=== PATIENT | male | born 1960 | race Caucasian/White ===

== ENCOUNTER → 2017-08-19 07:13 | Outpatient (CLI) | payer MEDICARE, MEDICAID, SELFPAY ==
--- NOTE | 2017-08-19 07:21 | NM_ITS ---
CARDIOLITE SPECT MYOCARDIAL PERFUSION SCAN, REST AND STRESS: EXERCISE STRESS [facility] REVIEW QGS EF AND WALL MOTION EVALUATION: QPS - PERFUSION EVALUATION HISTORY: chest pain DOSE: 9.80 mCi technetium 99m mibi intravenously at rest followed by 31.3 mCi technetium 99m mibi following the intravenous ministration of 0.4 mg of Lexiscan. Resting blood pressure is 143/82. Stress blood pressure 140/82. FINDINGS: Ejection fraction is calculated to be 60%. Stress images reveal decreased activity through the inferior wall with no significant change on rest images. Gated images calculated ejection fraction of 60% with anterior hypokinesis. IMPRESSION: Anterior wall hypokinesis on gated images with poor exercise capacity requiring conversion to Lexiscan. The inferior wall is abnormal with both stress and rest most consistent with diaphragm attenuation. Clinical correlation is advised. This is an abnormal Myoview, at least moderate risk
--- NOTE | 2017-08-19 11:20 | HMH.ITSHM ---
farxiga lisinopril isosorbide amlodipine omeprazole glipizide
--- NOTE | 2017-08-19 11:58 | HMH.ITSHM ---
farxiga lisinopril isosorbide amlodipine omeprazole glipizide tamsulosin carvedilol atorvastatin
== END ==
PROVIDERS: Family Provider Family Medicine; PCP Nurse Practitioner Family; Visit Provider Internal Medicine
DX: I20.8 Other forms of angina pectoris (principal)
CPT/HCPCS: 78452; 93017; 93306; A9502; J2785

== ENCOUNTER → 2017-12-28 07:22 | Outpatient (CLI) | payer MEDICARE, MEDICAID, SELFPAY ==
--- NOTE | 2017-12-28 08:00 | US_ITS ---
US liver HISTORY: ITS.REASON: elevated liver enzymes ORDERING PHYSICIAN: Odin Delatorre MD PATIENT AGE: 57 years COMPARISON: None FINDINGS: PANCREAS:Unremarkable. No obvious mass or abnormal fluid collection. No ductal dilatation LIVER:There is increased echogenicity of the liver with decreased through transmission of sound consistent with fatty liver. There is appropriate direction of blood flow within a nondilated portal vein. No focal liver lesions are demonstrated. Common bile duct is slightly prominent at 7 mm and may be response to the previous cholecystectomy. No intrahepatic ductal dilatation apparent.. RIGHT KIDNEY:Unremarkable. Normal size and echogenicity. No hydronephrosis There is a small right renal cyst at 13 mm. There has been a prior cholecystectomy. IMPRESSION: 1. Prior cholecystectomy with minimal ectasia of the common bile duct. 2. Small right renal cyst. 3. Fatty liver
[2017-12-28 08:14] LABS: Chol/HDL Ratio 5.8 (1-3.5); Cholesterol 197 mg/dL (140-200); HDL Cholesterol 34 mg/dL (27-67); LDL Cholesterol 89 mg/dL (0-130); Triglycerides 368 mg/dL (30-200); VLDL Cholesterol 74 mg/dL (0-40)
== END ==
PROVIDERS: Urology; Family Provider Family Medicine; PCP Nurse Practitioner Family; Visit Provider Internal Medicine
DX: E11.9 Type 2 diabetes mellitus without complications (principal); E78.5 Hyperlipidemia, unspecified; I10 Essential (primary) hypertension; I25.10 Atherosclerotic heart disease of native coronary artery without angina pectoris; R74.8 Abnormal levels of other serum enzymes
CPT/HCPCS: 36415; 76705; 80061

== ENCOUNTER → 2018-07-20 08:29 | Outpatient (CLI) | payer MEDICARE, MEDICAID, SELFPAY ==
[2018-07-20 11:04] LABS: Alanine Aminotransferase 66 U/L (12-78); Alkaline Phosphatase 97 U/L (46-116); Aspartate Amino Transferase 28 U/L (15-37); Bilirubin,Direct 0.2 mg/dL (0.0-0.2); Bilirubin,Indirect 0.6 mg/dL (0.0-0.9); Bilirubin,Total 0.8 mg/dL (0.2-1.0); Chol/HDL Ratio 5.5 (1-3.5); Cholesterol 197 mg/dL (140-200); HDL Cholesterol 36 mg/dL (27-67); LDL Cholesterol 121 mg/dL (0-130); Triglycerides 199 mg/dL (30-200); VLDL Cholesterol 40 mg/dL (0-40)
== END ==
PROVIDERS: Visit Provider Nurse Practitioner Family
DX: I20.8 Other forms of angina pectoris; E78.49 Other hyperlipidemia; I10 Essential (primary) hypertension; M79.89 Other specified soft tissue disorders; R06.09 Other forms of dyspnea
CPT/HCPCS: 36415; 80061; 80076

== ENCOUNTER → 2019-02-02 10:03 | Outpatient (CLI) | payer MEDICARE, SELFPAY ==
--- NOTE | 2019-02-02 10:09 | XR_ITS ---
PROCEDURE: XR KUB CLINICAL INDICATION: KIDNEY STONES Follow-up kidney stones COMPARISON: CT ABDOMEN PELVIS WO CON from 01/22/2019 FINDINGS: There is a right ureteral stent in place. There are multiple right renal calculi in the mid and lower pole of the right kidney. The proximal aspect of the stent overlies the region of the right renal pelvis and the distal aspect overlies the region of the urinary bladder. A 2 mm stone overlies the mid aspect of the left kidney. IMPRESSION: 1. Right ureteral stent in satisfactory position. 2. Bilateral renal calculi much more extensive on the right. Dictated by: Melecio Garcia MD 02/02/2019 15:47 Electronically signed by Melecio Garcia MD in [facility] 02/02/2019 15:47
== END ==
PROVIDERS: PCP Nurse Practitioner Family; Visit Provider Urology
DX: N20.0 Calculus of kidney (principal)
CPT/HCPCS: 74018

== ENCOUNTER → 2019-02-09 10:20 | Outpatient (CLI) | payer MEDICARE, SELFPAY ==
--- NOTE | 2019-02-09 10:26 | XR_ITS ---
PROCEDURE: XR KUB CLINICAL INDICATION: KIDNEY STONE Right kidney stone COMPARISON: CT ABDOMEN PELVIS WO CON from 01/22/2019 XR KUB from 02/02/2019 FINDINGS: A right ureteral stent is in place. There are multiple stones overlying the mid lower pole of the right kidney. No obvious calculi along the course of the ureteral stent. Left nephrolithiasis also noted. Tiny calcific density is present in the left pelvic region and could be related to residual distal ureteral stone. This measures approximately 2 mm. IMPRESSION: No change bilateral nephrolithiasis, right ureteral stent, and possible left distal ureteral calculus Dictated by: Melecio Garcia MD 02/09/2019 15:02 Electronically signed by Melecio Garcia MD in [facility] 02/09/2019 15:02
== END ==
PROVIDERS: PCP Nurse Practitioner Family; Visit Provider Urology
DX: N20.0 Calculus of kidney (principal)
CPT/HCPCS: 74018

== ENCOUNTER 2019-10-25 21:24 | Emergency (ER) | payer MEDICARE, MEDICAID, SELFPAY ==
[2019-10-25 21:26] VITALS: BP 149/88; PULSE 97; RESP 16; TEMP 36.8; O2SAT 98; BMI 32.5
--- NOTE | 2019-10-25 21:36 | ECG_ITS ---
APPROVED REPORT Exam: Resting ECG HR:99 bpm ECG Measurements Heart Rate 99 AXES NH 138 P 53 QRSd 104 QRS 5 QT 344 T 64 QTc 441 <Conclusion> Normal sinus rhythm Incomplete right bundle branch block Nonspecific T wave abnormality Abnormal ECG Electronically signed by : Christopher Escamilla, 10/28/2019 08:30:51
--- NOTE | 2019-10-25 21:41 | XR_ITS ---
PROCEDURE: XR CHEST 2V CLINICAL HISTORY: chest pain COMPARISON: No exams were available for comparison FINDINGS: The cardiomediastinal silhouette and pulmonary vascularity are within normal limits. No lobar consolidation or collapse. There is a faint opacity in the right lower lobe 6 mm nonspecific. The remaining lungs are clear. Coronary artery calcifications are present. No acute bony abnormalities. IMPRESSION: No acute finding. Indeterminate lower lobe nodular opacity Dictated b Melecio Garcia MD 10/26/2019 07:48 Melecio Garcia MD in [facility] 10/26/2019 07:48
[2019-10-25 21:48] LABS: Basophils # 0.1 K/mm3 (0-0.2); Basophils % 0.7 % (0.1-2.0); Eosinophils # 0.3 K/mm3 (0.0-0.4); Eosinophils % 4.2 % (0.1-12.0); Hemoglobin 16.5 g/dL (14.1-18.0); Lymphocytes # 2.5 K/mm3 (0.7-4.5); Lymphocytes % 30.5 % (10-50); Mean Corpuscular HGB Conc 35.2 g/dL (31.8-35.4); Mean Corpuscular Volume 91.1 fl (80-94); Mean Platelet Volume 7.8 fl (7.4-10.4); Monocytes # 0.5 K/mm3 (0.1-1.0); Monocytes % 5.5 % (1.7-9.3); Neutrophils # 4.9 K/mm3 (1.8-7.8); Neutrophils % 59.2 % (37.0-80.0); Platelet Count 237 K/mm3 (142-424); Red Blood Count 5.16 M/mm3 (4.60-6.20); Red Cell Distribution Width 13.1 % (11.5-17.5); White Blood Count 8.3 K/mm3 (4.8-10.8)
--- NOTE | 2019-10-25 21:50 | PC.NURSE ---
lying 148/89 100HR sitting 149/88 108HR standing 126/84 113HR
[2019-10-25 21:52] LABS: POC Glucose,Bedside 358 (70-110)
[2019-10-25 21:52] LABS: Anion Gap 20.1 mEq/L (5-15); Blood Urea Nitrogen 20 mg/dl (9-20); Calcium 9.8 mg/dl (8.4-10.2); Carbon Dioxide 24 mmol/L (22.0-30.0); Chloride 97 mmol/L (98-107); Estimated Glomerular Filt Rate 62 ml/min (>60); GFR (African American) 75 ML/MIN (>60); Glucose 371 mg/dl (74-100); Potassium 4.1 mmoL/L (3.5-5.1); Sodium 137 mmol/L (136-145)
--- NOTE | 2019-10-25 21:52 | CT_ITS ---
PROCEDURE: CT HEAD/BRAIN WO CON CLINICAL INDICATION: syncope Dizziness, syncope COMPARISON: No exams were available for comparison TECHNIQUE: Axial images obtained. All CT scans at the facility use one or more dose reduction, viz: automated exposure control, ma/kV adjustment per patient size (including targeted exams where dose is matched to indication, i.e. head), or iterative reconstruction technique. FINDINGS: No midline shift, mass effect, intracranial hemorrhage, hydrocephalus, or extra-axial fluid collection is evident. The calvarium has an unremarkable appearance. No mastoid effusion. No sinus air-fluid level. IMPRESSION: No acute intracranial finding Dictated b Melecio Garcia MD 10/26/2019 08:07 Melecio Garcia MD in [facility] 10/26/2019 08:07
[2019-10-25 22:06] LABS: Troponin I < 0.01 ng/ml (0.00-0.034)
[2019-10-25 22:21] VITALS: BP 154/87; PULSE 90; RESP 18; O2SAT 95
[2019-10-25 22:30] VITALS: BP 136/91; PULSE 75; RESP 16; O2SAT 95
[2019-10-25 22:47] LABS: Microscopic, Urine URINE MICROSCOPIC (MICROSCOPIC)
[2019-10-25 22:58] LABS: Appearance,Urine CLEAR (Clear); Bilirubin,Urine Negative (Negative); Blood, Urine 2+ (Negative); Color,Urine YELLOW (Yellow); Glucose,Urine (UA) 3+ (Negative); Ketones,Urine Negative (Negative); Leukocyte Esterase,Urine Negative (Negative); Nitrate,Urine Negative (Negative); PH,Urine 5.5 (5.0-8.5); Protein,Urine Negative (Negative); Urobilinogen,Urine 0.2 EU/dl (0.2)
[2019-10-25 23:09] VITALS: BP 112/72; PULSE 76; RESP 16; TEMP 36.8; O2SAT 95
[2019-10-25 23:09] LABS: Bacteria,Urine Trace /lpf; Squamous Epithelial Cell,Urine Occasional #/hpf (0-5); WBC,Urine Occasional #/hpf (0-3)
--- NOTE | 2019-10-25 23:12 | HMH.EDSYNC ---
ED Disposition Clinical Impression: Vasovagal syncope Disposition: Home, Self-Care Condition on Discharge: Good Instructions: DI for Syncope in Adults (Fainting), DI for Syncope in Children (Fainting) Referrals: PCP,No [Primary Care Provider] - - Critical Care Critical Care Time: No Attestation: On 10/25/19, the high probability of a clinically significant, sudden or life threatening deterioration of the following system(s) required my full and direct attention, intervention and personal management. The time I documented below is in addition to time spent performing reported procedures but includes the following listed in this critical care notation. Medical Decision Making - Medical Records Medical records reviewed: Yes: I reviewed the patient's medical records. - Herman Inquiry Pt receiving controlled substance: No Vital Signs: 10/25/19 21:26 10/25/19 22:21 Temperature 98.2 F Temperature Source Oral Pulse Rate [Left Radial] 97 H 90 Respiratory Rate 16 18 Blood Pressure [Right Arm] 149/88 H 154/87 H Blood Pressure Mean [Right Arm] 108 109 Blood Pressure Source [Right Arm] Automatic Cuff Blood Pressure Position [Right Arm] Sitting 02 Sat by Pulse Oximetry 98 95 Oxygen Delivery Method Room Air Room Air - Lab Data Lab results reviewed: Yes: I reviewed the patient's lab results. Lab Results 10/25/19 21:34: POC Glucose 358 H* 10/25/19 21:38: WBC 8.3, RBC 5.16, Hgb 16.5, Hct 47.0, MCV 91.1, MCH 32.0 H, MCHC 35.2, RDW 13.1, Plt Count 237, MPV 7.8, Neut % (Auto) 59.2, Lymph % (Auto) 30.5, [place] % (Auto) 5.5, Eos % (Auto) 4.2, Baso % (Auto) 0.7, Neut # (Auto) 4.9, Lymph # (Auto) 2.5, [place] # (Auto) 0.5, Eos # (Auto) 0.3, Baso # (Auto) 0.1 10/25/19 21:38: Sodium 137, Potassium 4.1, Chloride 97 L, Carbon Dioxide 24, Anion Gap 20.1 H, BUN 20, Creatinine 1.20, Estimated GFR 62, Est GFR ( Amer) 75, Glucose 371 H, Calcium 9.8, Troponin I < 0.01 10/25/19 21:45: Urine Color Yellow, Urine Appearance Clear, Urine pH 5.5, Ur Specific [place] 1.020, Urine Protein Negative, Urine Glucose (UA) 3+, Urine Ketones Negative, Urine Blood 2+, Urine Nitrate Negative, Urine Bilirubin Negative, Urine Urobilinogen 0.2, Ur Leukocyte Esterase Negative, Urine RBC 10-20, Urine WBC Occasional, Ur Squamous Epith Cells Occasional, Urine Bacteria Trace Result diagrams: 10/25/19 21:38 10/25/19 21:38 Orders (Tests/Meds): ORDERS Category Date Time Status CT head/brain wo con Stat Cat Scan 10/25/19 21:52 Taken Chest XR 2 view (NOT portable) [XR chest 2V] Stat Exams 10/25/19 21:41 Taken Troponin I Q3H Lab 10/26/19 00:45 Ordered Troponin I Q3H Lab 10/26/19 03:45 Ordered - CT Data CT Scan: Head Time Received: 22:00 Preliminary Findings: Normal/NAD - ECG Data Tracing #1 I reviewed this ECG and interpreted as documented below: Normal Sinus Rhythm: Yes Syncope HPI - General Chief Complaint: Syncope Stated Complaint: High sugar, blood pressure ws 209/109 this AM Time Seen by Provider: 10/25/19 22:00 Mode of Arrival: Ambulatory Limitations: No Limitations Description of Symptoms (Recalled from ER Triage Doc. by RN): pt complains of syncopal episdoes starting yesterday. pt stated when he was laying down and would go to get up he would get light headed and his eyes would black out . pt also complains of chest pain during these episodes he stated he feels like a sharp pain that radiated up his neck. pt denies any pain or dizziness at this time and stated it only happens when i stand up - History of Present Illness HPI narrative: A 59-year-old male comes in with a syncopal episode at home. He also states that his blood sugar had been high 450 at home as well. Patient is an uncontrolled diabetic but does not comply with current treatment regime. Patient denies really any other symptoms denies any acute trauma he states he has had syncopal episodes in the past.Patient denies any recent cough or shortness of
== END 2019-10-25 23:11 | disposition home or self-care (01) ==
PROVIDERS: Emergency Provider Family Medicine
DX: R55 Syncope and collapse (principal); R07.9 Chest pain, unspecified; E11.9 Type 2 diabetes mellitus without complications; K21.9 Gastro-esophageal reflux disease without esophagitis; E78.5 Hyperlipidemia, unspecified; I10 Essential (primary) hypertension; Z79.84 Long term (current) use of oral hypoglycemic drugs; F17.210 Nicotine dependence, cigarettes, uncomplicated; Z88.0 Allergy status to penicillin; Z79.899 Other long term (current) drug therapy
CPT/HCPCS: 70450; 71046; 80048; 81001; 82962; 84484; 85025; 93005; 96365; 99284

== ENCOUNTER → 2019-11-10 11:24 | Outpatient (CLI) | payer MEDICARE, MEDICAID, SELFPAY ==
--- NOTE | 2019-11-10 | CA_ITS ---
APPROVED REPORT Exam: Pharmacologic Technologist: Barbara Dai, Ht: 5 ft 9 in Wt: 219 lbs BSA: 2.15 m2 HR: 74 bpm BP: 115/67 mmHg Rhythm: SINUS RHYTHM Medical History Medical History: HTN, Hyperlipidemia, Diabetic ??? Noninsulin Medications: Amlodipine,,,,, Lisinopril,,,,, Omeprazole,,,,, Isosorbide,,,,, Asa,,,,, Metformin,,,,, Hydrocodone,,,,, Atorvastatin,,,,, HCTZ,, ,,, Carvedilol,,,,, Glipizide,,, ,, MoTRIN,,,,, Allergies: PCN Cardiac Risk Factors: HTN, Hyperlipidemia, Diabetes (non-insulin), FHX of CAD Stress Test Details Test: LEXISCAN HR Resting HR: 69 bpm Max Heart Rate (APMHR): 161 bpm Max HR Achieved: 104 bpm Target HR (85% APMHR): 136 bpm % of APMHR: 64 Recovery HR: 74 bpm BP Resting BP: 115.0/67.0 mmHg Max BP: 132.0/66.0 mmHg Recovery BP: 106.0/69.0 mmHg ECG Resting ECG: SINUS RHYTHM Clinical Exercise duration: 04:08 min Highest Stage Achieved: Exercise capacity: 1.0 METs Stress ECG Conclusion LEXISCAN PORTION COMPLETED. PATIENT C/O SOA DURING PEAK INFUSION. NO CHEST PAIN. SOA AND DIZZY RESOLVED IN RECOVERY. NO ECTOPY NOTED. LESS THAN 1.[address] DEPRESSION. IMAGES TO FOLLOW Electronically signed by : Gallito Kincaid, 11/10/2019 13:47:09
--- NOTE | 2019-11-10 11:24 | NM_ITS ---
APPROVED REPORT Exam: Nuclear Stress Test Indication: CAD, HX SC, OBESITY, HTN, DM,HYPERLIPIDEMIA,FM HX, SOB, PALPITATIONS, SYNCOPE, FATIGUE Patient Location: Outpatient Stress Tech: Oralia Almaraznkson [place] Tech:Merry Rodriguez, ARRT RT(R)(N) Ht: 5 ft 9 in Wt: 219 lbs HR: 74 bpm BP: 115/67 mmHg BSA: 2.15 m2 BMI: 32.3 History: CAD, HX SC, OBESITY, HTN, DM,HYPERLIPIDEMIA,FM HX, SOB, PALPITATIONS, SYNCOPE, FATIGUE Procedure: Patient received a 0.4 mg of intravenous Lexiscan, resting heart rate 74 bpm, resting blood pressure 115/67 mmHg, with Lexiscan maximum heart rate achived was 104 bpm which is Less than 85 % of the maximum predicted heart rate and blood pressure was 105/61 mmHg. Electrocardiogram Resting electrocardiogram showed sinus rhythm, with Lexiscan there is less than 1.[address] segment depression noted from the baseline EKG. The EKG portion of the Lexiscan Myoview is nondiagnostic. Cardiac Stress and Resting SPECT Images: Cardiac Stress and Resting SPECT images were obtained using technetium 99m Myoview 31.0 mCi stress and 11.12 mCi at rest. Gated SPECT for analysis of segmental wall motion and calculation of the ejection fraction also done. Cardiac stress and resting SPECT images show uniform myocardial activity without segmental perfusion abnormality, computer derived ejection fraction is 52% with no regional wall motion abnormality, right ventricle is normal size and contractility. Conclusion: 1. The EKG portion of the Lexiscan Myoview is nondiagnostic. 2. No scintigraphic evidence of reversible ischemia seen, computer derived ejection fraction is 52% with no regional wall motion abnormality, right ventricle is normal size and contractility. 3. Normal Lexiscan Myoview study. Electronically signed by : Gallito Kincaid, 11/12/2019 17:27:13
--- NOTE | 2019-11-10 12:37 | CA_ITS ---
APPROVED REPORT EXAM: Comprehensive 2D, Doppler, and color-flow Echocardiogram Screening Technician: Mandi Restrepo RT(R) Ht: 5 ft 9 in Wt: 219lbs BSA: 2.15 BP: 135/87 mmHg Indications: CP, CAD, GERD, SOB, DM, HTN, hyperlipidemia, smoker 2D Dimensions LVOT 2.07 cm (M/F) 1.5-2.5 M-Mode Dimensions RVDd 3.61 cm (0.9-2.6) LVDd 4.71 cm (3.5-5.7) LVDs 3.36 cm (3.5-5.7) IVSd 1.19 cm (0.6-1.1) PWd 0.76 cm (0.6-1.1) EF (Teich) 55.20% FS 28.70% EDV (Teich) 102.90 mL ESV (Teich) 46.10 mL LV Diastology E/A Ratio 0.82 Mitral Valve MV A Velocity 66.00 (40-130 cm/s) Left Ventricle Left atrium is mildly enlarged, left ventricle is normal size, mild concentric left ventricular hypertrophy, visually estimated ejection fraction 55% with no regional wall motion abnormality, grade 1 diastolic dysfunction seen without tissue Doppler evidence of raise left atrial pressure. Right Ventricle Right atrium and right ventricle is normal size and contractility. Aortic Valve Aortic valve is minimally thickened and fibrosed, there is no aortic stenosis or aortic insufficiency. Mitral Valve Mitral valve grossly normal, there is trace mitral regurgitation. Tricuspid Valve Tricuspid valve grossly normal, there is trace tricuspid regurgitation. Pulmonic Valve Pulmonic valve is poorly visualized. Great Vessels Aortic root is normal size. Pericardium No significant pericardial effusion noted. Conclusion 1. Mildly enlarged left atrium, normal left ventricular size, mild concentric left ventricular hypertrophy, visually estimated ejection fraction 55% with no regional wall motion abnormality, grade 1 diastolic dysfunction seen without tissue Doppler evidence of raise left atrial pressure. 2. Mild mitral and tricuspid regurgitation. 3. No significant pericardial effusion noted. Electronically signed by : Gallito Kincaid, 11/10/2019 14:17:28
== END ==
PROVIDERS: PCP Nurse Practitioner Family; Visit Provider Nurse Practitioner Family
DX: I10 Essential (primary) hypertension; I25.118 Atherosclerotic heart disease of native coronary artery with other forms of angina pectoris; E78.49 Other hyperlipidemia; R06.09 Other forms of dyspnea; R42 Dizziness and giddiness
CPT/HCPCS: 78452; 93017; 93306; A9502; J2785

== ENCOUNTER → 2020-07-20 15:42 | Outpatient (CLI) | payer MEDICARE, MEDICAID, SELFPAY ==
[2020-07-20 16:44] LABS: Basophils % 0.7 % (0.1-2.0); Eosinophils # 0.4 K/mm3 (0.0-0.4); Eosinophils % 5.3 % (0.1-12.0); Hemoglobin 15.6 g/dL (14.1-18.0); Lymphocytes # 1.9 K/mm3 (0.7-4.5); Lymphocytes % 28.9 % (10-50); Mean Corpuscular HGB Conc 33.3 g/dL (31.8-35.4); Mean Corpuscular Hemoglobin 29.9 pg (27.0-31.2); Mean Platelet Volume 7.9 fl (7.4-10.4); Monocytes # 0.3 K/mm3 (0.1-1.0); Monocytes % 5.1 % (1.7-9.3); Platelet Count 205 K/mm3 (142-424); Red Blood Count 5.22 M/mm3 (4.60-6.20); Red Cell Distribution Width 13.1 % (11.5-17.5); White Blood Count 6.6 K/mm3 (4.8-10.8)
[2020-07-20 16:51] LABS: Chloride 101 mmol/L (98-107); Potassium 4.2 mmoL/L (3.5-5.1); Sodium 135 mmol/L (136-145)
[2020-07-20 16:53] LABS: Alanine Aminotransferase 63 U/L (12-78); Aspartate Amino Transferase 54 U/L (17-59); Blood Urea Nitrogen 17 mg/dl (9-20); Estimated Glomerular Filt Rate 69 ml/min (>60); GFR (African American) 83 ML/MIN (>60)
[2020-07-20 16:54] LABS: Albumin Level 4.6 g/dl (3.5-5.0); Albumin/Globulin Ratio 1.4 (1.1-1.8); Alkaline Phosphatase 110 U/L (38-126); Anion Gap 16.2 mEq/L (5-15); Bilirubin,Total 1.3 mg/dl (0.2-1.3); Calcium 9.2 mg/dl (8.4-10.2); Carbon Dioxide 22 mmol/L (22.0-30.0); Globulin 3.2 g/dL (1.3-3.2); Total Protein,Serum 7.8 g/dl (6.3-8.2)
[2020-07-20 17:03] LABS: Glucose 437 mg/dl (74-100)
[2020-07-20 17:14] LABS: Coronavirus 19 IgG Antibody Negative (Negative); Coronavirus 19 IgM Antibody Negative (Negative)
== END ==
PROVIDERS: PCP Nurse Practitioner Family; Visit Provider Internal Medicine
DX: Z01.818 Encounter for other preprocedural examination (principal); Z11.52 Encounter for screening for COVID-19
CPT/HCPCS: 36415; 80053; 85025; 86328

== ENCOUNTER 2020-07-22 08:46 | Day surgery (SDC) | payer MEDICARE, MEDICAID, SELFPAY ==
[2020-07-22] VITALS (12 sets, daily range): BP systolic 136–169; BP diastolic 81–99; PULSE 61–90; RESP 13–18; TEMP 36.9; O2SAT 90–99; BMI 32.1
--- NOTE | 2020-07-22 07:10 | IR_ITS ---
APPROVED REPORT Patient Location: Outpatient [facility] Consultant: PARISH Chahal RT (R) PROCEDURES Left heart catheterization Left ventriculogram Selective coronary angiogram INDICATION Accelerated angina pectoris, Known coronary artery disease Informed consent was obtained prior to the procedure. COMPLICATIONS NONE Estimated Blood Loss: LESS THAN 10 ML TECHNIQUE One percent lidocaine used to anesthetize the right anterior aspect of the wrist. The right radial artery was accessed via the Seldinger technique. A 6 Yemeni sheath was placed in the right radial artery. 2.5 mg of verapamil, 800 mcg of nitroglycerin, 1mg Lidocaine and 5000 U Heparin were given through the arterial sheath. The Poppa catheter was also used to perform left heart catheterization, left ventriculogram and selective coronary angiogram. At the end of the procedure the sheath was removed good hemostasis was achieved using Traclet band, patient was transferred to the postop holding area in stable condition. ANGIOGRAPHIC RESULTS The left main artery Is a smooth ostial 10 to 20% stenosis The left anterior descending artery Has a smooth 20 to 30% proximal stenosis followed by mid vessel 10% luminal irregularities The circumflex artery Gives rise to a moderate to large ramus intermedius which has a stent in the ostial proximal segment which is widely patent with mild 20% concentric in-stent restenosis. The ramus has RENE-3 flow. The circumflex itself is widely patent with mild 10 to 20% luminal irregularities in the first and second obtuse marginal artery The right coronary artery Is a dominant vessel with mild 10 to 20% diffuse luminal irregularities. RENE II flow was present down the vessel The CORDERO ventriculogram reveals Normal 65% The left ventricular end-diastolic pressure 10 mmHg IMPRESSION Coronary artery disease as described above with widely patent stent in a large ramus intermedius Slow flow down the dominant right coronary artery consistent with endothelial dysfunction which is the likely etiology for patient's angina Normal ejection fraction Normal left ventricular end-diastolic pressure PLAN 1. Medical management with specific attention being paid to the treatment of endothelial dysfunction 2. It may be also reasonable to evaluate for other noncardiac etiologies for chest pain 3. Continue risk factor modification Electronically signed by : Odin Delatorre, 07/22/2020 10:58:47
== END 2020-07-22 13:50 | disposition home or self-care (01) ==
LOC: CATHLAB 08:48
PROVIDERS: PCP Nurse Practitioner Family; Visit Provider Internal Medicine
DX: I25.118 Atherosclerotic heart disease of native coronary artery with other forms of angina pectoris (principal); E78.2 Mixed hyperlipidemia; I10 Essential (primary) hypertension; R06.00 Dyspnea, unspecified; R42 Dizziness and giddiness; T82.855A Stenosis of coronary artery stent, initial encounter; Y83.1 Surgical operation with implant of artificial internal device as the cause of abnormal reaction of the patient, or of later complication, without mention of misadventure at the time of the procedure; Z88.0 Allergy status to penicillin
CPT/HCPCS: 93458; 99152; C1725; C1769; J1644; Q9967

== ENCOUNTER 2020-11-17 11:25 | Observation (INO) | payer MEDICARE, MEDICAID, SELFPAY ==
[2020-11-17 11:25] VITALS: BP 168/102; PULSE 83; RESP 12; TEMP 36.4; O2SAT 97; BMI 31.3
--- NOTE | 2020-11-17 11:25 | ECG_ITS ---
APPROVED REPORT Exam: Resting ECG HR:77 bpm ECG Measurements Heart Rate 77 AXES UT 142 P 37 QRSd 104 QRS -8 QT 382 T 34 QTc 432 Conclusion Normal sinus rhythm Incomplete right bundle branch block ST & T wave abnormality, consider anterior ischemia Abnormal ECG Electronically signed by : Christopher Escamilla MD 11/17/2020 17:05:28
--- NOTE | 2020-11-17 11:32 | HMH.EDGENADL ---
ED Disposition Clinical Impression: Angina pectoris Disposition: Admitted as Observation Condition on Discharge: Fair - Critical Care Critical Care Time: No Attestation: On , the high probability of a clinically significant, sudden or life threatening deterioration of the following system(s) required my full and direct attention, intervention and personal management. The time I documented below is in addition to time spent performing reported procedures but includes the following listed in this critical care notation. Medical Decision Making - Herman Inquiry Pt receiving controlled substance: No Vital Signs: 11/17/20 11:25 11/17/20 12:00 Temperature 97.5 F L Temperature Source Oral Pulse Rate 68 Pulse Rate [Right Radial] 83 Respiratory Rate 12 18 Blood Pressure 152/91 H Blood Pressure [Right Arm] 168/102 H Blood Pressure Mean 105 Blood Pressure Mean [Right Arm] 124 Blood Pressure Source [Right Arm] Automatic Cuff Blood Pressure Position [Right Arm] Sitting 02 Sat by Pulse Oximetry 97 93 L Oxygen Delivery Method Room Air - Lab Data Lab Results 11/17/20 11:25: WBC 6.9, RBC 5.36, Hgb 16.5, Hct 49.2, MCV 91.8, MCH 30.7, MCHC 33.4, RDW 12.9, Plt Count 239, MPV 8.1, Neut % (Auto) 64.5, Lymph % (Auto) 25.1, [place] % (Auto) 6.5, Eos % (Auto) 3.3, Baso % (Auto) 0.7, Neut # (Auto) 4.4, Lymph # (Auto) 1.7, [place] # (Auto) 0.4, Eos # (Auto) 0.2, Baso # (Auto) 0.0 11/17/20 11:25: Sodium 135 L, Potassium 4.3, Chloride 101, Carbon Dioxide 22, Anion Gap 16.3 H, BUN 16, Creatinine 0.80, Estimated Creat Clear 134, Estimated GFR 99, Est GFR ( Amer) 119, Glucose 383 H, Calcium 9.1, Troponin I < 0.01 11/17/20 14:30: Troponin I < 0.01 Result diagrams: 11/17/20 11:25 11/17/20 11:25 Orders (Tests/Meds): ED MEDICATIONS Generic Name Dose Route Start Last Admin Trade Name Freq PRN Reason Stop Dose Admin Nitroglycerin 1 gm 11/17/20 14:45 11/17/20 14:42 Nitroglycerin 1 Gm Ointment TD 12/17/20 14:44 1 gm Q6H HEATHER Administration Nitroglycerin 0.4 mg 11/17/20 14:33 11/17/20 14:36 Nitroglycerin 0.4mg Sl Tablet SL 12/17/20 14:32 0.4 mg Q5MINP PRN Administration Chest Pain Discontinued Medications Generic Name Dose Route Start Last Admin Trade Name Tomasq PRN Reason Stop Dose Admin Aspirin 243 mg 11/17/20 11:33 11/17/20 11:39 Aspirin 81mg Chewable Tablet PO 11/17/20 11:34 243 mg ONCE ONE Administration ORDERS Category Date Time Status Troponin I Q3H Lab 11/17/20 17:45 Ordered - Radiology Data #1 Image(s): Chest Image Reviewed: Yes I reviewed the patient's radiology image, Yes I have reviewed radiologist's interpretation PROCEDURE INFORMATION: Exam: XR Chest Exam date and time: 11/17/2020 11:33 AM Age: 60 years old Clinical indication: Sternal or substernal pain; Prior surgery; Surgery type: Heart stents; Patient HX: Mid chest pain TECHNIQUE: Imaging protocol: XR of the chest. Views: 1 view. COMPARISON: CR XR CHEST 2V 10/25/2019 9:44 PM FINDINGS: Lungs: Unremarkable. No consolidation. Pleural spaces: Unremarkable. No pleural effusion. No pneumothorax. Heart/Mediastinum: Unremarkable. No cardiomegaly. Bones/joints: Unremarkable. IMPRESSION: No acute findings. - ECG Data Tracing #1 EKG interpreted by Nik Blank MD: Rhythm: sinus Rate: 77 [place]: normal Ectopy: none Conduction: Incomplete right bundle branch block ST Segment Changes: none T Wave Changes: none Q Waves: none No evidence of acute ischemia or injury Baseline artifact present Tracing #2 EKG interpreted by Nik Blank MD: Rhythm: sinus Rate: 76 [place]: normal Ectopy: none Conduction: Incomplete right bundle branch block ST Segment Changes: none T Wave Changes: none Q Waves: none No evidence of acute ischemia or injury No change from prior - Physician C
[2020-11-17 11:33] VITALS: BMI 31.3
[2020-11-17 11:41] LABS: Basophils % 0.7 % (0.1-2.0); Eosinophils # 0.2 K/mm3 (0.0-0.4); Eosinophils % 3.3 % (0.1-12.0); Hematocrit 49.2 % (42.0-52.0); Hemoglobin 16.5 g/dL (14.1-18.0); Lymphocytes # 1.7 K/mm3 (0.7-4.5); Lymphocytes % 25.1 % (10-50); Mean Corpuscular HGB Conc 33.4 g/dL (31.8-35.4); Mean Corpuscular Hemoglobin 30.7 pg (27.0-31.2); Mean Corpuscular Volume 91.8 fl (80-94); Mean Platelet Volume 8.1 fl (7.4-10.4); Monocytes # 0.4 K/mm3 (0.1-1.0); Monocytes % 6.5 % (1.7-9.3); Neutrophils # 4.4 K/mm3 (1.8-7.8); Neutrophils % 64.5 % (37.0-80.0); Platelet Count 239 K/mm3 (142-424); Red Blood Count 5.36 M/mm3 (4.60-6.20); Red Cell Distribution Width 12.9 % (11.5-17.5); White Blood Count 6.9 K/mm3 (4.8-10.8)
[2020-11-17 11:49] LABS: Anion Gap 16.3 mEq/L (5-15); Blood Urea Nitrogen 16 mg/dl (9-20); Calcium 9.1 mg/dl (8.4-10.2); Carbon Dioxide 22 mmol/L (22.0-30.0); Chloride 101 mmol/L (98-107); Creatinine Clearance Estimated 134 mL/min (50-200); Estimated Glomerular Filt Rate 99 ml/min (>60); GFR (African American) 119 ML/MIN (>60); Glucose 383 mg/dl (74-100); Potassium 4.3 mmoL/L (3.5-5.1); Sodium 135 mmol/L (136-145)
[2020-11-17 12:00] VITALS: BP 152/91; PULSE 68; RESP 18; O2SAT 93
[2020-11-17 12:03] LABS: Troponin I < 0.01 ng/ml (0.00-0.034)
--- NOTE | 2020-11-17 13:13 | PC.NURSE ---
dr lujan paged
--- NOTE | 2020-11-17 13:17 | PC.NURSE ---
dr montes de oca speaking with dr lujan
--- NOTE | 2020-11-17 14:34 | PC.NURSE ---
Dr Blank spoke with Dr Delatorre
--- NOTE | 2020-11-17 14:35 | PC.NURSE ---
went in to draw pt's repeat trop , he is c/o chest pain 4/10 ntg sl given repeat ekg done
--- NOTE | 2020-11-17 14:38 | ECG_ITS ---
APPROVED REPORT Exam: Resting ECG HR:76 bpm ECG Measurements Heart Rate 76 AXES [place] 146 P 32 QRSd 112 QRS -9 QT 398 T 1 QTc 447 Conclusion Normal sinus rhythm Incomplete right bundle branch block T wave abnormality, consider anterior ischemia Abnormal ECG Electronically signed by : Christopher Escamilla MD 11/17/2020 17:03:05
[2020-11-17 16:10] LABS: Troponin I < 0.01 ng/ml (0.00-0.034)
[2020-11-17 18:15] VITALS: BP 151/85; PULSE 75; RESP 20; TEMP 36.7; O2SAT 96
[2020-11-17 18:25] VITALS: BP 144/88; PULSE 73; RESP 22; TEMP 36.7; O2SAT 96; BMI 31.7
[2020-11-17 18:37] LABS: Troponin I < 0.01 ng/ml (0.00-0.034)
[2020-11-17 20:00] VITALS: BP 159/88; PULSE 70; PULSE 76; RESP 18; TEMP 36.7; O2SAT 97
[2020-11-18] VITALS: BP 146/78; PULSE 70; PULSE 74; RESP 18; TEMP 36.6; O2SAT 96
[2020-11-18 04:00] VITALS: BP 124/75; PULSE 70; PULSE 75; RESP 17; TEMP 36.7; O2SAT 97
--- NOTE | 2020-11-18 06:55 | PC.NURSE ---
A&OX4. TOLERATING RA WELL. NO C/O THUS FAR. RESTING WELL. VSS WILL CONTINUE TO MONITOR.
[2020-11-18 07:46] VITALS: BP 137/83; PULSE 74; RESP 18; TEMP 36.6; O2SAT 97
[2020-11-18 08:00] VITALS: PULSE 70
--- NOTE | 2020-11-18 08:49 | HMH.HP ---
*Admission Date: 11/17/20 <Anni Baldwin 11/18/20 09:02> *Chief complaint: Chest pain <Anni Baldwin 11/18/20 09:02> *History of present illness: Mr. Jacobs is a 60-year-old male With a history of hypertension, GERD,Type 2 diabetes mellitus, And heart disease With previous stent placements Who presented to the emergency room after experiencing left anterior chest discomfort for a couple of hours. He states he was just sitting in a chair when the chest pain initiated. This was associated with some shortness of breath and nausea. He did not vomit. He did not feel any palpitations or have radiation. He was somewhat dizzy. Due to his previous heart issues his insisted that he come to the emergency room for evaluation. In the emergency room he was placed on nitroglycerin paste and given an aspirin. Chest pain was resolved but then returned and thus he was admitted. Chest x-ray showed no acute findings. At this time patient appears comfortable. Denies shortness of breath. He still has some left anterior chest discomfort which he describes as a pressure-like sensation. <DennyAnni 11/18/20 09:02> [facility] History Medical History: Reports:: Congestive Heart Failure, Coronary Artery Disease, Diabetes Mellitus Type 2, Gastroesophageal Reflux Disease(GERD), Hyperlipidemia, Hypertension, Kidney Stones, Myocardial Infarction Denies:: Cancer, Internal Pacemaker, MRSA, Seizures <DennyAnni 11/18/20 09:02> *Have you ever received a pneumonia vaccine?: No <Anni Baldwin 11/18/20 09:02> *Have you received a flu vaccine this season?: No <Anni Baldwin 11/18/20 09:02> Other Medical History: Reports: Arthritis, Other (gout,) <Anni Baldwin 11/18/20 09:02> Other Surgeries: Yes: Angiogram (08/27/17 2 stents), Cardiac Catheterization, Cholecystectomy, Colonoscopy, Coronary Stent, Hernia Repair, Other. No: Pacemaker <Anni Baldwin 11/18/20 09:02> Amputation: No <Anni Baldwin 11/18/20 09:02> Fractures: No <Anni Baldwin 11/18/20 09:02> - *Social History Last grade of school completed: 7th or 8th <Anni Baldwin 11/18/20 09:02> Smoking Status: Never smoker <Anni Baldwin 11/18/20 09:02> # Packs/Day (cigarettes): 1 <Anni Baldwin 11/18/20 09:02> Alcohol Intake: never <Anni Baldwin 11/18/20 09:02> Substance Use Type: denies use <Anni Baldwin 11/18/20 09:02> *Occupational Status:: disabled <DennyAnni 11/18/20 09:02> Housing: other <DennyAnni 11/18/20 09:02> Household Members: spouse <DennyAnni 11/18/20 09:02> *Travel in the last 8 weeks: Inside the [place] <DennyAnni 11/18/20 09:02> Family Hx:: Diabetes, Hypertension <DennyAnni 11/18/20 09:02> Review of Systems - Constitutional Denies fever(s) <BaldwinAnni 11/18/20 10:18> - Eyes Reports blurry vision (due to eye gtts), Reports irritation <BaldwinAnni 11/18/20 10:18> - ENT Denies ear pain, Denies headache(s), Denies sore throat <BaldwinAnni 11/18/20 10:18> - *Cardiovascular Reports chest pain, Reports chest pain at rest, Reports shortness of breath, Denies leg swelling, Denies rapid, pounding, or irregular heartbeat <BaldwinAnni 11/18/20 10:18> - *Respiratory Reports shortness of breath, Denies chest congestion, Denies cough <BaldwinAnni 11/18/20 10:18> - *Gastrointestinal Reports nausea, Denies abdominal pain, Denies loose stools, Denies vomiting blood, Denies vomiting <BladwinAnni 11/18/20 10:18> - *Genitourinary Denies difficulty urinating <BaldwinAnni 11/18/20 10:18> - *Musculoskeletal Denies abnormal walking, Denies body aches <BaldwinAnni 11/18/20 10:18> - *Neurologic Reports dizziness, Denies abnormal walking, Denies abnormal speech, Denies headache(s), Denies lack of coordination <Anni Baldwin - 11/18/20 10:18> Meds Home Medications Medication Instructions Recorded Confirmed Type aspirin 81 mg tablet,delayed 81 mg PO DAILY tab 08/02
--- NOTE | 2020-11-18 10:35 | HMH.PHAVTE ---
[facility] Pharmacy VTE Monitoring - Patient Demographics Admission date: 11/17/20 Report Date: 11/18/20 Time: 10:35 Allergies/Adverse Reactions: Patient Allergies Penicillins Allergy (Verified 10/14/20 09:08) Unknown allergy reaction Height: 1.75 m Weight: 97.607 kg Patient Problems: Current Active Problems Chest pain (Acute) DM (diabetes mellitus) (Chronic) HLD (hyperlipidemia) (Chronic) HTN (hypertension) (Chronic) CAD (coronary artery disease) (Chronic) Angina pectoris (Acute) - VTE Risk Labs: VTE Related Lab Results Hgb 16.5 g/dL (14.1-18.0) 11/17/20 11:25 Hct 49.2 % (42.0-52.0) 11/17/20 11:25 Plt Count 239 K/mm3 (142-424) 11/17/20 11:25 BUN 16 mg/dl (9-20) 11/17/20 11:25 Creatinine 0.80 mg/dl (0.66-1.25) 11/17/20 11:25 Estimated Creat Clear 134 mL/min (50-200) 11/17/20 11:25 VTE Score: 7 VTE Risk Level: Moderate Risk - Prophylaxis VTE Prophylaxis Ordered?: Yes Types of VTE Prophylaxis: TEDS Knee High Location of Applied Device: Bilateral Lower Extremeties
[2020-11-18 11:13] VITALS: BMI 32.0
--- NOTE | 2020-11-18 11:22 | HMH.CNCARD ---
History of Present Illness Consult date: 11/18/20 Requesting physician: Tarun Shukla Consult reason: chest pain Chief complaint: chest pain History of present illness: This is a 60-year-old white gentleman who presented to the emergency department with complaints of chest pain. The patient has a history of coronary artery disease with stents placed who was just cathed in July of this year. His cath showed patent stents with mild nonocclusive coronary artery disease and slow flow down his right coronary artery consistent with endothelial dysfunction. 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 He states that he had gotten ready and then sat down in the chair and that is when the chest pain occurred. He states that this was a left-sided pushing sensation in the left side of his chest. He states that it lasted for couple of hours. It was associated with shortness of breath, nausea and diaphoresis. The patient states that he felt somewhat dizzy just prior to the chest pain starting. The pain did not radiate. He states nothing made it worse or better until he came to the emergency department. Once he was in the emergency department he was given Nitropaste and aspirin. His chest pain resolved and then after a few hours the chest pain recurred and that is when he was admitted to the hospital. The patient has ruled out for an NC. He denies any chest pain or pressure this morning. He denies any shortness of breath this morning. He denies any fever, chills, nausea, vomiting, diarrhea, PND or orthopnea. [facility] History I have reviewed the patient's past medical history: Yes Medical History: Reports:: Congestive Heart Failure, Coronary Artery Disease, Diabetes Mellitus Type 2, Gastroesophageal Reflux Disease(GERD), Hyperlipidemia, Hypertension, Kidney Stones, Myocardial Infarction Denies:: Cancer, Internal Pacemaker, MRSA, Seizures *Have you ever received a pneumonia vaccine?: No *Have you received a flu vaccine this season?: No Other Medical History: Reports: Arthritis, Other (gout,) Other Surgeries: Yes: Angiogram (08/27/17 2 stents), Cardiac Catheterization, Cholecystectomy, Colonoscopy, Coronary Stent, Hernia Repair, Other. No: Pacemaker Amputation: No Fractures: No - *Social History Last grade of school completed: 7th or 8th Smoking Status: Never smoker # Packs/Day (cigarettes): 1 Alcohol Intake: never Substance Use Type: denies use *Occupational Status:: disabled Housing: other Household Members: spouse *Travel in the last 8 weeks: Inside the [place] Family Hx:: Diabetes, Hypertension Meds Home Medications Medication Instructions Recorded Confirmed Type aspirin 81 mg tablet,delayed 81 mg PO DAILY tab 08/02/17 11/17/20 History release dapagliflozin 10 mg tablet 10 mg PO QAM 08/02/17 11/17/20 History febuxostat 80 mg tablet 80 mg PO DAILY tab 08/02/17 11/17/20 History hydrocodone 7.5 mg-acetaminophen 1 tab PO TID PRN tab 08/02/17 11/17/20 History 325 mg tablet ibuprofen 800 mg tablet 800 mg PO TID PRN 08/02/17 11/17/20 History lisinopril 40 mg tablet 40 mg PO DAILY tab 08/02/17 11/17/20 History omeprazole 40 mg capsule,delayed 40 mg PO DAILY cap 08/02/17 11/17/20 History release empagliflozin 10 mg-linagliptin 5 1 tab PO DAILY 12/20/17 11/17/20 History mg tablet hydroCHLOROthiazide [HCTZ 25mg 25 mg PO DAILY 10/25/19 11/17/20 History tab] glipizide 10 mg tablet 10 mg PO DAILY tab 11/06/19 11/17/20 History sitagliptin 100 mg tablet 100 mg PO DAILY tab 11/06/19 11/17/20 History ticagrelor 90 mg tablet 90 mg PO BID #180 tab 11/13/19 11/17/20 Rx Atorvastatin Calcium [Lipitor 40mg 40 mg PO DAILY 07/22/20 11/17/20 History Tab] Isosorbide Mononitrate [Isosorbide 120 mg PO DAILY 07/22/20 11/17/20 History Mononitrate ER] carvedilol 25 mg tablet 25 mg PO BID #60 tab 08/29/20 11/17/20 Rx metformin 500 mg tablet,extended 1,000 mg PO BI
--- NOTE | 2020-11-18 11:33 | HMH.PHAINT ---
MEDICATION RECONCILIATION COMPLETED USING PHARMACY MED LIST AND PATIENT INTERVIEW.
[2020-11-18 11:49] VITALS: BP 130/80; PULSE 73; RESP 17; TEMP 37.1; O2SAT 93
[2020-11-18 12:12] VITALS: PULSE 80
--- NOTE | 2020-11-18 15:11 | HMH.PHAINT ---
MEDICATION DISCHARGE COUNSELING COMPLETE. PATIENT HAD NO QUESTIONS HE WAS RECEIVING A DOSE INCREASE OF A PREVIOUS MEDICATION.
--- NOTE | 2020-11-21 16:49 | HMH.DCSUM ---
General - General Admission date:: 11/17/20 <Tarun Shukla - 12/15/20 23:02> 11/17/20 <DennyRadhaAnni - 11/21/20 17:16> Discharge date: 11/18/20 <Baldwin,Anni - 11/21/20 17:16> HPI HPI: Mr. Jacobs is a 60-year-old male With a history of hypertension, GERD,Type 2 diabetes mellitus, and heart disease with previous stent placements who presented to the emergency room after experiencing left anterior chest discomfort for a couple of hours. He stated he was just sitting in a chair when the chest pain initiated. This was associated with some shortness of breath and nausea. He did not vomit. He did not feel any palpitations or have radiation. He was somewhat dizzy. Due to his previous heart issues his insisted that he come to the emergency room for evaluation. In the emergency room nitroglycerin paste ewas placed and he was given aspirin. Chest pain was resolved but then returned and thus he was admitted. Chest x-ray showed no acute findings. With evauation after admission patient appeared comfortable. He denied shortness of breath. He still had some left anterior chest discomfort which he described as a pressure-like sensation. <Anni Baldwin - 11/21/20 17:16> Hospital Course Hospital Course: Patient was seen by cardiology who noted that he had had a heart cath in July 2020 showing patent stents with mild nonocclusive coronary artery disease and slow flow down his right coronary artery consistent with endothelial dysfunction. Patient was felt to be having chest pain/angina most likely secondary to the endothelial dysfunction. He was ruled out for an SC with no plans for invasive cardiac testing. Norvasc was increased to 10 mg daily. He was to continue with his coreg, isosorbide, and Ranexa at current doses. Also to consider an ischemic evaluation with a stress test on an outpatient basis should his symptoms persist. Patient was to follow-up on an outpatient basis with the cardiology clinic in 1 to 2 weeks. On 12/19/2020 patient was stable for discharge. He was discharged in stable and satisfactory condition with medicines as per cardiology. He was also instructed to follow-up with his PCP. <Anni Baldwin - 11/21/20 17:16> Objective Vital signs: Temp Pulse Resp BP Pulse Ox 98.7 F 80 17 130/80 93 L 11/18/20 11:49 11/18/20 12:12 11/18/20 11:49 11/18/20 11:49 11/18/20 11:49 <Tarun Shukla - 12/15/20 23:02> Temp Pulse Resp BP Pulse Ox 98.7 F 80 17 130/80 93 L 11/18/20 11:49 11/18/20 12:12 11/18/20 11:49 11/18/20 11:49 11/18/20 11:49 <Anni Baldwin - 11/21/20 17:16> Narrative: Exam Vital signs and Labs for Last 24 Hours: Temp Pulse Resp BP Pulse Ox 97.8 F 74 18 137/83 97 11/18/20 07:46 11/18/20 07:46 11/18/20 07:46 11/18/20 07:46 11/18/20 07:46 Laboratory Results - last 24 hr 11/17/20 11:25: WBC 6.9, RBC 5.36, Hgb 16.5, Hct 49.2, MCV 91.8, MCH 30.7, MCHC 33.4, RDW 12.9, Plt Count 239, MPV 8.1, Neut % (Auto) 64.5, Lymph % (Auto) 25.1, [place] % (Auto) 6.5, Eos % (Auto) 3.3, Baso % (Auto) 0.7, Neut # (Auto) 4.4, Lymph # (Auto) 1.7, [place] # (Auto) 0.4, Eos # (Auto) 0.2, Baso # (Auto) 0.0 11/17/20 11:25: Sodium 135 L, Potassium 4.3, Chloride 101, Carbon Dioxide 22, Anion Gap 16.3 H, BUN 16, Creatinine 0.80, Estimated Creat Clear 134, Estimated GFR 99, Est GFR ( Amer) 119, Glucose 383 H, Calcium 9.1, Troponin I < 0.01 11/17/20 14:30: Troponin I < 0.01 11/17/20 18:00: Troponin I < 0.01 I & O for Last 24 hours: Intake & Output 11/15/20 11/16/20 11/17/2011/18/21 11:59 11:59 11:59 11:59 Intake Total 480 / 480 Balance 480 / 480 Weight 212 lb 215 lb 3 oz - Constitutional no acute distress Comments: He is lying in the bed after eating breakfast and appears comfortable. He stills has some left anterior chest pressure - *Routine HEENT Exam Head: Present: normocephalic, atraumatic (Fully bearded) Ey
== END 2020-11-18 14:29 | disposition home or self-care (01) ==
LOC: ER 14:40 → 2ND 19:20
PROVIDERS: Admitting Provider Family Medicine; Emergency Provider Emergency Medicine; PCP Nurse Practitioner Family; Visit Provider Family Medicine
DX: I25.118 Atherosclerotic heart disease of native coronary artery with other forms of angina pectoris (principal); E11.9 Type 2 diabetes mellitus without complications; Z79.84 Long term (current) use of oral hypoglycemic drugs; I11.0 Hypertensive heart disease with heart failure; Z79.01 Long term (current) use of anticoagulants; I50.9 Heart failure, unspecified; Z95.5 Presence of coronary angioplasty implant and graft; E78.5 Hyperlipidemia, unspecified; Z87.442 Personal history of urinary calculi; M19.90 Unspecified osteoarthritis, unspecified site; M10.9 Gout, unspecified; I25.2 Old myocardial infarction
CPT/HCPCS: G0378; 71045; 80048; 84484; 85025; 93005; 99284

== ENCOUNTER → 2021-02-04 10:01 | Outpatient (CLI) | payer MEDICARE, MEDICAID, SELFPAY | PROVIDERS: Visit Provider Nurse Practitioner Family | DX: Z01.812 Encounter for preprocedural laboratory examination (principal); Z11.52 Encounter for screening for COVID-19 | CPT/HCPCS: C9803; U0003; U0005 ==

== ENCOUNTER → 2021-02-05 20:07 | Outpatient (CLI) | payer MEDICARE, MEDICAID, SELFPAY | PROVIDERS: Visit Provider Nurse Practitioner Family | DX: G47.30 Sleep apnea, unspecified (principal); R06.83 Snoring | CPT/HCPCS: 95810 ==

== ENCOUNTER → 2021-07-31 12:56 | Outpatient (CLI) | payer MEDICARE, MEDICAID, SELFPAY | PROVIDERS: Visit Provider Nurse Practitioner Family | DX: G47.33 Obstructive sleep apnea (adult) (pediatric) (principal); G47.34 Idiopathic sleep related nonobstructive alveolar hypoventilation | CPT/HCPCS: 94762 ==

== ENCOUNTER → 2021-10-07 20:09 | Outpatient (CLI) | payer MEDICARE, MEDICAID, SELFPAY | PROVIDERS: Visit Provider Nurse Practitioner Family | DX: G47.33 Obstructive sleep apnea (adult) (pediatric) (principal) | CPT/HCPCS: 95811 ==

== ENCOUNTER 2022-12-21 16:41 | Emergency (ER) | payer MEDICARE, MEDICAID, SELFPAY ==
--- NOTE | 2022-12-21 16:40 | ECG_ITS ---
APPROVED REPORT Exam: Resting ECG HR:93 bpm ECG Measurements Heart Rate 93 AXES ND 164 P 73 QRSd 110 QRS 9 QT 361 T 77 QTc 412 Conclusion SINUS RHYTHM INCOMPLETE RIGHT BUNDLE BRANCH BLOCK [90+ ms QRS DURATION, TERMINAL R IN V1/V2, 40+ ms S IN I/aVL/V4/V5/V6] ST DEVIATION AND MODERATE T-WAVE ABNORMALITY, CONSIDER ANTERIOR ISCHEMIA [-0.1+ mV T-WAVE IN V3/V4] ABNORMAL ECG UNCONFIRMED REPORT Electronically signed by : Christopher Escamilla MD 12/21/2022 17:04:19
[2022-12-21 16:42] VITALS: BP 164/102; PULSE 88; RESP 18; TEMP 36.7; O2SAT 97; BMI 31.4
--- NOTE | 2022-12-21 16:50 | XR_ITS ---
PROCEDURE INFORMATION: Exam: XR Chest Exam date and time: 12/21/2022 5:23 PM Age: 62 years old Clinical indication: Pain; On breathing; Additional info: Chest pain TECHNIQUE: Imaging protocol: Radiologic exam of the chest. Views: 1 view. COMPARISON: CR XR CHEST PORTABLE 11/17/2020 11:48 AM FINDINGS: Lungs: Mildly low lung volumes. Mild bibasilar opacities most likely represent atelectasis. Pleural spaces: Normal No pleural effusion. No pneumothorax. Heart/Mediastinum: Normal. No cardiomegaly. Bones/joints: Mild degenerative change of the thoracic spine and bilateral acromioclavicular joints. Calcification superior to the right humeral head could be due to calcific tendinosis of the rotator cuff. IMPRESSION: Low lung volumes with mild bibasilar pulmonary opacities which probably represent atelectasis.
--- NOTE | 2022-12-21 16:54 | PC.NURSE ---
DR BALLESTEROS AT BEDSIDE
[2022-12-21 16:58] LABS: Basophils % 0.6 % (0.1-2.0); Eosinophils # 0.2 K/mm3 (0.0-0.4); Eosinophils % 3.2 % (0.1-12.0); Hematocrit 51.6 % (42.0-52.0); Hemoglobin 16.8 g/dL (14.1-18.0); Lymphocytes # 2.1 K/mm3 (0.7-4.5); Lymphocytes % 30.2 % (10-50); Mean Corpuscular HGB Conc 32.5 g/dL (31.8-35.4); Mean Corpuscular Hemoglobin 29.9 pg (27.0-31.2); Mean Corpuscular Volume 91.9 fl (80-94); Mean Platelet Volume 8.3 fl (7.4-10.4); Monocytes # 0.5 K/mm3 (0.1-1.0); Monocytes % 7.1 % (1.7-9.3); Neutrophils # 4.2 K/mm3 (1.8-7.8); Neutrophils % 58.8 % (37.0-80.0); Platelet Count 232 K/mm3 (142-424); Red Blood Count 5.61 M/mm3 (4.60-6.20); Red Cell Distribution Width 13.2 % (11.5-17.5); White Blood Count 7.1 K/mm3 (4.8-10.8)
[2022-12-21 17:00] VITALS: BP 130/88; PULSE 85; RESP 20; O2SAT 94
[2022-12-21 17:03] LABS: Chloride 103 mmol/L (98-107); Potassium 4.2 mmoL/L (3.5-5.1); Sodium 139 mmol/L (136-145)
[2022-12-21 17:06] LABS: Alanine Aminotransferase 41 U/L (12-78); Albumin Level 4.3 g/dl (3.5-5.0); Albumin/Globulin Ratio 1.2 (1.1-1.8); Alkaline Phosphatase 93 U/L (38-126); Anion Gap 14.2 mEq/L (5-15); Aspartate Amino Transferase 43 U/L (17-59); Bilirubin,Total 2.2 mg/dl (0.2-1.3); Blood Urea Nitrogen 21 mg/dl (9-20); Carbon Dioxide 26 mmol/L (22.0-30.0); Creatinine Clearance Estimated 87 mL/min (50-200); Estimated Glomerular Filt Rate 61 ml/min (>60); GFR (African American) 74 ML/MIN (>60); Globulin 3.6 g/dL (1.3-3.2); Total Protein,Serum 7.9 g/dl (6.3-8.2)
[2022-12-21 17:07] LABS: Calcium 9.1 mg/dl (8.4-10.2); Glucose 282 mg/dl (74-100)
[2022-12-21 17:20] LABS: Troponin I < 0.01 ng/ml (0.00-0.034)
[2022-12-21 17:30] VITALS: BP 134/97; PULSE 83; RESP 20; O2SAT 94
--- NOTE | 2022-12-21 17:37 | HMH.EDGENADL ---
Discharge Plan Disposition Patient Disposition: Home, Self-Care Condition: Good Prescriptions Prescriptions: No Action dapagliflozin propanediol [Farxiga] 10 mg tablet 10 mg PO QAM hydrocodone-acetaminophen 7.5-325 mg tablet 1 tab PO TID PRN (Reason: pain) ibuprofen 800 mg tablet 800 mg PO TID PRN (Reason: pain) ranolazine [Ranexa] 500 mg tablet extended release 12 hr 500 mg PO BID Qty: 60 5RF carvedilol 25 mg tablet 50 mg PO BID Qty: 120 5RF omeprazole 40 mg capsule,delayed release(DR/EC) 40 mg PO BID Patient Comments: TAKE (1) CAPSULE BY MOUTH TWICE DAILY. insulin glargine [Basaglar KwikPen U-100 Insulin] 100 unit/mL (3 mL) insulin pen 50 unit SQ DAILY Brilinta 60 mg tablet 60 mg PO BID Qty: 60 5RF hydrochlorothiazide 12.5 mg tablet 12.5 mg PO DAILY Qty: 30 5RF losartan 100 mg tablet 100 mg PO DAILY Patient Comments: TAKE 1 TABLET BY MOUTH ONCE A DAY. nitroglycerin [Nitrostat] 0.4 mg tablet, sublingual 0.4 mg sublingual Q5M PRN (Reason: chest pain) Qty: 30 3RF Rx Instructions: do not exceed 3 doses per episode atorvastatin 40 mg tablet See Rx Instructions .ROUTE .COMPLEX Qty: 30 5RF Dose Instruction: TAKE 1 TABLET BY MOUTH ONCE A DAY. Rx Instructions: TAKE 1 TABLET BY MOUTH ONCE A DAY. famotidine 20 mg tablet See Rx Instructions .ROUTE .COMPLEX Qty: 30 5RF Dose Instruction: TAKE 1 TABLET BY MOUTH ONCE A DAY. Rx Instructions: TAKE 1 TABLET BY MOUTH ONCE A DAY. Referrals Follow up/Referrals: Provider,Referral, MD [Primary Care Provider] - See instructions Activity Restrictions/Add. Instructions Additional Instructions/Restrictions: You were evaluated in the emergency department today. At this time, your work-up is reassuring. Please follow-up with your primary care provider and your receivable executive over the next 3 days for reassessment. Return to the emergency department for any new or worsening symptoms. Clinical Impressions Clinical Impression: Chest pain Instructions Patient Instructions: DI for Atypical Chest Pain Discharge ED Provider: Jess Anderson General Adult HPI General Chief complaint: Chest Pain Stated complaint: cp Time Seen by Provider: 12/21/22 16:51 Mode of Arrival: Ambulatory Limitations: No Limitations Description of Symptoms (Recalled from ER Triage Doc. 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 PT DID TAKE NITRO AT HOME WITHOUT RELIEF. REPORTS CHEST PAIN STARTED AT REST, PT BECAME DIAPHORETIC AND SHORT OF BREATH History of Present Illness HPI narrative: This patient is a 62-year-old male with a history of angina, hypertension, hyperlipidemia, diabetes, CAD, and gout presented to the emergency department for evaluation with concern for left-sided chest pain that radiates around the right side that started approximate 1 hour prior to arrival while he was sitting down and watching TV. It is improving after he took nitroglycerin at home, but it is still there. He also notes that he felt diaphoretic and short of breath whenever it was at its maximum. He notes that he has not taken his medications today, including his blood pressure medications. He was well prior to onset of pain, with no fevers, cough, congestion, abdominal pain, nausea, vomiting, or other concerns. Related Data Home Medications Medication Instructions Recorded Confirmed dapagliflozin propanediol 10 mg 10 mg PO QAM Diabetes 08/02/17 09/10/22 tablet (Farxiga) hydrocodone 7.5 mg-acetaminophen 1 tab PO TID PRN pain 08/02/17 09/10/22 325 mg tablet ibuprofen 800 mg tablet 800 mg PO TID PRN pain 08/02/17 09/10/22 losartan 100 mg tablet 100 mg PO DAILY 06/18/21 09/10/22 insulin glargine 100 unit/mL (3 50 unit SQ DAILY 09/10/22 09/10/22 mL) subcutaneous pen (Basaglar KwikPen U-100 Insulin) omeprazole 40 mg capsule,delayed 40 mg PO BID 09/10/22 09/10/22 mike
--- NOTE | 2022-12-21 17:53 | PC.NURSE ---
pt given ice for water and updated om poc, waiting on trop
--- NOTE | 2022-12-21 19:21 | PC.NURSE ---
second trop drawn and sent to lab.
[2022-12-21 19:51] LABS: Troponin I < 0.01 ng/ml (0.00-0.034)
[2022-12-21 20:32] VITALS: BP 139/87; PULSE 75; RESP 14; TEMP 36.6; O2SAT 95
== END 2022-12-21 20:33 | disposition home or self-care (01) ==
PROVIDERS: Emergency Provider Emergency Medicine
DX: R07.9 Chest pain, unspecified (principal); R06.02 Shortness of breath; I25.118 Atherosclerotic heart disease of native coronary artery with other forms of angina pectoris; I10 Essential (primary) hypertension; E78.5 Hyperlipidemia, unspecified; E11.9 Type 2 diabetes mellitus without complications; I45.19 Other right bundle-branch block
CPT/HCPCS: 71045; 80053; 84484; 85025; 93005; 99285

== ENCOUNTER 2023-09-21 10:24 | Outpatient (CLI) | payer MEDICARE, MEDICAID, SELFPAY ==
[2023-09-21 11:26] LABS: Basophils % 0.8 % (0.1-2.0); Eosinophils # 0.2 K/mm3 (0.0-0.4); Eosinophils % 4.2 % (0.1-12.0); Hematocrit 49.7 % (42.0-52.0); Hemoglobin 16.3 g/dL (14.1-18.0); Lymphocytes # 1.3 K/mm3 (0.7-4.5); Lymphocytes % 24.7 % (10-50); Mean Corpuscular HGB Conc 32.9 g/dL (31.8-35.4); Mean Corpuscular Hemoglobin 30.7 pg (27.0-31.2); Mean Corpuscular Volume 93.4 fl (80-94); Mean Platelet Volume 8.1 fl (7.4-10.4); Monocytes # 0.4 K/mm3 (0.1-1.0); Monocytes % 7.2 % (1.7-9.3); Neutrophils # 3.3 K/mm3 (1.8-7.8); Neutrophils % 63.1 % (37.0-80.0); Platelet Count 185 K/mm3 (142-424); Red Blood Count 5.32 M/mm3 (4.60-6.20); White Blood Count 5.3 K/mm3 (4.8-10.8)
[2023-09-21 11:42] LABS: Alanine Aminotransferase 40 U/L (12-78); Albumin Level 4.3 g/dl (3.5-5.0); Alkaline Phosphatase 111 U/L (38-126); Anion Gap 11.4 mEq/L (5-15); Aspartate Amino Transferase 36 U/L (17-59); Bilirubin,Indirect 1.5 mg/dL (0.0-0.9); Bilirubin,Total 1.5 mg/dl (0.2-1.3); Bilirubin,Unconjugated 1.6 mg/dL (0.0-1.1); Blood Urea Nitrogen 17 mg/dl (9-20); Carbon Dioxide 27 mmol/L (22.0-30.0); Chloride 107 mmol/L (98-107); Chol/HDL Ratio 4.2 (1-3.5); Cholesterol 157 mg/dl (140-200); Estimated Glomerular Filt Rate 85 ml/min (>60); GFR (African American) 103 ML/MIN (>60); Glucose 163 mg/dl (74-100); HDL Cholesterol 37 mg/dl (40-60); Potassium 4.4 mmoL/L (3.5-5.1); Sodium 141 mmol/L (136-145); Total Protein,Serum 7.6 g/dl (6.3-8.2); Triglycerides 299 mg/dl (30-150); VLDL Cholesterol 60 mg/dL (0-40)
[2023-09-21 11:52] LABS: Direct LDL Cholesterol 64.13 mg/dL (100-129)
[2023-09-22 10:36] LABS: Thyroid Stimulating Hormone 1.74 uIU/mL (0.465-4.68)
== END 2023-09-21 23:59 | disposition home or self-care (01) ==
LOC: LAB 10:27
PROVIDERS: PCP Nurse Practitioner Family; Visit Provider Nurse Practitioner Family
DX: R07.9 Chest pain, unspecified (principal); M79.89 Other specified soft tissue disorders; R06.09 Other forms of dyspnea; E11.69 Type 2 diabetes mellitus with other specified complication; Z79.4 Long term (current) use of insulin; E78.2 Mixed hyperlipidemia; I10 Essential (primary) hypertension; I25.118 Atherosclerotic heart disease of native coronary artery with other forms of angina pectoris; R06.00 Dyspnea, unspecified; I11.9 Hypertensive heart disease without heart failure; K21.9 Gastro-esophageal reflux disease without esophagitis; E11.9 Type 2 diabetes mellitus without complications
CPT/HCPCS: 36415; 80048; 80061; 80076; 84439; 84443; 85025

== ENCOUNTER 2023-10-04 06:51 | Outpatient (CLI) | payer MEDICARE, MEDICAID, SELFPAY ==
--- NOTE | 2023-10-04 | CA_ITS ---
APPROVED REPORT Exam: Pharmacologic Technologist: Radha Wheatley, Ht: 5 ft 9 in Wt: 215 lbs BSA: 2.13 m2 HR: 77 bpm BP: 123/82 mmHg Rhythm: NSR Medical History Medications: Omeprazole,,,,, Losartan,,,,, Atorvastatin,,,,, HCTZ,,,,, Carvedilol,,,,, Farxiga,,,,, INSULIN,,,,, Famotidine,,,,, Ibuprofen,,,,, BRILINTA,,,,, Nitroglycerin,,,,, Ranexa,,,,, Cardiac Risk Factors: HTN, , Hyperlipidemia, Diabetes (insulin) Stress Test Details Test: LEXISCAN HR Resting HR: 77 bpm Max Heart Rate (APMHR): 157 bpm Max HR Achieved: 99 bpm Target HR (85% APMHR): 133 bpm % of APMHR: 63 Recovery HR: 91 bpm BP Resting BP: 123.0/82.0 mmHg Max BP: 145.0/88.0 mmHg Recovery BP: 139.0/82.0 mmHg ECG Resting ECG: NSR Stress ECG: No significant ST changes Arrhythmia: None Clinical Exercise duration: 04:03 min Highest Stage Achieved: Stress ECG Conclusion During lexiscan pt experinced chest pain and SOB, symptoms back to baseline in recovery. No arrhythmias noted. ST changes: None Conclusion: Unremarkable Lexiscan stress test. Myoview images reported separately. Test Summary REST . . . . . . . Sitting REST 21:04 . . 77 . 123/ 82 . . Stage 1 01:00 . . 97 . . . . Stage 2 01:00 . . 97 . 125/ 76 . . Stage 3 01:00 . . 93 . 145/ 88 . . Stage 4 01:00 . . 92 . 134/ 80 . . Stage 4 01:03 . . 92 . 134/ 80 . Stop exercise at 04:03 RECOVERY 01:00 . . 90 . . . . RECOVERY 02:00 . . 90 . 139/ 82 . . RECOVERY 02:28 . . 88 . 138/ 76 . . Electronically signed by : Dalila Marie MD 10/06/2023 03:38:28
--- NOTE | 2023-10-04 06:52 | NM_ITS ---
APPROVED REPORT Exam: Nuclear Stress Test Indication: Chest pain, SOB, HTN, DM, High cholesterol, Family history, CAD Patient Location: Outpatient Stress Tech: Radha PRIETO Tech:Jia Beck, ARRT, RT (R)(N) Ht: 5 ft 9 in Wt: 215 lbs HR: 77 bpm BP: 123/82 mmHg BSA: 2.13 m2 TID: 1.18 BMI: 31.7 History: Chest pain, SOB, HTN, DM, High cholesterol, Family history, CAD Procedure: Patient received 0.4 mg of intravenous Lexiscan, resting heart rate 77 bpm, resting blood pressure 123/82 mmHg, with Lexiscan maximum heart rate achieved was 99 bpm which is % of the maximum predicted heart rate and blood pressure was 145/88 mmHg. With Lexiscan, patient denied any complaint of chest pain. Cardiac Stress and Resting SPECT Images: Cardiac Stress and Resting SPECT images were obtained using technetium 99m Myoview 31.7 mCi stress and 10.04 mCi at rest. Resting and stress imaging in supine and prone positions demonstrate no evidence of fixed or reversible perfusion defects. Gated imaging demonstrates normal global and regional LV systolic function. LVEF is calculated at 60%. Conclusion: No evidence of fixed or reversible perfusion defects. Gated imaging demonstrates normal global and regional LV systolic function. LVEF is calculated at 60%. Electronically signed by : Dalila Marie MD 10/06/2023 03:39:27
[2023-10-04] MEDS: REGADENOSON 0.4MG/5ML SYRINGE 0.4 MG IV (09:13)
[2023-10-04] MEDS: ISOTOPE MYOVIEW (PER STUDY) 1 DOSE IV (09:13)
[2023-10-04] MEDS: SODIUM CHLORIDE 0.9% 10ML SYR (RAD ONLY) 10 ML IV ×2 (09:13)
== END 2023-10-04 23:59 | disposition home or self-care (01) ==
LOC: RAD 06:52
PROVIDERS: PCP Nurse Practitioner Family; Visit Provider Nurse Practitioner Family
DX: R07.9 Chest pain, unspecified (principal); R06.09 Other forms of dyspnea; I11.9 Hypertensive heart disease without heart failure; I25.118 Atherosclerotic heart disease of native coronary artery with other forms of angina pectoris; M79.89 Other specified soft tissue disorders; E78.2 Mixed hyperlipidemia; E11.69 Type 2 diabetes mellitus with other specified complication; Z79.4 Long term (current) use of insulin; Z79.84 Long term (current) use of oral hypoglycemic drugs; Z79.85 Long-term (current) use of injectable non-insulin antidiabetic drugs
CPT/HCPCS: 78452; 93017; 93018; A9502; J2785

== ENCOUNTER 2023-11-11 07:49 | Outpatient (CLI) | payer MEDICARE, MEDICAID, SELFPAY ==
--- NOTE | 2023-11-11 07:49 | CA_ITS ---
APPROVED REPORT EXAM: Comprehensive 2D, Doppler, and color-flow Echocardiogram [employer] Vice President: Ann Marie Milton, RCS, RVS Ht: 5 ft 9 in Wt: 209lbs BSA: 2.10 BP: 132/80 mmHg Indications: CP, CAD, Cornary stents x 2, HTN, MORALES, DM, HLD 2D Dimensions IVSd 1.08 cm LVEF (Visual) 56.50 % PWd 1.00 cm LA Volume 43.90 mL LVDd 4.42 cm LA Volume Index 20.90 mL/m2 (M/F) 16-34 LVDs 3.12 cm EF AP4 56.20 % Left Atrium 4.23 cm GL Strain -18.0 % RVID Base (AP4) 3.88 cm (M/F) 2.5-4.1 LVOT 2.06 cm (M/F) 1.5-2.5 M-Mode Dimensions RVDd 2.93 cm (0.9-2.6) LVDd 4.42 cm (3.5-5.7) Ao Diam 3.09 cm (2.0-3.7) LVDs 3.13 cm (3.5-5.7) IVSd 1.14 cm (0.6-1.1) PWd 0.99 cm (0.6-1.1) EF (Teich) 65.30% EPSs 1.07 cm FS 33.73% EDV (Teich) 111.70 mL TAPSE 1.33 (<1.7) ESV (Teich) 38.80 mL LV Diastology E Decel Time 219 (160-240 msec) E/A Ratio 0.63 MED E' 5.3 (>= 7 cm/sec) MED A' 10.40 cm/s E'/MED E' Ratio 9.28 (<= 14) LAT E' 5.2 (>= 10 cm/sec) LAT A' 7.60 cm/s E/LAT E' Ratio 9.46 (<= 14) Aortic Valve LVOT Max 73.0 (70-110 cm/s) ELIAN Index 1.07 cm2/m2 LVOT VTI 14.73 cm AoV Peak Gino. 124.0 (50-130 cm/s) AO Mean GR. 3.40 (<5 mmHg) AO VTI 21.9 (18-25 cm) ELIAN (VTI) 2.24 (2.5-4.5 cm2) Mitral Valve MV E Max Gino. 49.0 (40-130 cm/s) MV A Velocity 79.0 (40-130 cm/s) E/A Ratio 0.63 MV Decel. Time 219 (160-240 ms) MV Mean Gr. 1.20 (<2mmHg) Left Ventricle The left ventricle is normal size. The left ventricular systolic function is normal. The left ventricular ejection fraction is within the normal range. There is increased overall thickness. There is normal LV segmental wall motion. Transmitral Doppler flow pattern suggests impaired LV relaxation. LVEF is 55%. Right Ventricle Right ventricle is mildly dilated. The right ventricular systolic function is normal. Atria Left atrium is mildly dilated. Right atrium is mildly dilated. There is no Doppler evidence of interatrial shunt. Aortic Valve Aortic valve opens well. There is no aortic valvular stenosis. No aortic regurgitation is present. Mitral Valve The mitral valve is normal in structure. No evidence of mitral valve stenosis. There is no mitral valve regurgitation noted. Tricuspid Valve The tricuspid valve leaflets are thin and pliable. Trace tricuspid regurgitation. There is insufficient TR jet to estimate RVSP. Pulmonic Valve The pulmonary valve is normal in structure. Trace pulmonic regurgitation. Great Vessels The aortic root is normal in size. The ascending aorta is normal in size. IVC is normal in size and collapses >50% with inspiration. Pericardium There is no pericardial effusion. Other Information Study Quality: Fair Conclusion Normal biventricular systolic function. Mild RV dilation. Mild biatrial dilation. No significant valvular stenosis or regurgitation. Electronically signed by : Dalila Marie MD 11/16/2023 11:42:53
== END 2023-11-11 23:59 | disposition home or self-care (01) ==
LOC: RT 07:49
PROVIDERS: Visit Provider Physician Assistant
DX: I51.7 Cardiomegaly (principal); R07.9 Chest pain, unspecified; R06.09 Other forms of dyspnea; I25.118 Atherosclerotic heart disease of native coronary artery with other forms of angina pectoris; Z95.5 Presence of coronary angioplasty implant and graft
CPT/HCPCS: 93306

== ENCOUNTER 2023-11-30 07:59 | Day surgery (SDC) | payer MEDICARE, MEDICAID, SELFPAY ==
[2023-11-30] VITALS (11 sets, daily range): BP systolic 142–196; BP diastolic 85–113; PULSE 70–84; RESP 18; O2SAT 94–99; BMI 31.0
--- NOTE | 2023-11-30 07:19 | IR_ITS ---
APPROVED REPORT Patient Location: Outpatient Strategy Intern: PARISH Chahal RT (R) PROCEDURES Left heart catheterization Left ventriculogram Selective coronary angiogram Intravascular ultrasound to the proximal LAD Drug-eluting stent deployment to the proximal LAD INDICATION Class IV angina pectoris, Coronary artery disease, Angiographic ambiguity in the proximal LAD SCAI INDICATION Patient with resting angina pectoris on 3 antianginal medications with classic angina pectoris Informed consent was obtained prior to the procedure. COMPLICATIONS None Estimated Blood Loss: Less than 10 mls TECHNIQUE One percent lidocaine used to anesthetize the right anterior aspect of the wrist. The right radial artery was accessed via the Seldinger technique. A 6 Amharic sheath was placed in the right radial artery. 2.5 mg of Verapamil, 800 mcg of nitroglycerin, 1mg Lidocaine and 5000 U Heparin were given through the arterial sheath. The papa catheter was also used to perform selective coronary angiogram. At the end of the diagnostic angiogram therapeutic heparin was administered. There was haziness with angiographic ambiguity in the proximal LAD which suggested much tighter stenosis. The guide catheter was placed in left main artery and a choice floppy wire was advanced distally into the LAD. Intravascular ultrasound probe was advanced and the MLA of the proximal LAD was 3.3 mm??? with heavy plaque burden throughout the proximal LAD and calcification. Because of this a 3 mm x 26 mm Drury frontier stent was deployed at 22 vicky reducing the severe stenosis to 0%. RENE-3 flow was present before and after the procedure. Then the procedure the apparatus was removed the sheath was removed and hemostasis was achieved using TR banding patient was transferred to the postop holding in stable condition ANGIOGRAPHIC RESULTS The left main artery Normal The left anterior descending artery Has a proximal angiographic ambiguous hazy stenosis between 30 and 40% which proved to be stenosed greater than 80% by IVUS with heavy plaque burden and calcification. There is additional 20 and 30% stenoses along tortuous bends The circumflex artery Nondominant and gives rise to a medium to large ramus intermedius which has stents in the proximal to mid segment which are widely patent with minimal in-stent restenosis and excellent proximal distal transitioning. The circumflex artery itself is nondominant and has mild 10% luminal regularities The right coronary artery Large and dominant with proximal 10% stenosis and distal 20% eccentric stenoses with distal 10 to 20% luminal regularities The CORDERO ventriculogram reveals Not performed The left ventricular end-diastolic pressure Not measured IMPRESSION Severe proximal LAD disease with heavy plaque burden and calcification as described above Successful stenting the proximal ID severe disease reduced to 0% with 1 drug-eluting stent Patent stent in a medium to large ramus intermedius PLAN 1. Continue dual antiplatelet therapy 2. Cardiac rehabilitation 3. Avoidance of tobacco products 4. Risk factor modification 5. LDL less than 55 to be achieved with high intensity statin Electronically signed by : Odin Delatorre MD 11/30/2023 10:47:48
[2023-11-30 08:34] LABS: Basophils # 0.1 K/mm3 (0-0.2); Eosinophils # 0.2 K/mm3 (0.0-0.4); Eosinophils % 3.2 % (0.1-12.0); Hematocrit 53.4 % (42.0-52.0); Hemoglobin 17.1 g/dL (14.1-18.0); Lymphocytes # 1.6 K/mm3 (0.7-4.5); Lymphocytes % 24.1 % (10-50); Mean Corpuscular Hemoglobin 30.8 pg (27.0-31.2); Mean Corpuscular Volume 96.4 fl (80-94); Mean Platelet Volume 8.3 fl (7.4-10.4); Monocytes # 0.5 K/mm3 (0.1-1.0); Monocytes % 7.1 % (1.7-9.3); Neutrophils # 4.2 K/mm3 (1.8-7.8); Neutrophils % 64.6 % (37.0-80.0); Platelet Count 194 K/mm3 (142-424); Red Blood Count 5.54 M/mm3 (4.60-6.20); Red Cell Distribution Width 13.6 % (11.5-17.5); White Blood Count 6.5 K/mm3 (4.8-10.8)
[2023-11-30 08:40] LABS: Chloride 103 mmol/L (98-107); Potassium 4.1 mmoL/L (3.5-5.1); Sodium 140 mmol/L (136-145)
[2023-11-30 08:43] LABS: Anion Gap 9.1 mEq/L (5-15); Blood Urea Nitrogen 16 mg/dl (9-20); Calcium 9.6 mg/dl (8.4-10.2); Carbon Dioxide 32 mmol/L (22.0-30.0); Creatinine Clearance Estimated 93 mL/min (50-200); Estimated Glomerular Filt Rate 68 ml/min (>60); GFR (African American) 82 ML/MIN (>60); Glucose 152 mg/dl (74-100)
[2023-11-30] MEDS: LIDOCAINE 1% 10ML MDV 20 ML IJ (09:59)
[2023-11-30] MEDS: diphenhydrAMINE 50MG/ML VIAL 50 MG IV (09:59)
[2023-11-30] MEDS: HEPARIN 1,000 UNITS/500ML NS (CATH LAB) 3000 UNIT IV (09:59)
[2023-11-30] MEDS: HEPARIN 1,000 UNITS/ML 10ML VIAL (CATH LAB) 10000 UNIT IV ×2 (09:59→10:21)
[2023-11-30] MEDS: NITROGLYCERIN 800MCG/8ML SYR (CATH LAB) 800 MCG IA (10:00)
[2023-11-30] MEDS: 0.9 % SODIUM CHLORIDE 500 ML 25 ML IV (10:00)
[2023-11-30] MEDS: VERAPAMIL 2.5MG/ML 2ML VIAL 2.5 MG IV (10:00)
[2023-11-30] MEDS: FENTANYL 100MCG/2ML VIAL 50 MCG IV (10:16)
[2023-11-30] MEDS: MIDAZOLAM HCL 1MG/1ML 5ML VIAL 1 MG IV (10:16)
--- NOTE | 2023-11-30 12:16 | SUR.PHASEII ---
sitting up in bed eating lunch.
[2023-11-30] MEDS: IOPAMIDOL-370 (76%);100ML BOTTLE 90 ML IV (12:54)
[2023-11-30 12:57] LABS: CATHL Activated Clotting Time > 400 SEC (74-125)
== END 2023-11-30 14:07 | disposition home or self-care (01) ==
LOC: CATHLAB 08:00
PROVIDERS: Visit Provider Internal Medicine
DX: I25.118 Atherosclerotic heart disease of native coronary artery with other forms of angina pectoris (principal); I10 Essential (primary) hypertension; E11.69 Type 2 diabetes mellitus with other specified complication; Z79.4 Long term (current) use of insulin; E78.2 Mixed hyperlipidemia; R06.09 Other forms of dyspnea; M79.89 Other specified soft tissue disorders; Z79.85 Long-term (current) use of injectable non-insulin antidiabetic drugs; Z79.899 Other long term (current) drug therapy; I77.1 Stricture of artery; I25.83 Coronary atherosclerosis due to lipid rich plaque
CPT/HCPCS: 80048; 85025; 85347; 92928; 92978; 93454; 99152; C1725; C1769; C1874; C9600; J1200; J1644; J2250; J3010; Q9967

== ENCOUNTER 2023-12-10 12:19 | Outpatient (CLI) | payer MEDICARE, MEDICAID, SELFPAY ==
[2023-12-10 12:50] LABS: Basophils # 0.1 K/mm3 (0-0.2); Basophils % 0.7 % (0.1-2.0); Eosinophils # 0.3 K/mm3 (0.0-0.4); Eosinophils % 4.1 % (0.1-12.0); Hematocrit 51.5 % (42.0-52.0); Hemoglobin 16.8 g/dL (14.1-18.0); Lymphocytes # 2.2 K/mm3 (0.7-4.5); Lymphocytes % 31.2 % (10-50); Mean Corpuscular HGB Conc 32.7 g/dL (31.8-35.4); Mean Corpuscular Hemoglobin 31.1 pg (27.0-31.2); Mean Corpuscular Volume 95.1 fl (80-94); Mean Platelet Volume 7.5 fl (7.4-10.4); Monocytes # 0.5 K/mm3 (0.1-1.0); Monocytes % 6.9 % (1.7-9.3); Platelet Count 236 K/mm3 (142-424); Red Blood Count 5.42 M/mm3 (4.60-6.20); Red Cell Distribution Width 13.4 % (11.5-17.5); White Blood Count 7.1 K/mm3 (4.8-10.8)
[2023-12-10 13:44] LABS: Alanine Aminotransferase 36 U/L (12-78); Albumin Level 4.5 g/dl (3.5-5.0); Albumin/Globulin Ratio 1.5 (1.1-1.8); Alkaline Phosphatase 109 U/L (38-126); Anion Gap 11.9 mEq/L (5-15); Aspartate Amino Transferase 33 U/L (17-59); Bilirubin,Total 1.8 mg/dl (0.2-1.3); Blood Urea Nitrogen 21 mg/dl (9-20); Calcium 9.5 mg/dl (8.4-10.2); Carbon Dioxide 29 mmol/L (22.0-30.0); Chloride 101 mmol/L (98-107); Estimated Glomerular Filt Rate 68 ml/min (>60); GFR (African American) 82 ML/MIN (>60); Glucose 166 mg/dl (74-100); Potassium 3.9 mmoL/L (3.5-5.1); Sodium 138 mmol/L (136-145); Total Protein,Serum 7.5 g/dl (6.3-8.2)
== END 2023-12-10 23:59 | disposition home or self-care (01) ==
LOC: LAB 12:21
PROVIDERS: Visit Provider Internal Medicine
DX: I25.10 Atherosclerotic heart disease of native coronary artery without angina pectoris (principal); I10 Essential (primary) hypertension; E78.5 Hyperlipidemia, unspecified; E11.69 Type 2 diabetes mellitus with other specified complication; Z79.4 Long term (current) use of insulin
CPT/HCPCS: 36415; 80053; 85025

== ENCOUNTER 2023-12-14 08:37 | Outpatient (RCR) | payer MEDICARE, MEDICAID, SELFPAY | END 2024-01-24 10:00 | disposition home or self-care (01) | LOC: PT 08:37 | PROVIDERS: Visit Provider Internal Medicine | DX: Z95.5 Presence of coronary angioplasty implant and graft (principal) ==

== ENCOUNTER 2023-12-14 10:38 | Outpatient (CLI) | payer MEDICARE, MEDICAID, SELFPAY ==
--- NOTE | 2023-12-14 10:43 | CA_ITS ---
FINAL REPORT CLINICAL HISTORY: RT WRIST PAIN S/P HEART CATH WITH RIGHT WRIST ACCESS ON 11/29,PT ON [facility] AND [facility] COMPARISON: None FINDINGS: RIGHT WRIST ARTERIAL DOPPLER: Doppler examination of the right radial artery at the level of the wrist reveals normal-appearing flow without evidence of a pseudoaneurysm, AV fistula, or thrombus. No associated fluid collection to suggest a hematoma is identified. IMPRESSION: No evidence of pseudoaneurysm, AV fistula, or thrombus. Reviewed, Interpreted and Dictated by Guillermina Gonzalez MD Transcribed by Miya Yusuf Authenticated and [facility]
== END 2023-12-14 23:59 | disposition home or self-care (01) ==
LOC: RT 10:40
PROVIDERS: Visit Provider Nurse Practitioner Family
DX: I25.10 Atherosclerotic heart disease of native coronary artery without angina pectoris (principal); M25.431 Effusion, right wrist; M25.531 Pain in right wrist; Z98.890 Other specified postprocedural states
CPT/HCPCS: 93931

== ENCOUNTER 2023-12-23 19:37 | Emergency (ER) | payer MEDICARE, MEDICAID, SELFPAY ==
[2023-12-23] VITALS (8 sets, daily range): BP systolic 119–151; BP diastolic 68–87; PULSE 91–120; RESP 18–27; TEMP 37.1; O2SAT 93–96; BMI 31.3
--- NOTE | 2023-12-23 19:35 | ECG_ITS ---
APPROVED REPORT Exam: Resting ECG HR:122 bpm ECG Measurements Heart Rate 122 AXES NE 159 P 58 QRSd 112 QRS 33 QT 338 T 84 QTc 410 Conclusion SINUS TACHYCARDIA MODERATE INTRAVENTRICULAR CONDUCTION DELAY [110+ ms QRS DURATION] ST DEVIATION AND MODERATE T-WAVE ABNORMALITY, CONSIDER ANTERIOR ISCHEMIA [-0.1+ mV T-WAVE IN V3/V4] ABNORMAL ECG UNCONFIRMED REPORT Electronically signed by : Jerry Lyle, 12/23/2023 22:51:57
--- NOTE | 2023-12-23 19:42 | ED_ITS ---
<Statement entered by Eric Lyle MD - 12/24/23 22:23> I was consulted by the AUNG, and we discussed the complexity of the problems being addressed. I approved the treatment and management plan for this patient's care in the emergency department, thus performing a substantive portion of the medical decision making. Eric Lyle MD, OSWALD, FACEP Discharge Plan Disposition Patient Disposition: Home, Self-Care Condition: Good Prescriptions Prescriptions: No Action hydrocodone-acetaminophen 7.5-325 mg tablet 1 tab PO TID PRN (Reason: pain) ibuprofen 800 mg tablet 800 mg PO TID PRN (Reason: pain) omeprazole 40 mg capsule,delayed release(DR/EC) 40 mg PO BID Patient Comments: TAKE (1) CAPSULE BY MOUTH TWICE DAILY. insulin glargine [Basaglar KwikPen U-100 Insulin] 100 unit/mL (3 mL) insulin pen 50 unit SQ DAILY fluticasone propionate 50 mcg/actuation spray,suspension 50 mcg intranasal NEEDED PRN (Reason: allergies) Patient Comments: USE 1 SPRAY IN EACH NOSTRIL ONCE DAILY metformin 500 mg tablet extended release 24 hr 500 mg PO DAILY Patient Comments: TAKE 1 TABLET DAILY WITH MEALS febuxostat 80 mg tablet 80 mg PO DAILY Patient Comments: TAKE 1 TABLET BY MOUTH ONCE A DAY. Ozempic 1 mg/dose (4 mg/3 mL) pen injector See Rx Instructions .ROUTE .COMPLEX Patient Comments: INJECT 1 MG UNDER SKIN ONCE WEEKLY Rx Instructions: per MD order atorvastatin 40 mg tablet See Rx Instructions .ROUTE .COMPLEX Qty: 30 11RF Dose Instruction: TAKE 1 TABLET BY MOUTH ONCE A DAY. Rx Instructions: TAKE 1 TABLET BY MOUTH ONCE A DAY. carvedilol 25 mg tablet 50 mg PO BID Qty: 120 5RF dapagliflozin propanediol [Farxiga] 10 mg tablet 10 mg PO QAM Qty: 30 5RF hydrochlorothiazide 25 mg tablet 25 mg PO DAILY Qty: 30 5RF losartan 100 mg tablet 100 mg PO DAILY Qty: 30 5RF isosorbide mononitrate 60 mg tablet extended release 24 hr 60 mg PO DAILY Qty: 30 5RF ranolazine 1,000 mg tablet extended release 12 hr 1,000 mg PO BID Qty: 60 5RF Brilinta 60 mg tablet See Rx Instructions .ROUTE .COMPLEX Qty: 180 3RF Dose Instruction: TAKE (1) TABLET BY MOUTH TWICE A DAY. Rx Instructions: TAKE (1) TABLET BY MOUTH TWICE A DAY. nitroglycerin [Nitrostat] 0.4 mg tablet, sublingual 0.4 mg sublingual Q5M PRN (Reason: chest pain) Qty: 30 3RF Rx Instructions: do not exceed 3 doses per episode famotidine 20 mg tablet See Rx Instructions .ROUTE .COMPLEX Qty: 90 3RF Dose Instruction: TAKE 1 TABLET BY MOUTH ONCE A DAY. Rx Instructions: TAKE 1 TABLET BY MOUTH ONCE A DAY. aspirin 81 mg Tablet 81 mg PO DAILY Referrals Follow up/Referrals: Aman Allison APRN [Primary Care Provider] - See instructions Activity Restrictions/Add. Instructions Additional Instructions/Restrictions: Follow-up with cardiology closely within 48 hours for recheck. Return to ER for any worsening signs or symptoms as needed. Clinical Impressions Clinical Impression: Chest pain Instructions Patient Instructions: DI for Chest Pain Print Language Print Language: Guyanese Discharge ED Provider: Eric Lyle General Adult HPI General Chief complaint: Chest Pain Stated complaint: Chest pain Time Seen by Provider: 12/23/23 19:38 History of Present Illness HPI narrative: Patient presents for evaluation of acute chest pain. Patient reports that he had acute onset left-sided/substernal chest pain that began just prior to arrival. He had associated nausea and diaphoresis but did not vomit. He did not lose consciousness. He was not doing strenuous activity although he was outside cutting wood he was sitting down utilizing a power saw. Patient does have a significant past medical history with previous stents the most recent being [address] Delatorre. In addition he has a past medical history of hypertension hyperlipidemia type 2 diabetes mellitus on insulin. Related Data Home Medications ?Medication ?Instructions ?Recorded ?Confirmed hydrocodone 7.5 mg-acetaminophen 1 tab PO TID PRN pain 08/02/17 12/14/23 325 mg tablet ibuprofen 800 mg tablet 800 mg PO TID PRN pain 08/02/17 12/14/23 insulin glargine 100 unit/mL (3 50 unit SQ DAILY 09/10/22 12/14/23 mL) subcutaneous pen (Basaglar KwikPen U-100 Insulin) omeprazole 40 mg capsule,delayed 40 mg PO BID 09/10/22 12/14/23 release febuxostat 80 mg tablet 80 mg PO DAILY 10/28/23 12/14/23 fluticasone propionate 50 50 mcg intranasal NEEDED PRN 10/28/23 12/14/23 mcg/actuation nasal allergies spray,suspension metformin 500 mg tablet,extended 500 mg PO DAILY 10/28/23 12/14/23 release 24 hr semaglutide 1 mg/dose (4 mg/3 mL) See Rx Instructions .Route .COMPLEX 10/28/23 12/14/23 subcutaneous pen injector (Ozempic) aspirin 81 mg tablet 81 mg PO DAILY 11/30/23 12/14/23 Previous Rx's ?Medication ?Instructions ?Recorded nitroglycerin 0.4 mg sublingual 0.4 mg sublingual Q5M PRN chest 07/20/22 tablet (Nitrostat) pain #30 tabs famotidine 20 mg tablet See Rx Instructions .Route 03/11/23 .COMPLEX #90 tabs atorvastatin 40 mg tablet See Rx Instructions .Route 12/14/23 .COMPLEX #30 tabs carvedilol 25 mg tablet 50 mg (2 x 25 mg) PO BID #120 tabs 12/14/23 dapagliflozin propanediol 10 mg 10 mg PO QAM Diabetes #30 tabs 12/14/23 tablet (Farxiga) hydrochlorothiazide 25 mg tablet 25 mg PO DAILY #30 tabs 12/14/23 isosorbide mononitrate 60 mg 60 mg PO DAILY #30 tabs 12/14/23 tablet,extended release 24 hr losartan 100 mg tablet 100 mg PO DAILY #30 tabs 12/14/23 ranolazine 1,000 mg 1,000 mg PO BID #60 tabs 12/14/23 tablet,extended release,12 hr ticagrelor 60 mg tablet (Brilinta) See Rx Instructions .Route 12/14/23 .COMPLEX #180 tabs Allergies Allergy/AdvReac Type Severity Reaction Status Date / Time Penicillins Allergy Unknown Verified 12/14/23 09:21 allergy reaction [facility] Disclaimer: The information contained in this section may have been updated after the patient was seen, as this information can be updated by other users. Medical History (Updated 12/23/23 @ 22:34 by AICHA Kerr) Gout CAD (coronary artery disease) HTN (hypertension) HLD (hyperlipidemia) DM (diabetes mellitus) Endothelial dysfunction of coronary artery Acute cystitis with hematuria Bilateral nephrolithiasis Renal insufficiency Renal colic on right side Kidney stones Encounter for pre-operative cardiovascular clearance Chest pain Abnormal stress test Angina, class III Surgical History (Updated 12/14/23 @ 09:22 by Maryanne Davis) S/P cardiac cath Social History Smoking Status: Never smoker second hand exposure: No alcohol intake: never substance use type: denies use current occupational status: disabled Travel in the last 8 weeks: None household members: spouse and children housing: other current occupational exposures/hazards: No caffeine: No Other Medical History Have you received the Flu Vaccine for this season: No Have you received the Pneumonia Vaccine: No ROS Obtained: Yes Systems reviewed as appropriate & no additional complaints except as documented Physical Exam General General appearance: alert and in no apparent distress Respiratory Respiratory exam: Present normal lung sounds bilaterally Cardiovascular Cardiovascular exam: Present regular rate Neurological Exam Neurological exam: Present alert and oriented X3 Medical Decision Making Medical Records Medical records reviewed: Yes I reviewed the patient's medical records. Screening: Per USPSTF and CDC recommendations, given the prevalence of disease in our region, it is our hospital?s policy to screen for HIV and viral Hepatitis for all patients aged 18 and over and those with ongoing risk factors. Herman Inquiry Pt receiving controlled substance: No Vital Signs: 12/23/23 19:37 12/23/23 20:00 12/23/23 20:30 Temperature 98.7 F Temperature Source Oral Pulse Rate 118 H 113 H Pulse Rate [Left Radial] 120 H Respiratory Rate 18 20 26 H Blood Pressure 135/81 129/80 Blood Pressure [Right Arm] 151/87 H Blood Pressure Mean [Right Arm] 108 Blood Pressure Source [Right Arm] Automatic Cuff Blood Pressure Position [Right Arm] Sitting 02 Sat by Pulse Oximetry 96 94 L 93 L Oxygen Delivery Method Room Air Room Air Room Air 12/23/23 21:00 12/23/23 21:30 12/23/23 22:00 Temperature Temperature Source Pulse Rate 110 H 103 H 101 H Pulse Rate [Left Radial] Respiratory Rate 27 H 26 H 21 Blood Pressure 119/69 124/78 129/85 Blood Pressure [Right Arm] Blood Pressure Mean [Right Arm] Blood Pressure Source [Right Arm] Blood Pressure Position [Right Arm] 02 Sat by Pulse Oximetry 94 L 94 L 95 Oxygen Delivery Method Room Air Room Air Room Air 12/23/23 22:30 Temperature Temperature Source Pulse Rate 97 H Pulse Rate [Left Radial] Respiratory Rate 21 Blood Pressure 121/76 Blood Pressure [Right Arm] Blood Pressure Mean [Right Arm] Blood Pressure Source [Right Arm] Blood Pressure Position [Right Arm] 02 Sat by Pulse Oximetry 93 L Oxygen Delivery Method Room Air Lab Data Lab results reviewed: Yes I reviewed the patient's lab results. Lab Results 12/23/23 19:42: HIV 1&2 Antibody Rapid Nonreactive 12/23/23 19:48: WBC 9.2, RBC 5.37, Hgb 16.8, Hct 50.6, MCV 94.3 H, MCH 31.2, MCHC 33.1, RDW 13.4, Plt Count 180, MPV 7.3 L, Neut % (Auto) 89.0 H, Lymph % (Auto) 5.7 L, Levy % (Auto) 3.7, Eos % (Auto) 1.3, Baso % (Auto) 0.2, Neut # (Auto) 8.2 H, Lymph # (Auto) 0.5 L, Levy # (Auto) 0.3, Eos # (Auto) 0.1, Baso # (Auto) 0.0, Total Counted 100, Neutrophils % (Manual) 84 H, Band Neutrophils % 1.0, Lymphocytes % (Manual) 9 L, Monocytes % (Manual) 5, Eosinophils % (Manual) 1, Platelet Estimate Normal, RBC Morphology Normal, D-Dimer 1.06 H, Sodium 136, Potassium 3.5, Chloride 104, Carbon Dioxide 22, Anion Gap 13.5, BUN 19, Creatinine 0.80, Estimated Creat Clear 103, Estimated GFR 98, Est GFR ( Amer) 118, Glucose 137 H, Calcium 9.2, Magnesium 1.9, Total Bilirubin 1.8 H, AST 43, ALT 37, Alkaline Phosphatase 94, Troponin I < 0.01, NT-Pro-B Natriuret Pep 21.7, Total Protein 7.6, Albumin 4.4, Globulin 3.2, Albumin/Globulin Ratio 1.4, Lipase 152 12/23/23 19:48 12/23/23 19:48 Orders (Tests/Meds): ED MEDICATIONS Generic Name Dose Route Start Last Admin Trade Name Freq PRN Reason Stop Dose Admin Sodium Chloride 10 ml 12/23/23 21:24 12/23/23 21:25 Sodium Chloride 0.9% 10ml Syr (Rad Only) IV 01/22/24 21:23 10 ml NEEDED PRN Administration Maintain IV Site Discontinued Medications Generic Name Dose Route Start Last Admin Trade Name Freq PRN Reason Stop Dose Admin Acetaminophen 1,000 mg 12/23/23 19:50 12/23/23 20:08 Acetaminophen 1,000mg/100ml Vial IV 12/23/23 19:51 1,000 mg ONCE ONE Administration Lactated Ringer's 1,000 mls @ 999 mls/hr 12/23/23 19:50 12/23/23 20:08 Lactated Ringer's 1000 Ml Bag IV 12/23/23 20:50 999 mls/hr .Q1H1M ONE Administration Iopamidol 70 ml 12/23/23 21:24 12/23/23 21:25 Iopamidol-370 (76%);100ml Bottle IV 12/23/23 21:25 70 ml ONCE ONE Administration Ketorolac Tromethamine 15 mg 12/23/23 19:50 12/23/23 20:08 Ketorolac 30mg/Ml Vial IV 12/23/23 19:51 15 mg ONCE ONE Administration Ondansetron HCl 4 mg 12/23/23 19:50 12/23/23 20:08 Ondansetron 4mg/2ml Vial IV 12/23/23 19:51 4 mg ONCE ONE Administration Sodium Chloride 50 ml 12/23/23 21:24 12/23/23 21:25 0.9 % Sodium Chloride 50 Ml Vial IV 12/23/23 21:25 50 ml ONCE ONE Administration ORDERS Category Date Time Status CT angio chest PE protocol Stat Cat Scan 12/23/23 21:05 Completed BNP [NT Pro Brain Natriuretic Pep.] Stat Lab 12/23/23 19:48 Completed CBC w/Auto Diff [Complete Blood Count Auto Diff] Stat Lab 12/23/23 19:48 Completed CMP [Comprehensive Metabolic Panel] Stat Lab 12/23/23 19:48 Completed D-Dimer Stat Lab 12/23/23 19:48 Completed HIV (1&2) Antibody Rapid Stat Lab 12/23/23 19:42 Completed Hep C Ab with Reflex to RNA Stat Lab 12/23/23 19:42 Received Lipase Stat Lab 12/23/23 19:48 Completed Magnesium Stat Lab 12/23/23 19:48 Completed Trop I [Troponin I] Stat Lab 12/23/23 19:48 Completed Troponin I Q3H Lab 12/23/23 23:00 Ordered Troponin I Q3H Lab 12/24/23 02:00 Ordered Medical Decision Narrative: In summary patient is a 63-year-old male who presents to the emergency department for evaluation of chest pain. Patient is 63-year-old male who is hemodynamically stable upon arrival, afebrile. Patient took 3 nitroglycerin prior to arrival with no relief. Physical exam is remarkable for a well- nourished well-developed morbidly obese 63-year-old gentleman who actually has left chest wall pain on palpation but otherwise normal breath sounds normal heart sounds. Patient however is tachycardic on arrival with a rate of 120s it appears to be sinus on the bedside monitor but otherwise with normal vital signs. Differential diagnosis includes anxiety versus ACS versus angina versus muscle strain etc. Initial workup will be conducted with hematologic labs plain film chest x-ray twelve-lead EKG. Initial interventions include crystalloid bolus Toradol Tylenol. Initial workup reviewed by me and his troponin is undetectable and the remainder of his hematologic labs are nonactionable however his D-dimer is markedly elevated at 1.06. The patient was placed in observation status at 2100 hrs. Medical necessity for observational status is serial troponins and CTA of the chest PE protocol. The patient was provided serial reevaluations continuous cardiac monitoring and pulse oximetry while awaiting results. CTA PE protocol did not show any acute processes. Repeat troponin is again undetectable. Patient has been asymptomatic for some time now through the remainder of his stay. Patient is appropriate for discharge with follow-up with cardiology closely. Patient return to ER for any worsening signs or symptoms as needed.. Total time in observation was [total time]. Critical Care Critical Care Time Critical Care Time: No
[2023-12-23] MEDS: LACTATED RINGERS 1000ML 1,000 ML 999 ML IV (20:08)
[2023-12-23] MEDS: ACETAMINOPHEN 1,000MG/100ML VIAL 1000 MG IV (20:08)
[2023-12-23] MEDS: KETOROLAC 30MG/ML VIAL 15 MG IV (20:08)
[2023-12-23] MEDS: ONDANSETRON 4MG/2ML VIAL 4 MG IV (20:08)
[2023-12-23 20:21] LABS: Basophils % 0.2 % (0.1-2.0); Eosinophils # 0.1 K/mm3 (0.0-0.4); Eosinophils % 1.3 % (0.1-12.0); Hematocrit 50.6 % (42.0-52.0); Hemoglobin 16.8 g/dL (14.1-18.0); Lymphocytes # 0.5 K/mm3 (0.7-4.5); Lymphocytes % 5.7 % (10-50); Mean Corpuscular HGB Conc 33.1 g/dL (31.8-35.4); Mean Corpuscular Hemoglobin 31.2 pg (27.0-31.2); Mean Corpuscular Volume 94.3 fl (80-94); Mean Platelet Volume 7.3 fl (7.4-10.4); Monocytes # 0.3 K/mm3 (0.1-1.0); Monocytes % 3.7 % (1.7-9.3); Neutrophils # 8.2 K/mm3 (1.8-7.8); Platelet Count 180 K/mm3 (142-424); Red Blood Count 5.37 M/mm3 (4.60-6.20); Red Cell Distribution Width 13.4 % (11.5-17.5); White Blood Count 9.2 K/mm3 (4.8-10.8)
[2023-12-23 20:23] LABS: MANUAL DIFFERENTIAL MANUAL DIFFERENTIAL (MANUAL DIFF)
[2023-12-23 20:27] LABS: Albumin Level 4.4 g/dl (3.5-5.0); Chloride 104 mmol/L (98-107); Potassium 3.5 mmoL/L (3.5-5.1); Sodium 136 mmol/L (136-145)
[2023-12-23 20:29] LABS: Alanine Aminotransferase 37 U/L (12-78); Anion Gap 13.5 mEq/L (5-15); Aspartate Amino Transferase 43 U/L (17-59); Blood Urea Nitrogen 19 mg/dl (9-20); Carbon Dioxide 22 mmol/L (22.0-30.0); Creatinine Clearance Estimated 103 mL/min (50-200); Estimated Glomerular Filt Rate 98 ml/min (>60); GFR (African American) 118 ML/MIN (>60)
[2023-12-23 20:30] LABS: Albumin/Globulin Ratio 1.4 (1.1-1.8); Alkaline Phosphatase 94 U/L (38-126); Bilirubin,Total 1.8 mg/dl (0.2-1.3); Calcium 9.2 mg/dl (8.4-10.2); Globulin 3.2 g/dL (1.3-3.2); Glucose 137 mg/dl (74-100); Lipase 152 U/L (23-300); Magnesium 1.9 mg/dl (1.6-2.3); Total Protein,Serum 7.6 g/dl (6.3-8.2)
[2023-12-23 20:39] LABS: NT Pro Brain Natriuretic Pep. 21.7 pg/mL (0-125)
[2023-12-23 20:42] LABS: D-Dimer 1.06 ug/mL (0.0-0.5); Troponin I < 0.01 ng/ml (0.00-0.034)
--- NOTE | 2023-12-23 21:05 | CT_ITS ---
PROCEDURE INFORMATION: Exam: CTA Chest With Contrast Exam date and time: 12/23/2023 9:18 PM Age: 63 years old Clinical indication: Pain; Chest pressure; Additional info: Chest pain TECHNIQUE: Imaging protocol: Computed tomographic angiography of the chest with contrast. Exam focused on the arteries. 3D rendering (Not supervised by radiologist): MIP and/or 3D reconstructed images were created by the technologist. Radiation optimization: All CT scans at this facility use at least one of these dose optimization techniques: automated exposure control; mA and/or kV adjustment per patient size (includes targeted exams where dose is matched to clinical indication); or iterative reconstruction. Contrast material: ISOVUE; Contrast volume: 70 ml; Contrast route: INTRAVENOUS (IV); COMPARISON: CR XR CHEST PORTABLE 12/21/2022 5:23 PM FINDINGS: Pulmonary arteries: No central or large peripheral pulmonary emboli. Aorta: There is mild dilation of the ascending aorta. Lungs: No focal infiltrates. Calcified granuloma right lower lobe. Pleural spaces: Unremarkable. No pneumothorax. No pleural effusion. Heart: Unremarkable. No cardiomegaly. No pericardial effusion. Coronary arteries: Coronary artery calcifications/coronary stents Lymph nodes: Unremarkable. No enlarged lymph nodes. Diaphragm: Moderate hiatal hernia Gallbladder and biliary ducts: There has been a cholecystectomy. Pancreas: Pancreas appears normal. Spleen: Calcified splenic granulomas. Adrenal glands: The adrenal glands appear normal. Bones/joints: Mild multilevel degenerative changes of the thoracic spine. Soft tissues: Unremarkable. IMPRESSION: 1. No focal infiltrates. 2. No central or large peripheral pulmonary emboli. 3. There is mild dilation of the ascending aorta. 4. Other (less critical/noncritical/incidental) findings as above; please refer to the body of report for further details.
[2023-12-23] MEDS: 0.9 % SODIUM CHLORIDE 50 ML VIAL IV (21:25)
[2023-12-23] MEDS: SODIUM CHLORIDE 0.9% 10ML SYR (RAD ONLY) 10 ML IV (21:25)
[2023-12-23] MEDS: IOPAMIDOL-370 (76%);100ML BOTTLE 70 ML IV (21:25)
[2023-12-23 21:58] LABS: Eosinophils % 1 % (0-3); Lymphocytes % 9 % (10-50); Monocytes % 5 % (2-9); Neutrophils % 84 % (42-76); Total Cells Counted 100
[2023-12-23 21:59] LABS: Platelet Estimate Normal; RBC Morphology Normal
[2023-12-23 22:02] LABS: HIV (1&2) Antibody Rapid NONREACTIVE (NONREACTIVE)
--- NOTE | 2023-12-23 22:23 | PC.NURSE ---
3hr Troponin sent up per PA-C request to send early
[2023-12-23 22:58] LABS: Troponin I < 0.01 ng/ml (0.00-0.034)
[2023-12-25 05:15] LABS: HCV Ab Non Reactive (Non Reactive)
== END 2023-12-23 23:04 | disposition home or self-care (01) ==
PROVIDERS: Physician Assistant; Emergency Provider Student in an Organized Health Care Education/Training Program; PCP Nurse Practitioner Family
DX: R07.9 Chest pain, unspecified (principal)
CPT/HCPCS: 71275; 80053; 83690; 83735; 83880; 84484; 85007; 85025; 85027; 85378; 86803; 87389; 93005; 96361; 96374; 96375; 99285; J0131; J1885; J2405; J7120; Q9967

== ENCOUNTER 2024-10-09 18:05 | Emergency (ER) | payer MEDICARE, MEDICAID, SELFPAY ==
--- NOTE | 2024-10-09 18:21 | CT_ITS ---
PROCEDURE INFORMATION: Exam: CT Maxillofacial Without Contrast Exam date and time: 10/09/2024 6:30 PM Age: 64 years old Clinical indication: Injury or trauma; Additional info: Blunt trauma forehead TECHNIQUE: Imaging protocol: Computed tomography of the face without contrast. Radiation optimization: All CT scans at this facility use at least one of these dose optimization techniques: automated exposure control; mA and/or kV adjustment per patient size (includes targeted exams where dose is matched to clinical indication); or iterative reconstruction. COMPARISON: CT HEAD/BRAIN WO CON 10/09/2024 6:28 PM FINDINGS: Paranasal sinuses: Mild mucosal thickening and small retention cysts in the paranasal sinuses. Orbital cavities: Orbits are normal. Globes are unremarkable. Teeth: Patient is edentulous due to recent appearing dental extractions. Bones: Mild irregularity of the nasal bone, age indeterminate. Soft tissues: Hematoma and laceration overlying the left frontal bone. IMPRESSION: Mild irregularity of the nasal bone, age indeterminate. Please correlate with point tenderness to exclude a nasal fracture. Otherwise, no acute facial fractures.
--- NOTE | 2024-10-09 18:21 | CT_ITS ---
PROCEDURE INFORMATION: Exam: CT Cervical Spine Without Contrast Exam date and time: 10/09/2024 6:32 PM Age: 64 years old Clinical indication: Injury or trauma; Additional info: Blunt trauma b/l neck pain TECHNIQUE: Imaging protocol: Computed tomography of the cervical spine without contrast. Radiation optimization: All CT scans at this facility use at least one of these dose optimization techniques: automated exposure control; mA and/or kV adjustment per patient size (includes targeted exams where dose is matched to clinical indication); or iterative reconstruction. COMPARISON: CT FACIAL BONES WO CON 10/09/2024 6:30 PM FINDINGS: Bones: Straightening of the curvature of the cervical spine is likely positional. Severe left neural foraminal stenosis at C3-C4 and moderate left neural foraminal stenosis at C5-C7. Moderate right neural foraminal stenosis at C3-C6. Multilevel degenerative changes of the cervical spine producing multiple levels of mild spinal canal stenosis. Lungs: Lung apices are normal. Soft tissues: Unremarkable. IMPRESSION: No acute fracture or malalignment of the cervical spine.
--- NOTE | 2024-10-09 18:21 | CT_ITS ---
PROCEDURE INFORMATION: Exam: CT Head Without Contrast Exam date and time: 10/09/2024 6:28 PM Age: 64 years old Clinical indication: Injury or trauma; Additional info: Wood vs forehead loc TECHNIQUE: Imaging protocol: Computed tomography of the head without contrast. Radiation optimization: All CT scans at this facility use at least one of these dose optimization techniques: automated exposure control; mA and/or kV adjustment per patient size (includes targeted exams where dose is matched to clinical indication); or iterative reconstruction. COMPARISON: CT HEAD/BRAIN WO CON 10/25/2019 9:58 PM FINDINGS: Brain: Mild chronic brain volume loss and chronic small vessel ischemic changes. Cerebral ventricles: No ventriculomegaly. Paranasal sinuses: Mild mucosal thickening in the paranasal sinuses. Mastoid air cells: Visualized mastoid air cells are well aerated. Orbital cavities: Status post bilateral cataract surgery. Bones: Unremarkable. No acute fracture. Soft tissues: Hematoma and laceration overlying the frontal bone. IMPRESSION: No acute intracranial findings.
[2024-10-09 18:22] VITALS: BP 202/115; PULSE 82; RESP 20; TEMP 36.6; O2SAT 98; BMI 29.5
--- NOTE | 2024-10-09 18:23 | PC.NURSE ---
RADIOLOGY NOTIFIED OF STAT CT ORDERS
--- NOTE | 2024-10-09 18:26 | PC.NURSE ---
PT TO CT
--- OUTSIDE RECORDS SUMMARY | 2024-10-09 18:58 | XMS_ITS | Encounter Summary ---
Author Organization [employer] ([place], [place], [place], [place]) Address [address] [place] [address] Care Team Providers Care Button Broacher Name Role Phone Unavailable Primary Care Provider Unavailabl e Encounter Details Date Type Department Care Team (Late st Contact Info) Description 03/28/2019 Transcribed Document [facility] Radiology [address] [place] [address] Provider nathen Pelaez MD Social History Tobacco Use Types Packs/Day Years Used Date Smoking Tobacco: Never Assessed Sex and Gender Information Value Date Recorded Sex Assigned at Not on file Legal Sex Male 1:31 PM CDT Gender Identity Not on file Sexual Orientation Not on file documented as of this encounter Miscellaneous Notes * Cerner Conversion Note - [facility] Latanya Merlos MD - 03/28/2019 6:31 PM EST Event Note Entered On: 03/28/2019 17:33 EST Performed On: 03/28/2019 17:31 EST by HAMIDA PALMER RN Event Note Event Date/Time : 03/28/2019 15:24 EST Description of Event : Dr. Wilson in PACU to see patient. OK to crush Lisinopril and Hydrochlorothiazide and give to patient with small amount of water. HAMIDA Coley RN, RN - 03/28/2019 17:31 EST Electronically signed by [place] [facility] Conversion Prestidigitator Kimo at 08/12/2022 11:48 AM CDT documented in this encounter Plan of Treatment Not on file documented as of this encounter Visit Diagnoses Not on filedocumented in this encounter
--- OUTSIDE RECORDS SUMMARY | 2024-10-09 18:58 | XMS_ITS | Encounter Summary ---
Author Organization [employer] ([place], [place], [place], [place]) Address [address] [place] [address] Care Team Providers Care Assistant Manager Bilingual Name Role Phone Unavailable Primary Care Provider Unavailabl e Encounter Details Date Type Department Care Team (Late st Contact Info) Description 03/28/2019 Transcribed Document [facility] [address] [place] [address] Provider [facility] MD Latanya Social History Tobacco Use Types Packs/Day Years Used Date Smoking Tobacco: Never Assessed Sex and Gender Information Value Date Recorded Sex Assigned at Not on file Legal Sex Male 1:31 PM CDT Gender Identity Not on file Sexual Orientation Not on file documented as of this encounter Miscellaneous Notes * Cerner Conversion Note - [facility] Latanya ProviderMD - 03/28/2019 3:45 PM EST Event Note Entered On: 03/28/2019 15:06 EST Performed On: 03/28/2019 14:45 EST by HAMIDA PALMER RN Event Note Event Date/Time : 03/28/2019 14:45 EST Description of Event : Dr. Lawler notified of consult for post op medical management. HAMIDA PALMER RN - 03/28/2019 15:05 EST Electronically signed by [place] [facility] Conversion Gas Well Drilling Manager Cerner at 08/12/2022 11:48 AM CDT documented in this encounter Plan of Treatment Not on file documented as of this encounter Visit Diagnoses Not on filedocumented in this encounter
--- OUTSIDE RECORDS SUMMARY | 2024-10-09 18:58 | XMS_ITS | Encounter Summary ---
Author Organization [employer] ([place], [place], [place], [place]) Address [address] [place] [address] Care Team Providers Care Maintenance Planning Clerk Name Role Phone Unavailable Primary Care Provider Unavailabl e Encounter Details Date Type Department Care Team (Late st Contact Info) Description 03/28/2019 Transcribed Document [facility] Radiology [address] [place] [address] Provider, James Pelaez MD Social History Tobacco Use Types Packs/Day Years Used Date Smoking Tobacco: Never Assessed Sex and Gender Information Value Date Recorded Sex Assigned at Not on file Legal Sex Male 1:31 PM CDT Gender Identity Not on file Sexual Orientation Not on file documented as of this encounter Miscellaneous Notes * Cerner Conversion Note - [facility] Latanya ProviderMD - 03/28/2019 9:35 AM EST Patient: ROBERTO ROMEO Age: 58 years Sex: Male : 1960 Associated Diagnoses: None Author: JOSE ROBERTO COLBERT APRN Chief Complaint GERD Review of Systems ROS reviewed as documented in chart no change since last seen by surgeon Health Status Allergies: Allergic Reactions (Selected) Severity Not Documented Penicillin- Shortness of breath and hives., Allergies (1) Active Reaction penicillin Shortness of breath Current medications: (Selected) Inpatient Medications Ordered Cleocin HCl: 900 mg, 50 mL, 100 mL/Hr, IV Piggyback, PREOP Lactated Ringers Injection intravenous solution 1,000 mL: 20 mL/Hr, IntraVENous Documented Medications Documented Brilinta: 90 mg, Oral, BID, 0 Refill(s) Bydureon BCise: 2 mg, SubCutaneous, Weekly, 0 Refill(s) Farxiga: 10 mg, Oral, Daily, 0 Refill(s) Flomax: 0.4 mg, Oral, Daily, 0 Refill(s) acetaminophen-oxyCODONE 325 mg-7.5 mg oral tablet: 1 Tab, Oral, Q6H, PRN: as needed for pain, 0 Refill(s) atorvastatin: 20 mg, Oral, Daily, 0 Refill(s) febuxostat: 80 mg, Oral, Daily, 0 Refill(s) glipiZIDE: 10 mg, Oral, BID, 0 Refill(s) hydroCHLOROthiazide: 25 mg, Oral, Daily, 0 Refill(s) ibuprofen: 800 mg, Oral, BID, PRN: as needed for pain, 0 Refill(s) isosorbide mononitrate: 60 mg, Oral, QAM, 0 Refill(s) lisinopril: 40 mg, Oral, Daily, 0 Refill(s) metFORMIN 500 mg oral tablet: 2 Tab, Oral, BID, 0 Refill(s) omeprazole: 40 mg, Oral, Daily, 0 Refill(s), Home Medications (14) Active acetaminophen-oxyCODONE 325 mg-7.5 mg oral tablet 1 Tab, PRN, Oral, Q6H atorvastatin 20 mg, Oral, Daily Brilinta 90 mg, Oral, BID Bydureon BCise 2 mg, SubCutaneous, Weekly Farxiga 10 mg, Oral, Daily febuxostat 80 mg, Oral, Daily Flomax 0.4 mg, Oral, Daily glipiZIDE 10 mg, Oral, BID hydroCHLOROthiazide 25 mg, Oral, Daily ibuprofen 800 mg, PRN, Oral, BID isosorbide mononitrate 60 mg, Oral, QAM lisinopril 40 mg, Oral, Daily metFORMIN 500 mg oral tablet 1,000 mg = 2 Tab, Oral, BID omeprazole 40 mg, Oral, Daily , Medications (2) Active Scheduled: (1) clindamycin/D5w 900 mg 50 mL, IV Piggyback, PREOP Continuous: (1) lactated ringers 1,000 mL 1,000 mL, IntraVENous, 20 mL/Hr PRN: (0) Problem list: All Problems Stented coronary artery / SNOMED CT 0815551929 / Confirmed Fatty liver / SNOMED CT 575509799 / Confirmed Seasonal allergies / SNOMED CT 8844691189 / Confirmed BOUCHRA (obstructive sleep apnea), no cpap / SNOMED CT 238366936 / Confirmed Myocardial infarct / SNOMED CT 61301315 / Confirmed 2017 Prostate hypertrophy / SNOMED CT 618187904 / Confirmed Kidney stones / SNOMED CT 266999567 / Confirmed HTN (hypertension) / SNOMED CT 7298207806 / Confirmed HLD (hyperlipidemia) / SNOMED CT 18261219 / Confirmed History of obstructive sleep apnea / IMO 36638974 / Confirmed Hiatal hernia / SNOMED CT 240479372 / Confirmed Gout / SNOMED CT 502998703 / Confirmed GERD (gastroesophageal reflux disease) / SNOMED CT 482108026 / Confirmed DM (diabetes mellitus) / SNOMED CT 669475924 / Confirmed Cataract / SNOMED CT 941972310 / Confirmed Arthritis / SNOMED CT 9768803 / Confirmed hands, Active Problems (16) Arthritis Cataract DM (diabetes mellitus) Fatty liver GERD (gastroesophageal reflux disease) Gout Hiatal hernia History of obstructive sleep apnea HLD (hyperlipidemia) HTN (hypertension) Kidney stones Myocardial infarct BOUCHRA (obstructive sleep apnea), no cpap Prostate hypertrophy Seasonal allergies Stented coronary artery Histories Past Medical History: No active or resolved past medical history items have been selected or recorded. Family History: No family history items have been selected or recorded. Procedure history: cardiac stent x2 in 2018 at 57 Years. colonoscopy. kidney stone extraction. gout deposit removals multiple. right ankle fx with hardware 8yr ago. appendectomy. cholecystectomy. Physical Examination VS/Measurements Vital Signs/Vital Measures 03/28/2019 7:00 EST Systolic Blood Pressure 131 mmHg Diastolic Blood Pressure 92 mmHg HI Temperature Source Temporal artery scanning Temperature Mode Fahrenheit Temperature, Fahrenheit 97.5 Deg F Clinical Temperature, C 36.4 Deg C Heart Rate Monitored 97 bpm Respiratory Rate 20 Breaths/Min Oxygen Saturation 96 % Oxygen Therapy Mode Room air 03/27/2019 11:13 EST Blood Pressure Location Arm, right upper Blood Pressure Source Non-Invasive BP Device Blood Pressure Position Sitting Systolic Blood Pressure 128 mmHg Diastolic Blood Pressure 77 mmHg Temperature Source Temporal artery scanning Temperature, Fahrenheit 98.3 Deg F Clinical Temperature, C 36.8 Deg C Pulse Method Pulse Oximetry Peripheral Pulse Rate 88 bpm Respiratory Rate 18 Breaths/Min Oxygen Saturation 98 % Oxygen Therapy Mode Room air , Vitals Signs (last 24 hrs) Last Charted Minimum Maximum Temp 97.5 (MAR 28:) 97.5 (MAR 28:) 98.3 (MAR 27:) Mon HR 97 (MAR 28:) 97 (MAR 28:00) 97 (MAR 28:) Periph HR 88 (MAR 27 11:13) 88 (MAR 27 11:13) 88 (MAR 27:) Resp Rate 20 (MAR 28:) 18 (MAR 27:) 20 (MAR 28:) SBP 131 (MAR 28:) 128 (MAR 27:) 131 (MAR 28:) DBP H 92 (MAR 28:) 77 (MAR 27:) H 92 (MAR 28:) SpO2 96 (MAR 28:) 96 (MAR 28:00) 98 (MAR 27:) , Measurements from flowsheet : Measurements 03/27/2019 11:13 EST Height Source Measured Height Entry Format [place] Height/Length, MALAWIAN (ft) 0 ft Height/Length MALAWIAN 69 Inch CLINICALHEIGHT 175.26 cm [place] Body Weight 70 kg Weight Source Standing scale Weight Entry Format [place] Weight [place] lb 221.2 lb CLINICALWEIGHT 100.55 kg Body Surface Area (BSA) 2.16 m2 Body Mass Index 32.7 kg/m2 HI General: Alert and oriented, No acute distress, obese. Eye: Pupils are equal, round and reactive to light, Extraocular movements are intact. HENT: Normocephalic, Normal hearing. Neck: Supple, Non-tender. Respiratory: Lungs are clear to auscultation, Respirations are non-labored. Cardiovascular: Normal rate, Regular rhythm, No murmur, No gallop, No edema. Gastrointestinal: Soft, epigastric tenderness on palpation . Genitourinary: No costovertebral angle tenderness. Lymphatics: No lymphadenopathy neck, axilla, groin. Musculoskeletal: Normal range of motion, Normal strength. Integumentary: Warm, Dry, [place]. Neurologic: Alert, Oriented. Psychiatric: Cooperative, Appropriate mood & affect. Review / Management Results review: Labs (Last four charted values) WBC 8.0 (MAR 27) HB 15.6 (MAR 27) HCT 45.8 (MAR 27) Plt 232 (MAR 27) Na L 133 (MAR 27) K 4.0 (MAR 27) Cl L 101 (MAR 27) CO2 24 (MAR 27) BUN H 30 (MAR 27) Cr H 1.50 (MAR 27) Glu R H 291 (MAR 27) Ca 9.9 (MAR 27) PT 11.3 (MAR 27) INR 1.1 (MAR 27) PTT 28.2 (MAR 27) AST H 63 (MAR 27) ALT H 103 (MAR 27) ALK P 99 (MAR 27) T Bili 1.0 (MAR 27) PTN 8.1 (MAR 27) ALB 3.9 (MAR 27) , Lab results 03/28/2019 8:12 EST Device Comment 1 Device Comment 1 Glucose POC2 247 mg/dL HI 03/27/2019 11:26 EST Sodium Level 133 mmol/L LOW Potassium Level 4.0 mmol/L Chloride Level 101 mmol/L LOW Carbon Dioxide Level 24 mmol/L Anion Gap 12 Glucose Level 291 mg/dL HI Blood Urea Nitrogen 30 mg/dL HI CREATININE 1.50 mg/dL HI eGFR 58 mL/min/1.73m2 LOW eGFR NonAfrican 48 mL/min/1.73m2 LOW Bun/Creatinine 20.0 Calcium Level 9.9 mg/dL Protein Total 8.1 Gram/dL Albumin Level 3.9 Gram/dL Globulin 4.2 Gram/dL A/G Ratio 0.9 LOW Bilirubin Total 1.0 mg/dL Alk Phos 99 Units/Liter AST 63 Units/Liter HI ALT 103 Units/Liter HI Hgb A1C 8.2 % NA eAVG Glucose 189 mg/dL NA WBC 8.0 K/uL RBC 5.17 Million/uL Hgb 15.6 g/dL Hct 45.8 % MCV 88.6 fL MCH 30.2 pg MCHC 34.1 Gram/dL Platelet Count 232 K/uL MPV 11.2 fL RDW 11.9 % Slide Review No PT 11.3 Second(s) INR 1.1 PTT 28.2 Second(s) . Impression and Plan Condition: Stable. documented in this encounter Plan of Treatment Not on file documented as of this encounter Visit Diagnoses Not on filedocumented in this encounter
--- OUTSIDE RECORDS SUMMARY | 2024-10-09 18:58 | XMS_ITS | Continuity of Care Document ---
Author Organization [facility] Address [address] [place] [address] Assessment No assessment recorded. Plan of Treatment Reminders Order Date Submit Date Provider Last Modified By Organization Details Last Modified Time Details Appointments Establish ed Patient 20 2024 02:20P Redd Connell APRN Not available Not available Not available Lab CMP, serum or plasma 2024 025 [place] [facility], [address], [facility], [place], [address], 08/26/2024 04:09:41 HbA1c (hemoglob in A1c), blood 2024 025 [email or web address] [facility], [address] [place] [address], [place], [address], 08/24/2024 15:56:21 Referral None recorded. Procedures None recorded. Surgeries None recorded. Imaging MRI, abdomen, w/wo contrast 2024 025 [email or web address] [facility], [address] [place] [address] [place], [address], 09/15/2024 08:00:38 Medication Orders None recorded. Patient TargetsNo targets recorded. Patient Instructions Encounter Date Encounter Id Patient Instructions Last Modified By Organization Details Last Modified Time 08/24/2024 [id number] body mass index: care instructions [email or web address] Not available 08/24/2024 15:56:21 learning about healthy weight [email or web address] Not available 08/24/2024 15:56:21 learning about type 2 diabetes [email or web address] Not available 08/24/2024 15:56:21 type 2 diabetes: care instructions [email or web address] Not available 08/24/2024 15:56:21 will call with labs and mri results fu in 3 months [email or web address] Not available 08/24/2024 16:54:50 Reason for Referral None Reported. Results Created Date Observation Date Name Description Value Unit Range Abnormal Flag Note LastModifiedBy Organization Detail LastModifiedTime 08/25/1908/24/2024 HbA1c (hemo globi n A1c), blood HbA1C 7.5 % Not Available [facility] [address], [place], [address], 08/24/2024 15:55:55 Result Notes None recorded. Problems Name Problem SNOMED Code Status Onset Date Resolution Date Notes Provider Name and Address Organization Details Recorded Time Gouty arthropathy 416504592 Active 2016 Aman Allison APRN [address], [place], [address], [place] - [facility] 7 15:32:25 Type 2 diabetes mellitus 27569963 Active 2017 Leticiapiper Forrest null, [place] - [facility] 8 08:37:57 History of myocardial infarction 398867611 Active 2017 Charmaine Clarisa null, [place] - [facility] 8 09:38:11 Hypercholester olemia 79248843 Active 2018 Leticia Forrest null, [place] - [facility] 9 09:09:39 Metabolic dysfunction-as sociated steatohepatiti s 662717526 Active 2019 Aman Allison [employer] [address], [place], [address], [place] - [facility] 0 16:36:02 Essential hypertension 93462133 Active 2019 Aman Allison APRN [address], [place], [address], [place] - [facility] 0 10:13:48 Kidney stone 98171867 Active 2020 Aman Allison APRN [address], [place], [address], [place] - [facility] 11:07:36 Gout 75050481 Active 2020 Aman Allison, [employer] [address], [place], [address], [facility] - [facility] 11:07:39 Tension-type headache 946202093 Active 2020 Aman Allison, [employer] [address], [place], [address], [facility] - [facility] 08:57:50 Problem Notes None recorded. Procedures Surgical History Date Name Laterality Status Provider Name and Address Organization Details Recorded Time 04/22/19 21 Systolic B/P less than 130 mm Hg completed [facility] 04/22/2020 10:52:58 04/22/19 21 Diastolic B/P 80-89 mm Hg completed [facility] 04/22/2020 10:53:01 04/22/19 21 cataract surgery completed Charmaine Mckenna [facility] 08/28/2022 10:44:40 10/27/19 20 Diastolic B/P greater than or equal to 90 mm Hg completed [facility] 10/27/2019 10:06:34 10/27/19 20 Systolic B/P 130-139 mm Hg completed [facility] 10/27/2019 10:06:26 10/27/19 20 Medication Reconcilliation completed [facility] 10/26/2019 14:53:48 05/23/19 20 Systolic B/P less than 130 mm Hg completed [facility] 05/23/2019 16:01:31 05/23/19 20 Diastolic B/P less than 80 mm Hg completed [facility] 05/23/2019 16:01:32 04/07/19 20 Systolic B/P less than 130 mm Hg completed [facility] 04/07/2019 11:30:06 04/07/19 20 Diastolic B/P less than 80 mm Hg completed [facility] 04/07/2019 11:30:07 04/05/19 20 Systolic B/P less than 130 mm Hg completed [facility] 04/05/2019 10:54:10 04/05/19 20 Diastolic B/P 80-89 mm Hg completed [facility] 04/05/2019 10:54:12 03/28/19 20 laparoscopic total fundoplication using abdominal approach completed [facility] 04/05/2019 10:48:27 12/27/19 19 Systolic B/P less than 130 mm Hg completed [facility] 12/26/2018 14:41:06 12/27/19 19 Diastolic B/P less than 80 mm Hg completed [facility] 12/26/2018 14:41:09 11/23/19 19 Systolic B/P less than 130 mm Hg completed [facility] 11/22/2018 10:16:48 11/23/19 19 Diastolic B/P 80-89 mm Hg completed [facility] 11/22/2018 10:16:50 11/16/19 19 Advance Care Planning completed [facility] 11/15/2018 08:32:59 11/16/19 19 Diastolic B/P 80-89 mm Hg completed [facility] 11/15/2018 08:41:27 11/16/19 19 Systolic B/P 130-139 mm Hg completed [facility] 11/15/2018 08:41:24 11/16/19 19 Functional Status Assessed completed [facility] 11/15/2018 08:32:59 04/12/19 19 Systolic B/P less than 130 mm Hg completed [facility] 04/12/2018 10:27:34 04/12/19 19 Diastolic B/P 80-89 mm Hg completed [facility] 04/12/2018 10:27:44 08/28/19 18 Cardiac Cath completed Charmaine Mckenna [facility] 12/31/2017 09:38:33 08/03/19 18 Advance Care Planning completed Jess Vickers, RN [address], [place], [address], [facility] 08/02/2017 08:41:17 03/22/19 08 Cholecystectomy, laparoscopic completed Aman Allison, [employer] [address], [place], [address], [place] - [facility] 06/02/2016 12:51:58 cardiac catheterization completed Leticia Forrest [place] - [facility] 08/12/2020 13:46:40 Imaging Results None recorded. Procedure Notes None recorded. Medical Equipment None Reported. Allergies Allergen ID Allergen Name Allergen Category Reaction Reaction Severity Criticality Documentation Date Start Date Code Code System Note Provider Name and Address Organization Details Recorded Time 42411 Product containin g penicilli n (product) medicatio n hives Not available Not available 12/27/20152008 19520 8001 SNOMED React ion: hives ; Not Available [facility] 6 09:35:23 Medications Name Sig Start Date Stop Date Status Note LastModified by Organization Details LastModified Time diabetic shoes 03/11 completed Not Available Not Available Not Available custom inserts rt 05/14 completed Not Available Not Available Not Available Prescript ion - Prior Authoriza tion Request 10/26 completed Not Available Not Available Not Available tndrft white lthr lace 10/26 completed Not Available Not Available Not Available custom inserts lt 05/14 completed Not Available Not Available Not Available cyclobenz aprine 10 mg tablet take 1 tablet (10 mg) by oral route 3 times per day 06/22 completed cycloben zaprine 10 mg oral tablet;R ecorded Status: Recorded on: 07/16/19 16 4:46PM;U ser: [email or web address] b;Printe d: 07/16/19 16 Not Available Not Available Not Available amoxicill in 500 mg capsule take 1 capsule (500 mg) by oral route every 8 hours for 10 days 07/27 completed amoxicil ledy 500 mg oral capsule; Recorded Status: Recorded on: 12/30/19 12 9:34AM;D iscontin ued Status: Disconti nued on: 07/28/19 13 11:03AM; User: chandan mcdonaldEst. Completi on: 01/09/20 12;Print ed: 12/30/19 12 Not Available Not Available Not Available atorvasta tin 40 mg tablet TAKE 1 TABLET BY MOUTH ONCE DAILY. active Not Available Not Available No t Available methocarb duane 500 mg tablet take 1 tablet by oral route 4 times a day 07/08 completed methocar bamol 500 mg oral tablet;R ecorded Status: Recorded on: 07/09/19 16 9:27AM;D iscontin ued Status: Disconti nued on: 07/09/19 16 9:41AM;U ser: poczatek b;Printe d: 07/09/19 16 Not Available Not Available Not Available metformin 500 mg tablet take 1 tablet (500 mg) by oral route 2 times per day with morning and evening meals 07/29 completed metformi n 500 mg oral tablet;R ecorded Status: Recorded on: 07/30/19 16 1:09PM;D iscontin ued Status: Disconti nued on: 07/30/19 16 1:40PM;U ser: halla Not Available Not Available Not Available promethaz ine-DM 6.25 mg-15 mg/5 mL oral syrup Take 5 mL every 4 hours by oral route as needed. 08/12 completed Not Available Not Available Not Available carvedilo l 25 mg tablet TAKE (2) TABLETS BY MOUTH TWICE DAILY active Not Available Not Available No t Available carvedilo l 6.25 mg tablet TAKE (1) TABLET BY MOUTH TWICE A DAY. 04/08 completed Not Available Not Available Not Available atorvasta tin 20 mg tablet TAKE ONE TABLET BY MOUTH AT BEDTIME 05/14 completed Not Available Not Available Not Available carvedilo l 12.5 mg tablet TAKE (1) TABLET BY MOUTH WITH FOOD TWICE A DAY FOR HIGH BLOOD PRESSURE 05/14 completed Not Available Not Available Not Available aspirin 325 mg tablet take 1 tablet (325 mg) by oral route once daily 07/29 completed aspirin 325 mg oral tablet;R ecorded Status: Recorded on: 10/28/19 14 8:58AM;D iscontin ued Status: Disconti nued on: 07/30/19 16 1:18PM;U ser: hamptona Not Available Not Available Not Available ibuprofen 800 mg tablet TAKE (1) TABLET BY MOUTH THREE TIMES DAILY-TA KE WITH FOOD. active Not Available Not Available No t Available sumatript an 100 mg tablet Take 1 tablet by oral route as needed. 04/22 completed Not Available Not Available Not Available hydrocodo ne 5 mg-acetam inophen 325 mg tablet TAKE (1) TABLET BY MOUTH EVERY EIGHT HOURS NEEDED. 06/13 completed Not Available Not Available Not Available Keflex 500 mg capsule take 1 capsule (500 mg) by oral route every 6 hours for 10 days 11/12 completed Keflex 500 mg oral capsule; Recorded Status: Recorded on: 01/10/20 11 9:53AM;D iscontin ued Status: Disconti nued on: 11/13/19 12 1:06PM;U ser: poczatek b;Est. Completi on: 01/20/20 11;Print ed: 01/10/20 11 Not Available Not Available Not Available glipizide 10 mg tablet TAKE (1) TABLET BY MOUTH TWICE A DAY WITH MEALS 05/29 completed Not Available Not Available Not Available isosorbid e mononitra te ER 30 mg tablet,ex tended release 24 hr TAKE 1 TABLET BY MOUTH ONCE A DAY. 02/06 completed Not Available Not Available Not Available atenolol 25 mg tablet take 1 tablet (25 mg) by oral route 2 times per day for 30 days 07/15 completed atenolol 25 mg oral tablet;P rescribe Status: Prescrib ed on: 07/12/19 16 1:48PM;U ser: hamptona ;Est. Completi on: 10/10/19 16;Pharm acyVerif ied: 07/12/19 16 1:48PM Not Available Not Available Not Available Zithromax 250 mg tablet take 2 tablets (500 mg) by oral route once daily for 1 day then 1 tablet (250 mg) by oral route once daily for 4 days 07/01 completed Zithroma x 250 mg oral tablet;R ecorded Status: Recorded on: 02/26/20 15 10:21AM; Disconti nued Status: Disconti nued on: 07/02/19 16 9:39AM;U ser: poczatek b;Est. Completi on: 03/02/20 15 Not Available Not Available Not Available clindamyc in HCl 150 mg capsule TAKE 4 CAPSULES BY MOUTH ONE HOUR PRIOR TO DENTAL APPOINTM ENT 02/06 completed Not Available Not Available Not Available sulindac 150 mg tablet take 1 tablet (150 mg) by oral route 2 times per day with food 01/16 completed sulindac 150 mg oral tablet;R ecorded Status: Recorded on: 11/09/19 09 1:25PM;D iscontin ued Status: Disconti nued on: 01/17/20 09 9:49AM;U ser: hitchv Not Available Not Available Not Available metronida zole 500 mg tablet Take 1 tablet twice a day by oral route for 10 days. 11/10 completed Not Available Not Available Not Available amlodipin e 5 mg tablet TAKE 1 TABLET BY MOUTH ONCE A DAY. 04/08 completed Not Available Not Available Not Available allopurin ol 100 mg tablet take 2 tablets (200 mg) by oral route 2 times per day 01/16 completed allopuri nol 100 mg oral tablet;R ecorded Status: Recorded on: 11/09/19 09 1:25PM;D iscontin ued Status: Disconti nued on: 01/17/20 09 9:49AM;U ser: hitchv Not Available Not Available Not Available ciproflox acin 500 mg tablet TAKE 1 TABLET BY MOUTH TWICE DAILY 10/26 completed Not Available Not Available Not Available sulfameth oxazole 800 mg-trimet hoprim 160 mg tablet TAKE 1 TABLET BY MOUTH EVERY 12 HOURS 03/11 completed Not Available Not Available Not Available omeprazol e 40 mg capsule,d elayed release TAKE 1 CAPSULE BY MOUTH ONCE DAILY DIRECTED . active Not Available Not Available No t Available aspirin 81 mg tablet,de layed release take 1 tablet by oral route daily for 30 days 03/11 completed Not Available Not Available Not Available butalbita l-acetami nophen-ca ffeine 50 mg-325 mg-40 mg tablet Take 1 tablet every 4 hours by oral route as needed. 05/14 completed Not Available Not Available Not Available isosorbid e mononitra te ER 120 mg tablet,ex tended release 24 hr TAKE 1 TABLET BY MOUTH ONCE A DAY. 02/06 completed Not Available Not Available Not Available ketorolac 10 mg tablet take 1 tablet (10 mg) by oral route BID prn 07/08 completed ketorola c 10 mg oral tablet;R ecorded Status: Recorded on: 07/09/19 16 9:23AM;D iscontin ued Status: Disconti nued on: 07/09/19 16 9:41AM;U ser: poczatek b;Printe d: 07/09/19 16 Not Available Not Available Not Available oxycodone -acetamin ophen 5 mg-325 mg tablet TAKE 1 TABLET BY MOUTH EVERY 4-6 HOURS 06/13 completed Not Available Not Available Not Available isosorbid e mononitra te ER 60 mg tablet,ex tended release 24 hr TAKE 1 TABLET BY MOUTH EVERY MORNING. active Not Available Not Available No t Available famotidin e 20 mg tablet TAKE 1 TABLET BY MOUTH ONCE A DAY. 02/06 completed Not Available Not Available Not Available methocarb duane 750 mg tablet TAKE (1) TABLET BY MOUTH EVERY FOUR HOURS. 06/13 completed Not Available Not Available Not Available Lortab 10 mg-500 mg tablet take 1 tablet by oral route every 6 hours as needed for pain 01/16 completed Lortab 10-500 mg oral tablet;R ecorded Status: Recorded on: 11/09/19 09 1:25PM;D iscontin ued Status: Disconti nued on: 01/17/20 09 9:49AM;U ser: hitchv Not Available Not Available Not Available tamsulosi n 0.4 mg capsule take 1 capsule (0.4 mg) by oral route once daily 1/2 hour followin g the same meal each day for 30 days 05/29 completed Not Available Not Available Not Available amlodipin e 10 mg tablet TAKE 1 TABLET BY MOUTH ONCE A DAY. 03/11 completed Not Available Not Available Not Available benzonata te 100 mg capsule take 1 - 2 capsules (100 mg) by oral route 3 times per day PRN for cough 07/01 completed benzonat ate 100 mg oral capsule; Recorded Status: Recorded on: 02/26/20 15 10:21AM; Disconti nued Status: Disconti nued on: 07/02/19 16 9:39AM;U ser: poczatek b Not Available Not Available Not Available hydrocodo ne 7.5 mg-acetam inophen 325 mg tablet TAKE ONE TABLET BY MOUTH 3 TIMES DAILY NEEDED. 08/28 completed Not Available Not Available Not Available pantopraz ole 40 mg tablet,de layed release take 1 tablet (40 mg) by oral route once daily 07/15 completed pantopra zole 40 mg oral tablet,d elayed release (/EC); Recorded Status: Recorded on: 10/28/19 14 8:58AM;D iscontin ued Status: Disconti nued on: 07/16/19 16 4:46PM;U ser: hamptona Not Available Not Available Not Available erythromy afshan 5 mg/gram (0.5 %) eye ointment APPLY A THIN LAYER TWICE A DAY 1/4 INCH STRIP 3 DAYS BEFORE BUT NOT DAY OF SURGERY 02/06 completed Not Available Not Available Not Available esomepraz ole magnesium 40 mg capsule,d elayed release Take 1 capsule every day by oral route as directed for 90 days. 06/22 completed Not Available Not Available Not Available olopatadi ne 0.1 % eye drops INSTILL 1 DROP INTO AFFECTED EYE(S) BY OPHTHALM IC ROUTE 2 TIMES PER DAY AT AN INTERVAL OF 6 TO 8 HOURS 06/13 completed Not Available Not Available Not Available promethaz ine 25 mg tablet TAKE 1 TABLET EVERY 6-8 HOURS NEEDED 03/11 completed Not Available Not Available Not Available indometha afshan 50 mg capsule take 1 capsule by oral route 3 times a day as needed for 30 days 10/27 completed indometh acin 50 mg oral capsule; Prescrib e Status: Prescrib ed on: 07/28/19 13 12:00AM; Disconti nued Status: Disconti nued on: 10/28/19 14 9:15AM;U ser: poczatek b;Est. Completi on: 01/24/20 13;Pharm acyVerif ied: 07/28/19 13 11:56AM Not Available Not Available Not Available nitroglyc nicolas 0.4 mg sublingua l tablet DISSOLVE 1 TABLET UNDER TONGUE EVERY 5 MINUTES UP TO 3 DOSES NEEDED FOR CHEST PAIN active Not Available Not Available No t Available diclofena c sodium 75 mg tablet,de layed release TAKE ONE TABLET TWICE A DAY. 11/10 completed Not Available Not Available Not Available monteluka st 10 mg tablet Take 1 tablet every day by oral route. 08/02 completed Not Available Not Available Not Available pravastat in 20 mg tablet take 1 tablet (20 mg) by oral route once daily 10/27 completed pravasta tin 20 mg oral tablet;R ecorded Status: Recorded on: 10/28/19 14 8:58AM;D iscontin ued Status: Disconti nued on: 10/28/19 14 9:15AM;U ser: hamptona Not Available Not Available Not Available hydrochlo rothiazid e 25 mg tablet TAKE 1 TABLET BY MOUTH ONCE DAILY. active Not Available Not Available No t Available dexametha sone sodium phosphate 4 mg/mL injection solution Take 2 mL by injectio n route. 04/12 completed Not Available Not Available Not Available methylpre dnisolone 4 mg tablets in a dose pack TAKE 6 TABS ON DAY 1, 5 TABS ON DAY 2, 4 TABS ON DAY 3, 3 TABS ON DAY 4, 2 TABS ON DAY 5, 1 TABLET ON DAY 6. 03/11 completed Not Available Not Available Not Available albuterol sulfate HFA 90 mcg/actua tion aerosol inhaler INHALE 2 PUFFS EVERY 4 HOURS NEEDED 03/11 completed Not Available Not Available Not Available colchicin e 0.6 mg tablet TAKE 2 TABLETS NOW AND THEN TAKE ONE TABLET IN ONE HOUR 08/28 completed Not Available Not Available Not Available hydrocodo ne 7.5 mg-acetam inophen 500 mg tablet take 1-2 tablets by oral route every 6 hours as needed 04/22 completed hydrocod one-acet aminophe n 7.5-500 mg oral tablet;R ecorded Status: Recorded on: 01/17/20 09 9:49AM;D iscontin ued Status: Disconti nued on: 04/22/19 10 11:26AM; User: [email or web address] Not Available Not Available Not Available atropine 1 % eye drops INSTILL 1 DROP INTO AFFECTED EYE(S) ONCE DAILY active Not Available Not Available No t Available lisinopri l 40 mg tablet TAKE 1 TABLET BY MOUTH ONCE A DAY. 05/29 completed Not Available Not Available Not Available cefdinir 300 mg capsule Take 1 capsule every 12 hours by oral route. 10/26 completed Not Available Not Available Not Available losartan 100 mg tablet TAKE 1 TABLET BY MOUTH ONCE A DAY. active Not Available Not Available No t Available fluticaso ne propionat e 50 mcg/actua tion nasal spray,lev pension USE 1 SPRAY IN EACH NOSTRIL ONCE DAILY active Not Available Not Available No t Available metformin ER 500 mg tablet,ex tended release 24 hr TAKE 1 TABLET BY MOUTH ONCE A DAY WITH MEALS. 05/10 completed Not Available Not Available Not Available Lotemax 0.5 % eye drops,lev pension 05/19 completed Not Available Not Available Not Available Crestor 10 mg tablet TAKE (1) TABLET BY MOUTH ONCE A DAY. 07/15 completed Crestor 10 mg oral tablet;P rescribe Status: Prescrib ed on: 07/12/19 16 1:48PM;U ser: hamptona ;Pharmac yVerifie d: 07/12/19 16 1:48PM Not Available Not Available Not Available metformin ER 500 mg tablet,ex tended release 24hr (osmotic) take 2 tablets by oral route 2 times a day for 90 days 12/03 completed metformi n 500 mg oral tablet extended release 24hr;Pre scribe Status: Prescrib ed on: 07/30/19 16 1:47PM;U ser: poczatek b;Est. Completi on: 01/26/20 16;Pharm acyVerif ied: 07/30/19 16 1:47PM Not Available Not Available Not Available Indocin 1 po bid 01/16 completed indocin po 50 mg;Recor ded Status: Recorded on: 12/07/19 09 5:20PM;D iscontin ued Status: Disconti nued on: 01/17/20 09 9:49AM;U ser: hitchv;E st. Completi on: 01/06/20 09;Indic ation: gout - (-5);Kimberlee nted: 12/07/19 09 Not Available Not Available Not Available Horizon Nasal Cpap System active Not Available Not Available Not Available ranolazin e ER 500 mg tablet,ex tended release,1 2 hr TAKE (1) TABLET BY MOUTH TWICE A DAY. 03/11 completed Not Available Not Available Not Available Januvia 100 mg tablet TAKE 1 TABLET BY MOUTH ONCE A DAY. 05/29 completed Not Available Not Available Not Available olopatadi ne 0.2 % eye drops INSTILL ONE (1) DROP INTO AFFECTED EYE(S) BY OPHTHALM IC ROUTE ONCE DAILY active Not Available Not Available No t Available hydrochlo rothiazid e 12.5 mg tablet TAKE 1 TABLET BY MOUTH ONCE A DAY. 02/06 completed Not Available Not Available Not Available Exforge 10 mg-320 mg tablet take 1 tablet by oral route once daily 01/16 completed Exforge 10-320 mg oral tablet;R ecorded Status: Recorded on: 11/09/19 09 1:25PM;D iscontin ued Status: Disconti nued on: 01/17/20 09 9:49AM;U ser: hitchv Not Available Not Available Not Available ranolazin e ER 1,000 mg tablet,ex tended release,1 2 hr TAKE 1 TABLET BY MOUTH TWICE DAILY. active Not Available Not Available No t Available febuxosta t 80 mg tablet TAKE 1 TABLET BY MOUTH ONCE A DAY. 2024 active Not Available Not Available Not Avai lable febuxosta t 40 mg tablet 10/26 completed Not Available Not Available Not Available BD Ultra-Fin e Kenisha Pen Needle 32 gauge x 5/32 DIRECTED . active Not Available Not Available No t Available Edarbi 80 mg tablet take 1 tablet (80 mg) by oral route once daily for 30 days 07/26 completed Edarbi 80 mg oral tablet;P rescribe Status: Prescrib ed on: 07/28/19 13 12:00AM; Disconti nued Status: Disconti nued on: 07/27/19 14 4:38PM;U ser: poczatek b;Est. Completi on: 01/24/20 13;Indic ation: Hyperten kyleigh - ();Darline Pinto fied: 07/28/19 13 11:55AM Not Available Not Available Not Available Brilinta 90 mg tablet Take 1 tablet twice a day by oral route for 30 days. 03/11 completed Not Available Not Available Not Available Accu-Chek Brandi Plus test strips CHECK TWICE DAILY 05/14 completed Not Available Not Available Not Available Bydureon 2 mg subcutane ous extended release suspensio n Inject 2 mg every week by subcutan eous route as directed for 30 days. 06/22 completed Not Available Not Available Not Available lancets 30 gauge check b.i.d 05/14 completed Not Available Not Available Not Available Farxiga 10 mg tablet TAKE 1 TABLET BY MOUTH ONCE DAILY. active Not Available Not Available No t Available Bydureon 2 mg/0.65 mL subcutane ous pen injector 12/26 completed Not Available Not Available Not Available Glyxambi 25 mg-5 mg tablet 10/26 completed daily Not Available Not Available Not Available Tojarad SoloStar U-300 Insulin 300 unit/mL (1.5 mL) subcutane ous pen INJECT 30 UNITS ONCE DAILY 05/29 completed Not Available Not Available Not Available Brilinta 60 mg tablet TAKE (1) TABLET BY MOUTH TWICE A DAY. active Not Available Not Available No t Available Bevespi Aerospher e 9 mcg-4.8 mcg HFA aerosol inhaler Inhale 2 puffs twice a day by inhalati on route. 06/22 completed Not Available Not Available Not Available Basaglar KwikPen U-100 Insulin 100 unit/mL (3 mL) subcutane ous INJECT 50 UNITS UNDER SKIN ONCE A DAY. active Not Available Not Available No t Available Bydureon BCise 2 mg/0.85 mL subcutane ous auto-inje ctor INJECT 2MG UNDER SKIN WEEKLY 12/11 completed Not Available Not Available Not Available Ozempic 1 mg/dose (4 mg/3 mL) subcutane ous pen injector Inject 1 mg every week by subcutan eous route for 30 days. 02/07 completed Not Available Not Available Not Available Ozempic 2 mg/dose (8 mg/3 mL) subcutane ous pen injector INJECT 2 MG UNDER THE SKIN ONCE WEEKLY. active Not Available Not Available No t Available Ozempic 0.25 mg or 0.5 mg (2 mg/3 mL) subcutane ous pen injector INJECT 0.25 MG UNDER SKIN ONCE WEEKLY 09/12 completed Not Available Not Available Not Available Vitals Date Recorded Body height Body mass index (BMI) Body weight Body temperature Heart rate Oxygen saturation Oxygen saturation in Arterial blood by Pulse oximetry Respiratory rate Systolic And Diastolic Provider Name and Address Organization Details Last Updated DateTime 5 179.07 cm 29.4 kg/m2 80384.2 1 g 98 [degF] 78 /min 97 % 97 % 19 /min 122/68 mm[Hg] Jack Alla [place] - [facility] 5 15:29:27 Social History Question Answer Notes LastModified by Organizat ion Details LastModified Time Tobacco Smoking Status Never Smoker [place]icia [place], [place] - [facility] 05/19/2017 08:52:46 Able To Swim? Yes [email or web address] Information not available 05/19/2017 Do You Have An Advance Directive? No Information n ot available 05/19/2017 Do You Wear A Helmet When Biking? No [email or web address] Information not available 05/19/2017 Are You Blind Or Do You Have Difficulty Seeing? No [email or web address] Information n ot available 05/19/2017 What Is Your Level Of Caffeine Consumption? Occasional [email or web address] Information not available 05/19/2017 How Much Tobacco Do You Chew? None [email or web address] Information not available 05/19/2017 In The 14 Days Before Symptom Onset, Have You Had Close Contact With A Laboratory-confirm ed COVID-19 While That Case Was Ill? No [email or web address] Information n ot available 05/14/2021 In The 14 Days Before Symptom Onset, Have You Had Close Contact With A Person Who Is Under Investigation For COVID-19 While That Person Was Ill? No [email or web address] Information not available 05/14/2021 Have You Been To An Area Known To Be High Risk For COVID-19? No [email or web address] Information not available 05/14/2021 Are You Deaf Or Do You Have Serious Difficulty Hearing? No [email or web address] Information not available 05/19/2017 What Type Of Diet Are You Following? CARDIAC [email or web address] Information n ot available 05/14/2021 Which Illicit Or Recreational Drugs Have You Used? Denies [email or web address] Information not available 05/19/2017 Have You Processed Blood Or Body Fluids From An Ebola Virus Disease Patient Without Appropriate PPE? No [email or web address] Information not available 05/14/2021 Do You Reside In Or Have You Traveled To An Area Where Ebola Virus Transmission Is Active? No [email or web address] Information not available 05/14/2021 Swimming/diving Yes [email or web address] Informati on not available 05/19/2017 Have There Been Any Changes To Your Family Or Social Situation? No [email or web address] Information no t available 05/14/2021 Hard Of Hearing Or Deaf In One Or Both Ears? No [email or web address] Information not available 05/19/2017 Have You Recently Or Are You Planning To Travel To An Area With Zika Virus? No [email or web address] Information not available 05/14/2021 Legally Blind In One Or Both Eyes? No Information no t available 05/19/2017 Live Alone Or With Others? With Others [email or web address] Information not available 05/19/2017 What Was The Date Of Your Most Recent Tobacco Screening? 09/13/2023 [email or web address] Information not available 09/13/2023 How Many Children Do You Have? 7 Information not available 05/19/2017 Do You Use Protection During Sex? Always Information not available 05/19/2017 What Is Your Relationship Status? [email or web address] Information not available 05/19/2017 Seat Belts Used Routinely Yes [email or web address] Information not available 05/19/2017 Are You Sexually Active? Yes [email or web address] Information not available 05/19/2017 Smoke Alarm In Home Yes Information not available 05/19/2017 Do You Have Smoke And Carbon Monoxide Detectors In Your Home? Yes [email or web address] Information not available 05/14/2021 Are You Passively Exposed To Smoke? Yes Information no t available 05/19/2017 How Much Tobacco Do You Smoke? No [email or web address] Information not available 05/19/2017 Do You Use Sunscreen Routinely? Yes [email or web address] Information not available 05/19/2017 Has Tobacco Cessation Counseling Been Provided? No [email or web address] Information not available 05/14/2021 How Many Years Have You Smoked Tobacco? 0 [email or web address] Information not available 05/19/2017 Do You Have Difficulty Walking Or Climbing Stairs? No [email or web address] Information not available 05/19/2017 Sex: Male Functional Status Question Answer Note LastModified by Organizat ion Details LastModified Time Do you or have you ever used any other forms of tobacco or nicotine? No [email or web address] Information not available 05/14/2021 What is your level of alcohol consumption? None [email or web address] Information not available 05/19/2017 Do you or have you ever used smokeless tobacco? Never used smokeless tobacco [email or web address] Information not available 11/15/2018 Are you currently employed? No zvaqvps07 Information not available 05/19/2017 Do you have transportation difficulties? No Information not available 05/14/2021 Are you able to walk? YESWOREST uzekbam79 Information not available 05/19/2017 Do you have difficulty doing errands alone? No [email or web address] Information not available 05/19/2017 Are you able to care for yourself? Yes [email or web address] Information n ot available 05/19/2017 Do you have difficulty dressing or bathing? No pclbtyf82 Information not available 05/19/2017 Do you or have you ever used e-cigarettes or vape? Never used electronic cigarettes [email or web address] Information not available 11/15/2018 Mental Status Question Answer Note LastModified by Organizat ion Details LastModified Time Do you feel stressed (tense, restless, nervous, or anxious, or unable to sleep at night)? [id number] [email or web address] Information not available 05/14/2021 Do you have difficulty concentrating, remembering or making decisions? No [email or web address] Information no t available 05/19/2017 Family History Relationship Description Onset Age of this Age Resolved Age Notes LastModified by Organization Details LastModified Time Father Essential hypertension [email or web address] Not available 09:01:18 Father Diabetes mellitus Not available 2017 09:01:45 Brother Essential hypertension [email or web address] Not available 09:01:18 Brother Diabetes mellitus [email or web address] Not available 2017 09:01:45 Mother Essential hypertension hiqliqo05 Not available 09:01:18 Mother Diabetes mellitus [email or web address] Not available 2017 09:01:45 Mother Malignant neoplasm of skin Not available 2017 09:02:05 Mother Chronic obstructive pulmonary disease [email or web address] Not available 2017 09:02:48 Sister Diabetes mellitus [email or web address] Not available 2017 09:01:45 Paternal Uncle Family history of malignant neoplasm Not available 2017 09:02:26 Medical History Condition Response Chicken Pox Y Immunizations Vaccine Type Date Status Note Provider Name and Address Organization Details Recorded Time Influenza, split virus, quadrivalent, preservative 018 cancelled patient objection Not Available [facility] 04/08/2019 03:54:57 pneumococcal polysaccharide PPV23 018 cancelled patient objection Not Available [facility] 04/08/2019 03:54:58 Tdap 018 completed Not Available [facility] 04/08/2019 03:54:56 pneumococcal polysaccharide PPV23 019 cancelled patient objection Not Available [facility] 04/08/2019 03:55:47 Past Encounters Encounter ID Performer Location Encounter Start Date Encounter Closed Date Diagnosis/Indication Diagnosis SNOMED-CT Code Diagnosis ICD10 Code Diagnosis Note [id number] PANDA Pimentel [facility]ly [facility] [address] [place] [address] 08/24/2024 15:16:13 08/24/2024 16:04:19 Type 2 diabetes mellitus 66921799 E11.65 chronic Overweight 559047405 E66 .3 Overweight in adulthood with body mass index of 25 or more but less than 30 269515697 Z68.29 Renal mass 106583858 N28 .89 2.2 cm hyper dense lesion of left upper pole, complex cyst, needs fu in year for stability Health Concerns Section Related Observation LastModified by Organization Detai ls LastModified Time None Recorded Concern Status LastModified by Organization Details LastModified Time None Recorded Payers Encounter Date Sequence Insurance Name Policy Number Policy Lin Covered Member ID Lin Member ID Guarantor Name 08/24/2024 1 [employer] (MEDICARE REPLACEMENT/ ADVANTAGE - HMO) Adalid L Jacobs [id number] Adalid L Jacobs 08/24/2024 2 [place]ICAID-[facility] CHOICES - FFS/TRADITIO NAL Adalid L Jacobs [id number] Adalid L Reynaldo Notes Date Note Type Note Provider Name and Address Organization Details Recorded Time 08/24/2024 text/html Diabetes F/UReported bypatient.Revjose w finger sticks:Doesn't check often Labs:last A1C result: 7.6 Context:not missing doses of medications; no side effects from medications;lea e blood sugar range highNotes:Needs yearly followup and renal lesion for 2.1 cm complex cyst Danyell Connell, [employer] [address], [place], [address], [facility] - [facility] 08/24/2024 16:54:55
--- OUTSIDE RECORDS SUMMARY | 2024-10-09 18:59 | XMS_ITS | Encounter Summary ---
Author Organization [employer] ([place], [place], [place], [place]) Address [address] [place] [address] Care Team Providers Care Unix Administrator Name Role Phone Unavailable Primary Care Provider Unavailabl e Encounter Details Date Type Department Care Team (Late st Contact Info) Description 01/20/2019 Transcribed Document [facility] [address] [place] [address] Provider, [facility] MD Latanya Social History Tobacco Use Types Packs/Day Years Used Date Smoking Tobacco: Never Assessed Sex and Gender Information Value Date Recorded Sex Assigned at Not on file Legal Sex Male 1:31 PM CDT Gender Identity Not on file Sexual Orientation Not on file documented as of this encounter Miscellaneous Notes * Cerner Conversion Note - [facility] Latanya Merlos MD - 01/20/2019 9:14 PM EDT [facility] [address] [place] [address] ROBERTO ROMEO :1960 Visit Time:01/20/2019 What to do next Your Diagnosis Calculus of kidney, Calculus of kidney Instructions From Your Care Team Diet after Discharge: Resume usual diet as tolerated, Do not drink any alcoholic beverages, Drink at least 8-10 glasses of water per day Activity after Discharge: As tolerated, Rest and relax today, No strenuous activity, We encourage walking at least 3-5 times a day Driving after Discharge: Do not drive until 24 hours after no longer taking pain medications May Return to Work/School: When cleared by surgeon. Showering/Bathing: May shower, No tub bathing, soaking or swimming Notify Provider of: temp greater than 101, severe pain uncontrolled with pain medications, bloody urine that is not clearing over the next 3 days. Wound/Incision Care after Discharge: There is no open wound, keep stent area clean and dry. Refer to [employer] teaching sheet for instructions on percussion to help move the stones. strain all urine Pull Barajas catheter at home in 2 days, wednesday morning Discharge Follow Up Instructions: Provide discharge instructions for strain urine and postual drainage Follow Up Instructions: Appointment scheduled in [ ] days.PT TO F/U AT [facility] ME Activity: Discharge Activity: Activity as tolerated Diet: Discharge Diet: Resume usual diet as tolerated Follow-Up Appointments Follow Up with GUILLE GRULLON MD-URO When Comments Call for follow up appointment . To be seen back at [facility] Office with DR. Grullon [phone] Where: [address] [place] [address]- Medications What How Much When Instructions Next Dose acetaminophen-hydrocodone ([place] 7.5 mg-325 mg oral tablet) Oral Two Times A Day aspirin (Aspir 81) 81 Milligram(s) Oral Every Day atorvastatin 20 Milligram(s) Oral Every Day exenatide (Bydureon BCise) SubCutaneous Weekly febuxostat 80 Milligram(s) Oral Every Day hydroCHLOROthiazide 25 Milligram(s) Oral Every Day metFORMIN 500 Milligram(s) Oral Two Times A Day omeprazole 40 Milligram(s) Oral Every Day promethazine (Phenergan) 25 Milligram(s) Oral As needed for as needed for nausea/vomiting tamsulosin (Flomax) 0.4 Milligram(s) Oral Every Day ticagrelor (Brilinta) 90 Milligram(s) Oral Every Day Take your medications faithfully. Do NOT skip medication. Do NOT stop taking medications without the direction of a physician. Carry a list of your medications with you at all times, and take this medication list with you to your first follow up visit. Report any side effects. Avoid herbal remedies unless discussed with your physician. As part of your treatment plan, your physician may have prescribed a limited course of a controlled substance. This medication may be given to help people with moderate or severe pain or for other medical conditions, but there are risks involved with treatment. Common side effects may include nausea, constipation, drowsiness, sweating, itching, dry mouth, and rash. More serious side effects may include cognitive and motor impairment, like problems with thinking, concentrating, alertness, and movement (e.g. slowed reflexes), and driving and operating heavy machinery can be dangerous. It is important for you to talk to your physician if you have these side effects or questions. These controlled substances can produce physical dependence and be habit-forming if taken for an extended period of time, which means that the body has gotten used to them and may experience withdrawal symptoms if they are abruptly stopped. Withdrawal symptoms can include runny nose, sweating, goose bumps, diarrhea, abdominal cramping, rapid heartbeat, difficulty sleeping, and nervousness. Please dispose of unused and medications per pharmacy guidance. Education Materials Indwelling Urinary Catheter Care, Adult An indwelling urinary catheter is a thin, flexible, germ-free (sterile) tube that is placed into the bladder to help drain urine out of the body. The catheter is inserted into the part of the body that drains urine from the bladder (urethra). Urine drains from the catheter into a drainage bag outside of the body. Taking good care of your catheter will keep it working properly and help to prevent problems from developing. What are the risks? Bacteria may get into your bladder and cause a urinary tract infection. ??? Urine flow can become blocked. This can happen if the catheter is not working correctly, or if you have sediment or a blood clot in your bladder or the catheter. ??? Tissue near the catheter may become irritated and bleed. How to wear your catheter and your drainage bag Supplies needed ??? Adhesive tape or a leg strap. ??? Alcohol wipe or soap and water (if you use tape). ??? A clean towel (if you use tape). ??? Overnight drainage bag. ??? Smaller drainage bag (leg bag). Wearing your catheter and bag Use adhesive tape or a leg strap to attach your catheter to your leg. ??? Make sure the catheter is not pulled tight. ??? If a leg strap gets wet, replace it with a dry one. ??? If you use adhesive tape: 1. Use an alcohol wipe or soap and water to wash off any stickiness on your skin where you had tape before. 2. Use a clean towel to pat-dry the area. 3. Apply the new tape. You should have received a large overnight drainage bag and a smaller leg bag that fits underneath clothing. ??? You may wear the overnight bag at any time, but you should not wear the leg bag at night. ??? Always wear the leg bag below your knee. ??? Make sure the overnight drainage bag is always lower than the level of your bladder, but do not let it touch the floor. Before you go to sleep, hang the bag inside a wastebasket that is covered by a clean plastic bag. How to care for your skin around the catheter Supplies needed ??? A clean washcloth. ??? Water and mild soap. ??? A clean towel. Caring for your skin and catheter ??? Every day, use a clean washcloth and soapy water to clean the skin around your catheter. 1. Wash your hands with soap and water. 2. Wet a washcloth in warm water and mild soap. 3. Clean the skin around your urethra. ? If you are female: ? Use one hand to gently spread the folds of skin around your vagina (labia). ? With the washcloth in your other hand, wipe the inner side of your labia on each side. Do this in a nzorg-sz-ecll direction. ? If you are male: ? Use one hand to pull back any skin that covers the end of your penis (foreskin). ? With the washcloth in your other hand, wipe your penis in small circles. Start wiping at the tip of your penis, then move outward from the catheter. 4. With your free hand, hold the catheter close to where it enters your body. Keep holding the catheter during cleaning so it does not get pulled out. 5. Use your other hand to clean the catheter with the washcloth. ? Only wipe downward on the catheter. ? Do not wipe upward toward your body, because that may push bacteria into your urethra and cause infection. 6. Use a clean towel to pat-dry the catheter and the skin around it. Make sure to wipe off all soap. 7. Wash your hands with soap and water. ??? Shower every day. Do not take baths. ??? Do not use cream, ointment, or lotion on the area where the catheter enters your body, unless your health care provider tells you to do that. ??? Do not use powders, sprays, or lotions on your genital area. ??? Check your skin around the catheter every day for signs of infection. Check for: ? Redness, swelling, or pain. ? Fluid or blood. ? Warmth. ? Pus or a bad smell. How to empty the drainage bag Supplies needed ??? Rubbing alcohol. ??? Gauze pad or cotton ball. ??? Adhesive tape or a leg strap. Emptying the bag Empty your drainage bag (your overnight drainage bag or your leg bag) when it is ? full, or at least 2E times a day. Do not clean your drainage bag unless your health care provider tells you to do that. 1. Wash your hands with soap and water. 2. Detach the drainage bag from your leg. 3. Hold the drainage bag over the toilet or a clean container. Make sure the drainage bag is lower than your hips and bladder. This stops urine from going back into the tubing and into your bladder. 4. Open the pour spout at the bottom of the bag. 5. Empty the urine into the toilet or container. Do not let the pour spout touch any surface. This precaution is important to prevent bacteria from getting in the bag and causing infection. 6. Apply rubbing alcohol to a gauze pad or cotton ball. 7. Use the gauze pad or cotton ball to clean the pour spout. 8. Close the pour spout. 9. Attach the bag to your leg with adhesive tape or a leg strap. 10. Wash your hands with soap and water. How to change the drainage bag Supplies needed: ??? Alcohol wipes. ??? A clean drainage bag. ??? Adhesive tape or a leg strap. Changing the bag Replace your drainage bag with a clean bag once a month. Replace the bag sooner if it leaks, starts to smell bad, or looks dirty. 1. Wash your hands with soap and water. 2. Detach the dirty drainage bag from your leg. 3. Pinch the catheter with your fingers so that urine does not spill out. 4. Disconnect the catheter tube from the drainage tube at the connection valve. Do not let the tubes touch any surface. 5. Clean the end of the catheter tube with an alcohol wipe. Use a different alcohol wipe to clean the end of the drainage tube. 6. Connect the catheter tube to the drainage tube of the clean bag. 7. Attach the clean bag to your leg with adhesive tape or a leg strap. Avoid attaching the new bag too tightly. 8. Wash your hands with soap and water. General instructions ??? Never pull on your catheter or try to remove it. Pulling can damage your internal tissues. ??? Always wash your hands before and after you handle your catheter or drainage bag. Use a mild, fragrance-free soap. If soap and water are not available, use hand acoustical material worker. ??? Always make sure there are no twists or bends (kinks) in the catheter tube. ??? Always make sure there are no leaks in the catheter or drainage bag. ??? Drink enough fluid to keep your urine pale yellow. ??? Do not take baths, swim, or use a hot tub. ??? If you are female, wipe from front to back after having a bowel movement. Contact a health care provider if: ??? Your urine is cloudy. ??? Your urine smells unusually bad. ??? Your catheter gets clogged. ??? Your catheter starts to leak. ??? Your bladder feels full. Get help right away if: ??? You have redness, swelling, or pain where the catheter enters your body. ??? You have fluid, blood, pus, or a bad smell coming from the area where the catheter enters your body. ??? The area where the catheter enters your body feels warm to the touch. ??? You have a fever. ??? You have pain in your abdomen, legs, lower back, or bladder. ??? You see blood in the catheter. ??? Your urine is pink or red. ??? You have nausea, vomiting, or chills. ??? Your urine is not draining into the bag. ??? Your catheter gets pulled out. Summary ??? An indwelling urinary catheter is a thin, flexible, germ-free (sterile) tube that is placed into the bladder to help drain urine out of the body. ??? The catheter is inserted into the part of the body that drains urine from the bladder (urethra). ??? Take good care of your catheter to keep it working properly and help prevent problems from developing. ??? Always wash your hands before and after you handle your catheter or drainage bag. ??? Never pull on your catheter or try to remove it. This information is not intended to replace advice given to you by your health care provider. Make sure you discuss any questions you have with your health care provider. Document Released: 03/08/2006 Document Revised: 10/22/2017 Document Reviewed: 10/22/2017 [employer] Interactive Patient Education ?? 2019 [employer] Ureteral Stent Implantation, Care After Refer to this sheet in the next few weeks. These instructions provide you with information about caring for yourself after your procedure. Your health care provider may also give you more specific instructions. Your treatment has been planned according to current medical practices, but problems sometimes occur. Call your health care provider if you have any problems or questions after your procedure. What can I expect after the procedure? After the procedure, it is common to have: ??? Nausea. ??? Mild pain when you urinate. You may feel this pain in your lower back or lower abdomen. Pain should stop within a few minutes after you urinate. This may last for up to 1 week. ??? A small amount of blood in your urine for several days. Follow these instructions at home: Medicines ??? Take ehyj-jwv-tsqsqmi and prescription medicines only as told by your health care provider. ??? If you were prescribed an antibiotic medicine, take it as told by your health care provider. Do not stop taking the antibiotic even if you start to feel better. ??? Do not drive for 24 hours if you received a sedative. ??? Do not drive or operate heavy machinery while taking prescription pain medicines. Activity ??? Return to your normal activities as told by your health care provider. Ask your health care provider what activities are safe for you. ??? Do not lift anything that is heavier than 10 lb (4.5 kg). Follow this limit for 1 week after your procedure, or for as long as told by your health care provider. General instructions ??? Watch for any blood in your urine. Call your health care provider if the amount of blood in your urine increases. ??? If you have a catheter: ? Follow instructions from your health care provider about taking care of your catheter and collection bag. ? Do not take baths, swim, or use a hot tub until your health care provider approves. ??? Drink enough fluid to keep your urine clear or pale yellow. ??? Keep all follow-up visits as told by your health care provider. This is important. Contact a health care provider if: ??? You have pain that gets worse or does not get better with medicine, especially pain when you urinate. ??? You have difficulty urinating. ??? You feel nauseous or you vomit repeatedly during a period of more than 2 days after the procedure. Get help right away if: ??? Your urine is dark red or has blood clots in it. ??? You are leaking urine (have incontinence). ??? The end of the stent comes out of your urethra. ??? You cannot urinate. ??? You have sudden, sharp, or severe pain in your abdomen or lower back. ??? You have a fever. This information is not intended to replace advice given to you by your health care provider. Make sure you discuss any questions you have with your health care provider. Document Released: 11/08/2013 Document Revised: 08/13/2016 Document Reviewed: 09/20/2015 [employer] Interactive Patient Education ?? 2019 [employer] Lithotripsy, Care After This sheet gives you information about how to care for yourself after your procedure. Your health care provider may also give you more specific instructions. If you have problems or questions, contact your health care provider. What can I expect after the procedure? After the procedure, it is common to have: ??? Some blood in your urine. This should only last for a few days. ??? Soreness in your back, sides, or upper abdomen for a few days. ??? Blotches or bruises on your back where the pressure wave entered the skin. ??? Pain, discomfort, or nausea when pieces (fragments) of the kidney stone move through the tube that carries urine from the kidney to the bladder (ureter). Stone fragments may pass soon after the procedure, but they may continue to pass for up to 4E weeks. ? If you have severe pain or nausea, contact your health care provider. This may be caused by a large stone that was not broken up, and this may mean that you need more treatment. ??? Some pain or discomfort during urination. ??? Some pain or discomfort in the lower abdomen or (in men) at the base of the penis. Follow these instructions at home: Medicines ??? Take jsdq-lbo-wcjfzdh and prescription medicines only as told by your health care provider. ??? If you were prescribed an antibiotic medicine, take it as told by your health care provider. Do not stop taking the antibiotic even if you start to feel better. ??? Do not drive for 24 hours if you were given a medicine to help you relax (sedative). ??? Do not drive or use heavy machinery while taking prescription pain medicine. Eating and drinking ??? Drink enough water and fluids to keep your urine clear or pale yellow. This helps any remaining pieces of the stone to pass. It can also help prevent new stones from forming. ??? Eat plenty of fresh fruits and vegetables. ??? Follow instructions from your health care provider about eating and drinking restrictions. You may be instructed: ? To reduce how much salt (sodium) you eat or drink. Check ingredients and nutrition facts on packaged foods and beverages. ? To reduce how much meat you eat. ??? Eat the recommended amount of calcium for your age and gender. Ask your health care provider how much calcium you should have. General instructions ??? Get plenty of rest. ??? Most people can resume normal activities 1E days after the procedure. Ask your health care provider what activities are safe for you. ??? If directed, strain all urine through the strainer that was provided by your health care provider. ? Keep all fragments for your health care provider to see. Any stones that are found may be sent to a medical lab for examination. The stone may be as small as a grain of salt. ??? Keep all follow-up visits as told by your health care provider. This is important. Contact a health care provider if: ??? You have pain that is severe or does not get better with medicine. ??? You have nausea that is severe or does not go away. ??? You have blood in your urine longer than your health care provider told you to expect. ??? You have more blood in your urine. ??? You have pain during urination that does not go away. ??? You urinate more frequently than usual and this does not go away. ??? You develop a rash or any other possible signs of an allergic reaction. Get help right away if: ??? You have severe pain in your back, sides, or upper abdomen. ??? You have severe pain while urinating. ??? Your urine is very dark red. ??? You have blood in your stool (feces). ??? You cannot pass any urine at all. ??? You feel a strong urge to urinate after emptying your bladder. ??? You have a fever or chills. ??? You develop shortness of breath, difficulty breathing, or chest pain. ??? You have severe nausea that leads to persistent vomiting. ??? You faint. Summary ??? After this procedure, it is common to have some pain, discomfort, or nausea when pieces (fragments) of the kidney stone move through the tube that carries urine from the kidney to the bladder (ureter). If this pain or nausea is severe, however, you should contact your health care provider. ??? Most people can resume normal activities 1E days after the procedure. Ask your health care provider what activities are safe for you. ??? Drink enough water and fluids to keep your urine clear or pale yellow. This helps any remaining pieces of the stone to pass, and it can help prevent new stones from forming. ??? If directed, strain your urine and keep all fragments for your health care provider to see. Fragments or stones may be as small as a grain of salt. ??? Get help right away if you have severe pain in your back, sides, or upper abdomen or have severe pain while urinating. This information is not intended to replace advice given to you by your health care provider. Make sure you discuss any questions you have with your health care provider. Document Released: 03/27/2008 Document Revised: 01/27/2017 Document Reviewed: 01/27/2017 [employer] Interactive Patient Education ?? 2019 [place]. Outpatient Surgery, Adult, Care After These instructions provide you with information about caring for yourself after your procedure. Your health care provider may also give you more specific instructions. Your treatment has been planned according to current medical practices, but problems sometimes occur. Call your health care provider if you have any problems or questions after your procedure. What can I expect after the procedure? After the procedure, it is common to have: ??? Tenderness and numbness at the surgical site. ??? Swelling and bruising around the surgical site. ??? Nausea. Follow these instructions at home: For at least 24 hours after the procedure: ??? Have a responsible adult stay with you. It is important to have someone help care for you until you are awake and alert. ??? Rest as needed. ??? Do not: ? Participate in activities in which you could fall or become injured. ? Drive. ? Use heavy machinery. ? Drink alcohol. ? Take sleeping pills or medicines that cause drowsiness. ? Make important decisions or sign legal documents. ? Take care of children on your own. Activity ??? Return to your normal activities as told by your health care provider. Ask your health care provider what activities are safe for you. ??? Do not lift anything that is heavier than 10 lb (4.5 kg), or the limit that your health care provider tells you, until your health care provider says it is okay. ??? Do not play contact sports until your health care provider says it is okay. Incision care ??? Follow instructions from your health care provider about how to take care of an incision, if you have one. Make sure you: ? Wash your hands with soap and water before you change your bandage (dressing). If soap and water are not available, use hand acoustical material worker. ? Change your dressing as told by your health care provider. ? Leave stitches (sutures), skin glue, or adhesive strips in place. These skin closures may need to stay in place for 2 weeks or longer. If adhesive strip edges start to loosen and curl up, you may trim the loose edges. Do not remove adhesive strips completely unless your health care provider tells you to do that. ??? Check your incision area every day for signs of infection. Check for: ? More redness, swelling, or pain. ? More fluid or blood. ? Warmth. ? Pus or a bad smell. Medicines ??? Take rhsc-ard-wkulahk and prescription medicines only as told by your health care provider. ??? Do not drive or use heavy machinery while taking prescription pain medicines. Eating and drinking ??? Follow the diet recommended by your health care provider. ??? When you are hungry, begin eating light and bland foods such as toast. Gradually return to your regular diet. ??? If you vomit: ? Drink water, juice, or soup when you can drink without vomiting. ? Make sure you have little or no nausea before eating solid foods. General instructions ??? If you have sleep apnea, surgery and certain medicines can increase your risk for breathing problems. Follow instructions from your HCP about wearing your sleep device: ? Anytime you are sleeping, including during daytime naps. ? While taking prescription pain medicines, sleeping medicines, or medicines that make you drowsy. ??? Do not use any tobacco products, such as cigarettes, chewing tobacco, and e-cigarettes, for as long as possible. ??? If you smoke, do not smoke without supervision. ??? Keep all follow-up visits as told by your health care provider. This is important. Contact a health care provider if: ??? You have more redness, swelling, or pain around your incision. ??? You have more fluid or blood coming from your incision. ??? Your incision feels warm to the touch. ??? You have pus or a bad smell coming from your incision. ??? You have a fever. ??? You feel light-headed or you faint. ??? You develop a rash. ??? You keep feeling nauseous or keep vomiting. ??? You have very bad pain, even after taking the medicines your health care provider has prescribed or recommended. ??? You have constipation. Get help right away if: ??? You are unable to pass urine. ??? You have trouble breathing. Summary ??? Have a responsible adult stay with you for at least 24 hours after the procedure. ??? Nausea is common after a procedure. Make sure you have little or no nausea before eating solid foods. Follow the diet recommended by your health care provider. ??? Ask your health care provider what activities are safe for you. This information is not intended to replace advice given to you by your health care provider. Make sure you discuss any questions you have with your health care provider. Document Released: 06/28/2016 Document Revised: 10/14/2017 Document Reviewed: 06/28/2016 [employer] Interactive Patient Education ?? 2019 [place]. acetaminophen and hydrocodone (a SEET a MIN oh fen and doc droe KOE done) Hycet, Lorcet, [place], Verdrocet, Vicodin, Xodol, Zamicet What is the most important information I should know about acetaminophen and hydrocodone? MISUSE OF OPIOID MEDICINE CAN CAUSE ADDICTION, OVERDOSE, OR . Keep the medication in a place where others cannot get to it. An overdose of acetaminophen can damage your liver or cause . Call your doctor at once if you have pain in your upper stomach, loss of appetite, dark urine, or jaundice (yellowing of your skin or eyes). Taking opioid medicine during may cause life-threatening withdrawal symptoms in the . Fatal side effects can occur if you use opioid medicine with alcohol, or with other drugs that cause drowsiness or slow your breathing. Stop taking this medicine and call your doctor right away if you have skin redness or a rash that spreads and causes blistering and peeling. What is acetaminophen and hydrocodone? Hydrocodone is an opioid pain medication, sometimes called a narcotic. Acetaminophen is a less potent pain reliever that increases the effects of hydrocodone. Acetaminophen and hydrocodone is a combination medicine used to relieve moderate to severe pain. Acetaminophen and hydrocodone may also be used for purposes not listed in this medication guide. What should I discuss with my healthcare provider before taking acetaminophen and hydrocodone? You should not use this medicine if you are allergic to acetaminophen or hydrocodone, or if you have: ?? severe asthma or breathing problems; or ?? a blockage in your stomach or intestines. Tell your doctor if you have ever had: ?? liver disease; ?? a drug or alcohol addiction; ?? kidney disease; ?? a head injury or seizures; ?? urination problems; or ?? problems with your thyroid, pancreas, or gallbladder. If you use opioid medicine while you are , your baby could become dependent on the drug. This can cause life-threatening withdrawal symptoms in the baby after it is born. Babies born dependent on opioids may need medical treatment for several weeks. Do not breast-feed. This medicine can pass into breast milk and cause drowsiness, breathing problems, or in a nursing baby. How should I take acetaminophen and hydrocodone? Follow all directions on your prescription label. Never take this medicine in larger amounts, or for longer than prescribed. An overdose can damage your liver or cause . Tell your doctor if the medicine seems to stop working as well in relieving your pain. Always check your bottle to make sure you have received the correct pills (same brand and type) of medicine prescribed by your doctor. Never share this medicine with another person, especially someone with a history of drug abuse or addiction. MISUSE CAN CAUSE ADDICTION, OVERDOSE, OR . Keep the medicine in a place where others cannot get to it. Selling or giving away acetaminophen and hydrocodone is against the law. Measure liquid medicine carefully. Use the dosing syringe provided, or use a medicine dose-measuring device (not a kitchen spoon). If you need surgery or medical tests, tell the doctor ahead of time that you are using this medicine. You should not stop using this medicine suddenly. Follow your doctor's instructions about tapering your dose. Store at room temperature away from moisture and heat. Keep track of your medicine. You should be aware if anyone is using it improperly or without a prescription. Do not keep leftover opioid medication. Just one dose can cause in someone using this medicine accidentally or improperly. Ask your pharmacist where to locate a drug take-back disposal program. If there is no take-back program, flush the unused medicine down the toilet. What happens if I miss a dose? Since this medicine is used for pain, you are not likely to miss a dose. Skip any missed dose if it is almost time for your next dose. Do not use two doses at one time. What happens if I overdose? Seek emergency medical attention or call the Poison Help line at . An overdose of acetaminophen and hydrocodone can be fatal. The first signs of an acetaminophen overdose include loss of appetite, nausea, vomiting, stomach pain, sweating, and confusion or weakness. Later symptoms may include pain in your upper stomach, dark urine, and yellowing of your skin or the whites of your eyes. Overdose can also cause severe muscle weakness, pinpoint pupils, very slow breathing, extreme drowsiness, or coma. What should I avoid while taking acetaminophen and hydrocodone? Avoid driving or operating machinery until you know how this medicine will affect you. Dizziness or drowsiness can cause falls, accidents, or severe injuries. Do not drink alcohol. Dangerous side effects or could occur. Ask a doctor or pharmacist before using any other medicine that may contain acetaminophen (sometimes abbreviated as APAP). Taking certain medications together can lead to a fatal overdose. What are the possible side effects of acetaminophen and hydrocodone? Get emergency medical help if you have signs of an allergic reaction: hives; difficulty breathing; swelling of your face, lips, tongue, or throat. Opioid medicine can slow or stop your breathing, and may occur. A person caring for you should seek emergency medical attention if you have slow breathing with long pauses, blue colored lips, or if you are hard to wake up. In rare cases, acetaminophen may cause a severe skin reaction that can be fatal. This could occur even if you have taken acetaminophen in the past and had no reaction. Stop taking this medicine and call your doctor right away if you have skin redness or a rash that spreads and causes blistering and peeling. Call your doctor at once if you have: ?? noisy breathing, sighing, shallow breathing; ?? a light-headed feeling, like you might pass out; ?? liver problems--nausea, upper stomach pain, tiredness, loss of appetite, dark urine, eneida-colored stools, jaundice (yellowing of the skin or eyes); or ?? low cortisol levels-- nausea, vomiting, loss of appetite, dizziness, worsening tiredness or weakness. Seek medical attention right away if you have symptoms of serotonin syndrome, such as: agitation, hallucinations, fever, sweating, shivering, fast heart rate, muscle stiffness, twitching, loss of coordination, nausea, vomiting, or diarrhea. Serious side effects may be more likely in older adults and those who are overweight, malnourished, or debilitated. Long-term use of opioid medication may affect fertility (ability to have children) in men or women. It is not known whether opioid effects on fertility are permanent. Common side effects include: ?? dizziness, drowsiness, feeling tired; ?? nausea, vomiting, stomach pain; ?? constipation; or ?? headache. This is not a complete list of side effects and others may occur. Call your doctor for medical advice about side effects. You may report side effects to FDA at 6-740-UNQ-7893. What other drugs will affect acetaminophen and hydrocodone? You may have breathing problems or withdrawal symptoms if you start or stop taking certain other medicines. Tell your doctor if you also use an antibiotic, antifungal medication, heart or blood pressure medication, seizure medication, or medicine to treat HIV or hepatitis C. Opioid medication can interact with many other drugs and cause dangerous side effects or . Be sure your doctor knows if you also use: ?? cold or allergy medicines, bronchodilator asthma/COPD medication, or a diuretic ('water pill'); ?? medicines for motion sickness, irritable bowel syndrome, or overactive bladder; ?? other narcotic medications--opioid pain medicine or prescription cough medicine; ?? a sedative like Valium--diazepam, alprazolam, lorazepam, Xanax, Klonopin, Versed, and others; ?? drugs that make you sleepy or slow your breathing--a sleeping pill, muscle relaxer, medicine to treat mood disorders or mental illness; ?? drugs that affect serotonin levels in your body--a stimulant, or medicine for depression, Parkinson's disease, migraine headaches, serious infections, or nausea and vomiting. This list is not complete. Other drugs may affect acetaminophen and hydrocodone, including prescription and sjpj-frn-lipgmtv medicines, vitamins, and herbal products. Not all possible interactions are listed here. Where can I get more information? Your doctor or pharmacist can provide more information about acetaminophen and hydrocodone. Remember, keep this and all other medicines out of the reach of children, never share your medicines with others, and use this medication only for the indication prescribed. Every effort has been made to ensure that the information provided by [employer] is accurate, up-to-date, and complete, but no guarantee is made to that effect. Drug information contained herein may be time sensitive. [employer] information has been compiled for use by healthcare practitioners and consumers in the [place] and therefore [employer] does not warrant that uses outside of the [place] are appropriate, unless specifically indicated otherwise. [employer] drug information does not endorse drugs, diagnose patients or recommend therapy. [employer] drug information is an informational resource designed to assist licensed healthcare practitioners in caring for their patients and/or to serve consumers viewing this service as a supplement to, and not a substitute for, the expertise, skill, knowledge and judgment of healthcare practitioners. The absence of a warning for a given drug or drug combination in no way should be construed to indicate that the drug or drug combination is safe, effective or appropriate for any given patient. [employer] does not assume any responsibility for any aspect of healthcare administered with the aid of information [employer] provides. The information contained herein is not intended to cover all possible uses, directions, precautions, warnings, drug interactions, allergic reactions, or adverse effects. If you have questions about the drugs you are taking, check with your doctor, nurse or pharmacist. Copyright 2772-5591 [employer] Version: 15.02. Revision Date: 01/24/2018. ciprofloxacin (oral) (SIP lui FLOX a sin) Cipro, Cipro XR, Proquin XR What is the most important information I should know about ciprofloxacin? Ciprofloxacin can cause serious side effects, including tendon problems, nerve damage, serious mood or behavior changes, or low blood sugar. Stop using this medicine and call your doctor at once if you have symptoms such as: headache, hunger, irritability, numbness, tingling, burning pain, confusion, agitation, paranoia, problems with memory or concentration, thoughts of suicide, or sudden pain or movement problems in any of your joints. In rare cases, ciprofloxacin may cause damage to your aorta, which could lead to dangerous bleeding or . Get emergency medical help if you have severe and constant pain in your chest, stomach, or back. What is ciprofloxacin? Ciprofloxacin is a fluoroquinolone (hpcc-b-UYXM-o-lone) antibiotic that fights bacteria in the body. Ciprofloxacin is used to treat different types of bacterial infections. Ciprofloxacin is also used to treat people who have been exposed to anthrax or certain types of plague. Fluoroquinolone antibiotics can cause serious or disabling side effects that may not be reversible. Ciprofloxacin should be used only for infections that cannot be treated with a safer antibiotic. Ciprofloxacin may also be used for purposes not listed in this medication guide. What should I discuss with my healthcare provider before taking ciprofloxacin? You should not use ciprofloxacin if you are allergic to it, or if: ?? you also take tizanidine; or ?? you are allergic to other fluoroquinolones (gemifloxacin, levofloxacin, moxifloxacin, norfloxacin, ofloxacin, and others). Ciprofloxacin may cause swelling or tearing of a tendon (the fiber that connects bones to muscles in the body), especially in the Achilles' tendon of the heel. This can happen during treatment or up to several months after you stop taking ciprofloxacin. Tendon problems may be more likely in certain people (children and older adults, or people who use steroid medicine or have had an organ transplant). Tell your doctor if you have ever had: ?? tendon problems, bone problems, arthritis, or other joint problems (especially in children); ?? blood circulation problems, aneurysm, narrowing or hardening of the arteries; ?? heart problems, high blood pressure; ?? a genetic disease such as Marfan syndrome or Ehler's-Danlos syndrome; ?? diabetes; ?? a muscle or nerve disorder, such as myasthenia gravis; ?? kidney disease; ?? seizures or epilepsy; ?? a head injury or brain tumor; ?? long QT syndrome (in you or a family member); or ?? low levels of potassium in your blood (hypokalemia). Do not give this medicine to a child without medical advice. It is not known whether this medicine will harm an unborn baby. Tell your doctor if you are . You should not breast-feed while using this medicine. How should I take ciprofloxacin? Follow all directions on your prescription label and read all medication guides or instruction sheets. Use the medicine exactly as directed. You may take ciprofloxacin with or without food, at the same time each day. Shake the oral suspension (liquid) for 15 seconds before you measure a dose. Use the dosing syringe provided, or use a medicine dose-measuring device (not a kitchen spoon). Do not give ciprofloxacin oral suspension through a feeding tube. Swallow the extended-release tablet whole and do not crush, chew, or break it. Use this medicine for the full prescribed length of time, even if your symptoms quickly improve. Skipping doses can increase your risk of infection that is resistant to medication. Ciprofloxacin will not treat a viral infection such as the flu or a common cold. Do not share ciprofloxacin with another person. Store at room temperature away from moisture and heat. Do not allow the liquid medicine to freeze. Throw away any unused liquid after 14 days. What happens if I miss a dose? Take the medicine as soon as you can, but skip the missed dose if it is almost time for your next dose. Do not take two doses at one time. What happens if I overdose? Seek emergency medical attention or call the Poison Help line at . What should I avoid while taking ciprofloxacin? Do not take ciprofloxacin with dairy products such as milk or yogurt, or with calcium- fortified juice. You may eat or drink these products with your meals, but do not use them alone when taking ciprofloxacin. They could make the medication less effective. Using caffeine while taking ciprofloxacin can increase the effects of the caffeine. Antibiotic medicines can cause diarrhea, which may be a sign of a new infection. If you have diarrhea that is watery or bloody, call your doctor before using anti-diarrhea medicine. Ciprofloxacin could make you sunburn more easily. Avoid sunlight or tanning beds. Wear protective clothing and use sunscreen (SPF 30 or higher) when you are outdoors. Tell your doctor if you have severe burning, redness, itching, rash, or swelling after being in the sun. Avoid driving or hazardous activity until you know how this medicine will affect you. Your reactions could be impaired. What are the possible side effects of ciprofloxacin? Get emergency medical help if you have signs of an allergic reaction (hives, difficult breathing, swelling in your face or throat) or a severe skin reaction (fever, sore throat, burning in your eyes, skin pain, red or purple skin rash that spreads and causes blistering and peeling). Ciprofloxacin can cause serious side effects, including tendon problems, side effects on your nerves (which may cause permanent nerve damage), serious mood or behavior changes (after just one dose), or low blood sugar (which can lead to coma). Stop taking this medicine and call your doctor at once if you have: ?? low blood sugar--headache, hunger, sweating, irritability, dizziness, nausea, fast heart rate, or feeling anxious or shaky; ?? nerve symptoms in your hands, arms, legs, or feet--numbness, weakness, tingling, burning pain; ?? serious mood or behavior changes--nervousness, confusion, agitation, paranoia, hallucinations, memory problems, trouble concentrating, thoughts of suicide; or ?? signs of tendon rupture--sudden pain, swelling, bruising, tenderness, stiffness, movement problems, or a snapping or popping sound in any of your joints (rest the joint until you receive medical care or instructions). In rare cases, ciprofloxacin may cause damage to your aorta, the main blood artery of the body. This could lead to dangerous bleeding or . Get emergency medical help if you have severe and constant pain in your chest, stomach, or back. Also, stop using ciprofloxacin and call your doctor at once if you have: ?? severe stomach pain, diarrhea that is watery or bloody; ?? fast or pounding heartbeats, fluttering in your chest, shortness of breath, and sudden dizziness (like you might pass out); ?? the first sign of any skin rash, no matter how mild; ?? muscle weakness, breathing problems; ?? little or no urination; ?? jaundice (yellowing of the skin or eyes); or ?? increased pressure inside the skull--severe headaches, ringing in your ears, dizziness, nausea, vision problems, pain behind your eyes. Common side effects may include: ?? nausea, vomiting, diarrhea, stomach pain; ?? vaginal itching or discharge; ?? headache; or ?? abnormal liver function tests. This is not a complete list of side effects and others may occur. Call your doctor for medical advice about side effects. You may report side effects to FDA at 4-147-NRX-9663. What other drugs will affect ciprofloxacin? Some medicines can make ciprofloxacin much less effective when taken at the same time. If you take any of the following medicines, take your ciprofloxacin dose 2 hours before or 6 hours after you take the other medicine. ?? the ulcer medicine sucralfate, or antacids that contain calcium, magnesium, or aluminum (such as Maalox, Milk of Magnesia, Mylanta, Pepcid Complete, Rolaids, Tums, and others); ?? didanosine (Videx) powder or chewable tablets; ?? lanthanum carbonate or sevelamer; or ?? vitamin or mineral supplements that contain calcium, iron, magnesium, or zinc. Tell your doctor about all your other medicines, especially: ?? cyclosporine, methotrexate, metoclopramide, phenytoin, probenecid, ropinirole, sildenafil, or theophylline; ?? a blood thinner (warfarin, Coumadin, Jantoven); ?? a diuretic or 'water pill'; ?? heart rhythm medication; ?? insulin or oral diabetes medicine (check your blood sugar regularly); ?? medicine to treat depression or mental illness; ?? steroid medicine (such as prednisone); or ?? NSAIDs (nonsteroidal anti-inflammatory drugs)--ibuprofen (Advil, Motrin), naproxen (Aleve), celecoxib, diclofenac, indomethacin, meloxicam, and others. This list is not complete. Other drugs may affect ciprofloxacin, including prescription and fpgm-huf-pakpmpy medicines, vitamins, and herbal products. Not all possible drug interactions are listed here. Where can I get more information? Your pharmacist can provide more information about ciprofloxacin. Remember, keep this and all other medicines out of the reach of children, never share your medicines with others, and use this medication only for the indication prescribed. Every effort has been made to ensure that the information provided by [employer] is accurate, up-to-date, and complete, but no guarantee is made to that effect. Drug information contained herein may be time sensitive. [employer] information has been compiled for use by healthcare practitioners and consumers in the [place] and therefore [employer] does not warrant that uses outside of the [place] are appropriate, unless specifically indicated otherwise. [employer] drug information does not endorse drugs, diagnose patients or recommend therapy. [employer] drug information is an informational resource designed to assist licensed healthcare practitioners in caring for their patients and/or to serve consumers viewing this service as a supplement to, and not a substitute for, the expertise, skill, knowledge and judgment of healthcare practitioners. The absence of a warning for a given drug or drug combination in no way should be construed to indicate that the drug or drug combination is safe, effective or appropriate for any given patient. [employer] does not assume any responsibility for any aspect of healthcare administered with the aid of information [employer] provides. The information contained herein is not intended to cover all possible uses, directions, precautions, warnings, drug interactions, allergic reactions, or adverse effects. If you have questions about the drugs you are taking, check with your doctor, nurse or pharmacist. Copyright 3395-7096 [employer] Version: 22.01. Revision Date: 03/28/2018. Emergency Awareness and Preventative Care STROKE is an EMERGENCY Every Minute Counts Act FAST and Check for these signs: FACE Does the face look uneven? ARM Does one arm drift down? SPEECH Does their speech sound strange? TIME Call at any sign of stroke Stroke Risk Factors Atrial Fibrillation (irregular heartbeat) Diabetes Family history of stroke Heart Disease Heavy alcohol use High Blood Pressure High Cholesterol Physical inactivity and obesity Smoking Cigarette Smoking The facts are clear, cigarette smoking will shorten your life. Smoking can cause many illnesses along the way. As a healthcare provider, we recommend that you stop smoking. Assistance with quitting is available by contacting 4-632-LDER-NOW. This is a free resource providing counseling, support, and referral. Or you may contact your personal physician. National Suicide Prevention Lifeline: The National Suicide Prevention Lifeline is a national network of local crisis centers that provides free and confidential emotional support to people in suicidal crisis or emotional distress 24 hours a day, 7 days a week. Don't Wait! Stop a Heart Attack Before it Starts What is a heart attack? A heart attack is damage or to a part of the heart from severely decreased or lack of blood flow to the heart. Over time, arteries can become narrow from the buildup of fat and cholesterol, which is called plaque. The plaque can rupture causing a blood clot to form. When the blood clot forms, the artery can become severely narrowed or completely blocked, causing a heart attack. Heart attack is the leading cause of in the [place]. 85% of muscle damage occurs within the first 2 hours. Delay in the recognition of heart attack symptoms increases the chances of . Know the early symptoms of a heart attack: Nausea Feeling of fullness in chest Jaw Pain Pain that travels down one or both arms Fatigue/being tired Anxiety Back Pain Chest pressure, squeezing, or discomfort Shortness of breath Sweating, or a cold sweat Feeling of impending doom There are unusual signs of a heart attack, too! Women, the elderly, and diabetics may present with atypical symptoms: Fainting/dizziness Weakness Confusion Risk Factors for a Heart Attack Some heart disease risk factors, such as age and family history, cannot be changed. Others, like smoking and lack of exercise, can be changed. Smoking High Cholesterol High Blood Pressure Family History Obesity Age Gender (Males are at higher risk) Lack of Exercise Diabetes Diet Stress Excessive Alcohol Intake If you or someone you know is experiencing the signs and symptoms of a heart attack, DON???T DELAY. Call immediately and seek help. If someone collapses, perform CPR! Do not attempt to drive if you are having symptoms of heart attack. Hands-Only CPR Why Hands-Only CPR? Hands-Only CPR has been shown to be as effective as conventional CPR for cardiac arrests that occur outside of a hospital. Survival depends on immediately receiving CPR from someone nearby. How do you perform Hands-Only CPR? There are two easy steps: Call if you see a teen or adult collapse Push hard and fast in the center of the chest at a beat of 100 beats per minute. Save a life! 4 WAYS TO GET AHEAD OF SEPSIS SEPSIS is a MEDICAL EMERGENCY. Time matters! Infections put you and your family at risk for a life-threatening condition called sepsis. Sepsis is the body's extreme response to an infection. It is life-threatening, and without timely treatment, sepsis can rapidly lead to tissue damage, organ failure, and . Sepsis happens when an infection you already have-in your skin, lungs, urinary tract or somewhere else-triggers a chain reaction throughout your body. 1 PREVENT INFECTIONS Take good care of chronic conditions. Talk to your doctor about getting the recommended vaccines. 2 PRACTICE GOOD HYGIENE Wash your hands frequently. Keep cuts or open sores clean and covered until they are healed. 3 KNOW THE SYMPTOMS Confusion or disorientation Shortness of breath High heart rate Fever, shivering, or feeling very cold Extreme pain or discomfort Clammy or sweaty skin 4 ACT FAST Get medical care IMMEDIATELY if you suspect sepsis or if you have an infection that is not getting better or is getting worse. To learn more about sepsis and how to prevent infections, visit www.cdc.gov/sepsis. Test Results Laboratory or Other Results This Visit (last charted value for your 01/20/2019 visit) General Chemistry 01/20/2019 5:48 PM Glucose POC2: 96 mg/dL -- Normal range between ( 70 and 110 ) 01/20/2019 2:11 PM Potassium POC: 3.7 mmol/L -- Normal range between ( 3.5 and 4.9 ) Glucose POC: 142 mg/dL -- Normal range between ( 70 and 105 ) Diagnostic Radiology 01/20/2019 1:25 PM CR Abdomen 1 Vw: CR Abdomen 1 Vw Patient Name:ROMEOROBERTO I have received this information and was given the opportunity to ask questions. Patient/Manager Copy Name: Patient/Manager Copy Signature: Relationship to Patient: Clinician/Hospital Manager Copy Signature: Date: documented in this encounter Plan of Treatment Not on file documented as of this encounter Visit Diagnoses Not on filedocumented in this encounter
--- OUTSIDE RECORDS SUMMARY | 2024-10-09 18:59 | XMS_ITS | Encounter Summary ---
Author Organization [employer] ([place], [place], [place], [place]) Address [address] [place] [address] Care Team Providers Care Electronic Security Specialist Name Role Phone Unavailable Primary Care Provider Unavailabl e Encounter Details Date Type Department Care Team (Late st Contact Info) Description 03/30/2019 Transcribed Document [facility] Radiology [address] [place] [address] Provider, James Pelaez MD Social History Tobacco Use Types Packs/Day Years Used Date Smoking Tobacco: Never Assessed Sex and Gender Information Value Date Recorded Sex Assigned at Not on file Legal Sex Male 1:31 PM CDT Gender Identity Not on file Sexual Orientation Not on file documented as of this encounter Miscellaneous Notes * Cerner Conversion Note - [facility] Latanya Merlos MD - 03/30/2019 12:43 PM EST [address] [address] Patient Copy Patient Information: Name: ROBERTO ROMEO Current Date: 03/30/2019 11:43:15 : 1960 Patient [address]: [address] [place] [id number] Patient Attending Physician: SHYAM PADILLA MD-RACHNA Primary Care Provider: GUILLE GOLD NP-[facility] Primary Care Provider Discharge Diagnosis: Weight on Admission: 221 lb, 3 oz Comment: Follow-up Instructions: With: Address: When: Follow up with primary care provider Within 1 week Comments: need repeat BMP in 1 week with primary care doctor Discharge Instructions: Immunizations Documented During Stay: No Immunizations Found Heart Failure Discharge Instructions (if any): Stroke Related Discharge Instructions (if any): Warfarin Related Discharge Instructions (if any): Final Medication List: Other Medications aspirin (aspirin 81 mg oral tablet) 1 Tablet(s) Oral Every Day. atorvastatin (atorvastatin 20 mg oral tablet) 1 Tablet(s) Oral At Bedtime. dapagliflozin (Farxiga 10 mg oral tablet) 1 Tablet(s) Oral Every Day. exenatide (Bydureon BCise 2 mg/0.85 mL subcutaneous suspension, extended release) 2 Milligram(s) SubCutaneous Weekly. febuxostat (Uloric 80 mg oral tablet) 1 Tablet(s) Oral Every Day. glipiZIDE (glipiZIDE 10 mg oral tablet) 1 Tablet(s) Oral Two Times A Day. hydroCHLOROthiazide (hydroCHLOROthiazide 25 mg oral tablet) 1 Tablet(s) Oral Every Day. ibuprofen (ibuprofen 800 mg oral tablet) 1 Tablet(s) Oral Three Times A Day as needed for pain. isosorbide mononitrate (isosorbide mononitrate 60 mg oral tablet, extended release) 1 Tablet(s) Oral Every Morning. lisinopril (lisinopril 40 mg oral tablet) 1 Tablet(s) Oral Every Day. metFORMIN (metFORMIN 500 mg oral tablet, extended release) 2 Tablet(s) Oral Two Times A Day. omeprazole (omeprazole 40 mg oral delayed release capsule) 1 Capsule(s) Oral Every Day. before a meal. tamsulosin (tamsulosin 0.4 mg oral capsule) 1 Capsule(s) Oral At Bedtime. ticagrelor (Brilinta (ticagrelor) 90 mg oral tablet) 1 Tablet(s) Oral Two Times A Day. Patient Allergies: penicillin Medication Instructions: Take your medications faithfully. Do NOT skip [...] cramping, rapid heartbeat, difficulty sleeping, and nervousness. Patient education materials: Acute Kidney Injury, Adult Acute kidney injury is a sudden worsening of kidney function. The kidneys are organs that have several jobs. They filter the blood to remove waste products and extra fluid. They also maintain a healthy balance of minerals and hormones in the body, which helps control blood pressure and keep bones strong. With this condition, your kidneys do not do their jobs as well as they should. This condition ranges from mild to severe. Over time it may develop into long-lasting (chronic) kidney disease. Early detection and treatment may prevent acute kidney injury from developing into a chronic condition. What are the causes? Common causes of this condition include: ??? A problem with blood flow to the kidneys. This may be caused by: ? Low blood pressure (hypotension) or shock. ? Blood loss. ? Heart and blood vessel (cardiovascular) disease. ? Severe nunn. ? Liver disease. ??? Direct damage to the kidneys. This may be caused by: ? Certain medicines. ? A kidney infection. ? Poisoning. ? Being around or in contact with toxic substances. ? A surgical wound. ? A hard, direct hit to the kidney area. ??? A sudden blockage of urine flow. This may be caused by: ? Cancer. ? Kidney stones. ? An enlarged prostate in males. What are the signs or symptoms? Symptoms of this condition may not be obvious until the condition becomes severe. Symptoms of this condition can include: ??? Tiredness (lethargy), or difficulty staying awake. ??? Nausea or vomiting. ??? Swelling (edema) of the face, legs, ankles, or feet. ??? Problems with urination, such as: ? Abdominal pain, or pain along the side of your stomach (flank). ? Decreased urine production. ? Decrease in the force of urine flow. ??? Muscle twitches and cramps, especially in the legs. ??? Confusion or trouble concentrating. ??? Loss of appetite. ??? Fever. How is this diagnosed? This condition may be diagnosed with tests, including: ??? Blood tests. ??? Urine tests. ??? Imaging tests. ??? A test in which a sample of tissue is removed from the kidneys to be examined under a microscope (kidney biopsy). How is this treated? Treatment for this condition depends on the cause and how severe the condition is. In mild cases, treatment may not be needed. The kidneys may heal on their own. In more severe cases, treatment will involve: ??? Treating the cause of the kidney injury. This may involve changing any medicines you are taking or adjusting your dosage. ??? Fluids. You may need specialized IV fluids to balance your body's needs. ??? Having a catheter placed to drain urine and prevent blockages. ??? Preventing problems from occurring. This may mean avoiding certain medicines or procedures that can cause further injury to the kidneys. In some cases treatment may also require: ??? A procedure to remove toxic wastes from the body (dialysis or continuous renal replacement therapy - CRRT). ??? Surgery. This may be done to repair a torn kidney, or to remove the blockage from the urinary system. Follow these instructions at home: Medicines ??? Take [id number] and prescription medicines only as told by your health care provider. ??? Do not take any new medicines without your health care provider's approval. Many medicines can worsen your kidney damage. ??? Do not take any vitamin and mineral supplements without your health care provider's approval. Many nutritional supplements can worsen your kidney damage. Lifestyle ??? If your health care provider prescribed changes to your diet, follow them. You may need to decrease the amount of protein you eat. ??? Achieve and maintain a healthy weight. If you need help with this, ask your health care provider. ??? Start or continue an exercise plan. Try to exercise at least 30 minutes a day, 5 days a week. ??? Do not use any tobacco products, such as cigarettes, chewing tobacco, and e-cigarettes. If you need help quitting, ask your health care provider. General instructions ??? Keep track of your blood pressure. Report changes in your blood pressure as told by your health care provider. ??? Stay up to date with immunizations. Ask your health care provider which immunizations you need. ??? Keep all follow-up visits as told by your health care provider. This is important. Where to find more information ??? [place] Association of Kidney Patients: www.aakp.org ??? National Kidney Foundation: www.kidney.org ??? [employer] Kidney Fund: www.akfinc.org ??? Life Options Rehabilitation Program: ? www.lifeoptions.org ? www.kidneyschool.org Contact a health care provider if: ??? Your symptoms get worse. ??? You develop new symptoms. Get help right away if: ??? You develop symptoms of worsening kidney disease, which include: ? Headaches. ? Abnormally dark or light skin. ? Easy bruising. ? Frequent hiccups. ? Chest pain. ? Shortness of breath. ? End of menstruation in women. ? Seizures. ? Confusion or altered mental status. ? Abdominal or back pain. ? Itchiness. ??? You have a fever. ??? Your body is producing less urine. ??? You have pain or bleeding when you urinate. Summary ??? Acute kidney injury is a sudden worsening of kidney function. ??? Acute kidney injury can be caused by problems with blood flow to the kidneys, direct damage to the kidneys, and sudden blockage of urine flow. ??? Symptoms of this condition may not be obvious until it becomes severe. Symptoms may include edema, lethargy, confusion, nausea or vomiting, and problems passing urine. ??? This condition can usually be diagnosed with blood tests, urine tests, and imaging tests. Sometimes a kidney biopsy is done to diagnose this condition. ??? Treatment for this condition often involves treating the underlying cause. It is treated with fluids, medicines, dialysis, diet changes, or surgery. This information is not intended to replace advice given to you by your health care provider. Make sure you discuss any questions you have with your health care provider. Document Released: 09/21/2011 Document Revised: 07/08/2017 Document Reviewed: 02/26/2017 [employer] Patient Education ? 2019 [employer]. CIGARETTE SMOKING: The facts are clear, cigarette smoking will shorten your life. Smoking can cause many illnesses along the way. As a healthcare provider, we recommend that you stop smoking. Assistance with quitting is available by contacting 6-452-LNYD-NOW. This is a free resource providing counseling, support, and referral. Or you may contact your personal physician. 4 WAYS TO GET AHEAD OF SEPSIS SEPSIS is a MEDICAL EMERGENCY. Time matters! Infections put you and your family at risk for a life-threatening condition called sepsis. Sepsis is the body???s extreme response to an infection. It is life-threatening, and without timely treatment, sepsis can rapidly lead to tissue damage, organ failure, and . Sepsis happens when an infection you already have???in your skin, lungs, urinary tract or somewhere else???triggers a chain reaction throughout your body. 1 [...] sepsis or if you have an infection that???s not getting better or is getting worse. To learn more about sepsis and how to prevent infections, visit www.cdc.gov/sepsis. STROKE is an EMERGENCY Every [employer] Counts ACT F.A.S.T! FACE ?? Facial droop ?? Uneven smile ARM ?? Arm numbness ?? Arm weakness SPEECH ?? Slurred speech ?? Difficulty speaking or understanding TIME ?? Call 911 and get to the hospital immediately Have the ambulance go to the nearest stroke center. STROKE Risk Factors High blood pressure High cholesterol Heart Disease Diabetes Smoking Heavy alcohol use Physical inactivity and obesity Atrial Fibrillation (irregular heartbeat) Family history of stroke Reminder: Be sure to sign up for the [employer] patient portal, which gives you 12/10 access to your medical information ??? including these discharge instructions ??? using your computer, smartphone, or tablet. Just go to [employer] to get started. Questions? Call . [facility] would like to thank you for allowing us to assist you with your healthcare needs. OUSMANE Mccrary ERNEST LEE, (or territory service representative) have received the above patient education materials/instructions and have verbalized understanding: Patient Signature _ Date/Time Patient Make Up Artist Signature (if needed) Date/Time Clinician/Hospital Make Up Artist Signature (if needed) Date/Time documented in this encounter Plan of Treatment Not on file documented as of this encounter Visit Diagnoses Not on filedocumented in this encounter
--- OUTSIDE RECORDS SUMMARY | 2024-10-09 18:59 | XMS_ITS | Encounter Summary ---
Author Organization [employer] ([place], [place], [place], [place]) Address [address] [place] [address] Care Team Providers Care Video Editing Internship Name Role Phone Unavailable Primary Care Provider Unavailabl e Encounter Details Date Type Department Care Team (Late st Contact Info) Description 03/28/2019 Transcribed Document [facility] Radiology [address] [place] [address] Provider, James Pelaez MD Social History Tobacco Use Types Packs/Day Years Used Date Smoking Tobacco: Never Assessed Sex and Gender Information Value Date Recorded Sex Assigned at Not on file Legal Sex Male 1:31 PM CDT Gender Identity Not on file Sexual Orientation Not on file documented as of this encounter Miscellaneous Notes * Cerner Conversion Note - [facility] Latanya Merlos MD - 03/28/2019 3:55 PM EST DATE OF PROCEDURE: 03/28/2019 SURGEON: Jose Wilson MD PREOPERATIVE DIAGNOSIS: Paraesophageal hernia. POSTOPERATIVE DIAGNOSIS: Paraesophageal hernia. PROCEDURES PERFORMED: 1. Robotic-assisted laparoscopic repair of paraesophageal hernia with Phasix ST mesh. 2. Dawn fundoplication. 3. Intraoperative EGD. BIAS CUTTING MACHINE OPERATOR: Funmilayo Hernandez. ANESTHESIA: General endotracheal. 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 The repair was performed with Phasix ST mesh. Loose floppy 360 degree Dawn fundoplication wrap was performed. DESCRIPTION OF PROCEDURE: The patient was brought to the operating room where general endotracheal anesthesia was induced. He was sterilely prepped and draped. Preoperative antibiotics were in place. Sequential compression boots were used for DVT prophylaxis. Time-out performed per protocol. A 0.5% Marcaine with epinephrine was placed in each trocar site for postop analgesia. A small stab incision made at the umbilicus with a Veress needle, the CO2 pneumoperitoneum obtained. The trocars were all placed under direct vision with the laparoscope. The patient was placed in steep reverse Trendelenburg position. The robot was docked. The findings were as noted. The left side was then entered, and then we carefully began our dissection up toward the phrenoesophageal ligament using a vessel sealer. The hernia sac was identified along the right magnus and we began our dissection into the mediastinum. 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 We carried our dissection from the right over anteriorly and into the left mediastinum. The short gastric vessels were then taken down with the vessel sealer. A space was created down the esophagus, then a Katie drain placed for traction. We then continued our mediastinal dissection freeing up several centimeters of intra-abdominal esophagus. We widely mobilized both the right and left magnus to allow for a fairly tension-free closure. We then proceeded with repair of the diaphragm. The crura were reapproximated with interrupted 0 silk sutures. Four sutures were placed. A piece of Phasix ST mesh was then placed in an underlay keyhole fashion and secured in multiple points with interrupted 0 silk stitches. The crura came together nicely. There was minimal tension present with our closure. The mesh lay nice without wrinkling or buckling. We then proceeded with a loose floppy 360 degree Dawn fundoplication wrap. The fundus was brought posteriorly and then wrapped anteriorly around the esophagus. Secured with interrupted 0 silk stitches. Four sutures were placed through this, incorporating the anterior muscular of the esophagus. The wrap appeared without significant tension and appeared loose in nature. We then processed with intraoperative EGD. The endoscope was passed transorally, down through the esophagus and mid stomach. The duodenum was intubated and was unremarkable. The stomach was evaluated with the scope in the retroflexed position. The Dawn wrap was intact as well as a hernia repair. Then, the scope was brought back into the distal esophagus and then passed through the wrap again. It did not appear to be too tight. The endoscope was then removed. The robot had been undocked prior to the EGD. All excess suture material and needles have been removed from the peritoneal cavity. A large portion of the mediastinal hernia sac and lipoma had been excised and then removed from the abdominal cavity. The meticulous hemostasis was assured. A tip grasper had been utilized to retract the liver and it was removed. The liver was intact without bleeding. The patient tolerated the procedure well. There were no complications. Sponge and needle counts were correct. Estimated blood loss was minimal. He was taken to recovery in stable condition. /[id number] MD JOAQUÍN Cuenca/TESS / JOAQUÍN / INO /[id number] Electronically signed by [place], [facility] Conversion Flute Teacher Cerner at 08/12/2022 11:48 AM CDT documented in this encounter Plan of Treatment Not on file documented as of this encounter Visit Diagnoses Not on filedocumented in this encounter
--- OUTSIDE RECORDS SUMMARY | 2024-10-09 18:59 | XMS_ITS | Encounter Summary ---
Author Organization [employer] ([place], [place], [place], [place]) Address [address] [place] [address] Care Team Providers Care Plant Clerk Name Role Phone Unavailable Primary Care Provider Unavailabl e Encounter Details Date Type Department Care Team (Late st Contact Info) Description 03/30/2019 Transcribed Document [facility] Radiology [address] [place] [address] Provider, James Pelaez MD Social History Tobacco Use Types Packs/Day Years Used Date Smoking Tobacco: Never Assessed Sex and Gender Information Value Date Recorded Sex Assigned at Not on file Legal Sex Male 1:31 PM CDT Gender Identity Not on file Sexual Orientation Not on file documented as of this encounter Miscellaneous Notes * Cerner Conversion Note - [facility] Latanya ProviderMD - 03/30/2019 8:59 AM EST Patient: ROBERTO ROMEO Age: 58 Years Sex: Male : 1960 Assessment/Plan POD 2 robtic lap paraesophageal hernia repair with lap tyrel. - Advance to full liquid diet. Poss DC this PM if marielle fulls. - encourage ambulation VTE Prophylaxis - Medical Sequential Compression Device Start: 03/28/19 16:29:00 EST, Bilateral, Continuous Order (PEDRO MIKE PA-C) Sequential Compression Device Start: 03/28/19 12:29:00 EST, Bilateral, Length: Knee High, While patient is in bed, Continuous Order (SHYAM PADILLA) Subjective doing well, no complaints. marielle clears. +BF. Some vomiting yesterday following UGI contrast but none since. Vital Signs T: 36.7 ??C TMIN: 36.3 ??C TMAX: 36.8 ??C HR: 84 RR: 18 BP: 153/93 SpO2: 92% Oxygen Settings (Last) Oxygen Therapy Mode: Room air (03/30/19 05:13:00) Oxygen Flow Rate: 2 Liter/Min (03/29/19 09:59:00) Intake & Output Totals Last 24 Hours (7a-7a) Input Total: 1273.25 mL Output Total: 0 mL Balance: 1273.25 mL Physical Exam Gen: NAD Resp: Nonlabored respirations CV: Normal peripheral perfusion Ab: soft, nontender, nondistended Medications acetaminophen-HYDROcodone 325 mg-7.5 mg oral tablet, 1 Tab, Oral, Q4H, PRN Benadryl, 25 mg= 1 Tab, Oral, Q4H, PRN Flomax, 0.4 mg= 1 Cap, Oral, Daily insulin lispro sliding scale, Scale D:, SubCutaneous, AC and at Bedtime isosorbide dinitrate, 20 mg= 1 Tab, Oral, TID Lantus, 15 Units= 0.15 mL, SubCutaneous, Daily Lopressor, 5 mg= 5 mL, IV Push, Q8H morphine, 3 mg= 0.75 mL, IV Push, Q2H, PRN Normal Saline Flush, 10 mL, IV Push, 1-Time, PRN Pepcid, 20 mg= 2 mL, IV Push, Q12H Tylenol, 650 mg= 2 Tab, Oral, Q4H, PRN Tylenol, 650 mg= 2 Tab, Oral, Q6H, PRN Zofran, 4 mg= 2 mL, IV Push, Q6H, PRN Lab Results Test Name Test Result Date/Time Device Comment 1 Received Meds 03/30/2019 06:42 EST Device Comment 1 Received Meds 03/29/2019 22:40 EST Device Comment 1 Received Meds 03/29/2019 15:34 EST Device Comment 1 Received Meds 03/29/2019 11:19 EST Glucose POC2 169 mg/dL (High) 03/30/2019 06:42 EST Glucose POC2 208 mg/dL (High) 03/29/2019 22:40 EST Glucose POC2 247 mg/dL (High) 03/29/2019 15:34 EST Glucose POC2 235 mg/dL (High) 03/29/2019 11:19 EST Electronically signed by [place] [facility] Conversion Gem Technician Cerner at 08/12/2022 11:48 AM CDT documented in this encounter Plan of Treatment Not on file documented as of this encounter Visit Diagnoses Not on filedocumented in this encounter
--- OUTSIDE RECORDS SUMMARY | 2024-10-09 18:59 | XMS_ITS | Encounter Summary ---
Author Organization [employer] ([place], [place], [place], [place]) Address [address] [place] [address] Care Team Providers Care Label Folder Name Role Phone Unavailable Primary Care Provider Unavailabl e Encounter Details Date Type Department Care Team (Late st Contact Info) Description 01/20/2019 Transcribed Document [facility] [address] [place] [address] James Merlos MD Social History Tobacco Use Types Packs/Day Years Used Date Smoking Tobacco: Never Assessed Sex and Gender Information Value Date Recorded Sex Assigned at Not on file Legal Sex Male 1:31 PM CDT Gender Identity Not on file Sexual Orientation Not on file documented as of this encounter Miscellaneous Notes * Cerner Conversion Note - [facility] Latanya Merlos MD - 01/20/2019 2:59 PM EDT Pre Procedure Adult Entered On: 01/20/2019 14:00 EDT Performed On: 01/20/2019 13:59 EDT by INGA CAIN RN Height and Weight, Clinical Dosing Height Source : Measured Height Entry Format : [place] Height, Feet : 5 ft(Converted to: 152 cm, 60 Inch) Height, Inches : 9 Inch(Converted to: 0 ft 9 Inch, 22.86 cm) Clinical Height : 175.26 cm Weight Source : Standing scale Weight Entry Format : [place] Clinical Dosing Weight : 99.27 kg Weight, Pounds : 218.4 lb Body Surface Area (BSA) : 2.15 m2 Body Mass Index : 32.3 kg/m2 (HI) [place] Body Weight : 70 kg INGA CAIN RN - 01/20/2019 13:59 EDT documented in this encounter Plan of Treatment Not on file documented as of this encounter Visit Diagnoses Not on filedocumented in this encounter
--- OUTSIDE RECORDS SUMMARY | 2024-10-09 18:59 | XMS_ITS | Encounter Summary ---
Author Organization [employer] [facility] ([place], [place], [place], [place]) Address [address] [place] [address] Care Team Providers Care Enrollment Management Coordinator Name Role Phone Unavailable Primary Care Provider Unavailabl e Encounter Details Date Type Department Care Team (Late st Contact Info) Description 03/30/2019 Transcribed Document [facility] Radiology [address] [place] [address] ProviderJames MD Social History Tobacco Use Types Packs/Day Years Used Date Smoking Tobacco: Never Assessed Sex and Gender Information Value Date Recorded Sex Assigned at Not on file Legal Sex Male 1:31 PM CDT Gender Identity Not on file Sexual Orientation Not on file documented as of this encounter Miscellaneous Notes * Cerner Conversion Note - [facility] Latanya ProviderMD - 03/30/2019 3:00 AM EST Environmental Services Specialist Details Entered On: 03/30/2019 5:15 EST Performed On: 03/30/2019 2:00 EST by Kassandra Quesada RN Order Details Transport Mode Order Detail : Wheelchair Isolation Precautions Order Detail : Standard Precautions Order Detail : N/A IV Order Detail : 1 Oxygen Order Detail : 0 Nurse Collect Order Detail : 0 Lift/Transfer : Minimal Central Line Order Detail : No Room Service : Appropriate Arterial Line : No Kassandra Quesada RN - 03/30/2019 5:15 EST documented in this encounter Plan of Treatment Not on file documented as of this encounter Visit Diagnoses Not on filedocumented in this encounter
--- OUTSIDE RECORDS SUMMARY | 2024-10-09 18:59 | XMS_ITS | Data Portability ---
Author Organization [place] - [facility] - [facility] Address [address] [place] [address] Assessment Encounter Date Assessment Date Assessment LastModified by Organization Details LastModified Time 01/07/2023 01/07/2023 plan and recommendation. 1. I sent the patient for a KUB to see the location of the stone. 2. Depending on the location of the stone we will plan the future treatment including insertion of a double-J stent and shockwave lithotripsy. Patient definitely needs a workup for left renal mass with and without IV contrast renal mass protocol Patient was given antibiotics Bactrim ds 1 tablet b.i.d.. Advised the patient if he gets severe pain over the weekend to prevent sepsis. Printed stone prevention paper and diet for the stone prevention was also given and explained to the patient [email or web address] Not available 01/07/2023 10:01:19 03/23/2023 03/23/2023 plan and recommendation gave him the diet for low oxalate. Patient was advised to drink more water and cut down eyes the pop and chocolate. Advised him to come back and see me on a p.r.n. basis [email or web address] Not available 03/23/2023 10:44:30 Plan of Treatment Reminders Order Date Submit Date Provider Last Modified By Organization Details Last Modified Time Details Appointments None record ed. Lab None record ed. Referral None record ed. Procedures None record ed. Surgeries None record ed. Imaging None record ed. Medication Orders None record ed. Patient TargetsNo targets recorded. Patient InstructionsNo instructions recorded. Reason for Referral None Reported. Results Created Date Observation Date Name Description Value Unit Range Abnormal Flag Note LastModifiedBy Organization Detail LastModifiedTime 01/08/2001/07/2023 CBC W/AUT O DIFFE RENTI AL note SEE NOTE Order ing Provi nader: Dev fall MD Not Available [address] , [place], [address], 01/07/2023 12:07:52 01/08/2001/07/2023 CBC W/AUT O DIFFE RENTI AL white blood cell 8.0 10e3/ uL 4.5-13 .0 normal Not Available [address] Jena Leahy, [place], [address], 01/07/2023 12:07:52 01/08/2001/07/2023 CBC W/AUT O DIFFE RENTI AL red blood cell 5.70 10e6/ uL 4.10-5 .70 normal Not Available [address] Jena Leahy, [place], [address], 01/07/2023 12:07:52 01/08/2001/07/2023 CBC W/AUT O DIFFE RENTI AL hemoglobin 17.1 g/dL 12.0-1 6.9 high Not Available [address] Jena Leahy, [place], [address], 01/07/2023 12:07:52 01/08/2001/07/2023 CBC W/AUT O DIFFE RENTI AL hematocrit 50.4 % 36.0-4 9.0 high Not Available [address] Jena Leahy, [place], [address], 01/07/2023 12:07:52 01/08/2001/07/2023 CBC W/AUT O DIFFE RENTI AL mean cell volume 88 fL 78.0-9 8.0 normal Not Available [address] Jena Leahy, [place], [address], 01/07/2023 12:07:52 01/08/2001/07/2023 CBC W/AUT O DIFFE RENTI AL mean cell HGB 30.0 pg 25.0-3 5.0 normal Not Available [address] Jena Leahy, [place], [address], 01/07/2023 12:07:52 01/08/2001/07/2023 CBC W/AUT O DIFFE RENTI AL mean cell HGB concentratio n 33.9 g/dL 31.0-3 6.0 normal Not Available [address] Jena Leahy, [place], [address], 01/07/2023 12:07:52 01/08/2001/07/2023 CBC W/AUT O DIFFE RENTI AL red cell distribution width 12.1 % 11.0-1 5.0 normal Not Available [address] Jena Leahy, [place], [address], 01/07/2023 12:07:52 01/08/2001/07/2023 CBC W/AUT O DIFFE RENTI AL platelet count 234 10e3/ uL 150-40 0 normal Not Available [address] Jena Leahy, [place], [address], 01/07/2023 12:07:52 01/08/20 23 01/07/2023 CBC W/AUT O DIFFE RENTI AL immature granulocyte % 0 0-1 normal Not Available [address] Jena Leahy, [place], [address], 01/07/2023 12:07:52 01/08/2001/07/2023 CBC W/AUT O DIFFE RENTI AL neutrophil % 59 % 35-75 normal Not Available [address] Jena Leahy, [place], [address], 01/07/2023 12:07:52 01/08/20 23 01/07/2023 CBC W/AUT O DIFFE RENTI AL lymphocyte % 27 % 10-50 normal Not Available [address] , [place], [address], 01/07/2023 12:07:52 01/08/2001/07/2023 CBC W/AUT O DIFFE RENTI AL monocyte % 9 % 0-15 normal Not Available [address] Jena Leahy, [place], [address], 01/07/2023 12:07:52 01/08/2001/07/2023 CBC W/AUT O DIFFE RENTI AL eosinophil % 4 % 0-5 normal Not Available [address] Jena Leahy, [place], [address], 01/07/2023 12:07:52 01/08/20 23 01/07/2023 CBC W/AUT O DIFFE RENTI AL basophil % 1 % 0-5 normal Not Available [address] Jena Leahy, [place], [address], 01/07/2023 12:07:52 01/08/2001/07/2023 CBC W/AUT O DIFFE RENTI AL immature granulocyte # 0.02 x1000 /uL 0-0.05 normal Not Available [address] Jena Leahy, [place], [address], 01/07/2023 12:07:52 01/08/2001/07/2023 CBC W/AUT O DIFFE RENTI AL neutrophil # 4.72 x1000 /uL 1.50-8 .00 normal Not Available [address] Jena Leahy, [place], [address], 01/07/2023 12:07:52 01/08/2001/07/2023 CBC W/AUT O DIFFE RENTI AL lymphocyte # 2.17 x1000 /uL 1.20-5 .20 normal Not Available [address] Jena Leahy, [place], [address], 01/07/2023 12:07:52 01/08/2001/07/2023 CBC W/AUT O DIFFE RENTI AL monocyte # 0.73 x1000 /uL 0.30-0 .90 normal Not Available [address] Jena Leahy, [place], [address], 01/07/2023 12:07:52 01/08/2001/07/2023 CBC W/AUT O DIFFE RENTI AL eosinophil # 0.29 x1000 /uL 0.00-0 .50 normal Not Available [address] , [place], [address], 01/07/2023 12:07:52 01/08/2001/07/2023 CBC W/AUT O DIFFE RENTI AL basophil # 0.05 x1000 /uL 0.00-0 .30 normal Not Available [address] , [place], [address], 01/07/2023 12:07:52 01/08/2001/07/2023 CBC W/AUT O DIFFE RENTI AL NRBC automated 0.0 /100_ WBC Not Available [address] , [place], [address], 01/07/2023 12:07:52 01/08/2001/07/2023 CBC W/AUT O DIFFE RENTI AL performing lab SEE NOTE ML - [facility] [address] [facility] [address] Not Available [address] Jena Leahy, [place], [address], 01/07/2023 12:07:52 01/08/2001/07/2023 COMP METAB OLIC PANEL note SEE NOTE Order ing Provi nader: Dev fall MD Not Available [address] , [place], [address], 01/07/2023 13:06:44 01/08/2001/07/2023 COMP METAB OLIC PANEL sodium 137 mmol/ L 136-14 5 normal Not Available [address] Jena Leahy, [place], [address], 01/07/2023 13:06:44 01/08/2001/07/2023 COMP METAB OLIC PANEL potassium 4.1 mmol/ L 3.5-5. 1 normal Not Available [address] Jena Leahy, [place], [address], 01/07/2023 13:06:44 01/08/2001/07/2023 COMP METAB OLIC PANEL chloride 100 mmol/ L 98-107 normal Not Available [address] Jena Leahy, [place], [address], 01/07/2023 13:06:44 01/08/2001/07/2023 COMP METAB OLIC PANEL carbon dioxide 28 mmol/ L 24-33 normal Not Available [address] Jena Leahy, [place], [address], 01/07/2023 13:06:44 01/08/20 23 01/07/2023 COMP METAB OLIC PANEL anion gap 13.1 mmol/ L 10-20 normal Not Available [address] Jena Leahy, [place], [address], 01/07/2023 13:06:44 01/08/2001/07/2023 COMP METAB OLIC PANEL glucose 177 mg/dL 70-99 high Not Available [address] Jena Leahy, [place], [address], 01/07/2023 13:06:44 01/08/20 23 01/07/2023 COMP METAB OLIC PANEL blood urea nitrogen 22 mg/dL 7-18 high Not Available [address] [place], [address], 01/07/2023 13:06:44 01/08/20 23 01/07/2023 COMP METAB OLIC PANEL creatinine 1.20 mg/dL 0.70-1 .30 normal Not Available [address], [address], 01/07/2023 13:06:44 01/08/2001/07/2023 COMP METAB OLIC PANEL GFR (estimated) 68 mL/mi n >60 normal [IM DONTAE NT]: The 2020 CKD-E PI equat ion is now the recom carole d stand keli. This versi on does not inclu de race, as do the 2008 and 2011 CKD-E PI creat inine and creat inine -cyst atin C equat ions. Pleas e note that the eGFR now repor tiffany is gener ated by the new 2020 CKD-E PI equat ion, which decre ases the eGFR for black s by up to 10% and incre ases the eGFR for non-b lacks by up to 10% in jolanta rison to the old equat ion. To jolanta re a legac y eGFR to a curre nt value , a 2008 CKD-E PI calcu lator is easil y searc hable on the inter net. Calcu lated GFR: This calcu lated GFR is advoc ated by the Natio nal Kidne y Found ation to be used as an indic ator of Chron ic Kidne y Disea se (CKD) . 5 Stage s of Chron ic Kidne y Disea se. Stage 1 90 mL/mi n or more Healt hy kidne ys or Kidne y damag e with marcial l or high GFR detai ls Stage 2 60 to 89 mL/mi n Kidne y damag e and mild decre ase in GFR detai ls Stage 3 30 to 59 mL/mi n Moder ate decre ase in GFR detai ls Stage 4 15 to 29 mL/mi n Sever e decre ase in GFR detai ls Stage 5 Less than 15 mL/mi n On dialy sis or Kidne y failu re Patie nt's clini marianne statu s must be consi dered for the care of your patie nt. Not Available [address] Jena Leahy, [place], [address], 01/07/2023 13:06:44 01/08/20 23 01/07/2023 COMP METAB OLIC PANEL BUN/creatini ne ratio 18 12-20 normal Not Available [address] Jena Leahy, [place], [address], 01/07/2023 13:06:44 01/08/2001/07/2023 COMP METAB OLIC PANEL total protein 8.5 g/dL 6.4-8. 2 high Not Available [address] [place]ena Leahy, [place], [address], 01/07/2023 13:06:44 01/08/2001/07/2023 COMP METAB OLIC PANEL albumin 4.3 g/dL 3.4-5. 0 normal Not Available [address] Jena Leahy, [place], [address], 01/07/2023 13:06:44 01/08/20 23 01/07/2023 COMP METAB OLIC PANEL globulin 4.2 g/dL 1.5-4. 0 high Not Available [address] [place]ena Leahy, [place], [address], 01/07/2023 13:06:44 01/08/2001/07/2023 COMP METAB OLIC PANEL albumin/glob ulin ratio 1.0 0.5-2. 0 normal Not Available [address] Jena Leahy, [place], [address], 01/07/2023 13:06:44 01/08/20 23 01/07/2023 COMP METAB OLIC PANEL calcium 9.2 mg/dL 8.5-10 .1 normal Not Available [address] Jena Leahy, [place], [address], 01/07/2023 13:06:44 01/08/2001/07/2023 COMP METAB OLIC PANEL osmolality serum calculated 280 mOsm/ kg 272-28 8 normal Not Available [address] , [place], [address], 01/07/2023 13:06:44 01/08/2001/07/2023 COMP METAB OLIC PANEL bilirubin total 2.2 mg/dL 0.2-1. 0 high Use of this assay is not recom carole d for patie nts under going treat ment with Eltro mbopa g due to the poten tial for false ly eleva tiffany resul ts. Not Available [address] , [place], [address], 01/07/2023 13:06:44 01/08/2001/07/2023 COMP METAB OLIC PANEL SGOT/AST 20 U/L 15-37 normal Not Available [address] Jena Leahy, [place], [address], 01/07/2023 13:06:44 01/08/2001/07/2023 COMP METAB OLIC PANEL SGPT/ALT 36 U/L 16-63 normal Not Available [address] Jena Leahy, [place], [address], 01/07/2023 13:06:44 01/08/2001/07/2023 COMP METAB OLIC PANEL alkaline phosphatase total 104 U/L 46-116 normal Not Available [address] [place], [address], 01/07/2023 13:06:44 01/08/2001/07/2023 COMP METAB OLIC PANEL performing lab SEE NOTE ML - [facility] R [address] [facility] [address] Not Available [address] [place], [address], 01/07/2023 13:06:44 01/08/2001/07/2023 BILIR UBIN DIREC T note See Note Order ing Provi nader: Dev fall MD Not Available [address] , [place], [address], 01/07/2023 13:06:45 01/08/2001/07/2023 BILIR UBIN DIREC T bilirubin direct 0.4 mg/dL 0.0-0. 3 high Not Available [address] , [place], [address], 01/07/2023 13:06:45 01/08/2001/07/2023 BILIR UBIN DIREC T performing lab see note - [facility] [address] [facility] [address] Not Available [address] , [place], [address], 01/07/2023 13:06:45 01/08/2001/07/2023 urina lysis , dipst ick Leukocytes Negati ve Not Available [facility] [address] [place] [address] Dr [address]on[address], [place], [address], 01/07/2023 09:12:17 01/08/2001/07/2023 urina lysis , dipst ick Nitrite negati ve Not Available [facility] [address] [place] [address] Dr Fonseca, [place], [address], 01/07/2023 09:12:17 01/08/2001/07/2023 urina lysis , dipst ick Protein Negati ve Not Available [facility] [address] [place] [address] Dr [address]onseca, [place], [address], 01/07/2023 09:12:17 01/08/2001/07/2023 urina lysis , dipst ick pH 5.0 Not Available Beryl [facility] [address] [place] [address] Dr Fonseca, [place], [address], 01/07/2023 09:12:17 01/08/2001/07/2023 urina lysis , dipst ick Blood Non-He molyze d: Trace Not Available [facility] [address] [place] [address] Dr Fonseca, [place], [address], 01/07/2023 09:12:17 01/08/2001/07/2023 urina lysis , dipst ick Specific Advance 1.015 Not Available Beryl Farzana [address]onsec[address], [place], [address], 01/07/2023 09:12:17 01/08/2001/07/2023 urina lysis , dipst ick Ketone Negati ve Not Available Beryl [facility] [address] [place] [address] Dr [address]onseca, [place], [address], 01/07/2023 09:12:17 01/08/2001/07/2023 urina lysis , dipst ick Bilirubin Negati ve Not Available Beryl Nicholson [address]onseca, [place], [address], 01/07/2023 09:12:17 01/08/2001/07/2023 urina lysis , dipst ick Glucose 1000 Not Available Beryl Mayo [address], [place], [address], 01/07/2023 09:12:17 01/08/2001/07/2023 urina lysis , dipst ick Appearance Clear Not Available Mv Konrad [address]sec[address], [place], [address], 01/07/2023 09:12:17 01/08/2001/07/2023 urina lysis , dipst ick Color Pale Yellow Not Available [facility] [address] [place] [address] [address], [place], [address], 01/07/2023 09:12:17 01/15/2001/14/2023 GLUCO SE POINT OF CARE note See Note Order ing Provi nader: Dev fall MD Not Available [address] , [place], [address], 01/14/2023 07:27:53 01/15/2001/14/2023 GLUCO SE POINT OF CARE glucose point of care 177 mg/dL 70-99 high Not Available [address] , [place], [address], 01/14/2023 07:27:53 01/15/2001/14/2023 GLUCO SE POINT OF CARE performing lab see note MWPO - [address] [facility] [address] Not Available [address] , [place], [address], 01/14/2023 07:27:53 01/15/2001/14/2023 GLUCO SE POINT OF CARE note See Note Order ing Provi nader: Dev fall MD Not Available [address] [place], [address], 01/14/2023 10:33:35 01/15/2001/14/2023 GLUCO SE POINT OF CARE glucose point of care 161 mg/dL 70-99 high Not Available [address] [place], [address], 01/14/2023 10:33:35 01/15/20 23 01/14/2023 GLUCO SE POINT OF CARE performing lab see note MWPO - MWPO [address] [place] [address] Not Available [address] , [place], [address], 01/14/2023 10:33:35 01/19/20 23 01/18/2023 GLUCO SE POINT OF CARE note See Note Order ing Provi nader: Dilip fall MD Not Available [address] , [place], [address], 01/18/2023 08:17:39 01/19/2001/18/2023 GLUCO SE POINT OF CARE glucose point of care 219 mg/dL 70-99 high Not Available [address] , [place], [address], 01/18/2023 08:17:39 01/19/2001/18/2023 GLUCO SE POINT OF CARE performing lab see note PO - MWPO [address] [place] [address] Not Available [address] , [place], [address], 01/18/2023 08:17:39 01/19/20 23 01/18/2023 GLUCO SE POINT OF CARE note See Note Order ing Provi nader: Dilip fall MD Not Available [address] , [place], [address], 01/18/2023 11:32:24 01/19/20 23 01/18/2023 GLUCO SE POINT OF CARE glucose point of care 160 mg/dL 70-99 high Not Available [address] , [place], [address], 01/18/2023 11:32:24 01/19/20 23 01/18/2023 GLUCO SE POINT OF CARE performing lab see note MWPOC - MWPOC [address] [place] [address] Not Available [facility] [address] [facility] [place], [address], 01/18/2023 11:32:24 02/23/20 23 02/22/2023 urina lysis , dipst ick Leukocytes Small Not Available [facility] [address] [place] [address] Dr [address]onsec[address], [place], [address], 02/22/2023 11:18:34 02/23/20 23 02/22/2023 urina lysis , dipst ick Nitrite negati ve Not Available Mv B[facility] [address] [place] [address] Dr [address], [place], [address], 02/22/2023 11:18:34 02/23/20 23 02/22/2023 urina lysis , dipst ick Protein Negati ve Not Available Mv Bharat [facility] [address] [place] [address] Dr [address]onsec[address], [place], [address], 02/22/2023 11:18:34 02/23/20 23 02/22/2023 urina lysis , dipst ick pH 5.0 Not Available [facility] [address] [place] [address] Dr [address]onseca, [place], [address], 02/22/2023 11:18:34 02/23/20 23 02/22/2023 urina lysis , dipst ick Blood Modera te Not Available Beryl Nich[facility] [address] [place] [address] Dr [address]onsec[address], [place], [address], 02/22/2023 11:18:34 02/23/20 23 02/22/2023 urina lysis , dipst ick Specific Advance 1.015 Not Available [address]onseca, [place], [address], 02/22/2023 11:18:34 02/23/20 23 02/22/2023 urina lysis , dipst ick Ketone Negati ve Not Available [facility] [address] [place] [address] Dr [address]onsec[address], [place], [address], 02/22/2023 11:18:34 02/23/20 23 02/22/2023 urina lysis , dipst ick Bilirubin Negati ve Not Available [facility]v [facility] [address] [place] [address] Dr [address]on[address], [place], [address], 02/22/2023 11:18:34 02/23/20 23 02/22/2023 urina lysis , dipst ick Glucose 250 Not Available [facility] [address] [place] [address] Dr [address]onsec[address], [place], [address], 02/22/2023 11:18:34 02/23/20 23 02/22/2023 urina lysis , dipst ick Appearance Clear Not Available [facility] [address] [place] [address] Dr [address]onsec[address], [place], [address], 02/22/2023 11:18:34 02/23/20 23 02/22/2023 urina lysis , dipst ick Color Pale Yellow Not Available [facility] [address] [place] [address] Dr [address]on[address], [place], [address], 02/22/2023 11:18:34 03/08/20 23 03/08/2023 GLUCO SE POINT OF CARE note See Note Order ing Provi nader: Dilip fall MD Not Available [address] , [place], [address], 03/08/2023 06:32:25 03/08/20 23 03/08/2023 GLUCO SE POINT OF CARE glucose point of care 140 mg/dL 70-99 high Not Available [address] [place], [address], 03/08/2023 06:32:25 03/08/20 23 03/08/2023 GLUCO SE POINT OF CARE performing lab see note PO - [address] [place] [address] Not Available [address] , [place], [address], 03/08/2023 06:32:25 03/08/20 23 03/08/2023 RENAL STONE GLENN SIS note See Note Order ing Provi nader: Dilip fall MD Not Available [address] , [place], [address], 03/17/2023 14:58:56 03/08/20 23 03/08/2023 RENAL STONE GLENN SIS stone weight 49 mg () Not Available [address] , [place], [address], 03/17/2023 14:58:56 03/08/20 23 03/08/2023 RENAL STONE GLENN SIS stone color Brown () Not Available [address] , [place], [address], 03/17/2023 14:58:56 03/08/20 23 03/08/2023 RENAL STONE GLENN SIS stone size 3x2 mm () Multi ple piece s recei robert. Dimen sions of the large st piece repor tiffany. Not Available [address] , [place], [address], 03/17/2023 14:58:56 03/08/20 23 03/08/2023 RENAL STONE GLENN SIS please note: . Calcu li repor t will follo w via compu ter, mail or couri er deliv jose. . Calcu li repor t will follo w via compu ter, mail or couri er deliv jose. Not Available [address] [place], [address], 03/17/2023 14:58:56 03/08/20 23 03/08/2023 RENAL STONE GLENN SIS performing lab see note LC2 - LABCO RP CLIEN T# [id number] [id number] [place] [address] Not Available [address] [place], [address], 03/17/2023 14:58:56 03/23/19 24 03/23/2023 urina lysis , dipst ick Leukocytes Negati ve Not Available [facility] [address] [place] [address] Dr [address], [place], [address], 03/23/2023 10:51:22 03/23/19 24 03/23/2023 urina lysis , dipst ick Nitrite negati ve Not Available [facility] [address] [place] [address] Dr [address], [place], [address], 03/23/2023 10:51:22 03/23/19 24 03/23/2023 urina lysis , dipst ick Protein Negati ve Not Available [facility] [address] [place] [address] Dr [address], [place], [address], 03/23/2023 10:51:22 03/23/19 24 03/23/2023 urina lysis , dipst ick pH 5.0 Not Available [facility] [address] [place] [address] Dr [address], [place], [address], 03/23/2023 10:51:22 03/23/19 24 03/23/2023 urina lysis , dipst ick Blood Negati ve Not Available [facility] [address] [place] [address] Dr [address], [place], [address], 03/23/2023 10:51:22 03/23/19 24 03/23/2023 urina lysis , dipst ick Specific Advance 1.020 Not Available [facility]v [facility] [address] [place] [address] Dr [address], [place], [address], 03/23/2023 10:51:22 03/23/19 24 03/23/2023 urina lysis , dipst ick Ketone Negati ve Not Available [facility] [address] [place] [address] Dr [address]on[address], [place], [address], 03/23/2023 10:51:22 03/23/19 24 03/23/2023 urina lysis , dipst ick Bilirubin Negati ve Not Available [facility] [address] [place] [address] Dr [address], [place], [address], 03/23/2023 10:51:22 03/23/19 24 03/23/2023 urina lysis , dipst ick Glucose 250 Not Available [facility] [address] [place] [address] Dr [address], [place], [address], 03/23/2023 10:51:22 03/23/19 24 03/23/2023 urina lysis , dipst ick Appearance Clear Not Available Mv [address]sec[address], [place], [address], 03/23/2023 10:51:22 03/23/19 24 03/23/2023 urina lysis , dipst ick Color Pale Yellow Not Available [facility] [address] [place] [address] Dr [address]on[address], [place], [address], 03/23/2023 10:51:22 01/08/20 23 01/07/2023 - abdom en 1 view [facility] Name: ADALID JACOBS Noreen [address] Phys: Juan F velasquez MD,[place] [address] : 1960 Age: 62 Sex: M Acct: [id number] Loc: IESHA PHONE #: Exam Date: 2022 Status : REG CLHermann FAX #: Rad# [id number] Unit# [id number] Admit Date: 2022 EXAMS: CPT CODE: [id number] ABDOME N 1 VIEW [id number] SUPINE ABDOME N, 2022: CLINIC AL HISTOR Y: Nephro lithia sis. COMPAR KATELYN: None. FINDIN GS: There is a 9 mm calcul us in the midpol e of the right kidney and a 10 mm calcul us in the inferi or pole of the right kidney . No calcul i are identi fied along the course s of the ureter s. The bowel gas patter n is nonobs tructi ve. The fecal burden is modera te. Cholec ystect aracely clips are presen t in the right upper quadra nt. There is modera te degene rative disc diseas e at L4/5 IMPRES KYLEIGH: 1. Two right renal calcul i rangin g in size from 9-10 mm Electr onical ly Signed by RASHAD TREVINO MD on 2022 at 1043 Report ed and signed by: RASHAD TREVINO MD CC: Lisbeth velasquez MD; Miguel almazan CATERER'[employer] AIDE Dictat ed Date/T marly: 2022 (1043) Techno logist : REGIS BRUNNER Transc ribed Date/T marly: 2022 (1043) Transc riptio nist: DR.HAG JEAN Scott onic Signat ure Date/T marly: 2022 (1043) Printe d Date/T marly: 2022 (1047) BATCH NO: N/A PAGE 1 Signed Report CC'ed Logic: Orderi ng Provid er: JUAN F IGNACIO Attend ing Provid er: JUAN F IGNACIO Referr ing Provid er: JUAN F IGNACIO Consul ting Provid er: KELSEY [email or web address] [facility] [address] [facility] , [place], [address], 01/07/2023 16:00:33 01/19/20 23 01/18/2023 XR, abdom en, 1 view [facility] Name: ADALID JACOBS [address] Phys: Juan F velasquez MD,[place] [address] : 1960 Age: 62 Sex: M Acct: [id number] Loc: [facility] PHONE #: Exam Date: 2022 Status : REG [facility] FAX #: [phone] Rad# [id number] Unit# [id number] Admit Date: 2022 EXAMS: CPT CODE: [id number] ABDOME N AP ONLY [id number] SUPINE ABDOME N, 2022: CLINIC AL HISTOR Y: Follow -up of right nephro lithia sis status post ureter al stent placem ent. COMPAR KATELYN: Supine abdome n, 2022. FINDIN GS: There has been interv al placem ent of a right ureter al stent, in approp riate positi on. There is a 9 mm calcul us in the midpol e of the right kidney and a 10 mm calcul us in the inferi or pole of the right kidney , unchan ged. There are no calcif icatio ns along the course of the ureter al stent. The bowel gas patter n is nonobs tructi ve. Cholec ystect aracely clips are presen t in the right upper quadra nt. There is no viscer omegal y. There is modera te degene rative disc diseas e at L1-2 and L4/5 IMPRES KYLEIGH: 1. Approp riate positi oning of a right ureter al stent with stable right nephro lithia sis Electr onical ly Signed by RASHAD TREVINO MD on 2022 at 0819 Report ed and signed by: RASHAD TREVINO MD CC: Dilip velasquez MD; Miguel almazan CATERER'S AIDE Dictat ed Date/T marly: 2022 (818) Techno logist : Muriel HINOJOSA (R) Transc ribed Date/T marly: 2022 (818) Transc riptio nist: DR.HAG JEAN Scott onic Signat ure Date/T marly: 2022 (818) Printe d Date/T marly: 2022 (821) BATCH NO: N/A PAGE 1 Signed Report CC'ed Logic: Orderi ng Provid er: JUAN F IGNACIO Attend ing Provid er: JUAN F IGNACIO Referr ing Provid er: JUAN F IGNACIO Consul ting Provid er: KELSEY pastor [address] [place], [address], 01/18/2023 10:15:06 01/19/20 23 01/14/2023 - C-arm < 1 hour [facility] Name: ADALID JACOBS [address] [place] [address] Drive Phys: Juan F velasquez MD,Aquil[place] [address] : 1960 Age: 62 Sex: M Acct: [id number] Loc: JESSEE PHONE #: Exam Date: 2022 Status : [facility] FAX #: Rad# [id number] Unit# [id number] Admit Date: 2022 EXAMS: CPT CODE: [id number] [id number] C-ARM < 1 HOUR 85573 CLINIC AL INFORM ATION: Right renal calcul i. Retrog rade urolog ic proced ure. COMPAR KATELYN: Abdome n film 2022. FINDIN GS: C-arm fluoro scopy was provid ed by radiol joshua techno logist . Grade proced ure perfor med by Dr. Juan F velasquez K 21 images presen tiffany for review showin g a stages of an interv ention proced ure of the right kidney with placem ent of a double -J stent. Please see the clinic kellee's proced ure report for full detail . Total fluoro scopy time was 41 second s A total of 21 fluoro scopic image( s) are presen tiffany for review . This report is genera tiffany using voice recogn ition comput er softwa re. Inadve rtent errors may have occurr ed while dictat ing report . Common sense approa ch is apprec iated and do not hesita te to call for clarif icatio n when necess akin. Electr onical ly Signed by Joleen Silverman on 2022 at 1151 Report ed and signed by: LADI Silverman M.D. CC: Dilip velasquez MD; Miguel almazan CATERER'S AIDE Dictat ed Date/T marly: 2022 (1151) Techno logist : NE MAR[place] Transc ribed Date/T marly: 2022 (1151) Transc riptio nist: DR.HAR RODRIGUEZ Electr onic Signat ure Date/T marly: 2022 (1151) Printe d Date/T marly: 2022 (1604) BATCH NO: N/A PAGE 1 Signed Report CC'ed Logic: Orderi ng Provid er: JUAN F IGNACIO Attend ing Provid er: JUAN F IGNACIO Referr ing Provid er: JUAN F IGNACIO Consul ting Provid er: KELSEY multani[address] [place] [address] , [place], [address], 01/19/2023 07:55:18 02/03/20 23 02/02/2023 CT, abdom en + pelvi s, w/wo contr ast [facility] Name: JACOBS ADALID Noreen [address] [place] [address] [employer] Phys: Juan F velasquez MD,[place] [address] : 1960 Age: 62 Sex: M Acct: [id number] Loc: G.CT PHONE #: Exam Date: 2022 Status : REG CLI FAX #: Rad# [id number] Unit# [id number] Admit Date: 2022 EXAMS: CPT CODE: [id number] CT ABD/PE L WO/[place] [address] CLINIC AL INFORM ATION: Nephro lithia sis and obstru ctive uropat hy with right ureter al stenti ng COMPAR KATELYN: Ultras ound abdome n . TECHNI QUE: Multis lice axial pre-an d postco ntrast imagin g of the abdome n and pelvis were perfor med as well as 2-D recons tructi ons in the arthur l plane and delaye d imagin g throug h the kidney s and pelvis . Automa tiffany exposu re contro l was employ ed for dose reduct ion. FINDIN GS: Lower chest: No signif icant abnorm alitie s. Solid organs : Gallbl adder surgic ally absent . Liver, adrena l glands , spleen , and the pancre as have a normal appear ance. Small type I hiatal hernia . Stomac h otherw ise unrema rkable . Kidney s, ureter s, and bladde r: There are rosio us supra centim eter and subcen timete r low-de nsity defect s on the bilate ral kidney s most compat ible with cysts. There is a hyperd ense exophy tic 2.2 cm lesion anteri or upper pole left kidney . This exhibi ts clinic al enhanc ement going from about 17 HU at precon trast imagin g to 33 HU at delaye d imagin g. There are 7 mm and puncta te nonobs tructi ng stones in the left kidney . There are aggreg ations of nonobs tructi ng stones in the lower pole calyce s of the right kidney measur ing 1.0 and 1.2 cm. There are severa l other puncta te nonobs tructi ng stones in the mid pole. Right ureter al stent in place on the right withou t signif icant hydron ephros is. No stones in the lower tracts . Urinar y bladde r grossl y unrema rkable . Large and small bowel: Modera te genera lized coloni c fecal loadin g. No abnorm al large or small bowel disten tion. Append ix and termin al ileum within normal limits . Pelvic viscer a: No signif icant abnorm ality. Lympha denopa thy ; Abdomi nal/pe lvic vascul ature: No signif icant abnorm alitie s. Body wall and Skelet on: No signif icant osseou s abnorm alitie s. PAGE 1 Signed Report (LEORA NUED) [facility] Name: ADALID JACOBS [employer] Phys: Juan F velasquez MD,[place] [address] : 1960 Age: 62 Sex: M Acct: [id number] Loc: G.CT PHONE #: Exam Date: 2022 Status : REG CLI FAX #: Rad# [id number] Unit# [id number] Admit Date: 2022 EXAMS: CPT CODE: [id number] CT ABD/PE L WO/[place] [address] IMPRES KYLEIGH: 1. Right ureter al stent well-p ositio oh in the right leg the system withou t eviden ce of lower tract stones . 2. Nonobs tructi ng bilate ral nephro lithia sis as detail ed above. 3. Rosio us supra centim eter and subcen timete r cortic al cysts scatte red throug hout the bilate ral kidney s. Some of these are too small to confid ently charac terize but appear benign . Recomm end attent ion to these at follow -up imagin g. 4. Exophy tic 2.2 cm hyperd ense lesion anteri thom upper pole left kidney . Favor this to repres ent a hyperd ense cyst but there is equivo marianne enhanc ement. *Recom mend follow -up renal mass protoc ol study in 6 months . Commun icatio n: Per this writte n report . NOTE: Any incide ntally noted liver lesion s equal to or less than 5 mm, cystic lesion s in the kidney s less than 1 cm, and/or adrena l lesion s equal to or less than 1 cm, genera lly are consid ered highly likely to be benign and no additi onal evalua tion is recomm ended, unless specif ically mentio oh in the impres kyleigh. *Manag ement/ follow -up of any incid ental pulmo nary nodule s will be based on the Fleisc [employer]ner [employer] y criter ia. This report is genera tiffany using voice recogn ition comput er softwa re. Inadve rtent errors may have occurr ed while dictat ing report . Common sense approa ch is apprec iated and do not hesita te to call for clarif icatio n when necess akin. PAGE 2 Signed Report (LEORA NUED) [facility] Name: ADALID JACOBS [address] [place], [place] [address] [employer] Phys: Juan F velasquez [place] [address] : 1960 Age: 62 Sex: M Acct: [id number] Loc: G.CT PHONE #: [phone] Exam Date: 2022 Status : REG CLI FAX #: [phone] Rad# [id number] Unit# [id number] Admit Date: 2022 EXAMS: CPT CODE: [id number] 610 CT ABD/PE L WO/[place] [address] Electr onical ly Signed by Joleen Silverman on 2022 at 0914 Report ed and signed by: LADI Silverman M.D. CC: Dilip velasquez MD; Miguel almazan CATERER'S AIDE Dictat ed Date/T marly: 2022 (09) Techno logist : REGIS BRUNNER Transc ribed Date/T marly: 2022 (0914) Transc riptio nist: DR.HAR JENNIFER Scott onic Signat ure Date/T marly: 2022 (14) Printe d Date/T marly: 2022 (0916) BATCH NO: N/A PAGE 3 Signed Report CC'ed Logic: Orderi ng Provid er: JUAN F IGNACIO Attend ing Provid er: JUAN F IGNACIO Referr ing Provid er: JUAN F IGNACIO Consul ting Provid er: KELSEY ALMAZAN GARRY [address] , [place], [address], 02/02/2023 10:32:14 02/23/20 23 02/22/2023 XR, abdom en, 1 view [facility] Name: ADALID JACOBS [employer] [address] Phys: Juan F velasquez MD,[place] [address] : 1960 Age: 62 Sex: M Acct: [id number] Loc: IESHA PHONE #: [phone] Exam Date: 2022 Status : REG CLI FAX #: Rad# [id number] Unit# [id number] Admit Date: 2022 EXAMS: CPT CODE: [id number] 686 ABDOME N AP ONLY 30402 CLINIC AL INFORM ATION: Histor y of kidney stones and obstru ctive uropat hy COMPAR KATELYN: 2022 KUB; CT abdome n and pelvis 2022 FINDIN GS: Supine imagin g of the abdome n obtain ed. Nonobs tructi ve bowel gas patter n with normal fecal loadin g. Right double -J stent in place and positi oning appear s within normal limits . Rosio us nonobs tructi ng stones projec t over the bilate ral kidney s. Suspec t there is probab ly a stone at the UPJ. No stones seen along the course of the ureter /stent . No signif icant osseou s pathol ogy. IMPRES KYLEIGH: 1. Double -J stent appear s well-p ositio oh with probab le stones at the right UPJ as well as multip le other nonobs tructi ng stones in the bilate ral kidney s. COMMUN ICATIO N: Per this writte n report This report is genera tiffany using voice recogn ition comput er softwa re. Inadve rtent errors may have occurr ed while dictat ing report . Common sense approa ch is apprec iated and do not hesita te to call for clarif icatio n when necess akin. Electr onical ly Signed by Joleen Silverman on 2022 at 1156 Report ed and signed by: LADI Silverman M.D. PAGE 1 Signed Report (LEORA NUED) [facility] Name: ADALID JACOBS [facility] [address] Phys: Juan F velasquez [place] [address] : 1960 Age: 62 Sex: M Acct: [id number] Loc: IESHA PHONE #: [phone] Exam Date: 2022 Status : REG CLI FAX #: Rad# [id number] Unit# [id number] Admit Date: 2022 EXAMS: CPT CODE: [id number] 686 ABDOME N AP ONLY [address]32 CC: Miguel almazan CATERER'S AIDE Dictat ed Date/T marly: 2022 (1156) Techno logist : REGIS TEAGUE Y Transc ribed Date/T marly: 2022 (1156) Transc riptio nist: RI Electr onic Signat ure Date/T marly: 2022 (1156) Printe d Date/T marly: 2022 (1159) BATCH NO: N/A PAGE 2 Signed Report CC'ed Logic: Orderi ng Provid er: JUAN F IGNACIO Attend ing Provid er: JUAN F IGNACIO Referr ing Provid er: JUAN F IGNACIO Consul ting Provid er: KELSEY pastor [address] [place], [address], 02/23/2023 09:35:11 02/23/20 23 02/22/2023 XR, kidne y + urete r + bladd er No observ ation record ed. CEDRICK [facility] (Registration ) [address] [place], [address], 02/23/2023 09:34:58 Result Notes Documentation Provider Name and Address Organization Details Recorded Time Xr, Abdomen, 1 View : [facility] Name: ADALID JACOBS [address] Phys: Rosalia WRIGHT,[place] [address] : 1960 Age: 62 Sex: M Acct: [id number] Loc: WillemRAD PHONE #: Exam Date: 01/18/2023 Status: REG [facility] FAX #: Rad# [id number] Unit# [id number] Admit Date: 01/18/2023 EXAMS: CPT CODE: [id number] ABDOMEN AP ONLY 21876 SUPINE ABDOMEN, 01/18/2023: CLINICAL HISTORY: Follow-up of right nephrolithiasis status post ureteral stent placement. COMPARISON: Supine abdomen, 01/07/2023. FINDINGS: There has been interval placement of a right ureteral stent, in appropriate position. There is a 9 mm calculus in the midpole of the right kidney and a 10 mm calculus in the inferior pole of the right kidney, unchanged. There are no calcifications along the course of the ureteral stent. The bowel gas pattern is nonobstructive. Cholecystectomy clips are present in the right upper quadrant. There is no visceromegaly. There is moderate degenerative disc disease at L1-2 and L4/5 IMPRESSION: 1. Appropriate positioning of a right ureteral stent with stable right nephrolithiasis at 0819 Reported and signed by: FAITH BAINS MD CC: Dilip Lindsey MD; Aman Allison NP Dictated Date/Time: 01/18/2023 (0819) Technologist: Muriel TILLMAN (R) Transcribed Date/Time: 01/18/2023 (08) Computer Specialist: Electronic Signature Date/Time: 01/18/2023 (08) Printed Date/Time: 01/18/2023 (0822) BATCH NO: N/A PAGE 1 Signed Report CC'ed Logic: Ordering Provider: ROSALIA HOGUE Attending Provider: ROSALIA HOGUE Referring Provider: ROSALIA HOGUE Consulting Provider: ALLA Tran [place], [place] - [facility] & [place] 01/18/2023 10:15:06 Ct, Abdomen + Pelvis, W/wo Contrast : [facility] Ce Name: ADALID [facility]ACOBS [facility] Phys: [place] [address] : 1960 Age: 62 Sex: M Acct: [id number] Loc: WillemCT PHONE #: Exam Date: 02/02/2023 Status: REG CLI FAX #: Rad# [id number] Unit# [id number] Admit Date: 02/02/2023 EXAMS: CPT CODE: [id number] CT ABD/PEL WO/W CONTRAST 51433 CLINICAL INFORMATION: Nephrolithiasis and obstructive uropathy with right ureteral stenting COMPARISON: Ultrasound abdomen 01/18/23 . TECHNIQUE: Multislice axial pre-and postcontrast imaging of the abdomen and pelvis were performed as well as 2-D reconstructions in the coronal plane and delayed imaging through the kidneys and pelvis. Automated exposure control was employed for dose reduction. FINDINGS: Lower chest: No significant abnormalities. Solid organs: Gallbladder surgically absent. Liver, adrenal glands, spleen, and the pancreas have a normal appearance. Small type I hiatal hernia. Stomach otherwise unremarkable. Kidneys, ureters, and bladder: There are numerous supra centimeter and subcentimeter low-density defects on the bilateral kidneys most compatible with cysts. There is a hyperdense exophytic 2.2 cm lesion anterior upper pole left kidney. This exhibits clinical enhancement going from about 17 HU at precontrast imaging to 33 HU at delayed imaging. There are 7 mm and punctate nonobstructing stones in the left kidney. There are aggregations of nonobstructing stones in the lower pole calyces of the right kidney measuring 1.0 and 1.2 cm. There are several other punctate nonobstructing stones in the mid pole. Right ureteral stent in place on the right without significant hydronephrosis. No stones in the lower tracts. Urinary bladder grossly unremarkable. Large and small bowel: Moderate generalized colonic fecal loading. No abnormal large or small bowel distention. Appendix and terminal ileum within normal limits. Pelvic viscera: No significant abnormality. Lymphadenopathy ; Abdominal/pelvic vasculature: No significant abnormalities. Body wall and Skeleton: No significant osseous abnormalities. PAGE 1 Signed Report (CONTINUED) [facility] Ce Name: ADALID JACOBS [employer] Phys: [place] [address] : 1960 Age: 62 Sex: M Acct: [id number] Loc: G.CT PHONE #: Exam Date: 02/02/2023 Status: REG CLI FAX #: Rad# [id number] Unit# [id number] Admit Date: 02/02/2023 EXAMS: CPT CODE: [id number] CT ABD/PEL WO/W CONTRAST 40970 IMPRESSION: 1. Right ureteral stent well-positioned in the right leg the system without evidence of lower tract stones. 2. Nonobstructing bilateral nephrolithiasis as detailed above. 3. Numerous supra centimeter and subcentimeter cortical cysts scattered throughout the bilateral kidneys. Some of these are too small to confidently characterize but appear benign. Recommend attention to these at follow-up imaging. 4. Exophytic 2.2 cm hyperdense lesion anteriorly upper pole left kidney. Favor this to represent a hyperdense cyst but there is equivocal enhancement. *Recommend follow-up renal mass protocol study in 6 months. Communication: Per this written report. NOTE: Any incidentally noted liver lesions equal to or less than 5 mm, cystic lesions in the kidneys less than 1 cm, and/or adrenal lesions equal to or less than 1 cm, generally are considered highly likely to be benign and no additional evaluation is recommended, unless specifically mentioned in the impression. *Management/follow-up of any incidental pulmonary nodules will be based on the Fleischner Society criteria. This report is generated using voice recognition computer software. Inadvertent errors may have occurred while dictating report. Common sense approach is appreciated and do not hesitate to call for clarification when necessary. PAGE 2 Signed Report (CONTINUED) [facility] Ce Name: ADALID JACOBS [employer] Phys: Rosalia WRIGHT,[place] [address] : 1960 Age: 62 Sex: M Acct: [id number] Loc: WillemCT PHONE #: Exam Date: 02/02/2023 Status: REG CLI FAX #: Rad# [id number] Unit# [id number] Admit Date: 02/02/2023 EXAMS: CPT CODE: [id number] CT ABD/PEL WO/W CONTRAST 51782 at 0914 Reported and signed by: DAREN GLEZ M.D. CC: Dilip Lindsey MD; Aman Allison NP Dictated Date/Time: 02/02/2023 (913) Technologist: REGIS BRUNNER Transcribed Date/Time: 02/02/2023 (913) Computer Specialist: Electronic Signature Date/Time: 02/02/2023 (913) Printed Date/Time: 02/02/2023 (16) BATCH NO: N/A PAGE 3 Signed Report CC'ed Logic: Ordering Provider: ROSALIA HOGUE Attending Provider: ROSALIA HOGUE Referring Provider: ROSALIA HOGUE Consulting Provider: ALLA Tran [facility] 02/02/2023 10:32:14 Xr, Abdomen, 1 View : [facility] Ce Name: ADALID JACOBS [facility] Phys: Rosalia WRIGHT,[place] [address] : 1960 Age: 62 Sex: M Acct: [id number] Loc: WillemRAD PHONE #: Exam Date: 02/22/2023 Status: REG CLI FAX #: Rad# [id number] Unit# [id number] Admit Date: 02/22/2023 EXAMS: CPT CODE: [id number] ABDOMEN AP ONLY 99879 CLINICAL INFORMATION: History of kidney stones and obstructive uropathy COMPARISON: 01/18/2023 KUB; CT abdomen and pelvis 02/02/2023 FINDINGS: Supine imaging of the abdomen obtained. Nonobstructive bowel gas pattern with normal fecal loading. Right double-J stent in place and positioning appears within normal limits. Numerous nonobstructing stones project over the bilateral kidneys. Suspect there is probably a stone at the UPJ. No stones seen along the course of the ureter/stent. No significant osseous pathology. IMPRESSION: 1. Double-J stent appears well-positioned with probable stones at the right UPJ as well as multiple other nonobstructing stones in the bilateral kidneys. COMMUNICATION: Per this written report This report is generated using voice recognition computer software. Inadvertent errors may have occurred while dictating report. Common sense approach is appreciated and do not hesitate to call for clarification when necessary. at 1156 Reported and signed by: DAREN GLEZ M.D. PAGE 1 Signed Report (CONTINUED) [facility] Ce Name: OUSMANEADALID L [address] [place] [address] Phys: [place] [address] : 1960 Age: 62 Sex: M Acct: [id number] Loc: IESHA PHONE #: Exam Date: 02/22/2023 Status: REG CLI FAX #: Rad# [id number] Unit# [id number] Admit Date: 02/22/2023 EXAMS: CPT CODE: [id number] ABDOMEN AP ONLY [address]9832 CC: Aman Allison CATERER'S AIDE Dictated Date/Time: 02/22/2023 (8896) Technologist: REGIS SERRANO Transcribed Date/Time: 02/22/2023 (5216) Computer Specialist: Electronic Signature Date/Time: 02/22/2023 (9006) Printed Date/Time: 02/22/2023 (5523) BATCH NO: N/A PAGE 2 Signed Report CC'ed Logic: Ordering Provider: ROSALIA HOGUE Attending Provider: ROSALIA HOGUE Referring Provider: ROSALIA HOGUE Consulting Provider: ALLA Tran [place] [address]/05/2023 09:35:11 Problems Name Problem SNOMED Code Status Onset Date Resolution Date Notes Provider Name and Address Organization Details Recorded Time 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 5486909 Active Sharon mark, [place] - [facility] - y & [facility] 4 10:11:56 History of cardiac catheteriza tion 9623824300120 0 Active Sharon mark, [place] - [facility] - & [facility] 4 10:11:56 Gouty arthropathy 686282502 Active 2016 Sharon mark, [place] - [facility] [place] & [place] 4 10:11:56 Type 2 diabetes mellitus 54147829 Active 2017 Sharon Tran jas, [place] - [facility] - & [place] 4 10:11:56 History of myocardial infarction 555254817 Active 2017 Sharon Tran jas, [place] - [facility] - & [place] 4 10:11:56 Hypercholes terolemia 90562846 Active 2018 Sharon mark, [place] - [facility] - & [place] 4 10:11:56 Metabolic dysfunction -associated steatohepat itis 689462569 Active 2019 Sharon mark, [place] - [facility] - & [facility] 4 10:11:56 Essential hypertensio n 50338955 Active 2019 Sharon mark, [place] - [facility] - & [place] 4 10:11:56 Kidney stone 51220408 Active 2020 Sharon Tran null, [place] - [facility] - y & [place] 4 10:11:56 Gout 56633053 Active 2020 Sharon mark, [place] - [facility] - [place] & [facility] 4 10:11:56 Tension-typ e headache 937970175 Active 2020 Sharon mark, [place] - [facility] - y & [place] 4 10:11:56 Closed fracture proximal phalanx, toe 653031450 Active 2022 ARTI Butt [facility] & [place] 4 10:11:56 Problem Notes None recorded. Procedures Surgical History Date Name Laterality Status Provider Name and Address Organization Details Recorded Time Orthopedic Surgery completed Sharon Haddad JAKOB [facility] & [place] 01/07/2023 09:28:10 Cholecystectomy completed Sharon SINGLETARY [facility] [place] 01/07/2023 09:28:17 Hernia Repair completed Sharon SINGLETARY [facility] [place] 01/07/2023 09:28:24 placement of stent in cardiac conduit completed Sharon SINGLETARY [facility] [place] 01/07/2023 09:28:50 lithotripsy completed Sharon SINGLETARY [facility] [place] 02/02/2023 13:29:42 endoscopic endoluminal balloon rupture of stenosis of pelviureteric junction of kidney completed Sharon SINGLETARY [facility] & [place] 03/23/2023 10:13:02 Imaging Results None recorded. Procedure Notes None recorded. Medical Equipment None Reported. Allergies Allergen ID Allergen Name Allergen Category Reaction Reaction Severity Criticality Documentation Date Start Date Code Code System Note Provider Name and Address Organization Details Recorded Time 94271 Product containin g penicilli n (product) medicatio n hives Not available Not available 01/07/20232008 70884 8001 SNOMED ARTI Butt [facility] & [place] 4 10:11:36 Medications Name Sig Start Date Stop Date Status Note LastModified by Organization Details LastModified Time cyclobenzap rine 10 mg tablet 10 mg by oral route. active Not Available Not Available No t Available amoxicillin 500 mg capsule take 1 capsule (500 mg) by oral route every 8 hours for 10 days 07/27 completed Not Available Not Available Not Available atorvastati n 40 mg tablet TAKE 1 TABLET BY MOUTH ONCE A DAY. active Not Available Not Available No t Available methocarbam ol 500 mg tablet take 1 tablet by oral route 4 times a day 07/08 completed Not Available Not Available Not Available metformin 500 mg tablet take 1 tablet (500 mg) by oral route 2 times per day with morning and evening meals 07/29 completed Not Available Not Available Not Available promethazin e-DM 6.25 mg-15 mg/5 mL oral syrup Take 5 mL every 4 hours by oral route as needed. 08/12 completed Not Available Not Available Not Available carvedilol 25 mg tablet 25 mg by oral route. active Not Available Not Available No t Available carvedilol 6.25 mg tablet TAKE (1) TABLET BY MOUTH TWICE A DAY. 04/08 completed Not Available Not Available Not Available atorvastati n 20 mg tablet TAKE ONE TABLET BY MOUTH AT BEDTIME 05/14 completed Not Available Not Available Not Available carvedilol 12.5 mg tablet TAKE (1) TABLET BY MOUTH WITH FOOD TWICE A DAY FOR HIGH BLOOD PRESSURE 05/14 completed Not Available Not Available Not Available aspirin 325 mg tablet take 1 tablet (325 mg) by oral route once daily 07/29 completed Not Available Not Available Not Available ibuprofen 800 mg tablet TAKE (1) TABLET BY MOUTH THREE TIMES DAILY-ANAMIKA E WITH FOOD. active Not Available Not Available No t Available sumatriptan 100 mg tablet Take 1 tablet by oral route as needed. 04/22 completed Not Available Not Available Not Available hydrocodone 5 mg-acetamin ophen 325 mg tablet TAKE (1) TABLET BY MOUTH EVERY EIGHT HOURS NEEDED. active Not Available Not Available No t Available Keflex 500 mg capsule take 1 capsule (500 mg) by oral route every 6 hours for 10 days 11/12 completed Not Available Not Available Not Available phenazopyri dine 200 mg tablet 200 mg by oral route. 2022 active Not Available Not Available Not Avai lable glipizide 10 mg tablet TAKE (1) TABLET BY MOUTH TWICE A DAY WITH MEALS 05/29 completed Not Available Not Available Not Available isosorbide mononitrate ER 30 mg tablet,exte nded release 24 hr take 1 tablet (30 mg) by oral route once daily in the morning 03/28 completed Not Available Not Available Not Available atenolol 25 mg tablet 01/07 completed Not Available Not Available Not Available Zithromax 250 mg tablet take 2 tablets (500 mg) by oral route once daily for 1 day then 1 tablet (250 mg) by oral route once daily for 4 days 07/01 completed Not Available Not Available Not Available sulindac 150 mg tablet take 1 tablet (150 mg) by oral route 2 times per day with food 01/16 completed Not Available Not Available Not Available metronidazo le 500 mg tablet Take 1 tablet twice a day by oral route for 10 days. 11/10 completed Not Available Not Available Not Available amlodipine 5 mg tablet TAKE 1 TABLET BY MOUTH ONCE A DAY. 04/08 completed Not Available Not Available Not Available allopurinol 100 mg tablet take 2 tablets (200 mg) by oral route 2 times per day 01/16 completed Not Available Not Available Not Available ciprofloxac in 500 mg tablet TAKE 1 TABLET BY MOUTH TWICE DAILY 10/26 completed Not Available Not Available Not Available sulfamethox azole 800 mg-trimetho prim 160 mg tablet TAKE 1 TABLET BY MOUTH EVERY 12 HOURS 03/11 completed Not Available Not Available Not Available omeprazole 40 mg capsule,del ayed release TAKE (1) CAPSULE BY MOUTH TWICE DAILY. active Not Available Not Available No t Available aspirin 81 mg tablet,natalee yed release take 1 tablet by oral route daily for 30 days 03/11 completed Not Available Not Available Not Available butalbital- acetaminoph en-caffeine 50 mg-325 mg-40 mg tablet Take 1 tablet every 4 hours by oral route as needed. 05/14 completed Not Available Not Available Not Available isosorbide mononitrate ER 120 mg tablet,exte nded release 24 hr TAKE 1 TABLET BY MOUTH ONCE A DAY. active Not Available Not Available No t Available ketorolac 10 mg tablet take 1 tablet (10 mg) by oral route BID prn 07/08 completed Not Available Not Available Not Available oxycodone-a cetaminophe n 5 mg-325 mg tablet TAKE 1 TABLET BY MOUTH EVERY 4-6 HOURS 03/23 completed Not Available Not Available Not Available isosorbide mononitrate ER 60 mg tablet,exte nded release 24 hr take one tablet once daily in the morning 04/22 completed Not Available Not Available Not Available famotidine 20 mg tablet TAKE 1 TABLET BY MOUTH ONCE A DAY. active Not Available Not Available No t Available methocarbam ol 750 mg tablet TAKE (1) TABLET BY MOUTH EVERY FOUR HOURS. 2022 active Not Available Not Available Not Avai lable Lortab 10 mg-500 mg tablet take 1 tablet by oral route every 6 hours as needed for pain 01/16 completed Not Available Not Available Not Available tamsulosin 0.4 mg capsule take 1 capsule (0.4 mg) by oral route once daily 1/2 hour following the same meal each day for 30 days 05/29 completed Not Available Not Available Not Available amlodipine 10 mg tablet TAKE 1 TABLET BY MOUTH ONCE A DAY. 03/11 completed Not Available Not Available Not Available benzonatate 100 mg capsule take 1 - 2 capsules (100 mg) by oral route 3 times per day PRN for cough 07/01 completed Not Available Not Available Not Available hydrocodone 7.5 mg-acetamin ophen 325 mg tablet 01/14 completed Not Available Not Available Not Available pantoprazol e 40 mg tablet,natalee yed release take 1 tablet (40 mg) by oral route once daily 07/15 completed Not Available Not Available Not Available erythromyci n 5 mg/gram (0.5 %) eye ointment APPLY A THIN LAYER TWICE A DAY 1/4 INCH STRIP 3 DAYS BEFORE BUT NOT DAY OF SURGERY active Not Available Not Available No t Available esomeprazol e magnesium 40 mg capsule,del ayed release 40 mg by oral route. active Not Available Not Available No t Available olopatadine 0.1 % eye drops INSTILL 1 DROP INTO AFFECTED EYE(S) BY OPHTHALMI C ROUTE 2 TIMES PER DAY AT AN INTERVAL OF 6 TO 8 HOURS active Not Available Not Available No t Available promethazin e 25 mg tablet TAKE 1 TABLET EVERY 6-8 HOURS NEEDED 03/11 completed Not Available Not Available Not Available indomethaci n 50 mg capsule take 1 capsule by oral route 3 times a day as needed for 30 days 10/27 completed Not Available Not Available Not Available nitroglycer in 0.4 mg sublingual tablet DISSOLVE 1 TABLET UNDER TONGUE EVERY 5 MINUTES UP TO 3 DOSES NEEDED FOR CHEST PAIN active Not Available Not Available No t Available diclofenac sodium 75 mg tablet,natalee yed release 01/07 completed Not Available Not Available Not Available montelukast 10 mg tablet Take 1 tablet every day by oral route. 08/02 completed Not Available Not Available Not Available pravastatin 20 mg tablet 20 mg by oral route. 07/08 completed Not Available Not Available Not Available hydrochloro thiazide 25 mg tablet Take 1 tablet every day by oral route. 10/28 completed Not Available Not Available Not Available dexamethaso ne sodium phosphate 4 mg/mL injection solution Take 2 mL by injection route. 04/12 completed Not Available Not Available Not Available methylpredn isolone 4 mg tablets in a dose pack TAKE 6 TABS ON DAY 1, 5 TABS ON DAY 2, 4 TABS ON DAY 3, 3 TABS ON DAY 4, 2 TABS ON DAY 5, 1 TABLET ON DAY 6. 03/11 completed Not Available Not Available Not Available albuterol sulfate HFA 90 mcg/actuati on aerosol inhaler INHALE 2 PUFFS EVERY 4 HOURS NEEDED 03/11 completed Not Available Not Available Not Available colchicine 0.6 mg tablet 0.6 mg by oral route. 01/07 completed Not Available Not Available Not Available hydrocodone 7.5 mg-acetamin ophen 500 mg tablet take 1-2 tablets by oral route every 6 hours as needed 04/22 completed Not Available Not Available Not Available atropine 1 % eye drops 04/22 completed Not Available Not Available Not Available lisinopril 40 mg tablet TAKE 1 TABLET BY MOUTH ONCE A DAY. 05/29 completed Not Available Not Available Not Available cefdinir 300 mg capsule Take 1 capsule every 12 hours by oral route. 10/26 completed Not Available Not Available Not Available losartan 100 mg tablet 100 mg by oral route. active Not Available Not Available No t Available metformin ER 500 mg tablet,exte nded release 24 hr TAKE 1 TABLET BY MOUTH DAILY WITH MEALS active Not Available Not Available No t Available Lotemax 0.5 % eye drops,suspe nsion 05/19 completed Not Available Not Available Not Available rosuvastati n 10 mg tablet 10 mg by oral route. 01/07 completed Not Available Not Available Not Available metformin ER 500 mg tablet,exte nded release 24hr (osmotic) take 2 tablets by oral route 2 times a day for 90 days 12/03 completed Not Available Not Available Not Available Indocin 1 po bid 01/16 completed Not Available Not Available Not Available ranolazine ER 500 mg tablet,exte nded release,12 hr TAKE (1) TABLET BY MOUTH TWICE A DAY. 03/11 completed Not Available Not Available Not Available Januvia 100 mg tablet TAKE 1 TABLET BY MOUTH ONCE A DAY. 05/29 completed Not Available Not Available Not Available Pataday 0.2 % eye drops 05/19 completed Not Available Not Available Not Available hydrochloro thiazide 12.5 mg tablet TAKE 1 TABLET BY MOUTH ONCE A DAY. active Not Available Not Available No t Available Exforge 10 mg-320 mg tablet take 1 tablet by oral route once daily 01/16 completed Not Available Not Available Not Available ranolazine ER 1,000 mg tablet,exte nded release,12 hr TAKE (1) TABLET BY MOUTH TWICE A DAY. 01/07 completed Not Available Not Available Not Available febuxostat 80 mg tablet 80 mg by oral route. active Not Available Not Available No t Available febuxostat 40 mg tablet 10/26 completed Not Available Not Available Not Available BD Ultra-Fine Kenisha Pen Needle 32 gauge x 5/32 DIRECTED. active Not Available Not Available No t Available Edarbi 80 mg tablet take 1 tablet (80 mg) by oral route once daily for 30 days 07/26 completed Not Available Not Available Not Available Brilinta 90 mg tablet Take 1 tablet twice a day by oral route for 30 days. 03/11 completed Not Available Not Available Not Available Accu-Chek Brandi Plus test strips CHECK TWICE DAILY 05/14 completed Not Available Not Available Not Available Bydureon 2 mg subcutaneou s extended release suspension Inject 2 mg every week by subcutane ous route as directed for 30 days. 06/22 completed Not Available Not Available Not Available lancets 30 gauge check b.i.d 05/14 completed Not Available Not Available Not Available Farxiga 10 mg tablet TAKE ONE TABLET BY MOUTH ONCE DAILY. active Not Available Not Available No t Available Bydureon 2 mg/0.65 mL subcutaneou s pen injector 12/26 completed Not Available Not Available Not Available Glyxambi 25 mg-5 mg tablet 10/26 completed Not Available Not Available Not Available Daphne SoloStar U-300 Insulin 300 unit/mL (1.5 mL) subcutaneou s pen INJECT 30 UNITS ONCE DAILY 05/29 completed Not Available Not Available Not Available Brilinta 60 mg tablet TAKE (1) TABLET BY MOUTH TWICE A DAY. active Not Available Not Available No t Available Bevespi Aerosphere 9 mcg-4.8 mcg HFA aerosol inhaler Inhale 2 puffs twice a day by inhalatio n route. 06/22 completed Not Available Not Available Not Available Basaglrobson KwikPen U-100 Insulin 100 unit/mL (3 mL) subcutaneou s INJECT 50 UNITS ONCE DAILY active Not Available Not Available No t Available Bydureon BCise 2 mg/0.85 mL subcutaneou s auto-inject or INJECT 2MG UNDER SKIN WEEKLY 01/07 completed Not Available Not Available Not Available Ozempic 0.25 mg or 0.5 mg (2 mg/3 mL) subcutaneou s pen injector INJECT 0.25 MG UNDER SKIN ONCE WEEKLY active Not Available Not Available No t Available Vitals Date Recorded Body height Body mass index (BMI) Body weight Body temperature Oxygen saturation Oxygen saturation in Arterial blood by Pulse oximetry Heart rate Respiratory rate Systolic And Diastolic Provider Name and Address Organization Details Last Updated DateTime 4 175.26 cm 31.9 kg/m2 83676.9 5 g 97 [degF] 96 % 96 % 76 /min 18 /min 160/90 mm[Hg] Sharon [facility] [place] 4 10:11:02 Date Recorded Body height Body mass index (BMI) Body weight Body temperature Oxygen saturation Oxygen saturation in Arterial blood by Pulse oximetry Heart rate Respiratory rate Systolic And Diastolic Provider Name and Address Organization Details Last Updated DateTime 3 175.26 cm 31.4 kg/m2 17992.7 4 g 97.5 [degF] 96 % 96 % 92 /min 18 /min 124/80 mm[Hg] Sharon [facility] [place] 3 09:24:56 Date Recorded Body height Body mass index (BMI) Body weight Body temperature Oxygen saturation Oxygen saturation in Arterial blood by Pulse oximetry Heart rate Respiratory rate Systolic And Diastolic Provider Name and Address Organization Details Last Updated DateTime 3 175.26 cm 31.2 kg/m2 02965.1 5 g 98.2 [degF] 95 % 95 % 96 /min 18 /min 158/90 mm[Hg] Sharon [facility] [place] 3 13:28:24 Date Recorded Body height Body mass index (BMI) Body weight Body temperature Oxygen saturation Oxygen saturation in Arterial blood by Pulse oximetry Heart rate Respiratory rate Systolic And Diastolic Provider Name and Address Organization Details Last Updated DateTime 3 175.26 cm 31.5 kg/m2 85441.8 9 g 97.7 [degF] 97 % 97 % 85 /min 18 /min 160/90 mm[Hg] Sharon [facility] [place] 3 11:01:34 Date Recorded Body height Body mass index (BMI) Body weight Provider Name and Address Organization Details Last Updated DateTime 03/18/2023 175.26 cm 31.5 kg/m2 57276.17 g Bettie [facility] [place] 03/18/2023 13:29:07 Social History None recorded. Functional Status None recorded. Mental Status None recorded. Family History Nothing Reported. Medical History No medical history recorded. Immunizations Vaccine Type Date Status Note Provider Nam e and Address Organization Details Recorded Time Tdap 05/19/2017 completed ARTI Butt [facility] [place] 03/23/2023 10:12:05 Past Encounters Encounter ID Performer Location Encounter Start Date Encounter Closed Date Diagnosis/Indication Diagnosis SNOMED-CT Code Diagnosis ICD10 Code Diagnosis Note [id number] MD [facility] [address] [address] [place] [address] [place] [id number] 01/07/2023 09:02:26 01/07/2023 09:48:48 Calculus of kidney and ureter 234805647 N20.2 Right flank pain 3227448 09 R10.9 Spermatocele 12055639 N4 3.41 [id number] Dilip Lindsey MD [facility] [address] [place] [address] DR [place] [address] [place] [id number] 02/02/2023 13:21:11 02/02/2023 13:47:10 Renal mass 059850770 N28.89 Kidney stone 09949109 N2 0.0 [id number] MD BERYL Weldon [address] [place] [address] 02/22/2023 10:52:34 02/22/2023 11:32:05 Retained ureteric stent 316821638 Z18.89 plan and recommenda tion. We will review the KUB with the radiologis t and make a decision for removal of double-J stent if there are no stones. the radiology report says there are a few small stone in both the kidneys. And also a suspected stone at the UPJ area. I spoke to the patient and advised him that we will leave the stent in for 2 more weeks and then remove it on the March 08. Advised him to drink more fluid especially water. Hence strain the urine so that we will know number of stones we can obtain. The surgery was scheduled for removal of double-J stent on March 08 Kidney stone 04194921 N2 0.0 [id number] Júnior Gutierrez MD [facility] [address] [address] 03/18/2023 13:19:10 03/18/2023 13:46:45 Closed fracture proximal phalanx, toe 390321651 S92.912A [id number] Dilip Lindsey MD [facility] [place] [address] [place] [id number] 03/23/2023 09:43:14 03/23/2023 10:46:00 Type 2 diabetes mellitus 52689740 E11.9 Calculus o f kidney and ureter 196884750 N20.2 Health Concerns Section Related Observation LastModified by Organization Detai ls LastModified Time None Recorded Concern Status LastModified by Organization Details LastModified Time None Recorded Advance Directives Directive None Recorded Payers Insurance Date Sequence Insurance Name Policy Number Policy Lin Covered Member ID Lin Member ID Guarantor Name 03/23/2023 1 [place] [employer] Adalid L Jacobs [id number] Adalid L Jacobs 02/02/2023 1 [place] Adalid L Jacobs [id number] Adalid L Jacobs 11/12/2023 2 [place] [facility] - FFS/TRADITION AL Adalid L Jacobs [id number] Adalid L Jacobs 03/23/2023 1 [place] Adalid L Jacobs [id number] Adalid L Jacobs 03/26/2023 1 [place] Aadlid L Jacobs [id number] Adalid L Jacobs 08/30/2023 1 [place] Adalid L Jacobs [id number] Adalid L Jacobs 11/16/2023 4 [place] Adalid L Jacobs [id number] Adalid L Jacobs 11/12/2023 1 [place] Adalid L Jacobs [id number] Adalid L Jacobs 11/12/2023 1 [employer] [place] (MEDICARE REPLACEMENT/A DVANTAGE - HMO) Adalid L Jacobs [id number] Adalid L Jacobs Notes Date Note Type Note Provider Name and Address Organization Details Recorded Time 01/07/2023 text/html reason for visit . 1. Right costovertebral angle pain. History of present illness 62-year-old gentleman who was seen in the office with a history of right renal colic. About a week ago patient went to [facility] where he had a CT scan which reveals right UPJ stone which is giving him hydronephrosis. Patient also has right renal calculus about [address] scan also reveals a left renal calculi and left renal mass. The recommending to do renal mass protocol CT. Patient presents for 16 week visit. She has not been experiencing any bleeding, fever, pain, chills, headaches, dizziness or fainting.On asking question patient denies any frequency urgency dysuria. He has mild pain a college level 2. Mild nausea is also present today. He denies any dysuria or gross hematuria. Past medical history reveals diabetes coronary artery disease cholecystectomy leg surgery. Past surgical history reveals he had passed numerous stone. He also had laser lithotripsy for the stone. Office urinalysis reveals RBCs and glucose Dilip Lindsey MD [address] [place] [address],[address], [place], [address], [facility] [place] 01/07/2023 10:01:51 02/02/2023 text/html reason for visit . 1. Status post ESWL. 2. Renal mass. History of present illness Adalid jacobs is a 62-year-old gentleman who was seen in the office with a history of ureteral and renal calculus. Patient underwent lithotripsy 2 weeks ago. When patient originally had a CT scan for his kidney stone there was a mass on the left side. Patient underwent with and without contrast CT scan today which reveals mildly diffuse left renal mass. The radiologist recommending to repeat a CT scan in 6 months. Patient did pass some fragments in the beginning and he has not passed much of the stone since then. Today's CT scan reveals fragmented renal calculi in the right lower pole. Dilip Lindsey MD [address] [place] [address],[address], [place], [address], [facility] [place] 02/02/2023 15:56:45 02/22/2023 text/html reason for visit . 1. Retained double-J stent right side. 2. Status post ESWL. 62-year-old gentleman who was seen in the office with a history of right renal calculi. Patient underwent cystoscopy double-J stent insertion. Patient also had lithotripsy. Patient says he passed numerous stones. He did not bring any samples today as he forgot. Complains of frequency urgency and some pain secondary to the retained double-J stent. Patient had a KUB done this morning but I do not have the results yet. Office urinalysis reveal 1+ leukocyte 250 glucose and moderate blood. Dilip Lindsey MD [address] [place] [address],[address], [place], [address], [facility] [place] 02/22/2023 15:46:44 03/18/2023 text/html 62 year old male presents today for left foot injury that he sustained around 3 weeks ago while walking around he stubbed his toe on his a hover round. Patient reports bruising and swelling after injury but has since went down. Patient reports pain with walking and reports elevation/ icing help with pain. Patient taking ibuprofen for pain management. Patient went to PCP where they preformed x-rays that revealed:Impression:D isplaced transverse fracture distal diaphysis proximal phalanx 3rd toe Júnior Gutierrez MD [address] [place] [address],[address], [place], [address], [facility] [place] 03/18/2023 15:33:02 03/23/2023 text/html Reason for visit . 1. Renal calculi. 2. Status post ESWL. History of present illness 62-year-old gentleman who was seen in the office with a history of renal calculi. Patient underwent lithotripsy. Patient had a double-J stent which was removed. Patient did pass all the stones. The stone analysis came back as calcium oxalate. Patient denies any frequency urgency dysuria. Office urinalysis was essentially normal except for glucose of 250. Dilip Lindsey MD [address] [place] [address] Drive,[address], [place], [address], [facility] [place] 03/23/2023 10:44:46
--- OUTSIDE RECORDS SUMMARY | 2024-10-09 18:59 | XMS_ITS | Encounter Summary ---
Author Organization [facility] ([place], [place], [place], [place]) Address [address] [place] [address] Care Team Providers Care Respiratory Care Faculty Name Role Phone Unavailable Primary Care Provider Unavailabl e Encounter Details Date Type Department Care Team (Late st Contact Info) Description 03/30/2019 Transcribed Document [facility] [address] [place] [address] ProviderJames MD Social History Tobacco Use Types Packs/Day Years Used Date Smoking Tobacco: Never Assessed Sex and Gender Information Value Date Recorded Sex Assigned at Not on file Legal Sex Male 1:31 PM CDT Gender Identity Not on file Sexual Orientation Not on file documented as of this encounter Miscellaneous Notes * Cerner Conversion Note - James Merlos MD - 03/30/2019 1:38 PM EST [facility] Authorization Entered On: 03/30/2019 12:39 EST Performed On: 03/30/2019 12:38 EST by DARNELL AGUSTIN RN Primary Insurance Authorization Authorization and Policy Numbers : Insurance 1 Health Plan: MEDICARE Policy Number: [id number] Authorization Number: NO AUTH REQ Insurance Primary Name : Health Plan: MEDICARE Policy Number: [id number] Historical Authorization Comments-Primary : No Authorization Comments Found DARNELL AGUSTIN RN - 03/30/2019 12:38 EST documented in this encounter Plan of Treatment Not on file documented as of this encounter Visit Diagnoses Not on filedocumented in this encounter
--- OUTSIDE RECORDS SUMMARY | 2024-10-09 18:59 | XMS_ITS | Clinical Summary ---
Author Organization Healthcare Address [address] [place] [address] Care Team Providers Care Marine Steamfitter Name Role Phone Aman Allison APRN Primary Care Provider + Immunizations Immunization Administration Dates Next Due TD (adult), 2 Lf tetanus tox oid, preservative free, adsorbed 06/17/2011 Social History Tobacco Use Types Packs/Day Years Used Date Smoking Tobacco: Passive Smo ke Exposure - Never Smoker Sex and Gender Information Value Date Recorded Sex Assigned at Not on file Legal Sex Male 7:36 PM EDT Gender Identity Not on file Sexual Orientation Not on file Last Filed Vital Signs Vital Sign Reading Time Taken Comments Blood Pressure - - Pulse - - Temperature - - Respiratory Rate - - Oxygen Saturation - - Inhaled Oxygen Concentration - - Weight 104 kg (228 lb 15.9 oz) 12/11/2014 10:16 AM EDT Height 176.5 cm (5' 9.5 ) 12/11/2014 10:16 AM ED T Body Mass Index 33.33 12/11/2014 10:16 AM EDT Plan of Treatment Not on file Care Teams Marine Steamfitter Relationship Specialty Start Date End Date Aman Allison APRN [address] [place], [place] [id number] PCP - General 08/02/20
--- OUTSIDE RECORDS SUMMARY | 2024-10-09 18:59 | XMS_ITS | Encounter Summary ---
Author Organization [email or web address] ([place], [place], [place], [place]) Address [address] [place] [address] Care Team Providers Care Commercial Lending Relationship Manager Name Role Phone Unavailable Primary Care Provider Unavailabl e Encounter Details Date Type Department Care Team (Late st Contact Info) Description 03/30/2019 Transcribed Document [facility] Radiology [address] [place] [address] Provider, James Pelaez MD Social [...] Note - James Merlos MD - 03/30/2019 3:13 PM EST Patient Education Materials Follows: Laparoscopic Dawn Fundoplication, Care After Refer to this sheet in [...] procedure, it is common to have: ??? Difficulty swallowing (dysphagia). ??? Excess gas (bloating). Follow these instructions at home: Medicines ??? Take medicines only as directed by your health care provider. ??? Do not drive or operate heavy machinery while taking pain medicine. Incision care ??? There are many different ways to close and cover an incision, including stitches (sutures), skin glue, and adhesive strips. Follow your health care provider's instructions about: ? Incision care. ? Bandage (dressing) changes and removal. ? Incision closure removal. ??? Check your incision areas every day for signs of infection. Watch for: ? Redness, swelling, or pain. ? Fluid, blood, or pus. ??? Do not take baths, swim, or use a hot tub until your health care provider approves. Take showers as directed by your health care provider. Eating and drinking ??? Follow your health care provider's instructions about eating. ? You may need to follow a liquid-only diet for 2 weeks, followed by a diet of soft foods for 2 weeks. ? You should return to your usual diet gradually. ??? Drink enough fluid to keep your urine clear or pale yellow. Activity ??? Return to your normal activities as directed by your health care provider. Ask your health care provider what activities are safe for you. ??? Avoid strenuous exercise. ??? Do not lift anything that is heavier than 10 lb (4.5 kg). ??? Ask your health care provider when you can: ? Return to sexual activity. ? Drive. ? Go back to work. Contact a health care provider if: ??? You have a fever. ??? Your pain gets worse or is not helped by medicine. ??? You have frequent nausea or vomiting. ??? You have continued abdominal bloating. ??? You have an ongoing (persistent) cough. ??? You have redness, swelling, or pain in any incision areas. ??? You have fluid, blood, or pus coming from any incisions. Get help right away if: ??? You have trouble breathing. ??? You are unable to swallow. ??? You have persistent vomiting. ??? You have blood in your vomit. ??? You have severe abdominal pain. This information is not intended to replace advice given to you by your health care provider. Make sure you discuss any questions you have with your health care provider. Document Released: 10/29/2004 Document Revised: 08/13/2016 Document Reviewed: 11/07/2014 [employer] Patient Education ? 2019 [employer] Gastroenterology Full Liquid Diet A full liquid diet refers to fluids and foods that are liquid or will become liquid at room temperature. This diet should only be used for a short period of time to help you recover from illness or surgery. Your health care provider or dietitian will help you determine when it is safe to eat regular foods. What are tips for following this plan? Reading food labels ??? Check food labels of nutrition shakes for the amount of protein. Look for nutrition shakes that have at least 8?10 grams of protein in each serving. ??? Look for drinks, such as milks and juices, that are fortified or enriched. This means that vitamins and minerals have been added. Shopping ??? Buy premade nutritional shakes to keep on hand. ??? To vary your choices, buy different flavors of milks and shakes. Meal planning ??? Choose flavors and foods that you enjoy. ??? To make sure you get enough energy from food (calories): ? Eat 3 full liquid meals each day. Have a liquid snack between each meal. ? Drink 6?8 ounces (177?237 ml) of a nutrition supplement shake with meals or as snacks. ? Add protein powder, powdered milk, milk, or yogurt to shakes to increase the amount of protein. ??? Drink at least one serving a day of citrus fruit juice or fruit juice that has vitamin C added. General guidelines ??? Before starting the full-liquid diet, check with your health care provider to know what foods you should avoid. These may include full-fat or high-fiber liquids. ??? You may have any liquid or food that becomes a liquid at room temperature. The food is considered a liquid if it can be poured off a spoon at room temperature. ??? Do not drink alcohol unless approved by your health care provider. ??? This diet gives you most of the nutrients that you need for energy, but you may not get enough of certain vitamins, minerals, and fiber. Make sure to talk to your health care provider or dietitian about: ? How many calories you need to eat get day. ? How much fluid you should have each day. ? Taking a multivitamin or a nutritional supplement. What foods are allowed? The items listed may not be a complete list. Talk with your dietitian about what dietary choices are best for you. Grains Thin hot cereal, such as cream of wheat. Soft-cooked pasta or rice pur?ed in soup. Vegetables Pulp-free tomato or vegetable juice. Vegetables pur?ed in soup. Fruits Fruit juice without pulp. Strained fruit pur?es (seeds and skins removed). Meats and other protein foods Beef, chicken, and fish broths. Powdered protein supplements. Dairy Milk and milk-based beverages, including milk shakes and instant breakfast mixes. Smooth yogurt. Pure?d cottage cheese. Beverages Water. Coffee and tea (caffeinated or decaffeinated). [place]. Liquid nutritional supplements. Soft drinks. Nondairy milks, such as almond, coconut, rice, or soy milk. Fats and oils Melted margarine and butter. Cream. Canola, almond, avocado, corn, grapeseed, sunflower, and sesame oils. Gravy. Sweets and desserts Custard. Pudding. Flavored gelatin. Smooth ice cream (without nuts or candy pieces). Sherbet. Popsicles. Slovak ice. Pudding pops. Seasoning and other foods Salt and pepper. Spices. [place] powder. Vinegar. Ketchup. Yellow mustard. Smooth sauces, such as Hollanda[place], cheese sauce, or white sauce. Soy sauce. Cream soups. Strained soups. Syrup. Honey. Jelly (without fruit pieces). What foods are not allowed? The items listed may not be a complete list. Talk with your dietitian about what dietary choices are best for you. Grains Whole grains. Pasta. Rice. Cold cereal. Bread. Crackers. Vegetables All whole fresh, frozen, or canned vegetables. Fruits All whole fresh, frozen, or canned fruits. Meats and other protein foods All cuts of meat, poultry, and fish. Eggs. Tofu and soy protein. Nuts and nut butters. Lunch meat. Sausage. Dairy Hard cheese. Yogurt with fruit chunks. Fats and oils Coconut oil. Palm oil. Lard. Cold butter. Sweets and desserts Ice cream or other frozen desserts that have any solids in them or on top, such as nuts, chocolate chips, and pieces of cookies. Cakes. Cookies. Candy. Seasoning and other foods Stone-ground mustards. Soups with chunks or pieces. Summary ??? A full liquid diet refers to fluids and foods that are liquid or will become liquid at room temperature. ??? This diet should only be used for a short period of time to help you recover from illness or surgery. Ask your health care provider or dietitian when it is safe for you to eat regular foods. ??? To make sure you get enough calories and nutrients, eat 3 meals each day with snacks between. Drink premade nutrition supplement shakes or add protein powder to homemade shakes. Take a vitamin and mineral supplement as told by your health care provider. This information is not intended to replace advice given to you by your health care provider. Make sure you discuss any questions you have with your health care provider. Document Released: 03/08/2006 Document Revised: 04/21/2017 Document Reviewed: 04/21/2017 [employer] Patient Education ? 2019 [employer] Nephrology Acute Kidney Injury, Adult Acute kidney injury [...] these instructions at home: Medicines ??? Take elnm-gca-vyphudz and prescription medicines only as told by [...] important. Where to find more information ??? [place] [employer] Kidney Patients: www.aakp.org ??? National Kidney Foundation: www.kidney.org ??? [place] [employer]: www.akfinc.org ??? [employer] [facility] [...] 09/21/2011 Document Revised: 07/08/2017 Document Reviewed: 02/26/2017 [employer] Patient Education ? 2019 [employer]. Nutrition Soft-Food Eating Plan A soft-food eating plan includes foods that are safe and easy to chew and swallow. Your health care provider or dietitian can help you find foods and flavors that fit into this plan. Follow this plan until your health care provider or dietitian says it is safe to start eating other foods and food textures. What are tips for following this plan? General guidelines ??? Take small bites of food, or cut food into pieces about ? inch or smaller. Bite-sized pieces of food are easier to chew and swallow. ??? Eat moist foods. Avoid overly dry foods. ??? Avoid foods that: ? Are difficult to swallow, such as dry, chunky, crispy, or sticky foods. ? Are difficult to chew, such as hard, tough, or stringy foods. ? Contain nuts, seeds, or fruits. ??? Follow instructions from your dietitian about the types of liquids that are safe for you to swallow. You may be allowed to have: ? Thick liquids only. This includes only liquids that are thicker than honey. ? Thin and thick liquids. This includes all beverages and foods that become liquid at room temperature. ??? To make thick liquids: ? Purchase a commercial liquid thickening powder. These are available at grocery stores and pharmacies. ? Mix the thickener into liquids according to instructions on the label. ? Purchase ready-made thickened liquids. ? Thicken soup by pureeing, straining to remove chunks, and adding flour, potato flakes, or corn starch. ? Add commercial thickener to foods that become liquid at room temperature, such as milk shakes, yogurt, ice cream, gelatin, and sherbet. ??? Ask your health care provider whether you need to take a fiber supplement. Cooking ??? Cook meats so they stay tender and moist. Use methods like braising, stewing, or baking in liquid. ??? Cook vegetables and fruit until they are soft enough to be mashed with a fork. ??? Peel soft, fresh fruits such as peaches, nectarines, and melons. ??? When making soup, make sure chunks of meat and vegetables are smaller than ? inch. ??? Reheat leftover foods slowly so that a tough crust does not form. What foods are allowed? The items listed below may not be a complete list. Talk with your dietitian about what dietary choices are best for you. Grains Breads, muffins, pancakes, or waffles moistened with syrup, jelly, or butter. Dry cereals well-moistened with milk. Moist, cooked cereals. Well-cooked pasta and rice. Vegetables All soft-cooked vegetables. Shredded lettuce. Fruits All canned and cooked fruits. Soft, peeled fresh fruits. Strawberries. Dairy Milk. Cream. Yogurt. Cottage cheese. Soft cheese without the rind. Meats and other protein foods Tender, moist ground meat, poultry, or fish. Meat cooked in gravy or sauces. Eggs. Sweets and desserts Ice cream. Milk shakes. Sherbet. Pudding. Fats and oils Butter. Margarine. [place], canola, sunflower, and grapeseed oil. Smooth salad dressing. Smooth cream cheese. Mayonnaise. Gravy. What foods are not allowed? The items listed bemay not be a complete list. Talk with your dietitian about what dietary choices are best for you. Grains Coarse or dry cereals, such as bran, granola, and shredded wheat. Tough or chewy crusty breads, such as Hebrew bread or baguettes. Breads with nuts, seeds, or fruit. Vegetables All raw vegetables. Cooked corn. Cooked vegetables that are tough or stringy. Tough, crisp, fried potatoes and potato skins. Fruits Fresh fruits with skins or seeds, or both, such as apples, pears, and grapes. Stringy, high-pulp fruits, such as papaya, pineapple, coconut, and kelle. Fruit leather and all dried fruit. Dairy Yogurt with nuts or coconut. Meats and other protein foods Hard, dry sausages. Dry meat, poultry, or fish. Meats with gristle. Fish with bones. Fried meat or fish. Lunch meat and hotdogs. Nuts and seeds. [place] peanut butter or other nut butters. Sweets and desserts Cakes or cookies that are very dry or chewy. Desserts with dried fruit, nuts, or coconut. Fried pastries. Very rich pastries. Fats and oils Cream cheese with fruit or nuts. Salad dressings with seeds or chunks. Summary ??? A soft-food eating plan includes foods that are safe and easy to swallow. Generally, the foods should be soft enough to be mashed with a fork. ??? Avoid foods that are dry, hard to chew, crunchy, sticky, stringy, or crispy. ??? Ask your health care provider whether you need to thicken your liquids and if you need to take a fiber supplement. This information is not intended to replace advice given to you by your health care provider. Make sure you discuss any questions you have with your health care provider. Document Released: 06/14/2008 Document Revised: 05/11/2017 Document Reviewed: 05/11/2017 [employer] Interactive Patient Education ? 2019 [employer]. documented in this encounter Plan of Treatment Not on file documented as of this encounter Visit Diagnoses Not on filedocumented in this encounter
--- OUTSIDE RECORDS SUMMARY | 2024-10-09 18:59 | XMS_ITS | Encounter Summary ---
Author Organization [employer] [facility] ([place], [place], [place], [place]) Address [address] [place] [address] Care Team Providers Care Director Revenue Name Role Phone Unavailable Primary Care Provider Unavailabl e Encounter Details Date Type Department Care Team (Late st Contact Info) Description 01/20/2019 Transcribed Document [facility] Radiology [address] [place] [address] Provider, [facility] MD Latanya Social History Tobacco Use Types Packs/Day Years Used Date Smoking Tobacco: Never Assessed Sex and Gender Information Value Date Recorded Sex Assigned at Not on file Legal Sex Male 1:31 PM CDT Gender Identity Not on file Sexual Orientation Not on file documented as of this encounter Miscellaneous Notes * [employer] Conversion Note - [facility] Latanya ProviderMD - 01/20/2019 4:48 PM EDT [facility] Main OR PACU Summary Primary Physician: GUILLE GRULLON MD-URO Finalized Date/Time: 01/20/19 21:00:52 Pt. Name: ROBERTO ROMEO/Sex: 1960 Male Med Rec #: [id number] Physician: GUILLE GRULLON MD-URO Financial #: [id number] Pt. Type: O Room/Bed: Admit/Disch: 01/20/19 13:00:00 - 01/20/19 20:42:00 Institution: [facility] Main OR PACU I Case Times Entry 1 In PACU I 01/20/19 17:45:00 Ready for PACU 01/20/19 20:42:00 Discharge Discharge from PACU 01/20/19 20:42:00 I Last Modified By: FLORENCE CEDEÑO RN 01/20/19 20:59:40 Finalized By: FLORENCE CEDEÑO RN Document Signatures Signed By: FLORENCE CEDEÑO RN 01/20/19 21:00 documented in this encounter Plan of Treatment Not on file documented as of this encounter Visit Diagnoses Not on filedocumented in this encounter
--- OUTSIDE RECORDS SUMMARY | 2024-10-09 18:59 | XMS_ITS | Encounter Summary ---
Author Organization [facility] ([place], [place], [place], [place]) Address [address] [place] [address] Care Team Providers Care Medical Secretary Receptionist Name Role Phone Unavailable Primary Care Provider Unavailabl e Encounter Details Date Type Department Care Team (Late st Contact Info) Description 01/20/2019 Transcribed Document [facility] Radiology [address] [place] [address] Provider, [facility] MD Latanya Social History Tobacco Use Types Packs/Day Years Used Date Smoking Tobacco: Never Assessed Sex and Gender Information Value Date Recorded Sex Assigned at Not on file Legal Sex Male 1:31 PM CDT Gender Identity Not on file Sexual Orientation Not on file documented as of this encounter Miscellaneous Notes * [employer]ner Conversion Note - [facility] Latanya ProviderMD - 01/20/2019 5:[address] [facility] Main OR Preop Summary Primary Physician: GUILLE GRULLON MD-URO Finalized Date/Time: 01/20/19 15:32:36 Pt. Name: ROBERTO JACOBS/Sex: 1960 Male Med Rec #: [id number] Physician: GUILLE GRULLON MD-URO Financial #: [id number] Pt. Type: O Room/Bed: Admit/Disch: 01/20/19 13:00:00 - Institution: [facility] PreOp Case Times Entry 1 In Preop 01/20/19 13:31:00 Ready for Holding n/a Room Patient Ready for 01/20/19 14:19:00 Surgery Patient Out of Preop 01/20/19 15:26:00 Patient Out of n/a Holding Room Last Modified By: Tressa Zepeda RN 01/20/19 15:32:35 [facility] PreOp Case Times Audit 01/20/19 15:32:35 [employer] Supervisor: JILL Modifier: NIHARIKAISRAEL <+> 1 Patient Out of Preop Finalized By: Tressa Zepeda RN Document Signatures Signed By: Tressa Zepeda RN 01/20/19 15:32 Electronically signed by [facility] Conversion Salesforce Developer [employer] at 08/12/2022 5:24 PM CDT documented in this encounter Plan of Treatment Not on file documented as of this encounter Visit Diagnoses Not on filedocumented in this encounter
--- OUTSIDE RECORDS SUMMARY | 2024-10-09 18:59 | XMS_ITS | Encounter Summary ---
Author Organization [facility] ([place], [place], [place], [place]) Address [address] [place] [address] Care Team Providers Care Home Planning Consultant Salesperson Name Role Phone Unavailable Primary Care Provider Unavailabl e Encounter Details Date Type Department Care Team (Late st Contact Info) Description 03/28/2019 Transcribed Document [facility] [address] [place] [address] Provider, [facility] MD Latanya Social History Tobacco Use Types Packs/Day Years Used Date Smoking Tobacco: Never Assessed Sex and Gender Information Value Date Recorded Sex Assigned at Not on file Legal Sex Male 1:31 PM CDT Gender Identity Not on file Sexual Orientation Not on file documented as of this encounter Miscellaneous Notes * Cerner Conversion Note - [facility] Latanya ProviderMD - 03/28/2019 11:15 AM EST [facility] Main OR IntraOp Summary Primary Physician: SHYAM PADILLA MD-SUR Finalized Date/Time: 03/29/19 12:22:01 Pt. Name: ROBERTO ROMEO D.O.B./Sex: 1960 Male Med Rec #: [id number] Physician: SHYAM PADILLA MD-SUR Financial #: [id number] Pt. Type: I Room/Bed: [facility]/ Admit/Disch: 03/28/19 16:26:00 - Institution: [facility] IntraOp Case Attendance Entry 1 Entry 2 Entry 3 Case Attendee SHYAM PADILLA MD-SUR Baker, Amanda S, Duncan, Richelle, loom control chain builderAppraiser Role Performed Surgeon/Proceduralist, Scrub, First Juice Tester, First First Time In 03/28/19 09:42:00 03/28/19 09:42:00 03/28/19 09:42:00 Time Out 03/28/19 12:43:00 03/28/19 11:39:00 03/28/19 10:55:00 Procedure Beatriz Fundoplication Beatriz Fundoplication Beatriz Fundoplication Robotic, Robotic, Robotic, Esophagogastroduodenosco Esophagogastroduodenosco Esophagogastroduodenosco py py py Other Attendee Superficial Wound Closed By: Last Modified By: Eva Villeda, Eva Rosado RN Duncan, Richelle, RN 03/28/19 12:42:58 03/28/19 12:42:58 03/28/19 12:42:58 Entry 4 Entry 5 Entry 6 Case Attendee KATY DOWNING, SENA Davenport, SALAZAR JOHNSON MD-ANS WELDER SETTER ELECTRON BEAM MACHINE, COURSE DEVELOPER Role Performed Delivery Associate, First COURSE DEVELOPER/Nurse Fitness And Wellness Manager Anesthesiologist Time In 03/28/19 09:42:00 03/28/19 09:42:00 03/28/19 09:42:00 Time Out 03/28/19 12:43:00 03/28/19 12:43:00 03/28/19 12:43:00 Procedure Beatriz Fundoplication Beatriz Fundoplication Beatriz Fundoplication Robotic, Robotic, Robotic, Esophagogastroduodenosco Esophagogastroduodenosco Esophagogastroduodenosco py py py Other Attendee Superficial Wound Closed By: Last Modified By: Eva Villeda, Eva Rosado, Eva Rosado RN 03/28/19 12:42:58 03/28/19 12:42:58 03/28/19 12:42:58 Entry 7 Entry 8 Entry 9 Case Attendee Marc Iverson Janie, RN Duncan, Richelle, ANTONIA Role Performed Software Test Specialist, Ancillary Juice Tester, First Scrub, First Time In 03/28/19 09:42:00 03/28/19 10:55:00 03/28/19 11:34:00 Time Out 03/28/19 12:43:00 03/28/19 12:17:00 03/28/19 12:43:00 Procedure Beatriz Fundoplication Beatriz Fundoplication Beatriz Fundoplication Robotic, Robotic, Robotic, Esophagogastroduodenosco Esophagogastroduodenosco Esophagogastroduodenosco py py py Other Attendee Lunch relief Lunch relief Superficial Wound Closed By: Last Modified By: Eva Villeda, Eva Rosado, Eva Rosado RN 03/28/19 12:42:58 03/28/19 12:42:58 03/28/19 12:42:58 Entry 10 Entry 11 Case Attendee Marta Vincent Duncan, Richelle, loom control chain builderAppraiser Role Performed Scrub, First Juice Tester, First Time In 03/28/19 12:15:00 03/28/19 12:17:00 Time Out 03/28/19 12:43:00 03/28/19 12:43:00 Procedure Beatriz Fundoplication Beatriz Fundoplication Robotic, Robotic, Esophagogastroduodenosco Esophagogastroduodenosco py py Other Attendee Superficial Wound Closed By: Last Modified By: Eva Villeda, Eva Rosado RN 03/28/19 12:42:58 03/28/19 12:42:58 [facility] IntraOp Case Attendance Audit 03/28/19 12:42:58 Overlock Sleeve Setter: [email or web address] Modifier: [id number] <+> Time Out 1 <*> Procedure Beatriz Fundoplication Robotic, Esophagogastroduodenoscopy 2 <*> Procedure Beatriz Fundoplication Robotic, Esophagogastroduodenoscopy 3 <*> Procedure Beatriz Fundoplication Robotic, Esophagogastroduodenoscopy 4 <+> Time Out 4 <*> Procedure Beatriz Fundoplication Robotic, Esophagogastroduodenoscopy 5 <+> Time Out 5 <*> Procedure Beatriz Fundoplication Robotic, Esophagogastroduodenoscopy 6 <+> Time Out 6 <*> Procedure Beatriz Fundoplication Robotic, Esophagogastroduodenoscopy 7 <+> Time Out 7 <*> Procedure Beatriz Fundoplication Robotic, Esophagogastroduodenoscopy 8 <*> Procedure Beatriz Fundoplication Robotic, Esophagogastroduodenoscopy 9 <+> Time Out 9 <*> Procedure Beatriz Fundoplication Robotic, Esophagogastroduodenoscopy 10 <+> Time Out 10 <*> Procedure Beatriz Fundoplication Robotic, Esophagogastroduodenoscopy 11 <+> Time Out 11 <*> Procedure Beatriz Fundoplication Robotic, Esophagogastroduodenoscopy 03/28/19 12:17:49 Overlock Sleeve Setter: ILEANA Modifier: POFFJAN 8 <+> Time Out 8 <*> Procedure Beatriz Fundoplication Robotic, Esophagogastroduodenoscopy 10 <*> Time In 03/28/19 09:42:00 10 <*> Procedure Beatriz Fundoplication Robotic, Esophagogastroduodenoscopy 11 <*> Time In 03/28/19 09:42:00 11 <*> Procedure Beatriz Fundoplication Robotic, Esophagogastroduodenoscopy 03/28/19 12:14:13 Overlock Sleeve Setter: ILEANA Modifier: POFFJAN 1 <*> Procedure Beatriz Fundoplication Robotic 2 <*> Procedure Beatriz Fundoplication Robotic 3 <*> Procedure Beatriz Fundoplication Robotic 4 <*> Procedure Beatriz Fundoplication Robotic 5 <*> Procedure Beatriz Fundoplication Robotic 6 <*> Procedure Beatriz Fundoplication Robotic 7 <*> Procedure Beatriz Fundoplication Robotic 8 <*> Procedure Beatriz Fundoplication Robotic 9 <*> Procedure Beatriz Fundoplication Robotic 10 <*> Procedure Beatriz Fundoplication Robotic 11 <*> Procedure Beatriz Fundoplication Robotic 03/28/19 12:13:48 Overlock Sleeve Setter: ILEANA Modifier: [email or web address] 1 <*> Procedure Beatriz Fundoplication Robotic, Gastrostomy Percutaneous Endoscopic 2 <*> Procedure Beatriz Fundoplication Robotic, Gastrostomy Percutaneous Endoscopic 3 <*> Procedure Beatriz Fundoplication Robotic, Gastrostomy Percutaneous Endoscopic 4 <*> Procedure Beatriz Fundoplication Robotic, Gastrostomy Percutaneous Endoscopic 5 <*> Procedure Beatriz Fundoplication Robotic, Gastrostomy Percutaneous Endoscopic 6 <*> Procedure Beatriz Fundoplication Robotic, Gastrostomy Percutaneous Endoscopic 7 <*> Procedure Beatriz Fundoplication Robotic, Gastrostomy Percutaneous Endoscopic 8 <*> Procedure Beatriz Fundoplication Robotic, Gastrostomy Percutaneous Endoscopic 9 <*> Procedure Beatriz Fundoplication Robotic, Gastrostomy Percutaneous Endoscopic 10 <+> Time In 10 <*> Procedure Beatriz Fundoplication Robotic, Gastrostomy Percutaneous Endoscopic 11 <+> Time In 11 <*> Procedure Beatriz Fundoplication Robotic, Gastrostomy Percutaneous Endoscopic 03/28/19 12:13:12 Overlock Sleeve Setter: ILEANA Modifier: POFFJAN 1 <*> Procedure Beatriz Fundoplication Robotic, Gastrostomy Percutaneous Endoscopic 2 <+> Time Out 2 <*> Procedure Beatriz Fundoplication Robotic, Gastrostomy Percutaneous Endoscopic 3 <*> Procedure Beatriz Fundoplication Robotic, Gastrostomy Percutaneous Endoscopic 4 <*> Procedure Beatriz Fundoplication Robotic, Gastrostomy Percutaneous Endoscopic 5 <*> Procedure Beatriz Fundoplication Robotic, Gastrostomy Percutaneous Endoscopic 6 <*> Procedure Beatriz Fundoplication Robotic, Gastrostomy Percutaneous Endoscopic 7 <*> Procedure Beatriz Fundoplication Robotic, Gastrostomy Percutaneous Endoscopic 8 <*> Procedure Beatriz Fundoplication Robotic, Gastrostomy Percutaneous Endoscopic 9 <+> Time In 9 <*> Procedure Beatriz Fundoplication Robotic, Gastrostomy Percutaneous Endoscopic <+> 10 Case Attendee <+> 10 Role Performed <+> 10 Procedure <+> 11 Case Attendee <+> 11 Role Performed <+> 11 Procedure 03/28/19 11:18:26 Overlock Sleeve Setter: [id number] Modifier: [email or web address] 3 <+> Time Out 3 <*> Procedure Beatriz Fundoplication Robotic, Gastrostomy Percutaneous Endoscopic 8 <*> Procedure Beatriz Fundoplication Robotic, Gastrostomy Percutaneous Endoscopic 8 <+> Other Attendee <+> 9 Case Attendee <+> 9 Role Performed <+> 9 Procedure <+> 9 Other Attendee 03/28/19 10:56:00 Overlock Sleeve Setter: [id number] Modifier: [id number] <+> 1 Procedure <+> 8 Case Attendee <+> 8 Role Performed <+> 8 Time In <+> 8 Procedure 03/28/19 10:26:12 Overlock Sleeve Setter: [id number] Modifier: [id number] 2 <*> Procedure Beatriz Fundoplication Robotic, Gastrostomy Percutaneous Endoscopic 3 <*> Procedure Beatriz Fundoplication Robotic, Gastrostomy Percutaneous Endoscopic 4 <*> Procedure Beatriz Fundoplication Robotic, Gastrostomy Percutaneous Endoscopic 5 <*> Procedure Beatriz Fundoplication Robotic, Gastrostomy Percutaneous Endoscopic 6 <*> Procedure Beatriz Fundoplication Robotic, Gastrostomy Percutaneous Endoscopic 7 <+> Time In 7 <*> Procedure Beatriz Fundoplication Robotic, Gastrostomy Percutaneous Endoscopic 03/28/19 10:20:08 Overlock Sleeve Setter: [id number] Modifier: [id number] <+> 1 Time In 2 <+> Time In 2 <*> Procedure Beatriz Fundoplication Robotic, Gastrostomy Percutaneous Endoscopic 3 <+> Time In 3 <*> Procedure Beatriz Fundoplication Robotic, Gastrostomy Percutaneous Endoscopic 4 <+> Time In 4 <*> Procedure Beatriz Fundoplication Robotic, Gastrostomy Percutaneous Endoscopic 5 <+> Time In 5 <*> Procedure Beatriz Fundoplication Robotic, Gastrostomy Percutaneous Endoscopic 6 <+> Time In 6 <*> Procedure Beatriz Fundoplication Robotic, Gastrostomy Percutaneous Endoscopic <+> 7 Case Attendee <+> 7 Role Performed <+> 7 Procedure 03/28/19 10:15:40 Overlock Sleeve Setter: [id number] Modifier: [id number] <+> 4 Case Attendee <+> 4 Role Performed <+> 4 Procedure <+> 5 Case Attendee <+> 5 Role Performed <+> 5 Procedure <+> 6 Case Attendee <+> 6 Role Performed <+> 6 Procedure [facility] IntraOp Case Times Entry 1 Patient In Room Time 03/28/19 09:42:00 Out Room Time 03/28/19 12:43:00 Anesthesia Start Time 03/28/19 09:42:00 Stop Time 03/28/19 12:43:00 Anesthesia Ready 03/28/19 09:42:00 Surgery / Procedure Times Start Time 03/28/19 10:15:00 Stop Time 03/28/19 12:28:00 Last Modified By: Eva Villeda, RN 03/28/19 12:42:57 [facility] IntraOp Case Times Audit 03/28/19 12:42:57 Overlock Sleeve Setter: [id number] Modifier: [id number] <+> 1 Out Room Time <+> 1 Stop Time 03/28/19 12:35:07 Overlock Sleeve Setter: [id number] Modifier: [id number] <+> 1 Stop Time 03/28/19 10:17:11 Overlock Sleeve Setter: [id number] Modifier: [id number] <+> 1 In Room Time <+> 1 Start Time <+> 1 Anesthesia Ready [facility] IntraOp Cautery Entry 1 ESU Identification Cautery Type Monopolar ESU ID Number [id number] ID Type Hospital Number Cautery Settings Cut Setting 3 Coag Setting 3 ESU Grounding Pad Ground Pad Type Adult Grounding Pad Site Right thigh Grounding Pad Villeda, Eva, RN Applied By Grounding Pad Site Warm, dry and intact Skin Condition Before Cautery Grounding Pad Site Unchanged Skin Condition After Cautery Last Modified By: Eva Villeda RN 03/28/19 10:28:09 [facility] IntraOp Communication Entry 1 Entry 2 Entry 3 Communication To Family/Significant other Family/Significant other Family/Significant other Comment START Update closing Communication By Eva Villeda RN Poff, Janie, RN Duncan, Richelle, RN Date and Time 03/28/19 10:15:00 03/28/19 12:15:00 03/28/19 12:22:00 Last Modified By: Eva Villeda RN Poff, Janie, RN Duncan, Richelle, RN 03/28/19 10:16:54 03/28/19 12:18:49 03/28/19 12:22:06 [facility] IntraOp Communication Audit 03/28/19 12:22:06 Overlock Sleeve Setter: [email or web address] Modifier: [id number] <+> 3 Communication By <+> 3 Date and Time <+> 3 Communication To <+> 3 Comment 03/28/19 12:18:49 Overlock Sleeve Setter: [id number] Modifier: [email or web address] <+> 2 Communication By <+> 2 Date and Time <+> 2 Communication To <+> 2 Comment [facility] IntraOp Counts Verification Entry 1 Procedure Beatriz Fundoplication Robotic, Esophagogastroduodenosco py Count Info Count Type Sponge, Sharps, Instrument, Miscellaneous Counts Verification Baseline/pre-procedure Sequence Counts Performed By Count Performed By Marta Vincent (Scrub) Appraiser Count Performed By Eva Villeda RN (RN) Last Modified By: Bruna Schmidt RN 03/28/19 12:14:15 [facility] IntraOp Counts Verification Audit 03/28/19 12:14:15 Overlock Sleeve Setter: POFFJAN Modifier: POFFJAN 1 <*> Procedure Beatriz Fundoplication Robotic 03/28/19 12:13:49 Overlock Sleeve Setter: [id number] Modifier: POFFJAN 1 <*> Procedure Beatriz Fundoplication Robotic, Gastrostomy Percutaneous Endoscopic [facility] IntraOp Counts Final Entry 1 Procedure Beatriz Fundoplication Robotic, Esophagogastroduodenosco py Final Count Info Count Type Sponge, Sharps, Miscellaneous Counts Verification Skin Closure/end of Sequence procedure Count Results Correct, surgeon notified Counts Performed By Count Performed By Marta Vincent (Scrub) Appraiser Count Performed By Eva Villeda RN (RN) Last Modified By: Eva Villeda RN 03/28/19 12:28:40 [facility] IntraOp Departure from OR Entry 1 Integumentary Assessment Integumentary WDL Assessment WDL Transfer/Handoff Transfer to PACU Phase I Handoff Method Bedside/Face to face, Phone call Post-op Transport Stretcher/Gurney Via Patient Transport SEAN RYAN, Accompanied by WELDER SETTER ELECTRON BEAM MACHINE, FUNMILAYO, KATY DOWNING Last Modified By: Eva Villeda RN 03/28/19 10:28:24 [facility] IntraOp Dressing and Packing Entry 1 Type Dressing Location OPSITE Wound Dressing Item Skin Closure Glue Applied By KATY DOWNING Last Modified By: Eva Villeda RN 03/28/19 10:28:28 [facility] IntraOp Fire Risk Assessment Entry 1 Fire Info Surgical Site or 0- No Incision Above the Xyphoid Open O2 Source 0- No (Mask or Cannula) Available Ignition 1- Yes (ESU, Laser, Light Source) Fire Risk 1 Assessment Score Fire Score Fire Risk Yes Assessment Complete Fire Risk Eva Villeda, waste examiner Verified By Fire Risk 03/28/19 10:11:00 Assessment Verified Date/Time Fire Risk Standard Fire Yes Safety Precautions Followed Last Modified By: Eva Villeda RN 03/28/19 10:28:36 [facility] IntraOp General Case Tax Analyst 1 Case Information OR OR 11 [facility] Case Level 1 Room Verified Yes Wound Class I - Clean Specialty SN General Anesthesia Type General ASA Class 3 Diagnosis Preop Diagnosis PARAESOPHAGEAL HERNIA Postop Same As Preop No Postop Diagnosis SEE MD POSTOP NOTE Last Modified By: Eva Villeda RN 03/28/19 10:31:50 [facility] IntraOp Implant Log Entry 1 Type Implant (Synthetic) Implant Log Implant Type Mesh Implant MESH ST PHASIX [id number] Identification [id number] Description Implant Quantity 1 Implant Site Operative site Implant [id number] Identification Lot Number Implant Cr Bard:Maylin Identification Commercial Green Building Architect Name: Implant [id number] Identification Catalog Number Implant Has an Yes Expiration Date Implant Expiration 12/17/20 Date Tissue Implant Last Modified By: Bruna Schmidt RN 03/28/19 11:19:36 [facility] IntraOp Intraoperative Assessment Entry 1 Handoff Method Online nursing summary Valid History / Yes Physical in Chart Preoperative Yes Checklist Reviewed/Evaluated Allergies Reviewed Yes Patient is Latex No Sensitive Isolation Not applicable Precautions Noted Level of WDL Consciousness (WDL = Alert, Oriented to Person, Place, and Time) Skin Assessment No Verified Present Upon IVs Arrival to OR Last Modified By: Eva Villeda RN 03/28/19 10:32:02 [facility] IntraOp Intraoperative Equipment Entry 1 Type Monitoring Equipment Equipment Robyn Suction System ID Number [id number] Intraop Monitoring Antiembolic Devices Antiembolic Devices Sequential compression device, knee high Antiembolic Device Bilateral Location Antiembolic Device 13089 ID Number Antiembolic Device SCD' S ON AND WORKING Setting PRIOR TO INDUCTION Scopes Photo/Video Documentation Last Modified By: Eva Villeda RN 03/28/19 10:32:28 [facility] IntraOp Medication Admin Entry 1 Entry 2 Medication/Irrigant Normal Saline 0.9% Marcaine 0.5% w/ 1000ml irrigation - epinephrine 1:200,000 [id number] 30ml vial - [id number] Combo Med List Time Administered Route of IRRIGATION INJECTION Administration Dose Dose 300 16 Unit of Measure ml ml Volume Administered By SHYAM PADILLA MD-SUR HARRIS, JOHN M, MD-SUR Procedure Irrigation Irrigant Volume In Irrigant Volume Out Last Modified By: Eva Villeda RN Duncan, Richelle, RN 03/28/19 10:33:44 03/28/19 10:33:44 [facility] IntraOp Patient Positioning Entry 1 Procedure Beatriz Fundoplication Robotic, Esophagogastroduodenosco py Body Position Supine Left Arm Position Tucked and padded at side Right Arm Position Tucked and padded at side Left Leg Position Uncrossed, parallel Right Leg Position Uncrossed, parallel Feet Uncrossed Yes Pressure Points Yes Checked Positioning Devices Head Rest, Pad, Arm, Safety Strap, Thighs, Foot Board Device Position FOAM PADDED MATTRESS PAD, PILLOW UNDER PATIENT KNEES FOR COMFORT Positioned By Eva Villeda, ANTONIA, KATY DOWNING KLINE, MICHELLE R, WELDER SETTER ELECTRON BEAM MACHINE, COURSE DEVELOPER, SHYAM PADILLA MD-SUR Position Verified Positioning Yes Verified by Anesthesia Positioning Yes Verified by Surgeon Last Modified By: Bruna Schmidt RN 03/28/19 12:14:15 [facility] IntraOp Patient Positioning Audit 03/28/19 12:14:15 Overlock Sleeve Setter: ILEANA Modifier: PORICO 1 <*> Procedure Beatriz Fundoplication Robotic 03/28/19 12:13:50 Overlock Sleeve Setter: [id number] Modifier: POFFJAN 1 <*> Procedure Beatriz Fundoplication Robotic, Gastrostomy Percutaneous Endoscopic [facility] IntraOp Sign In Entry 1 Patient, Site, Yes Procedure Identified Surgical Consent Yes Confirmed Relevant Surgical Yes Documents Available Surgical Site N/A Marked by person performing procedure Anesthesia Machine Yes Check Completed Medication Checks Yes Completed Allergies Yes Airway Difficult Yes Airway/Aspiration Risk Difficult Yes Airway/Aspiration Intervention Equipment Available Blood Loss Risk No Blood Loss No Intervention Equipment Prepared and Ready Blood Identifiers Not applicable Verified Per Policy Hypothermia Risk Yes Warming Measures Yes Taken Last Modified By: Eva Villeda RN 03/28/19 10:36:56 [facility] IntraOp Sign Out Entry 1 RN Confirmation Surgical Yes Procedure(s) Identified Instrument, Sponge Yes and Sharps Counts Correct/Documented Equipment Problems N/A Documented Specimen Labeled N/A Correctly Urinary Catheter Yes Documented in IView [place] Patient Yes Recovery Concerns Reviewed with Anesthesia Provider, Surgeon and RN [place] Patient Yes Management Concerns Reviewed with Anesthesia Provider, Surgeon and RN Safety Checklist Yes Elements Complete? RN Sign Out Eva Villeda RN Signature RN Sign Out 03/28/19 12:36:00 Signature Date/Time Plan of Care Outcome - Fire Risk OUTCOME STATEMENT: Goal met Patient is free from injury related to surgical fire Plan of Care Outcome - Pt Positioning OUTCOME STATEMENT: Goal met Absence of signs and symptoms of positioning injury. Plan of Care Outcome - Skin Prep OUTCOME STATEMENT: Goal met Intraoperative care is consistent with measures to prevent infection Plan of Care Outcome - Xray/Images OUTCOME STATEMENT: N/A Absence of observable signs or symptoms of radiation injury Plan of Care Outcome - Counts OUTCOME STATEMENT: Goal met Absence of signs and symptoms of injury related to extraneous objects Last Modified By: Eva Villeda RN 03/28/19 12:35:15 [facility] IntraOp Sign Out Audit 03/28/19 12:35:15 Overlock Sleeve Setter: [id number] Modifier: [id number] <+> 1 RN Sign Out Signature Date/Time [facility] IntraOp Skin Prep Entry 1 Procedure Beatriz Fundoplication Robotic, Esophagogastroduodenosco py Prescribed Yes Pre-Surgical Prep Completed Prep Area ABDOMEN Intraop Prep Integumentary WDL Assessment WDL Prep Agents Chloraprep Prep by SHYAM PADILLA MD-SUR Hair Removal Methods No hair removal performed Last Modified By: Bruna Schmidt RN 03/28/19 12:14:16 [facility] IntraOp Skin Prep Audit 03/28/19 12:14:16 Overlock Sleeve Setter: ILEANA Modifier: [email or web address] 1 <*> Procedure Beatriz Fundoplication Robotic 03/28/19 12:13:50 Overlock Sleeve Setter: [id number] Modifier: POFFJAN 1 <*> Procedure Beatriz Fundoplication Robotic, Gastrostomy Percutaneous Endoscopic [facility] IntraOp Surgical Procedures Entry 1 Entry 2 Procedure Beatriz Fundoplication Esophagogastroduodenosco Robotic py Modifiers Additional ROBOTIC ASSISTED Procedure PARAESOPHAGEAL HERNIA Description REPAIR WITH BIOLOGIC MESH, ROBOTIC BEATRIZ FUNDOPLICATION, ENDOSCOPIC GASTRODUODENOSCOPY Primary Procedure Yes No Primary Surgeon SHYAM PADILLA MD-SUR HARRIS, JOHN M, MD-SUR Start 03/28/19 10:15:00 03/28/19 10:15:00 Stop 03/28/19 12:28:00 03/28/19 12:28:00 Physician States Cecum Reached Anesthesia Type General General Specialty SN General SN General Wound Class II - Clean-Contaminated II - Clean-Contaminated Last Modified By: Eva Villeda, Eva Rosado RN 03/28/19 12:35:55 03/28/19 12:35:55 [facility] IntraOp Surgical Procedures Audit 03/28/19 12:35:55 Overlock Sleeve Setter: PORICO Modifier: [id number] 1 <*> Procedure Beatriz Fundoplication Robotic 1 <+> Stop 1 <*> Wound Class I - Clean 1 <*> Additional Procedure Description ROBOTIC ASSISTED PARAESOPHAGEAL HERNIA REPAIR WITH BIOLOGIC MESH, ROBOTIC BEATRIZ FUNDOPLICATION, ENDOSCOPIC G-TUBE PLACEMENT <+> 2 Stop 03/28/19 12:14:08 Overlock Sleeve Setter: [id number] Modifier: PORICO 2 <*> Procedure Gastrostomy Percutaneous Endoscopic [facility] IntraOp Temp Regulation Devices Entry 1 Temp Regulation Temperature Forced Air Warming Regulation Device device, Room temperature, Warm blankets Temperature Upper body Regulation Site Temperature Device SET AND MONITORED BY Setting ANESTHESIA Temperature SEAN RYAN, Regulation Device WELDER SETTER ELECTRON BEAM MACHINE, COURSE DEVELOPER Applied by Last Modified By: Eva Villeda RN 03/28/19 10:38:00 [facility] IntraOP Time Out Entry 1 Procedure to be Beatriz Fundoplication Performed Robotic, Esophagogastroduodenosco py Time Out Time Out Pause Time 03/28/19 10:15:00 All activity Yes suspended (unless life threatening emergency) Team Verbally Correct patient Confirms Information identity, Correct side and site are marked, Consent form is present and accurate, Agreement on the procedure to be done, Correct patient position, Relevant images/results properly labeled/appropriately displayed, Confirm antibiotics have been administered, Confirm the skin prep has dried, Confirm prosthesis/implant/devic e is present, Performed in location of procedure after prepped/draped, Reconcile problems if responses among team members differ Antibiotic Yes Prophylaxis Administered Or In Progress Within the Last 60 Minutes Beta Nellie N/A Administered Venous Yes Thromboembolism Prophylaxis Required Anticipated Critical Events Surgeon None expected Anesthesia Provider Patient specific concerns Nursing Assures Sterility of instruments, Implant Availability Essential Imaging N/A Labeled and Displayed Last Modified By: Bruna Schmidt RN 03/28/19 12:14:16 [facility] IntraOP Time Out Audit 03/28/19 12:14:16 Overlock Sleeve Setter: ILEANA Modifier: ILEANA 1 <*> Procedure to be Performed Beatriz Fundoplication Robotic 03/28/19 12:13:51 Overlock Sleeve Setter: [id number] Modifier: ILEANA 1 <*> Procedure to be Performed Beatriz Fundoplication Robotic, Gastrostomy Percutaneous Endoscopic Case Comments <None> Finalized By: JHONATAN BUSH Document Signatures Signed By: Eva Villeda RN 03/28/19 12:43 JHONATAN BUSH 03/29/19 12:22 Unfinalized History Date/Time Username Reason for Unfinalizing Freetext Reason for Unfinalizing 03/29/19 12:18 [email or web address] Correct Billing documented in this encounter Plan of Treatment Not on file documented as of this encounter Visit Diagnoses Not on filedocumented in this encounter
--- OUTSIDE RECORDS SUMMARY | 2024-10-09 18:59 | XMS_ITS | Encounter Summary ---
Author Organization [employer] ([place], [place], [place], [place]) Address [address] [place] [address] Care Team Providers Care Store Promoter Name Role Phone Unavailable Primary Care Provider Unavailabl e Encounter Details Date Type Department Care Team (Late st Contact Info) Description 03/30/2019 Transcribed Document [facility] Radiology [address] [place] [address] Provider, [facility] MD Latanya Social History Tobacco Use Types Packs/Day Years Used Date Smoking Tobacco: Never Assessed Sex and Gender Information Value Date Recorded Sex Assigned at Not on file Legal Sex Male 1:31 PM CDT Gender Identity Not on file Sexual Orientation Not on file documented as of this encounter Miscellaneous Notes * Cerner Conversion Note - [facility] Latanya Merlos MD - 03/30/2019 4:34 PM EST [facility] [address] [place] [address] ROBERTO ROMEO :1960 Visit Time:03/28/2019 Your Visit Summary Your Care Team Admitting Physician - NALDO RODRIGUEZ MD HARRIS, JOHN M, MD-RACHNA Attending Physician - SHYAM PADILLA MD-RACHNA Primary Care Physician - GUILLE GOLD NP-[facility] Referring Physician - SHYAM PADILLA MD-RACHNA PHY, NOT LISTED Your Diagnosis Diaphragmatic hernia without obstruction or gangrene, Diaphragmatic hernia without obstruction or gangrene What to do next Follow-Up Appointments Follow Up with SHYAM PADILLA When 04/12/2019 01:45 PM EST Where: [id number] [place] [address]- Follow Up with Follow up with primary care provider When Within 1 week Comments need repeat BMP in 1 week with primary care doctor Medications What How Much When Instructions Next Dose acetaminophen-hydrocodone ([place] 5 mg-325 mg oral tablet) 1 Tablet(s) Oral Every 4 Hours as needed for for pain Printed Prescription 5:30 pm atorvastatin (atorvastatin 20 mg oral tablet) 1 Tablet(s) Oral At Bedtime 9pm dapagliflozin (Farxiga 10 mg oral tablet) 1 Tablet(s) Oral Every Day 03/31 exenatide (Bydureon BCise 2 mg/ 0.85 mL subcutaneous suspension, extended release) 2 Milligram(s) SubCutaneous Weekly per weekly schedule febuxostat (Uloric 80 mg oral tablet) 1 Tablet(s) Oral Every Day 03/31 glipiZIDE (glipiZIDE 10 mg oral tablet) 1 Tablet(s) Oral Two Times A Day 9pm hydroCHLOROthiazide (hydroCHLOROthiazide 25 mg oral tablet) 1 Tablet(s) Oral Every Day 03/31 ibuprofen (ibuprofen 800 mg oral tablet) 1 Tablet(s) Oral Three Times A Day as needed for for pain anytime isosorbide mononitrate (isosorbide mononitrate 60 mg oral tablet, extended release) 1 Tablet(s) Oral Every Morning 03/31 lisinopril (lisinopril 40 mg oral tablet) 1 Tablet(s) Oral Every Day 03/31 metFORMIN (metFORMIN 500 mg oral tablet, extended release) 2 Tablet(s) Oral Two Times A Day 9pm omeprazole (omeprazole 40 mg oral delayed release capsule) 1 Capsule(s) Oral Every Day before a meal 03/31 tamsulosin (tamsulosin 0.4 mg oral capsule) 1 Capsule(s) Oral At Bedtime 03/31 ticagrelor (Brilinta (ticagrelor) 90 mg oral tablet) 1 Tablet(s) Oral Two Times A Day 9pm aspirin (aspirin 81 mg oral tablet) 1 Tablet(s) Oral Every Day 03/31 Take your medications faithfully. Do NOT skip [...] Please dispose of unused and medications per your retail pharmacy guidance. Allergies penicillin (Shortness of breath, Hives) Immunizations This Visit No Immunizations Found Education Materials Laparoscopic Dawn Fundoplication, Care After Refer to [...] 10/29/2004 Document Revised: 08/13/2016 Document Reviewed: 11/07/2014 [employer] Interactive Patient Education ?? 2019 [employer] Soft-Food Eating Plan A soft-food eating plan [...] food, or cut food into pieces about ?? inch or smaller. Bite-sized pieces of food [...] of meat and vegetables are smaller than ?? inch. ??? Reheat leftover foods slowly so [...] Sherbet. Pudding. Fats and oils Butter. Margarine. [place], canola, sunflower, and grapeseed oil. Smooth salad dressing. Smooth cream cheese. Mayonnaise. Gravy. What foods are not allowed? The items listed bemay not be a complete list. Talk with your dietitian about what dietary choices are best for you. Grains Coarse or dry cereals, such as bran, granola, and shredded wheat. Tough or chewy crusty breads, such as Uzbek bread or baguettes. Breads with nuts, seeds, [...] Lunch meat and hotdogs. Nuts and seeds. [place] peanut butter or other nut butters. Sweets [...] 06/14/2008 Document Revised: 05/11/2017 Document Reviewed: 05/11/2017 [employer] Interactive Patient Education ?? 2019 [employer] Full Liquid Diet A full liquid diet [...] for nutrition shakes that have at least 8???10 grams of protein in each serving. ??? [...] liquid snack between each meal. ? Drink 6???8 ounces (177???237 ml) of a nutrition supplement shake with [...] cream of wheat. Soft-cooked pasta or rice pur??ed in soup. Vegetables Pulp-free tomato or vegetable juice. Vegetables pur??ed in soup. Fruits Fruit juice without pulp. Strained fruit pur??es (seeds and skins removed). Meats and other protein foods Beef, chicken, and fish broths. Powdered protein supplements. Dairy Milk and milk-based beverages, including milk shakes and instant breakfast mixes. Smooth yogurt. Pure??d cottage cheese. Beverages Water. Coffee and tea (caffeinated or decaffeinated). [place]. Liquid nutritional supplements. Soft drinks. Nondairy milks, such as almond, coconut, rice, or soy milk. Fats and oils Melted margarine and butter. Cream. Canola, almond, avocado, corn, grapeseed, sunflower, and sesame oils. Gravy. Sweets and desserts Custard. Pudding. Flavored gelatin. Smooth ice cream (without nuts or candy pieces). Sherbet. Popsicles. Maori ice. Pudding pops. Seasoning and other foods Salt and pepper. Spices. [place] powder. Vinegar. Ketchup. Yellow mustard. Smooth sauces, [...] 03/08/2006 Document Revised: 04/21/2017 Document Reviewed: 04/21/2017 [employer] Interactive Patient Education ?? 2019 [employer]. Acute Kidney Injury, Adult Acute kidney injury [...] these instructions at home: Medicines ??? Take timq-mgg-ipdmoyw and prescription medicines only as told by [...] important. Where to find more information ??? [place] [employer] Kidney Patients: www.aakp.org ??? National Kidney Foundation: www.kidney.org ??? [place] [employer]: www.akfinc.org ??? [facility] [...] 09/21/2011 Document Revised: 07/08/2017 Document Reviewed: 02/26/2017 [employer] Interactive Patient Education ?? 2019 [employer]. acetaminophen and hydrocodone (a SEET a MIN oh fen and doc droe KOE done) Hycet, Lorcet, [place], Verdrocet, Vicodin, Xodol, Zamicet What is the [...] may report side effects to FDA at 0-566-JAO-6883. What other drugs will affect acetaminophen and [...] affect acetaminophen and hydrocodone, including prescription and xrob-huq-ereirhk medicines, vitamins, and herbal products. Not all [...] to ensure that the information provided by [employer]. ('[employer]') is accurate, up-to-date, and complete, but no guarantee is made to that effect. Drug information contained herein may be time sensitive. [employer] information has been compiled for use by healthcare practitioners and consumers in the [place] and therefore [employer] does not warrant that uses outside of the [place] are appropriate, unless specifically indicated otherwise. [employer] drug information does not endorse drugs, diagnose patients or recommend therapy. [employer] drug information is an informational resource designed [...] effective or appropriate for any given patient. [employer] does not assume any responsibility for any aspect of healthcare administered with the aid of information [employer] provides. The information contained herein is not intended to cover all possible uses, directions, precautions, warnings, drug interactions, allergic reactions, or adverse effects. If you have questions about the drugs you are taking, check with your doctor, nurse or pharmacist. Copyright 0659-3708 [employer]. Version: 15.02. Revision Date: 01/24/2018. Emergency Awareness and Preventative Care STROKE is [...] Assistance with quitting is available by contacting 7-744-CVGU-NOW. This is a free resource providing counseling, [...] This Visit (last charted value for your 03/28/2019 visit) Hematology 03/29/2019 6:42 AM WBC: 9.2 K/uL -- Normal range between ( 3.6 and 9.5 ) RBC: 5.11 Million/uL -- Normal range between ( 4.20 and 5.70 ) Hct: 46.0 % -- Normal range between ( 40.1 and 51.0 ) Hgb: 15.5 g/dL -- Normal range between ( 13.5 and 17.3 ) Platelet Count: 224 K/uL -- Normal range between ( 163 and 369 ) MCH: 30.3 pg -- Normal range between ( 25.6 and 32.2 ) MCHC: 33.7 Gram/dL -- Normal range between ( 32.2 and 36.5 ) MCV: 90.0 fL -- Normal range between ( 79.0 and 94.8 ) Slide Review: No RDW: 11.9 % -- Normal range between ( 11.7 and 14.9 ) MPV: 10.7 fL -- Normal range between ( 9.4 and 12.4 ) General Chemistry 03/30/2019 11:02 AM Glucose POC2: 237 mg/dL -- Normal range between ( 70 and 110 ) Device Comment 1: Received Meds 03/29/2019 6:42 AM Creatinine Level: 1.20 mg/dL -- Normal range between ( 0.70 and 1.30 ) Sodium Level: 132 mmol/L -- Normal range between ( 136 and 146 ) Potassium Level: 3.9 mmol/L -- Normal range between ( 3.5 and 5.1 ) Chloride Level: 101 mmol/L -- Normal range between ( 102 and 112 ) Carbon Dioxide Level: 28 mmol/L -- Normal range between ( 21 and 32 ) Anion Gap: 7 -- Normal range between ( 9 and 20 ) Bun/Creatinine: 15.0 -- Normal range between ( 8.0 and 20.0 ) Calcium Level: 9.0 mg/dL -- Normal range between ( 8.4 and 10.1 ) eGFR : >60 mL/min/1.73m2 eGFR NonAfrican: >60 mL/min/1.73m2 Glucose Level: 217 mg/dL -- Normal range between ( 74 and 106 ) Magnesium Level: 2.1 mg/dL -- Normal range between ( 1.5 and 2.4 ) Blood Urea Nitrogen: 18 mg/dL -- Normal range between ( 7 and 22 ) 03/27/2019 11:26 AM Bilirubin Total: 1.0 mg/dL -- Normal range between ( 0.2 and 1.2 ) Hgb A1C: 8.2 % A/G Ratio: 0.9 -- Normal range between ( 1.1 and 2.5 ) ALT: 103 Units/Liter -- Normal range between ( 16 and 61 ) AST: 63 Units/Liter -- Normal range between ( 5 and 37 ) Globulin: 4.2 Gram/dL -- Normal range between ( 1.5 and 4.5 ) Alk Phos: 99 Units/Liter -- Normal range between ( 27 and 136 ) eAVG Glucose: 189 mg/dL Protein Total: 8.1 Gram/dL -- Normal range between ( 6.4 and 8.2 ) Albumin Level: 3.9 Gram/dL -- Normal range between ( 3.4 and 5.0 ) Coagulation 03/27/2019 11:26 AM INR: 1.1 -- Normal range between ( 0.9 and 1.1 ) PTT: 28.2 Second(s) -- Normal range between ( 24.0 and 34.0 ) PT: 11.3 Second(s) -- Normal range between ( 9.6 and 12.0 ) Diagnostic Radiology 03/29/2019 10:15 AM CR UGI WO Air: CR UGI WO Air 03/28/2019 1:18 PM CR Chest 1 Vw Portable: CR Chest 1 Vw Portable 03/27/2019 11:46 AM CR Chest 2 Vws: CR Chest 2 Vws Patient Name:ROBERTO ROMEO I have received and understand this information and was given the opportunity to ask questions. Patient/Meter Installer Name: Patient/Meter Installer Signature: Relationship to Patient: Clinician/Hospital Meter Installer Signature: Date: documented in this encounter Plan of Treatment Not on file documented as of this encounter Visit Diagnoses Not on filedocumented in this encounter
--- OUTSIDE RECORDS SUMMARY | 2024-10-09 18:59 | XMS_ITS | Referral Summary ---
Author Organization [employer] ([place], [place], [place], [place]) Address [address] [place] [address] Care Team Providers Care Quality Audit Representative Name Role Phone Unavailable Primary Care Provider Unavailabl e Social History Tobacco Use Types Packs/Day Years Used Date Smoking Tobacco: Never Assessed Sex and Gender Information Value Date Recorded Sex Assigned at Not on file Legal Sex Male 1:31 PM CDT Gender Identity Not on file Sexual Orientation Not on file Plan of Treatment Not on file
--- OUTSIDE RECORDS SUMMARY | 2024-10-09 18:59 | XMS_ITS | Encounter Summary ---
Author Organization [employer] ([place], [place], [place], [place]) Address [address] [place] [address] Care Team Providers Care Computer Hardware Engineer Name Role Phone Unavailable Primary Care Provider Unavailabl e Encounter Details Date Type Department Care Team (Late st Contact Info) Description 01/20/2019 Transcribed Document [facility] Radiology [address] [place] [address] Provider, James Pelaez MD Social History Tobacco Use Types Packs/Day Years Used Date Smoking Tobacco: Never Assessed Sex and Gender Information Value Date Recorded Sex Assigned at Not on file Legal Sex Male 1:31 PM CDT Gender Identity Not on file Sexual Orientation Not on file documented as of this encounter Miscellaneous Notes * Cerner Conversion Note - [facility] Latanya Merlos MD - 01/20/2019 9:13 PM EDT Patient Education Materials Follows: Indwelling Urinary Catheter Care, Adult An indwelling [...] problems from developing. What are the risks? EBacteria may get into your bladder and cause a urinary tract infection. EUrine flow can become blocked. This can happen if the catheter is not working correctly, or if you have sediment or a blood clot in your bladder or the catheter. ETissue near the catheter may become irritated and bleed. How to wear your catheter and your drainage bag Supplies needed EAdhesive tape or a leg strap. EAlcohol wipe or soap and water (if you use tape). EA clean towel (if you use tape). EOvernight drainage bag. ESmaller drainage bag (leg bag). Wearing your catheter and bag Use adhesive tape or a leg strap to attach your catheter to your leg. EMake sure the catheter is not pulled tight. EIf a leg strap gets wet, replace it with a dry one. EIf you use adhesive tape: 1. Use an alcohol wipe or soap and water to wash off any stickiness on your skin where you had tape before. 2. Use a clean towel to pat-dry the area. 3. Apply the new tape. You should have received a large overnight drainage bag and a smaller leg bag that fits underneath clothing. EYou may wear the overnight bag at any time, but you should not wear the leg bag at night. EAlways wear the leg bag below your knee. EMake sure the overnight drainage bag is always lower than the level of your bladder, but do not let it touch the floor. Before you go to sleep, hang the bag inside a wastebasket that is covered by a clean plastic bag. How to care for your skin around the catheter Supplies needed EA clean washcloth. EWater and mild soap. EA clean towel. Caring for your skin and catheter EEvery day, use a clean washcloth and soapy [...] on each side. Do this in a nccdl-cp-buzl direction. ? If you are male: ? [...] Wash your hands with soap and water. EShower every day. Do not take baths. Kerry not use cream, ointment, or lotion on the area where the catheter enters your body, unless your health care provider tells you to do that. Kerry not use powders, sprays, or lotions on your genital area. ECheck your skin around the catheter every day for signs of infection. Check for: ? Redness, swelling, or pain. ? Fluid or blood. ? Warmth. ? Pus or a bad smell. How to empty the drainage bag Supplies needed ERubbing alcohol. EGauze pad or cotton ball. EAdhesive tape or a leg strap. Emptying the bag Empty your drainage bag (your overnight drainage bag or your leg bag) when it is ??? full, or at least 2?3 times a day. Do not clean your [...] to change the drainage bag Supplies needed: EAlcohol wipes. EA clean drainage bag. EAdhesive tape or a leg strap. Changing the [...] hands with soap and water. General instructions ENever pull on your catheter or try to remove it. Pulling can damage your internal tissues. EAlways wash your hands before and after you handle your catheter or drainage bag. Use a mild, fragrance-free soap. If soap and water are not available, use hand food technologist. EAlways make sure there are no twists or bends (kinks) in the catheter tube. EAlways make sure there are no leaks in the catheter or drainage bag. EDrink enough fluid to keep your urine pale yellow. Kerry not take baths, swim, or use a hot tub. EIf you are female, wipe from front to back after having a bowel movement. Contact a health care provider if: EYour urine is cloudy. EYour urine smells unusually bad. EYour catheter gets clogged. EYour catheter starts to leak. EYour bladder feels full. Get help right away if: EYou have redness, swelling, or pain where the catheter enters your body. EYou have fluid, blood, pus, or a bad smell coming from the area where the catheter enters your body. EThe area where the catheter enters your body feels warm to the touch. EYou have a fever. EYou have pain in your abdomen, legs, lower back, or bladder. EYou see blood in the catheter. EYour urine is pink or red. EYou have nausea, vomiting, or chills. EYour urine is not draining into the bag. EYour catheter gets pulled out. Summary Brittanie indwelling urinary catheter is a thin, flexible, germ-free (sterile) tube that is placed into the bladder to help drain urine out of the body. EThe catheter is inserted into the part of the body that drains urine from the bladder (urethra). ETake good care of your catheter to keep it working properly and help prevent problems from developing. EAlways wash your hands before and after you handle your catheter or drainage bag. ENever pull on your catheter or try to remove it. This information is not intended to replace advice given to you by your health care provider. Make sure you discuss any questions you have with your health care provider. Document Released: 03/08/2006 Document Revised: 10/22/2017 Document Reviewed: 10/22/2017 [employer] Interactive Patient Education ? 2019 [employer] Ureteral Stent Implantation, Care After Refer [...] the procedure, it is common to have: ENausea. EMild pain when you urinate. You may feel this pain in your lower back or lower abdomen. Pain should stop within a few minutes after you urinate. This may last for up to 1 week. EA small amount of blood in your urine for several days. Follow these instructions at home: Medicines ETake kdcb-zci-thaddmj and prescription medicines only as told by your health care provider. EIf you were prescribed an antibiotic medicine, take it as told by your health care provider. Do not stop taking the antibiotic even if you start to feel better. Kerry not drive for 24 hours if you received a sedative. Kerry not drive or operate heavy machinery while taking prescription pain medicines. Activity EReturn to your normal activities as told by your health care provider. Ask your health care provider what activities are safe for you. Kerry not lift anything that is heavier than 10 lb (4.5 kg). Follow this limit for 1 week after your procedure, or for as long as told by your health care provider. General instructions EWatch for any blood in your urine. Call your health care provider if the amount of blood in your urine increases. EIf you have a catheter: ? Follow instructions from your health care provider about taking care of your catheter and collection bag. ? Do not take baths, swim, or use a hot tub until your health care provider approves. EDrink enough fluid to keep your urine clear or pale yellow. EKeep all follow-up visits as told by your health care provider. This is important. Contact a health care provider if: EYou have pain that gets worse or does not get better with medicine, especially pain when you urinate. EYou have difficulty urinating. EYou feel nauseous or you vomit repeatedly during a period of more than 2 days after the procedure. Get help right away if: EYour urine is dark red or has blood clots in it. EYou are leaking urine (have incontinence). EThe end of the stent comes out of your urethra. EYou cannot urinate. EYou have sudden, sharp, or severe pain in your abdomen or lower back. EYou have a fever. This information is not intended to replace advice given to you by your health care provider. Make sure you discuss any questions you have with your health care provider. Document Released: 11/08/2013 Document Revised: 08/13/2016 Document Reviewed: 09/20/2015 [employer] Interactive Patient Education ? 2019 [employer] Lithotripsy, Care After This sheet gives you information about how to care for yourself after your procedure. Your health care provider may also give you more specific instructions. If you have problems or questions, contact your health care provider. What can I expect after the procedure? After the procedure, it is common to have: ESome blood in your urine. This should only last for a few days. ESoreness in your back, sides, or upper abdomen for a few days. EBlotches or bruises on your back where the pressure wave entered the skin. EPain, discomfort, or nausea when pieces (fragments) of the kidney stone move through the tube that carries urine from the kidney to the bladder (ureter). Stone fragments may pass soon after the procedure, but they may continue to pass for up to 4?8 weeks. ? If you have severe pain or nausea, contact your health care provider. This may be caused by a large stone that was not broken up, and this may mean that you need more treatment. ESome pain or discomfort during urination. ESome pain or discomfort in the lower abdomen or (in men) at the base of the penis. Follow these instructions at home: Medicines ETake gynp-cpx-fwtygck and prescription medicines only as told by your health care provider. EIf you were prescribed an antibiotic medicine, take it as told by your health care provider. Do not stop taking the antibiotic even if you start to feel better. Kerry not drive for 24 hours if you were given a medicine to help you relax (sedative). Kerry not drive or use heavy machinery while taking prescription pain medicine. Eating and drinking EDrink enough water and fluids to keep your urine clear or pale yellow. This helps any remaining pieces of the stone to pass. It can also help prevent new stones from forming. EEat plenty of fresh fruits and vegetables. EFollow instructions from your health care provider about eating and drinking restrictions. You may be instructed: ? To reduce how much salt (sodium) you eat or drink. Check ingredients and nutrition facts on packaged foods and beverages. ? To reduce how much meat you eat. EEat the recommended amount of calcium for your age and gender. Ask your health care provider how much calcium you should have. General instructions EGet plenty of rest. EMost people can resume normal activities 1?2 days after the procedure. Ask your health care provider what activities are safe for you. EIf directed, strain all urine through the strainer that was provided by your health care provider. ? Keep all fragments for your health care provider to see. Any stones that are found may be sent to a medical lab for examination. The stone may be as small as a grain of salt. EKeep all follow-up visits as told by your health care provider. This is important. Contact a health care provider if: EYou have pain that is severe or does not get better with medicine. EYou have nausea that is severe or does not go away. EYou have blood in your urine longer than your health care provider told you to expect. EYou have more blood in your urine. EYou have pain during urination that does not go away. EYou urinate more frequently than usual and this does not go away. EYou develop a rash or any other possible signs of an allergic reaction. Get help right away if: EYou have severe pain in your back, sides, or upper abdomen. EYou have severe pain while urinating. EYour urine is very dark red. EYou have blood in your stool (feces). EYou cannot pass any urine at all. EYou feel a strong urge to urinate after emptying your bladder. EYou have a fever or chills. EYou develop shortness of breath, difficulty breathing, or chest pain. EYou have severe nausea that leads to persistent vomiting. EYou faint. Summary EAfter this procedure, it is common to have some pain, discomfort, or nausea when pieces (fragments) of the kidney stone move through the tube that carries urine from the kidney to the bladder (ureter). If this pain or nausea is severe, however, you should contact your health care provider. EMost people can resume normal activities 1?2 days after the procedure. Ask your health care provider what activities are safe for you. EDrink enough water and fluids to keep your urine clear or pale yellow. This helps any remaining pieces of the stone to pass, and it can help prevent new stones from forming. EIf directed, strain your urine and keep all fragments for your health care provider to see. Fragments or stones may be as small as a grain of salt. EGet help right away if you have severe pain in your back, sides, or upper abdomen or have severe pain while urinating. This information is not intended to replace advice given to you by your health care provider. Make sure you discuss any questions you have with your health care provider. Document Released: 03/27/2008 Document Revised: 01/27/2017 Document Reviewed: 01/27/2017 [employer] Interactive Patient Education ? 2019 [employer]. Outpatient Surgery, Adult, Care After These instructions [...] the procedure, it is common to have: ETenderness and numbness at the surgical site. ESwelling and bruising around the surgical site. ENausea. Follow these instructions at home: For at least 24 hours after the procedure: EHave a responsible adult stay with you. It is important to have someone help care for you until you are awake and alert. ERest as needed. Kerry not: ? Participate in activities in which you could fall or become injured. ? Drive. ? Use heavy machinery. ? Drink alcohol. ? Take sleeping pills or medicines that cause drowsiness. ? Make important decisions or sign legal documents. ? Take care of children on your own. Activity EReturn to your normal activities as told by your health care provider. Ask your health care provider what activities are safe for you. Kerry not lift anything that is heavier than 10 lb (4.5 kg), or the limit that your health care provider tells you, until your health care provider says it is okay. Kerry not play contact sports until your health care provider says it is okay. Incision care EFollow instructions from your health care provider about how to take care of an incision, if you have one. Make sure you: ? Wash your hands with soap and water before you change your bandage (dressing). If soap and water are not available, use hand food technologist. ? Change your dressing as told by [...] care provider tells you to do that. ECheck your incision area every day for signs of infection. Check for: ? More redness, swelling, or pain. ? More fluid or blood. ? Warmth. ? Pus or a bad smell. Medicines ETake rrcb-bno-wwrrjzs and prescription medicines only as told by your health care provider. Kerry not drive or use heavy machinery while taking prescription pain medicines. Eating and drinking EFollow the diet recommended by your health care provider. EWhen you are hungry, begin eating light and bland foods such as toast. Gradually return to your regular diet. EIf you vomit: ? Drink water, juice, or soup when you can drink without vomiting. ? Make sure you have little or no nausea before eating solid foods. General instructions EIf you have sleep apnea, surgery and certain medicines can increase your risk for breathing problems. Follow instructions from your HCP about wearing your sleep device: ? Anytime you are sleeping, including during daytime naps. ? While taking prescription pain medicines, sleeping medicines, or medicines that make you drowsy. Kerry not use any tobacco products, such as cigarettes, chewing tobacco, and e-cigarettes, for as long as possible. EIf you smoke, do not smoke without supervision. EKeep all follow-up visits as told by your health care provider. This is important. Contact a health care provider if: EYou have more redness, swelling, or pain around your incision. EYou have more fluid or blood coming from your incision. EYour incision feels warm to the touch. EYou have pus or a bad smell coming from your incision. EYou have a fever. EYou feel light-headed or you faint. EYou develop a rash. EYou keep feeling nauseous or keep vomiting. EYou have very bad pain, even after taking the medicines your health care provider has prescribed or recommended. EYou have constipation. Get help right away if: EYou are unable to pass urine. EYou have trouble breathing. Summary EHave a responsible adult stay with you for at least 24 hours after the procedure. ENausea is common after a procedure. Make sure you have little or no nausea before eating solid foods. Follow the diet recommended by your health care provider. EAsk your health care provider what activities are safe for you. This information is not intended to replace advice given to you by your health care provider. Make sure you discuss any questions you have with your health care provider. Document Released: 06/28/2016 Document Revised: 10/14/2017 Document Reviewed: 06/28/2016 [employer] Interactive Patient Education ? 2019 [employer] documented in this encounter Plan of Treatment Not on file documented as of this encounter Visit Diagnoses Not on filedocumented in this encounter
--- OUTSIDE RECORDS SUMMARY | 2024-10-09 18:59 | XMS_ITS | Encounter Summary ---
Author Organization [employer] ([place], [place], [place], [place]) Address [address] [place] [address] Care Team Providers Care Retail Team Leader Name Role Phone Unavailable Primary Care Provider Unavailabl e Encounter Details Date Type Department Care Team (Late st Contact Info) Description 03/29/2019 Transcribed Document [facility] Radiology [address] [place] [address] Provider, James Pelaez MD Social History Tobacco Use Types Packs/Day Years Used Date Smoking Tobacco: Never Assessed Sex and Gender Information Value Date Recorded Sex Assigned at Not on file Legal Sex Male 1:31 PM CDT Gender Identity Not on file Sexual Orientation Not on file documented as of this encounter Miscellaneous Notes * Cerner Conversion Note - [facility] Latanya ProviderMD - 03/29/2019 3:06 PM EST Initial Discharge Planning Entered On: 03/29/2019 14:11 EST Performed On: 03/29/2019 14:06 EST by HALLEY MERCADO RN-Motor Vehicle Technician Initial Assessment I Previously Documented Living Environment : No qualifying data available. Living Situation : Home Patient Lives With : Spouse Is the Patient a Caregiver at Home? : No Emergency Contact #1 : Erma Reynaldo Emergency Contact #1 Emergency Contact #1 Relationship : Emergency Contact #2 : Ryan Jacobs Emergency Contact #2 Emergency Contact #2 Relationship : brother Enter Doctors Name : Aman Allison Does Patient have PCP Listed? : Yes Legal Guardian : No Is Guardianship Needed : No HALLEY MERCADO RN-Motor Vehicle Technician - 03/29/2019 14:06 EST Initial Assessment II Sensory and Motor Deficits : None Current Home Treatments and Equipment : None Does the Patient have a Floor to SNF Benefit? : Yes HALLEY MERCADO RN-Motor Vehicle Technician - 03/29/2019 14:06 EST Discharge Needs I Anticipated Discharge Date : 03/30/2019 EST Anticipated Discharge To, CM : Home with family care Current Home Treatment/Equipment : Current Home Treatment/Equipment No qualifying data available. Post Acute/Home Treatments : None Documentation Status Complete : Yes HALLEY MERCADO RN-Motor Vehicle Technician - 03/29/2019 14:06 EST Discharge Needs II Professional Skilled Services : Professional Skilled Services No qualifying data available. 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 Met with Pt and his family on MDR rounds. Role of CM explained. Pt states that he is ADL independent. Plans are to return home with his when discharged. No needs anticipated/verbalized at this time. Plans are home tomorrow if continues to do well. RRS is low. CM will follow. HALLEY MERCADO RN-Motor Vehicle Technician - 03/29/2019 14:06 EST documented in this encounter Plan of Treatment Not on file documented as of this encounter Visit Diagnoses Not on filedocumented in this encounter
--- OUTSIDE RECORDS SUMMARY | 2024-10-09 18:59 | XMS_ITS | Encounter Summary ---
Author Organization [employer] ([place], [place], [place], [place]) Address [address] [place] [address] Care Team Providers Care Workers' Compensation Hearings Officer Name Role Phone Unavailable Primary Care Provider Unavailabl e Encounter Details Date Type Department Care Team (Late st Contact Info) Description 03/30/2019 Transcribed Document [facility] Radiology [address] [place] [address] Provider, James Pelaez MD Social History Tobacco Use Types Packs/Day Years Used Date Smoking Tobacco: Never Assessed Sex and Gender Information Value Date Recorded Sex Assigned at Not on file Legal Sex Male 1:31 PM CDT Gender Identity Not on file Sexual Orientation Not on file documented as of this encounter Miscellaneous Notes * Cerner Conversion Note - [facility] Latanya ProviderMD - 03/30/2019 12:37 PM EST Patient: ROBERTO ROMEO Age: 58 Years Sex: Male : 1960 Subjective clinically improved glucose elevated, had NVD yesterday, added lantus will need to resume home insulin regimen as outpt restart brilinta per surgery team eager for DC: may DC this afternoon? Vital Signs T: 36.7 ??C TMIN: 36.3 ??C TMAX: 36.8 ??C HR: 84 RR: 18 BP: 153/93 SpO2: 92% Oxygen Settings (Last) Oxygen Therapy Mode: Room air (03/30/19 09:27:00) Oxygen Flow Rate: 2 Liter/Min (03/29/19 09:59:00) Intake & Output Totals Last 24 Hours (7a-7a) Input Total: 1523.25 mL Output Total: 0 mL Balance: 1523.25 mL Physical Exam General: [Alert and oriented, well nourished, no acute distress]. Neurologic: [Awake, alert, and oriented X3, CN II-XII intact]. Eye: [PERRL, EOMI, normal conjunctiva]. HENT: [Normocephalic, normal hearing, moist oral mucosa, no scleral icterus Neck: [Supple, no JVD]. Lungs: [Clear to auscultation, non-labored respiration]. Heart: [Normal rate, regular rhythm, no murmur, or edema]. Abdomen: [Soft, mild distension, quiet bowel sounds, incision scars noted] Musculoskeletal: [Normal range of motion and strength, no tenderness or swelling]. Skin: [Skin is warm, dry and pink, no rashes]. Psychiatric: [Cooperative, appropriate mood and affect]. Assessment/Plan Acute renal failure, POA, resolved -uncertain baseline but no reported history -review of MAR shows multiple offending agents -including lisinopril/hctz/ibuprofen-->hold -monitor DM II with hyperglycemia -SSI -diabetic, cardiac diet when able -takes bydureon, glipizide, farxiga and metformin as outpatient -stop IVF with dextrose, discussed dick Brewster CAD -resume home meds when ok with Dr. Wilson -On atorvastatin 20, Brilinta 90 BID-->defer timing of restarting to Dr. Wilson (we discussed) HTN -resume meds when able per Dr. Wilson -prn hydralazine for systolic > 160 RA -uncertain treatment Transaminitis related to liver fibrosis -trend -tolerates 20mg atorvastatin SP robotic-assisted laparoscopic repair of paraesophageal hernia, mesh, Dawn fundoplication, Intraoperative EGD -diet per surgery -encourage IS -pain control dvt ppx: per Dr. wilson, SCD gi ppx: pepcid full code time spent: 20 mins. Defer DC timing to Dr. Wilson. We we would recommend restarting home insulin regimen. Would resume his lisinopril/hctz/ibuprofen if Dr. Wilson permits but needs follow up BMP in week to determine if these agents contributed to his preoperative ZBIGNIEW. VTE Prophylaxis - Medical Sequential Compression Device Start: 03/28/19 16:29:00 EST, Bilateral, Continuous Order (PEDRO MIKE PA-C) Sequential Compression Device Start: 03/28/19 12:29:00 EST, Bilateral, Length: Knee High, While patient is in bed, Continuous Order (SHYAM WILSON) Medications acetaminophen-HYDROcodone 325 mg-7.5 mg oral tablet, [...] Date/Time Device Comment 1 Received Meds 03/30/2019 11:02 EST Device Comment 1 Received Meds 03/30/2019 06:42 EST Device Comment 1 Received Meds 03/29/2019 22:40 EST Device Comment 1 Received Meds 03/29/2019 15:34 EST Glucose POC2 237 mg/dL (High) 03/30/2019 11:02 EST Glucose POC2 169 mg/dL (High) 03/30/2019 06:42 EST Glucose POC2 208 mg/dL (High) 03/29/2019 22:40 EST Glucose POC2 247 mg/dL (High) 03/29/2019 15:34 EST documented in this encounter Plan of Treatment Not on file documented as of this encounter Visit Diagnoses Not on filedocumented in this encounter
--- OUTSIDE RECORDS SUMMARY | 2024-10-09 18:59 | XMS_ITS | Encounter Summary ---
Author Organization [employer] ([place], [place], [place], [place]) Address [address] [place] [address] Care Team Providers Care Robotic Weld Technician Name Role Phone Unavailable Primary Care Provider Unavailabl e Encounter Details Date Type Department Care Team (Late st Contact Info) Description 03/29/2019 Transcribed Document [facility] Radiology [address] [place] [address] Provider, James Pelaez MD Social History Tobacco Use Types Packs/Day Years Used Date Smoking Tobacco: Never Assessed Sex and Gender Information Value Date Recorded Sex Assigned at Not on file Legal Sex Male 1:31 PM CDT Gender Identity Not on file Sexual Orientation Not on file documented as of this encounter Miscellaneous Notes * Cerner Conversion Note - [facility] Latanya ProviderMD - 03/29/2019 4:18 PM EST Patient: ROBERTO ROMEO Age: 58 Years Sex: Male : 1960 Subjective seen and examined struggled after with N, V and D after UGI now feeling some improved + epigastric discomfort Vital Signs T: 37.2 ??C TMIN: 36.7 ??C TMAX: 37.2 ??C HR: 105 RR: 18 BP: 132/86 SpO2: 92% Oxygen Settings (Last) Oxygen Therapy Mode: Nasal cannula (03/29/19 09:59:00) Oxygen Flow Rate: 2 Liter/Min (03/29/19 09:59:00) Intake & Output Totals Last 24 Hours (7a-7a) Input Total: 3286.25 mL Output Total: 2300 mL Balance: 986.25 mL Physical Exam General: [Alert and oriented, [...] mins. Defer DC timing to Dr. Wilson. VTE Prophylaxis - Medical Sequential Compression Device Start: 03/28/19 16:29:00 EST, Bilateral, Continuous Order (PEDRO MIKE PA-C) Sequential Compression Device Start: 03/28/19 12:29:00 EST, Bilateral, Length: Knee High, While patient is in bed, Continuous Order (SHAYM WILSON) Medications acetaminophen-HYDROcodone 325 mg-7.5 mg oral tablet, 1 Tab, Oral, Q4H, PRN Benadryl, 25 mg= 1 Tab, Oral, Q4H, PRN Dilaudid, 0.5 mg= 0.5 mL, IV Push, Q2H, PRN Flomax, 0.4 mg= 1 Cap, Oral, Daily insulin regular sliding scale, Scale D, SubCutaneous, Q6H isosorbide dinitrate, 20 mg= 1 Tab, Oral, TID Lopressor, 5 mg= 5 mL, IV Push, Q8H morphine, 3 mg= 0.75 mL, IV Push, Q2H, PRN Normal Saline 1,000 mL, 1000 mL, IntraVENous Normal Saline Flush, 10 mL, IV Push, 1-Time, PRN Pepcid, 20 mg= 2 mL, IV Push, Q12H Tylenol, 650 mg= 2 Tab, Oral, Q4H, PRN Tylenol, 650 mg= 2 Tab, Oral, Q6H, PRN Zofran, 4 mg= 2 mL, IV Push, Q6H, PRN Diagnostic Results Radiology Results (Last 48 hours) [id number] -- 03/28/2019 16:26 CR Chest 1 Vw Portable (03/28/2019 13:18) Result: PORTABLE CHEST 03/28/2019 11:30 AMHISTORY: HypoxiaCOMPARISON: 1 day priorFINDINGS: The cardiac silhouette is borderline in size. Themediastinal and hilar contours are unremarkable. There is decreasedlung volume with atelectasis. There is mild vascular congestion. Thereare no significant effusions. There is no pneumothorax. Thevisualized osseous structures demonstrate no acute abnormalities.IMPRESSION: Decreased lung volume with atelectasis and mild vascularcongestion. Images reviewed, interpreted, and dictated by Dr. Rodrigue Mead.Transcribed by Muriel Morataya (R).I have personally viewed, interpreted and dictated the examination. Ihave read and agree with the above final transcribed report. CR UGI WO Air (03/29/2019 10:15) Result: UPPER GIHISTORY: Postoperative hernia repair.FLUORO TIME: 2.2 minutes. There are 18 fluoroscopic spot and overheadimages.PROCEDURE: The patient ingested Gastrografin. Spot and overhead filmswere obtained.FINDINGS: There is narrowing of the distal esophagus presumably to befrom postoperative edema. There is no hiatal hernia. There is noextravasation of contrast identified.. There is no gastroesophagealreflux. There is mild esophageal dysmotility. The rugal fold pattern ofthe stomach is normal. The duodenal bulb is normal. IMPRESSION: Narrowing of the distal esophagus presumably to bepostoperative edema.. Images reviewed, interpreted, and dictated by Dr. Murphy Singleton.Transcribed by Justus Vidal PA-C.I have personally viewed, interpreted and dictated the examination. Ihave read and agree with the above final transcribed report. Lab Results Test Name Test Result Date/Time Sodium Level 132 mmol/L (Low) 03/29/2019 06:42 EST Potassium Level 3.9 mmol/L 03/29/2019 06:42 EST Chloride Level 101 mmol/L (Low) 03/29/2019 06:42 EST Carbon Dioxide Level 28 mmol/L 03/29/2019 06:42 EST Anion Gap 7 (Low) 03/29/2019 06:42 EST Glucose Level 217 mg/dL (High) 03/29/2019 06:42 EST Blood Urea Nitrogen 18 mg/dL 03/29/2019 06:42 EST Creatinine Level 1.20 mg/dL 03/29/2019 06:42 EST eGFR >60 mL/min/1.73m2 03/29/2019 06:42 EST eGFR NonAfrican >60 mL/min/1.73m2 03/29/2019 06:42 EST Bun/Creatinine 15.0 03/29/2019 06:42 EST Calcium Level 9.0 mg/dL 03/29/2019 06:42 EST Magnesium Level 2.1 mg/dL 03/29/2019 06:42 EST Device Comment 1 Received Meds 03/29/2019 11:19 EST Device Comment 1 Received Meds 03/29/2019 00:16 EST Glucose POC2 235 mg/dL (High) 03/29/2019 11:19 EST Glucose POC2 234 mg/dL (High) 03/29/2019 07:07 EST Glucose POC2 220 mg/dL (High) 03/29/2019 00:16 EST WBC 9.2 K/uL 03/29/2019 06:42 EST RBC 5.11 Million/uL 03/29/2019 06:42 EST Hgb 15.5 g/dL 03/29/2019 06:42 EST Hct 46.0 % 03/29/2019 06:42 EST MCV 90.0 fL 03/29/2019 06:42 EST MCH 30.3 pg 03/29/2019 06:42 EST MCHC 33.7 Gram/dL 03/29/2019 06:42 EST Platelet Count 224 K/uL 03/29/2019 06:42 EST MPV 10.7 fL 03/29/2019 06:42 EST RDW 11.9 % 03/29/2019 06:42 EST Slide Review No 03/29/2019 06:42 EST Electronically signed by [facility], [facility] Conversion Chopper Gun Operator Cerner at 08/12/2022 11:48 AM CDT documented in this encounter Plan of Treatment Not on file documented as of this encounter Visit Diagnoses Not on filedocumented in this encounter
--- OUTSIDE RECORDS SUMMARY | 2024-10-09 18:59 | XMS_ITS | Encounter Summary ---
Author Organization [employer] ([place], [place], [place], [place]) Address [address] [place] [address] Care Team Providers Care Driver Material Handler Name Role Phone Unavailable Primary Care Provider Unavailabl e Encounter Details Date Type Department Care Team (Late st Contact Info) Description 03/30/2019 Transcribed Document [facility] [address] [place] [address] Gaurang nathen Pelaez MD Social History Tobacco Use Types Packs/Day Years Used Date Smoking Tobacco: Never Assessed Sex and Gender Information Value Date Recorded Sex Assigned at Not on file Legal Sex Male 1:31 PM CDT Gender Identity Not on file Sexual Orientation Not on file documented as of this encounter Miscellaneous Notes * Cerner Conversion Note - [facility] Latanya ProviderMD - 03/30/2019 6:00 AM EST Chart Check - Review Order Profile Entered On: 03/30/2019 5:16 EST Performed On: 03/30/2019 5:00 EST by Kassandra Quesada RN Chart Check Powerplans Initiated/Discontinued as Appropriate : Yes All Active Orders Reviewed : Yes Kassandra Quesada RN - 03/30/2019 5:16 EST documented in this encounter Plan of Treatment Not on file documented as of this encounter Visit Diagnoses Not on filedocumented in this encounter
--- OUTSIDE RECORDS SUMMARY | 2024-10-09 18:59 | XMS_ITS | Encounter Summary ---
Author Organization [employer] ([place], [place], [place], [place]) Address [address] [place] [address] Care Team Providers Care Advertising Analyst Name Role Phone Unavailable Primary Care Provider Unavailabl e Encounter Details Date Type Department Care Team (Late st Contact Info) Description 03/30/2019 Transcribed Document [facility] Radiology [address] [place] [address] Provider, James Pelaez MD Social History Tobacco Use Types Packs/Day Years Used Date Smoking Tobacco: Never Assessed Sex and Gender Information Value Date Recorded Sex Assigned at Not on file Legal Sex Male 1:31 PM CDT Gender Identity Not on file Sexual Orientation Not on file documented as of this encounter Miscellaneous Notes * Cerner Conversion Note - nathen Merlos MD - 03/30/2019 5:22 PM EST Final Discharge Planning Entered On: 03/30/2019 16:23 EST Performed On: 03/30/2019 16:22 EST by HALLEY MERCADO RN-Powder Worker Tnt Final Discharge Planning Discharge Arrangements : Patient Post-Acute Information Patient Name: ROBERTO ROMEO Gender: Male : [birth year] Age: 58 Years No Post-Acute Placement(s) Listed No Post-Acute Service(s) Listed No [place] Referral(s) Listed Transportation Needs : Family/Friend Follow Up Appointment Scheduled : Yes Is Patient High/Moderate Readmission Risk? : No Patient/Family Notified of Plan : Yes Is Patient Ready for Discharge? : Yes Physician Notified Patient is Ready for Discharge? : Yes Discharge To Care Management : Home/Residential/[facility] or Self Care - HALLEY MERCADO RN-Powder Worker Tnt - 03/30/2019 16:22 EST Final Narrative Note Final Narrative Note : Discharged to home, agreeable. No needs verbalized during MDR rounds. HALLEY MERCADO, RN-Powder Worker Tnt - 03/30/2019 16:22 EST documented in this encounter Plan of Treatment Not on file documented as of this encounter Visit Diagnoses Not on filedocumented in this encounter
--- OUTSIDE RECORDS SUMMARY | 2024-10-09 18:59 | XMS_ITS | Encounter Summary ---
Author Organization [employer] ([place], [place], [place], [place]) Address [address] [place] [address] Care Team Providers Care Bonbon Cream Warmer Name Role Phone Unavailable Primary Care Provider Unavailabl e Encounter Details Date Type Department Care Team (Late st Contact Info) Description 03/28/2019 Transcribed Document [facility] [address] [place] [address] ProviderJames MD Social History Tobacco Use Types Packs/Day Years Used Date Smoking Tobacco: Never Assessed Sex and Gender Information Value Date Recorded Sex Assigned at Not on file Legal Sex Male 1:31 PM CDT Gender Identity Not on file Sexual Orientation Not on file documented as of this encounter Miscellaneous Notes * Cerner Conversion Note - [facility] Latanya ProviderMD - 03/28/2019 1:29 PM EST Consult Phone Call Documentation Entered On: 03/28/2019 20:22 EST Performed On: 03/28/2019 12:29 EST by RAIZA ROBLEDO Phone Call for Consults Consult Phone Call/Page Attempt : Other: see note by RAIZA Garcia - 03/28/2019 20:19 EST Electronically signed by James Reynoso Conversion Certified Nursing Assistant Instructor Cerner at 08/12/2022 11:49 AM CDT documented in this encounter Plan of Treatment Not on file documented as of this encounter Visit Diagnoses Not on filedocumented in this encounter
--- OUTSIDE RECORDS SUMMARY | 2024-10-09 18:59 | XMS_ITS | Encounter Summary ---
Author Organization [facility] ([place], [place], [place], [place] Address [address] [place] [address] Care Team Providers Care Popcorn Attendant Name Role Phone Unavailable Primary Care Provider Unavailabl e Encounter Details Date Type Department Care Team (Late st Contact Info) Description 01/20/2019 Transcribed Document [facility] Radiology [address] [place] [address] Provider, [facility] MD Latanya Social History Tobacco Use Types Packs/Day Years Used Date Smoking Tobacco: Never Assessed Sex and Gender Information Value Date Recorded Sex Assigned at Not on file Legal Sex Male 1:31 PM CDT Gender Identity Not on file Sexual Orientation Not on file documented as of this encounter Miscellaneous Notes * Cerner Conversion Note - [facility] Latanya ProviderMD - 01/20/2019 4:48 PM EDT [facility] Main OR IntraOp Summary Primary Physician: GUILLE GRULLON MD-URO Finalized Date/Time: 01/22/19 17:49:25 Pt. Name: ROBERTO ROMEO/Sex: 1960 Male Med Rec #: [id number] Physician: GUILLE GRULLON MD-URO Financial #: [id number] Pt. Type: O Room/Bed: Admit/Disch: 01/20/19 13:00:00 - 01/20/19 20:42:00 Institution: [facility] IntraOp Case Attendance Entry 1 Entry 2 Entry 3 Case Attendee GUILLE GRULLON BARRETT, LAURIE, MD-INEZ PEREZ MD-KIERRA LEVY CRNA Role Performed Surgeon/Proceduralist, Anesthesiologist of HAND FUR CLEANER/Nurse Car Pincher First Record Time In 01/20/19 15:30:00 01/20/19 15:30:00 01/20/19 15:30:00 Time Out 01/20/19 17:44:00 01/20/19 17:44:00 01/20/19 16:39:00 Procedure ESWL/Stent/Cysto(Bilater ESWL/Stent/Cysto(Bilater ESWL/Stent/Cysto(Bilater al) al) al) Other Attendee Superficial Wound Closed By: Last Modified By: Bruna Schmidt RN Poff, Janie, RN Poff, Janie, RN 01/20/19 17:44:28 01/20/19 17:44:28 01/20/19 17:44:28 Entry 4 Entry 5 Entry 6 Case Attendee Bettie Moran, JOHNATHAN Nina MD Poff, Janie, RN Tech Role Performed Scrub, First Resident Typesetting Machine Tender, First Time In 01/20/19 15:30:00 01/20/19 15:30:00 01/20/19 15:30:00 Time Out 01/20/19 17:44:00 01/20/19 17:44:00 01/20/19 17:44:00 Procedure ESWL/Stent/Cysto(Bilater ESWL/Stent/Cysto(Bilater ESWL/Stent/Cysto(Bilater al) al) al) Other Attendee Superficial Wound Closed By: Last Modified By: Bruna Schmidt RN Poff, Janie, RN Poff, Janie, RN 01/20/19 17:44:28 01/20/19 17:44:28 01/20/19 17:44:28 Entry 7 Entry 8 Entry 9 Case Attendee Miriam Cintron KRISTEN, PANDA, ANA LILIA CASTILLO, HAND FUR CLEANER HAND FUR CLEANER Role Performed Utilization Management Um Nurse HAND FUR CLEANER/Nurse Car Pincher HAND FUR CLEANER/Nurse Car Pincher Time In 01/20/19 15:30:00 01/20/19 16:39:00 01/20/19 17:19:00 Time Out 01/20/19 17:44:00 01/20/19 17:19:00 01/20/19 17:44:00 Procedure ESWL/Stent/Cysto(Bilater ESWL/Stent/Cysto(Bilater ESWL/Stent/Cysto(Bilater al) al) al) Other Attendee Superficial Wound Closed By: Last Modified By: Bruna Schmidt, Bruna Vital, Bruna Vital RN 01/20/19 17:44:28 01/20/19 17:44:28 01/20/19 17:44:28 [facility] IntraOp Case Attendance Audit 01/20/19 17:44:28 Javascript Web Developer: ILEANA Modifier: PORICO 1 <+> Time Out 1 <*> Procedure ESWL/Stent/Cysto(Bilateral) 2 <+> Time Out 2 <*> Procedure ESWL/Stent/Cysto(Bilateral) 3 <*> Procedure ESWL/Stent/Cysto(Bilateral) 4 <+> Time Out 4 <*> Procedure ESWL/Stent/Cysto(Bilateral) 5 <+> Time Out 5 <*> Procedure ESWL/Stent/Cysto(Bilateral) 6 <+> Time Out 6 <*> Procedure ESWL/Stent/Cysto(Bilateral) 7 <+> Time Out 7 <*> Procedure ESWL/Stent/Cysto(Bilateral) 8 <+> Time Out 8 <*> Procedure ESWL/Stent/Cysto(Bilateral) 9 <+> Time Out 9 <*> Procedure ESWL/Stent/Cysto(Bilateral) 01/20/19 17:19:25 Javascript Web Developer: ILEANA Modifier: POKACIEJAN <+> 9 Case Attendee <+> 9 Role Performed <+> 9 Time In <+> 9 Procedure 01/20/19 16:59:06 Javascript Web Developer: ILEANA Modifier: ILEANA 3 <+> Time Out 3 <*> Procedure ESWL/Stent/Cysto(Bilateral) <+> 8 Case Attendee <+> 8 Role Performed <+> 8 Time In <+> 8 Procedure 01/20/19 16:18:47 Javascript Web Developer: ILEANA Modifier: PEPPERJAN <+> 1 Procedure <+> 2 Procedure <+> 3 Procedure <+> 4 Procedure <+> 5 Procedure <+> 6 Procedure <+> 7 Procedure 01/20/19 16:18:37 Javascript Web Developer: ILEANA Modifier: ILEANA 1 <-> Procedure Extracorporeal Shockwave Lithotripsy(Bilateral) 2 <-> Procedure Extracorporeal Shockwave Lithotripsy(Bilateral) 3 <-> Procedure Extracorporeal Shockwave Lithotripsy(Bilateral) 4 <-> Procedure Extracorporeal Shockwave Lithotripsy(Bilateral) 5 <-> Procedure Extracorporeal Shockwave Lithotripsy(Bilateral) 6 <-> Procedure Extracorporeal Shockwave Lithotripsy(Bilateral) 7 <-> Procedure Extracorporeal Shockwave Lithotripsy(Bilateral) 01/20/19 16:18:09 Javascript Web Developer: ILEANA Modifier: ILEANA 1 <*> Procedure Extracorporeal Shockwave Lithotripsy(Bilateral), Cystoscopy Adult 2 <+> Time In 2 <*> Procedure Extracorporeal Shockwave Lithotripsy(Bilateral), Cystoscopy Adult 3 <+> Time In 3 <*> Procedure Extracorporeal Shockwave Lithotripsy(Bilateral), Cystoscopy Adult 4 <+> Time In 4 <*> Procedure Extracorporeal Shockwave Lithotripsy(Bilateral), Cystoscopy Adult 5 <+> Time In 5 <*> Procedure Extracorporeal Shockwave Lithotripsy(Bilateral), Cystoscopy Adult 6 <+> Time In 6 <*> Procedure Extracorporeal Shockwave Lithotripsy(Bilateral), Cystoscopy Adult 7 <+> Time In 7 <*> Procedure Extracorporeal Shockwave Lithotripsy(Bilateral), Cystoscopy Adult 01/20/19 15:54:43 Javascript Web Developer: ILEANA Modifier: ILEANA <+> 1 Procedure <+> 2 Case Attendee <+> 2 Role Performed <+> 2 Procedure <+> 3 Case Attendee <+> 3 Role Performed <+> 3 Procedure <+> 4 Case Attendee <+> 4 Role Performed <+> 4 Procedure <+> 5 Case Attendee <+> 5 Role Performed <+> 5 Procedure <+> 6 Case Attendee <+> 6 Role Performed <+> 6 Procedure <+> 7 Case Attendee <+> 7 Role Performed <+> 7 Procedure [facility] IntraOp Case Times Entry 1 Patient In Room Time 01/20/19 15:30:00 Out Room Time 01/20/19 17:44:00 Anesthesia Start Time 01/20/19 15:30:00 Stop Time 01/20/19 17:44:00 Surgery / Procedure Times Start Time 01/20/19 15:48:00 Stop Time 01/20/19 17:38:00 Last Modified By: Bruna Schmidt RN 01/20/19 17:44:12 [facility] IntraOp Case Times Audit 01/20/19 17:44:12 Javascript Web Developer: PORICO Modifier: POFFJAN <+> 1 Out Room Time <+> 1 Stop Time 01/20/19 17:38:44 Javascript Web Developer: ILEANA Modifier: POFFJAN <+> 1 Stop Time 01/20/19 15:50:57 Javascript Web Developer: ILEANA Modifier: POFFJAN <+> 1 Start Time [facility] IntraOp Communication Entry 1 Entry 2 Communication To Family/Significant other Family/Significant other Comment Start Update Communication By Bruna Schmidt, Bruna Vital RN Date and Time 01/20/19 15:51:00 01/20/19 17:00:00 Last Modified By: Bruna Schmidt RN Poff, Janie, RN 01/20/19 17:18:56 01/20/19 17:18:56 [facility] IntraOp Communication Audit 01/20/19 17:18:56 Javascript Web Developer: ILEANA Modifier: POFFJAN 1 <+> Communication By 1 <*> Comment Start <+> 2 Communication By <+> 2 Date and Time <+> 2 Communication To <+> 2 Comment [facility] IntraOp Departure from OR Entry 1 Integumentary Assessment Integumentary WDL Assessment WDL Transfer/Handoff Transfer to PACU Phase I Handoff Method Phone call Handoff Reported to HAMIDA PALMER RN Post-op Transport [facility] Via Patient Transport Bruna Schmidt RN, Accompanied by ANA LILIA CASTILLO CRNA Last Modified By: Bruna Schmidt RN 01/20/19 17:39:09 [facility] IntraOp Departure from OR Audit 01/20/19 17:39:09 Javascript Web Developer: ILEANA Modifier: POFFJAN <+> 1 Patient Transport Accompanied by <+> 1 Handoff Reported to [facility] Intra Fire Risk Assessment Entry 1 Fire Info Surgical Site or 0- No Incision Above the Xyphoid Open O2 Source 0- No (Mask or Cannula) Available Ignition 1- Yes (ESU, Laser, Light Source) Fire Risk 1 Assessment Score Fire Score Fire Risk Yes Assessment Complete Fire Risk Bruna Schmidt RN Assessment Verified By Fire Risk 01/20/19 15:48:00 Assessment Verified Date/Time Fire Risk Standard Fire Yes Safety Precautions Followed Last Modified By: Bruna Schmidt RN 01/20/19 16:03:16 [facility] IntraOp Fire Risk Assessment Audit 01/20/19 16:03:16 Javascript Web Developer: ILEANA Modifier: ILEANA 1 <*> Open O2 Source (Mask or Cannula) 1- Yes 1 <*> Fire Risk Assessment Score 2 1 <+> Fire Risk Assessment Verified Date/Time [facility] IntraOp General Case Dag Sprayer 1 Case Information OR OR 19 [facility] Case Level 1 Room Verified Yes Wound Class II - Clean-Contaminated Specialty SN Urology Anesthesia Type General ASA Class 3 Diagnosis Preop Diagnosis BILATERAL RENAL STONES Postop Same As Preop Yes Postop Diagnosis BILATERAL RENAL STONES Last Modified By: Bruna Schmidt RN 01/20/19 16:10:41 [facility] IntraOp Implant Log Entry 1 Type Implant (Synthetic) Implant Log Implant Type Other Implant STENT URET BRAID + Identification [id number] Description Implant Quantity 1 Implant Site RIGHT URETER Implant [id number] Identification Lot Number Implant [employer] Identification Sci:Urology/Gynecology Second Watch Sergeant Name: Implant [id number] Identification Catalog Number Implant Has an Yes Expiration Date Implant Expiration 12/27/20 Date Tissue Implant Last Modified By: Bruna Schmidt RN 01/20/19 16:22:14 [facility] IntraOp Intraoperative Assessment Entry 1 Handoff Method Online nursing summary Valid History / Yes Physical in Chart Preoperative Yes Checklist Reviewed/Evaluated Allergies Reviewed Yes Patient is Latex No Sensitive Isolation Not applicable Precautions Noted Level of WDL Consciousness (WDL = Alert, Oriented to Person, Place, and Time) Skin Assessment Yes Verified Present Upon IVs Arrival to OR Last Modified By: Bruna Schmidt RN 01/20/19 16:07:25 [facility] IntraOp Intraoperative Equipment Entry 1 Type Monitoring Equipment Equipment Lithotripsy Machine Intraop Monitoring Electrocardiogram Three lead placement (ECG) Electrode Placement Blood Pressure Non-Invasive BP Device Source Antiembolic Devices Antiembolic Devices Sequential compression device, knee high Antiembolic Device Bilateral Location Antiembolic Device [id number] ID Number Scopes Photo/Video Documentation Photo No Video No Intraop Equipment SEQUENTIAL COMPRESSION Comment DEVICES ON AND IN OPERATION PRIOR TO INDUCTION Last Modified By: Bruna Schmidt RN 01/20/19 16:14:18 [facility] IntraOp Medication Admin Entry 1 Entry 2 Medication/Irrigant Normal Saline 0.9% lidocaine 2% urojet 1000ml irrigation - 10ml jelly - [id number] Combo Med List Time Administered 01/20/19 15:48:00 01/20/19 16:00:00 Route of IRRIGATION LOCAL, URETHRA Administration Dose Dose 10 Unit of Measure ml Volume Administered By JOHNATHAN FRANCO MD GOODWIN, JEFFREY, MD Procedure Irrigation Irrigant Volume In 1000 mL Irrigant Volume Out 1000 mL Last Modified By: Bruna Schmidt RN Poff, Janie, RN 01/20/19 16:16:32 01/20/19 16:16:32 [facility] IntraOp Patient Positioning Entry 1 Procedure ESWL/Stent/Cysto(Bilater al) Body Position Lithotomy Left Arm Position Resting at side Right Arm Position Resting at side Left Leg Position Secured in stirrup Right Leg Position Secured in stirrup Feet Uncrossed Yes Pressure Points Yes Checked Positioning Devices Head Rest, Table, Cysto, Pad, Elbow, Stirrups/Leg Lin, Cysto, Pad, Elbow Device Position SUPINE AFTER CYSTOSCOPY, STENT. LEGS ELEVATED ON WEDGE AND PILLOW Positioned By GUILLE GRULLON MD-URO, INEZ BEAUCHAMP CRNA, JOHNATHAN FRANCO MD, Bruna Schmidt, ANTONIA, Miriam Cintron Position Verified Positioning Yes Verified by Anesthesia Positioning Yes Verified by Surgeon Last Modified By: Bruna Schmidt RN 01/20/19 16:19:39 [facility] IntraOp Patient Positioning Audit 01/20/19 16:19:39 Javascript Web Developer: POFFJAN Modifier: POFFJAN 1 <*> Procedure ESWL/Stent/Cysto(Bilateral) 1 <+> Device Position 01/20/19 16:18:48 Javascript Web Developer: POFFJAN Modifier: POFFJAN <+> 1 Procedure 01/20/19 16:18:10 Javascript Web Developer: POFFJAN Modifier: POFFJAN 1 <-> Procedure Cystoscopy Adult 01/20/19 16:01:39 Javascript Web Developer: POFFJAN Modifier: POFFJAN 1 <*> Procedure Cystoscopy Adult [facility] IntraOp Sign In Entry 1 Patient, Site, Yes Procedure Identified Surgical Consent Yes Confirmed Relevant Surgical Yes Documents Available Surgical Site N/A Marked by person performing procedure Anesthesia Machine Yes Check Completed Medication Checks Yes Completed Allergies Yes Airway Difficult Yes Airway/Aspiration Risk Difficult Yes Airway/Aspiration Intervention Equipment Available Blood Loss Risk Yes Blood Loss Yes Intervention Equipment Prepared and Ready Hypothermia Risk Yes Warming Measures Yes Taken Last Modified By: Bruna Schmidt RN 01/20/19 15:51:04 [facility] IntraOp Sign Out Entry 1 RN Confirmation Surgical Yes Procedure(s) Identified Instrument, Sponge N/A and Sharps Counts Correct/Documented Equipment Problems N/A Documented Specimen Labeled N/A Correctly Urinary Catheter N/A Documented in IView [place] Patient Yes Recovery Concerns Reviewed with Anesthesia Provider, Surgeon and RN [place] Patient Yes Management Concerns Reviewed with Anesthesia Provider, Surgeon and RN Safety Checklist Yes Elements Complete? RN Sign Out Bruna Schmidt RN Signature RN Sign Out 01/20/19 17:44:00 Signature Date/Time Plan of Care Outcome - [...] related to extraneous objects Last Modified By: Bruna Schmidt RN 01/20/19 17:44:35 [facility] IntraOp Sign Out Audit 01/20/19 17:44:35 Javascript Web Developer: ILEANA Modifier: ILEANA <+> 1 RN Sign Out Signature Date/Time [facility] IntraOp Skin Prep Entry 1 Procedure ESWL/Stent/Cysto(Bilater al) Prescribed Yes Pre-Surgical Prep Completed Prep Area Genitalia Intraop Prep Integumentary WDL Assessment WDL Prep Agents Betadine solution Prep by Bruna Schmidt RN Hair Removal Last Modified By: Bruna Schmidt RN 01/20/19 16:18:48 [facility] IntraOp Skin Prep Audit 01/20/19 16:18:48 Javascript Web Developer: ILEANA Modifier: POFFJAN <+> 1 Procedure 01/20/19 16:18:11 Javascript Web Developer: ILEANA Modifier: ILEANA 1 <-> Procedure Cystoscopy Adult [facility] IntraOp Surgical Procedures Entry 1 Procedure ESWL/Stent/Cysto Modifiers Bilateral Additional CYSTOSCOPY, RIGHT Procedure URETERAL Description CATHETERIZATION, RIGHT URETERAL STENT INSERTION, BILATERAL ESWL Primary Procedure Yes Primary Surgeon GUILLE GRULLON MD-URO Start 01/20/19 15:48:00 Stop 01/20/19 17:38:00 Anesthesia Type General Specialty SN Urology Wound Class II - Clean-Contaminated Last Modified By: Bruna Schmidt RN 01/20/19 17:38:46 [facility] IntraOp Surgical Procedures Audit 01/20/19 17:38:46 Javascript Web Developer: POFFJAN Modifier: POFFJAN <+> 1 Stop 01/20/19 16:18:43 Javascript Web Developer: POFFJAN Modifier: POFFJAN 1 <*> Procedure ESWL/Stent/Cysto 1 <*> Primary Procedure Yes 1 <*> Modifiers Bilateral 1 <*> Primary Surgeon GUILLE GRULLON MD-URO 1 <*> Specialty 1 <*> Start 01/20/19 15:48:00 1 <*> Wound Class II - Clean-Contaminated 1 <*> Anesthesia Type General 1 <*> Additional Procedure Description CYSTOSCOPY, RIGHT URETERAL CATHETERIZATION, RIGHT URETERAL STENT INSERTION, BILATERAL ESWL Entry 2 was deleted. Higher numbered entries shifted one position to fill the gap. <-> 2 Procedure Cystoscopy Adult <-> 2 Primary Procedure No <-> 2 Primary Surgeon GUILLE GRULLON MD-URO <-> 2 Specialty <-> 2 Start 01/20/19 15:48:00 <-> 2 Wound Class II - Clean-Contaminated <-> 2 Anesthesia Type General [facility] IntraOp Temp Regulation Devices Entry 1 Temp Regulation Temperature Warm blankets Regulation Device Temperature Upper body Regulation Site Temperature Bruna Schmidt RN Regulation Device Applied by Temperature monitored per Regulation Comment anesthesia, [email or web address] krause available Last Modified By: Bruna Schmidt RN 01/20/19 16:17:48 [facility] IntraOP Time Out Entry 1 Procedure to be ESWL/Stent/Cysto(Bilater Performed al) Time Out Time Out Pause Time 01/20/19 15:48:00 All activity Yes suspended (unless life threatening emergency) Team Verbally Correct patient Confirms Information identity, Consent form is present and accurate, Agreement on the procedure to be done, Correct patient position, Relevant images/results properly labeled/appropriately displayed, Confirm antibiotics have been administered, Confirm the skin prep has dried, Confirm prosthesis/implant/devic e is present, Performed in location of procedure after prepped/draped Antibiotic Yes Prophylaxis Administered Or In Progress Within the Last 60 Minutes Beta Nellie N/A Administered Venous Yes Thromboembolism Prophylaxis Required Anticipated Critical Events Surgeon None expected Anesthesia Provider None expected Nursing Assures Sterility of instruments, Implant Availability Essential Imaging Yes Labeled and Displayed Last Modified By: Bruna Schmidt RN 01/20/19 16:18:49 [facility] IntraOP Time Out Audit 01/20/19 16:18:49 Javascript Web Developer: ILEANA Modifier: POFFJAN <+> 1 Procedure to be Performed 01/20/19 16:18:38 Javascript Web Developer: ILEANA Modifier: POFFJAN 1 <-> Procedure to be Performed Extracorporeal Shockwave Lithotripsy(Bilateral) 01/20/19 16:18:11 Javascript Web Developer: ILEANA Modifier: POFFJAN 1 <*> Procedure to be Performed Extracorporeal Shockwave Lithotripsy(Bilateral), Cystoscopy Adult Case Comments <None> Finalized By: JHONATAN BUSH Document Signatures Signed By: Bruna Schmidt RN 01/20/19 17:44 JHONATAN BUSH 01/22/19 17:49 Unfinalized History Date/Time Username Reason for Unfinalizing Freetext Reason for Unfinalizing 01/22/19 17:48 [id number] Correct Billing Electronically signed by [place] [facility] Conversion Credit Interviewer Cerner at 08/12/2022 5:25 PM CDT documented in this encounter Plan of Treatment Not on file documented as of this encounter Visit Diagnoses Not on filedocumented in this encounter
--- OUTSIDE RECORDS SUMMARY | 2024-10-09 18:59 | XMS_ITS | Data Portability ---
Author Organization [facility] Address [address] [place] [address] Assessment No assessment recorded. Plan of Treatment Reminders Order Date Submit Date Provider Last Modified By Organization Details Last Modified Time Details Appointments Establish ed Patient 20 2024 02:20P Redd Connell APRN Not available Not available Not available Lab CMP, serum or plasma 2024 025 CEDRICK [facility], [address], [place], [place], [address], 08/26/2024 04:09:41 HbA1c (hemoglob in A1c), blood [email or web address], [address] [place] [address], [place], [address], 08/24/2024 15:56:21 HbA1c (hemoglob in A1c), blood 2024 025 CEDRICK [facility], [address], [place] [address], [place], [address], 05/11/2024 08:22:14 CMP, serum or plasma 2024 025 CEDRICK [facility], [address], [place], [place], [address], 05/11/2024 08:22:13 PSA, total, serum or plasma 2024 025 CEDRICK [facility], [address], [place], [place], [address], 05/11/2024 08:22:15 HbA1c (hemoglob in A1c), blood 2023 024 CEDRICK [facility], [address], [place], [place], [address], 02/08/2024 09:15:08 albumin/c reatinine , mass ratio, urine 2023 024 CEDRICKJT [facility], [address], [place], [place], [address], 02/08/2024 09:15:08 CMP, serum or plasma 2023 024 CEDRICK Guido, [address], [place], [place], [address], 02/08/2024 09:15:07 HbA1c (hemoglob in A1c), blood 2023 024 CEDRICK Guido, [address], [place], [place], [address], 09/14/2023 06:21:39 CMP, serum or plasma 2023 024 CEDRICK Guido, [address], [place] [address], [place], [address], 09/14/2023 06:21:36 CBC w/ auto diff 2023 024 CEDRICK Guido, [address], [place] [address], [place], [address], 09/14/2023 06:21:35 TSH + free T4, serum 2023 024 CEDRICK [facility], [address], [place], [place], [address], 09/14/2023 06:21:35 lipid panel, serum 2023 024 CEDRICK [facility], [address], [place], [place], [address], 09/14/2023 06:21:37 vitamin B12 + folate, serum or blood 2023 024 CEDRICK [facility], [address], [place], [place], [address], 09/14/2023 06:21:38 HbA1c (hemoglob in A1c), blood 2023 024 CEDRICK [facility], [address], [place], [place], [address], 06/15/2023 12:14:00 CMP, serum or plasma 2023 024 CEDRICK [facility], [address], [place], [place], [address], 06/15/2023 12:13:57 CBC w/ auto diff 2023 024 CEDRICK [facility], [address], [place], [place], [address], 06/15/2023 12:13:56 TSH + free T4, serum 2023 024 CEDRICK [facility], [address], [place], [place], [address], 06/15/2023 12:13:55 lipid panel, serum 2023 024 CEDRICK [facility], [address], [place] [address], [place], [address], 06/15/2023 12:13:58 microalbu min/creat inine, mass ratio, urine 2023 024 CEDRICK [facility], [address], [place] [address], [place], [address], 06/15/2023 12:13:59 Referral None recorded. Procedures None recorded. Surgeries None recorded. Imaging MRI, abdomen, w/wo contrast 2024 025 [email or web address] [facility], [address] [place] [address] [place], [address], 09/15/2024 08:00:38 CT, abdomen, w/wo contrast 2023 024 CEDRICK Rupert (Centralized Scheduling), [address] [place] [address], [place], [address], 08/11/2023 11:57:19 Medication Orders Basaglar MaewillPen U-100 Insulin 100 unit/mL (3 mL) subcutane ous 2024 025 [facility], [address] [place], [address], 06/14/2024 09:32:08 Farxiga 10 mg tablet 2024 025 [facility], [address] [place], [address], 05/10/2024 11:49:05 atorvasta tin 40 mg tablet 2024 025 [facility], [address] [place], [address], 05/10/2024 11:47:06 febuxosta t 80 mg tablet 2024 025 [facility], [address] [place], [address], 05/10/2024 11:47:53 hydrochlo rothiazid e 25 mg tablet 2024 025 [facility], [address] [place], [address], 05/10/2024 11:47:00 isosorbid e mononitra te ER 60 mg tablet,ex tended release 24 hr 2024 025 [facility], [address] [place] [address], [address], 05/10/2024 11:50:11 Pataday Once Daily Relief 0.2 % eye drops 2024 025 [place] [facility], [address] [place], [address], 05/10/2024 11:49:52 atropine 1 % eye drops 2024 025 [facility], [address] [place], [address], 06/02/2024 16:32:55 omeprazol e 40 mg capsule,d elayed release 2024 025 [facility], [address] [place], [address], 05/10/2024 11:49:26 losartan 100 mg tablet 2024 025 [facility], [address] [place], [address], 05/10/2024 11:48:01 Ozempic 2 mg/dose (8 mg/3 mL) subcutane ous pen injector 2024 025 [facility], [address] [place], [address], 05/10/2024 11:49:19 Farxiga 10 mg tablet 2023 024 [facility], [address] [place], [address], 02/07/2024 16:53:09 metformin ER 500 mg tablet,ex tended release 24 hr [email or web address] [place] [address] Pharmacy [facility], [address] [place], [address], 05/10/2024 11:36:22 Basaglar KwikPen U-100 Insulin 100 unit/mL (3 mL) subcutane ous 2023 024 [place] [facility], [address] [place], [address], 02/07/2024 16:51:42 Ozempic 1 mg/dose (4 mg/3 mL) subcutane ous pen injector 2023 [place] [facility], [address] [place], [address], 02/08/2024 19:58:48 omeprazol e 40 mg capsule,d elayed release 2023 [facility], [address] [place], [address], 02/07/2024 16:51:16 losartan 100 mg tablet 2023 C[facility], [address] [place], [address], 07/03/2024 14:53:10 febuxosta t 80 mg tablet 2023 024 CEDRICK [facility], [address] [place], [address], 03/25/2024 09:45:04 isosorbid e mononitra te ER 60 mg tablet,ex tended release 24 hr 2023 024 CEDRICK [facility], [address] [place], [address], 02/07/2024 16:50:52 Brilinta 60 mg tablet 2023 024 CEDR[facility], [address] [place], [address], 02/07/2024 16:52:49 Pataday Once Daily Relief 0.2 % eye drops 2023 024 CED[facility], [address] [place], [address], 02/07/2024 16:52:00 Ozempic 1 mg/dose (4 mg/3 mL) subcutane ous pen injector 2023 024 [email or web address] [facility], [address] [place], [address], 02/08/2024 19:58:45 Basaglar KwikPen U-100 Insulin 100 unit/mL (3 mL) subcutane ous 2023 024 [place] [facility], [address] [place], [address], 09/13/2023 09:34:39 Farxiga 10 mg tablet 2023 024 [facility], [address] [place], [address], 09/13/2023 09:33:54 metformin ER 500 mg tablet,ex tended release 24 hr 2023 024 [email or web address] [facility], [address] [place], [address], 05/10/2024 11:36:22 omeprazol e 40 mg capsule,d elayed release 2023 024 [facility], [address] [place], [address], 09/13/2023 09:34:13 febuxosta t 80 mg tablet 2023 024 CEDR[facility], [address] [place], [address], 09/13/2023 09:34:24 fluticaso ne propionat e 50 mcg/actua tion nasal spray,lev pension 2023 024 [facility], [address] [place], [address], 06/14/2023 09:47:59 Michelle Velázquez U-100 Insulin 100 unit/mL (3 mL) subcutane ous 2023 024 [place] [facility], [address] [place], [address], 06/14/2023 09:57:31 Farxiga 10 mg tablet 2023 024 [facility], [address] [place], [address], 06/14/2023 09:46:37 metformin ER 500 mg tablet,ex tended release 24 hr 2023 024 [email or web address] [facility], [address] [place], [address], 05/10/2024 11:36:22 Ozempic 0.25 mg or 0.5 mg (2 mg/3 mL) subcutane ous pen injector 2023 024 [email or web address] [facility], [address] [place], [address], 09/13/2023 08:24:38 omeprazol e 40 mg capsule,d elayed release 2023 024 [facility], [address] [place], [address], 06/14/2023 09:46:39 Patient TargetsNo targets recorded. Patient Instructions Encounter Date Encounter Id Patient Instructions Last Modified By Organization Details Last Modified Time 06/14/2023 [id number] medical record request* CEDRICK Not available 06/16/2023 15:34:21 allergies: care instructions [email or web address] Not available 06/14/2023 08:28:33 managing your allergies: care instructions [email or web address] Not available 06/14/2023 08:28:33 learning about type 2 diabetes [email or web address] Not available 06/14/2023 08:17:37 type 2 diabetes: care instructions Not available 06/14/2023 08:17:37 learning about healthy weight [email or web address] Not available 06/14/2023 08:17:38 body mass index: care instructions [email or web address] Not available 06/14/2023 08:17:38 fu in 3 months will call with ct report [email or web address] Not available 06/14/2023 09:43:41 09/13/2023 [id number] learning about type 2 diabetes [email or web address] Not available 09/13/2023 08:20:31 type 2 diabetes: care instructions [email or web address] Not available 09/13/2023 08:20:31 (OLEG) ankle brachial index* - new order/new Dx code CEDRICK Not available 10/01/2023 14:54:54 increase ozempic , fu in 3 months [email or web address] Not available 09/13/2023 08:36:24 02/07/2024 [id number] learning about type 2 diabetes [email or web address] Not available 02/07/2024 15:55:25 type 2 diabetes: care instructions [email or web address] Not available 02/07/2024 15:55:25 dry eyes: care instructions [email or web address] Not available 02/07/2024 15:55:25 will call with labs fu in 3 months [email or web address] Not available 02/07/2024 16:17:26 05/10/2024 [id number] learning about type 2 diabetes Not available 05/10/2024 11:38:06 type 2 diabetes: care instructions [email or web address] Not available 05/10/2024 11:38:05 high cholesterol : care instructions [email or web address] Not available 05/10/2024 11:38:06 sleep apnea: car e instructions [email or web address] Not available 05/10/2024 11:40:05 fu in 3 months, will call with meds and further plan of care [email or web address] Not available 05/10/2024 13:09:31 08/24/2024 [id number] body mass index: care instructions Not available 08/24/2024 15:56:21 learning about healthy weight [email or web address] Not available 08/24/2024 15:56:21 learning about type 2 diabetes [email or web address] Not available 08/24/2024 15:56:21 type 2 diabetes: care instructions [email or web address] Not available 08/24/2024 15:56:21 will call with labs and mri results fu in 3 months Not available 08/24/2024 16:54:50 Reason for Referral None Reported. Results Created Date Observation Date Name Description Value Unit Range Abnormal Flag Note LastModifiedBy Organization Detail LastModifiedTime 06/14/1906/15/2023 TSH+F REE T4 TSH 3.560 uIU/m L 0.450- 4.500 Not Available [facility] ([facility]) [address] [place], [address], 06/15/2023 12:13:55 06/14/1906/15/2023 TSH+F REE T4 T4,free(dire ct) 1.05 NG/dL 0.82-1 .77 Not Available [facility] ([facility]) [address] [place], [address], 06/15/2023 12:13:55 06/14/19 24 06/15/2023 CBC WITH DIFFE RENTI AL/PL ATELE T WBC 4.4 x10e3 /uL 3.4-10 .8 Not Available [facility] ([facility]) [address] [place], [address], 06/15/2023 12:13:56 06/14/19 24 06/15/2023 CBC WITH DIFFE RENTI AL/PL ATELE T RBC 5.23 x10e6 /uL 4.14-5 .80 Not Available [facility] ([facility]) [address] [place], [address], 06/15/2023 12:13:56 06/14/19 24 06/15/2023 CBC WITH DIFFE RENTI AL/PL ATELE T hemoglobin 15.9 g/dL 13.0-1 7.7 Not Available [facility] ([facility]) [address] [place], [address], 06/15/2023 12:13:56 06/14/19 24 06/15/2023 CBC WITH DIFFE RENTI AL/PL ATELE T hematocrit 48.6 % 37.5-5 1.0 Not Available [facility] ([facility]) [address] [place], [address], 06/15/2023 12:13:56 06/14/19 24 06/15/2023 CBC WITH DIFFE RENTI AL/PL ATELE T MCV 93 fL 79-97 Not Available [facility] ([facility]) [address] [place], [address], 06/15/2023 12:13:56 06/14/1906/15/2023 CBC WITH DIFFE RENTI AL/PL ATELE T MCH 30.4 pg 26.6-3 3.0 Not Available [facility] ([facility]) [address] [place], [address], 06/15/2023 12:13:56 06/14/19 24 06/15/2023 CBC WITH DIFFE RENTI AL/PL ATELE T MCHC 32.7 g/dL 31.5-3 5.7 Not Available [facility] ([facility]) [address] [place], [address], 06/15/2023 12:13:56 06/14/19 24 06/15/2023 CBC WITH DIFFE RENTI AL/PL ATELE T RDW 12.9 % 11.6-1 5.4 Not Available [facility] ([facility]) [address] [place], [address], 06/15/2023 12:13:56 06/14/19 24 06/15/2023 CBC WITH DIFFE RENTI AL/PL ATELE T platelets 177 x10e3 /uL 150-45 0 Not Available [facility] ([facility]) [address] [place], [address], 06/15/2023 12:13:56 06/14/19 24 06/15/2023 CBC WITH DIFFE RENTI AL/PL ATELE T neutrophils 53 % not estab. Not Available [facility] ([facility]) [address], [place], [address], 06/15/2023 12:13:56 06/14/19 24 06/15/2023 CBC WITH DIFFE RENTI AL/PL ATELE T lymphs 31 % not estab. Not Available [facility] ([facility]) [address], [place], [address], 06/15/2023 12:13:56 06/14/19 24 06/15/2023 CBC WITH DIFFE RENTI AL/PL ATELE T monocytes 11 % not estab. Not Available [facility] ([facility]) [address], [place], [address], 06/15/2023 12:13:56 06/14/19 24 06/15/2023 CBC WITH DIFFE RENTI AL/PL ATELE T eos 4 % not estab. Not Available [facility] ([facility]) [address], [place], [address], 06/15/2023 12:13:56 06/14/19 24 06/15/2023 CBC WITH DIFFE RENTI AL/PL ATELE T basos 1 % not estab. Not Available [facility] ([facility]) [address], [place], [address], 06/15/2023 12:13:56 06/14/19 24 06/15/2023 CBC WITH DIFFE RENTI AL/PL ATELE T immature cells ACTIVITIES OFFICER Not Available [facility] ([facility]) [address] [place], [address], 06/15/2023 12:13:56 06/14/19 24 06/15/2023 CBC WITH DIFFE RENTI AL/PL ATELE T neutrophils (absolute) 2.4 x10e3 /uL 1.4-7. 0 Not Available [facility] ([facility]) [address] [place], [address], 06/15/2023 12:13:56 06/14/19 24 06/15/2023 CBC WITH DIFFE RENTI AL/PL ATELE T lymphs (absolute) 1.4 x10e3 /uL 0.7-3. 1 Not Available [facility] ([facility]) [address], [place], [address], 06/15/2023 12:13:56 06/14/19 24 06/15/2023 CBC WITH DIFFE RENTI AL/PL ATELE T monocytes(ab solute) 0.5 x10e3 /uL 0.1-0. 9 Not Available [facility] ([facility]) [address], [place], [address], 06/15/2023 12:13:56 06/14/19 24 06/15/2023 CBC WITH DIFFE RENTI AL/PL ATELE T eos (absolute) 0.2 x10e3 /uL 0.0-0. 4 Not Available [facility] ([facility]) [address], [place], [address], 06/15/2023 12:13:56 06/14/19 24 06/15/2023 CBC WITH DIFFE RENTI AL/PL ATELE T baso (absolute) 0.0 x10e3 /uL 0.0-0. 2 Not Available [facility] ([facility]) [address], [place], [address], 06/15/2023 12:13:56 06/14/19 24 06/15/2023 CBC WITH DIFFE RENTI AL/PL ATELE T immature granulocytes 0 % not estab. Not Available [facility] ([facility]) [address], [place], [address], 06/15/2023 12:13:56 06/14/19 24 06/15/2023 CBC WITH DIFFE RENTI AL/PL ATELE T immature grans (abs) 0.0 x10e3 /uL 0.0-0. 1 Not Available [facility] ([facility]) [address], [place], [address], 06/15/2023 12:13:56 06/14/19 24 06/15/2023 CBC WITH DIFFE RENTI AL/PL ATELE T NRBC ACTIVITIES OFFICER Not Available [facility] ([facility]) [address], [place], [address], 06/15/2023 12:13:56 06/14/19 24 06/15/2023 CBC WITH DIFFE RENTI AL/PL ATELE T hematology comments: ACTIVITIES OFFICER Not Available [facility] ([facility]) [address], [place], [address], 06/15/2023 12:13:56 06/14/19 24 06/15/2023 COMP. METAB OLIC PANEL (14) glucose 192 mg/dL 70-99 above high normal Not Available [facility] ([facility]) [address], [place], [address], 06/15/2023 12:13:57 06/14/19 24 06/15/2023 COMP. METAB OLIC PANEL (14) BUN 15 mg/dL 8-27 Not Available [facility] ([facility]) [address] [place], [address], 06/15/2023 12:13:57 06/14/19 24 06/15/2023 COMP. METAB OLIC PANEL (14) creatinine 0.96 mg/dL 0.76-1 .27 Not Available [facility] ([facility]) [address] [place], [address], 06/15/2023 12:13:57 06/14/19 24 06/15/2023 COMP. METAB OLIC PANEL (14) eGFR 89 mL/mi n/1.7 3 >59 Not Available [facility] ([facility]) [address], [place], [address], 06/15/2023 12:13:57 06/14/19 24 06/15/2023 COMP. METAB OLIC PANEL (14) BUN/creatini ne ratio 16 10-24 Not Available [facility] ([facility]) [address] [place], [address], 06/15/2023 12:13:57 06/14/19 24 06/15/2023 COMP. METAB OLIC PANEL (14) sodium 143 mmol/ L 134-14 4 Not Available [facility] ([facility]) [address] [place], [address], 06/15/2023 12:13:57 06/14/19 24 06/15/2023 COMP. METAB OLIC PANEL (14) potassium 4.0 mmol/ L 3.5-5. 2 Not Available [facility] ([facility]) [address] [place], [address], 06/15/2023 12:13:57 06/14/19 24 06/15/2023 COMP. METAB OLIC PANEL (14) chloride 104 mmol/ L 96-106 Not Available [facility] ([facility]) [address] [place], [address], 06/15/2023 12:13:57 06/14/19 24 06/15/2023 COMP. METAB OLIC PANEL (14) carbon dioxide, total 25 mmol/ L 20-29 Not Available [facility] ([facility]) [address] [place], [address], 06/15/2023 12:13:57 06/14/19 24 06/15/2023 COMP. METAB OLIC PANEL (14) calcium 9.3 mg/dL 8.6-10 .2 Not Available [facility] ([facility]) [address] [place], [address], 06/15/2023 12:13:57 06/14/19 24 06/15/2023 COMP. METAB OLIC PANEL (14) protein, total 6.9 g/dL 6.0-8. 5 Not Available [facility] ([facility]) [address] [place], [address], 06/15/2023 12:13:57 06/14/19 24 06/15/2023 COMP. METAB OLIC PANEL (14) albumin 4.1 g/dL 3.9-4. 9 Not Available [facility] ([facility]) [address] [place], [address], 06/15/2023 12:13:57 06/14/19 24 06/15/2023 COMP. METAB OLIC PANEL (14) globulin, total 2.8 g/dL 1.5-4. 5 Not Available [facility] ([facility]) [address] [place], [address], 06/15/2023 12:13:57 06/14/19 24 06/15/2023 COMP. METAB OLIC PANEL (14) A/G ratio 1.5 1.2-2. 2 Not Available [facility] ([facility]) [address] [place], [address], 06/15/2023 12:13:57 06/14/19 24 06/15/2023 COMP. METAB OLIC PANEL (14) bilirubin, total 1.3 mg/dL 0.0-1. 2 above high normal Not Available [facility] ([facility]) [address] [place], [address], 06/15/2023 12:13:57 06/14/19 24 06/15/2023 COMP. METAB OLIC PANEL (14) alkaline phosphatase 105 IU/L 44-121 Not Available [facility] ([facility]) [address] [place], [address], 06/15/2023 12:13:57 06/14/19 24 06/15/2023 COMP. METAB OLIC PANEL (14) AST (SGOT) 24 IU/L 0-40 Not Available [facility] ([place] [facility]) [address] [place], [address], 06/15/2023 12:13:57 06/14/19 24 06/15/2023 COMP. METAB OLIC PANEL (14) ALT (SGPT) 33 IU/L 0-44 Not Available [facility] ([facility]) [address] [place], [address], 06/15/2023 12:13:57 06/14/19 24 06/15/2023 LIPID PANEL cholesterol, total 123 mg/dL 100-19 9 Not Available [facility] ([facility]) [address] [place], [address], 06/15/2023 12:13:58 06/14/19 24 06/15/2023 LIPID PANEL triglyceride s 286 mg/dL 0-149 above high normal Not Available [facility] ([facility]) [address] [place], [address], 06/15/2023 12:13:58 06/14/19 24 06/15/2023 LIPID PANEL HDL cholesterol 30 mg/dL >39 below low normal Not Available [facility] ([facility]) [address] [place], [address], 06/15/2023 12:13:58 06/14/19 24 06/15/2023 LIPID PANEL VLDL cholesterol marianne 44 mg/dL 5-40 above high normal Not Available [facility] ([facility]) [address] [place], [address], 06/15/2023 12:13:58 06/14/19 24 06/15/2023 LIPID PANEL LDL chol calc ([facility]) 49 mg/dL 0-99 Not Available [facility] ([facility]) [address] [place], [address], 06/15/2023 12:13:58 06/14/19 24 06/15/2023 LIPID PANEL comment: ACTIVITIES OFFICER Not Available [facility] ([facility]) [address] [place], [address], 06/15/2023 12:13:58 06/14/19 24 06/15/2023 ALBUM IN/CR EAT RATIO , RANDO M UR creatinine, urine 67.3 mg/dL not estab. Not Available [facility] ([facility]) [address] [place], [address], 06/15/2023 12:13:59 06/14/19 24 06/15/2023 ALBUM IN/CR EAT RATIO , RANDO M UR albumin, urine 5.0 ug/mL not estab. Not Available [facility] ([facility]) [address] [place], [address], 06/15/2023 12:13:59 06/14/19 24 06/15/2023 ALBUM IN/CR EAT RATIO , RANDO M UR alb/creat ratio 7 mg/g_ creat 0-29 Rupali l: 0 - 29 Moder ately incre ased: 30 - 300 Sever nicho incre ased: >300 Not Available [facility] ([facility]) [address], [place], [address], 06/15/2023 12:13:59 06/14/19 24 06/15/2023 HEMOG LOBIN A1C hemoglobin A1C 9.2 % 4.8-5. 6 above high normal Predi abete s: 5.7 - 6.4 Diabe anna: >6.4 Glyce joshua contr ol for adult s with diabe anna: <7.0 Not Available [facility] ([facility]) [address] [place], [address], 06/15/2023 12:14:00 08/11/19 24 08/11/2023 BLOOD UREA NITRO GEN note See Note Order ing Provi nader: Shell y Trues dell (Gerber son)A PRN Not Available [address], [place], [address], 08/11/2023 10:13:03 08/11/19 24 08/11/2023 BLOOD UREA NITRO GEN blood urea nitrogen 18 mg/dL 7-18 normal Not Available [address] , [place], [address], 08/11/2023 10:13:03 08/11/19 24 08/11/2023 BLOOD UREA NITRO GEN performing lab see note ML - [facility] [address] [facility] [id number] Not Available [address] , [place], [address], 08/11/2023 10:13:03 08/11/19 24 08/11/2023 CREAT ININE W/GFR note See Note Order ing Provi nader: Shell y Trues dell (Gerber son)A PRN Not Available [address] , [place], [address], 08/11/2023 10:13:04 08/11/19 24 08/11/2023 CREAT ININE W/GFR creatinine 1.10 mg/dL 0.70-1 .30 normal Not Available [address] , [place], [address], 08/11/2023 10:13:04 08/11/19 24 08/11/2023 CREAT ININE W/GFR GFR (estimated) 76 mL/mi n >60 normal [IM DONTAE NT]: The 2020 CKD-E PI equat ion is now the recom carole d stand keli. This versi on does not inclu de race, as do the 2008 and 2011 CKD-E PI creat inine and creat inine -cyst atin C equat ions. Plenichelle e note that the eGFR now repor [...] to a curre nt value , a 2009 CKD-E PI calcu lator is easil y tracie hable on the inter net. Calcu lated [...] ys or Kidne y damag e with rupali l or high GFR detai ls Stage [...] care of your patie nt. Not Available [address] , [place], [address], 08/11/2023 10:13:04 08/11/19 24 08/11/2023 CREAT ININE W/GFR performing lab see note ML - [facility] R [address] [place] [address] [facility] [id number] Not Available [address] , [place], [address], 08/11/2023 10:13:04 09/13/19 24 09/14/2023 TSH+F REE T4 TSH 3.030 uIU/m L 0.450- 4.500 Not Available [facility] ([facility]) [address], [place], [address], 09/14/2023 06:21:34 09/13/19 24 09/14/2023 TSH+F REE T4 T4,free(dire ct) 1.06 NG/dL 0.82-1 .77 Not Available [facility] ([facility]) [address] [place], [address], 09/14/2023 06:21:34 09/13/1909/14/2023 CBC WITH DIFFE RENTI AL/PL ATELE T WBC 7.1 x10e3 /uL 3.4-10 .8 Not Available [facility] ([facility]) [address] [place], [address], 09/14/2023 06:21:35 09/13/1909/14/2023 CBC WITH DIFFE RENTI AL/PL ATELE T RBC 5.55 x10e6 /uL 4.14-5 .80 Not Available [facility] ([facility]) [address] [place], [address], 09/14/2023 06:21:35 09/13/1909/14/2023 CBC WITH DIFFE RENTI AL/PL ATELE T hemoglobin 17.1 g/dL 13.0-1 7.7 Not Available [facility] ([facility]) [address] [place], [address], 09/14/2023 06:21:35 09/13/1909/14/2023 CBC WITH DIFFE RENTI AL/PL ATELE T hematocrit 50.7 % 37.5-5 1.0 Not Available [facility] ([facility]) [address] [place], [address], 09/14/2023 06:21:35 09/13/1909/14/2023 CBC WITH DIFFE RENTI AL/PL ATELE T MCV 91 fL 79-97 Not Available [facility] ([facility]) [address] [place], [address], 09/14/2023 06:21:35 09/13/1909/14/2023 CBC WITH DIFFE RENTI AL/PL ATELE T MCH 30.8 pg 26.6-3 3.0 Not Available [facility] ([facility]) [address] [place], [address], 09/14/2023 06:21:35 09/13/19 24 09/14/2023 CBC WITH DIFFE RENTI AL/PL ATELE T MCHC 33.7 g/dL 31.5-3 5.7 Not Available [facility] ([facility]) [address], [place], [address], 09/14/2023 06:21:35 09/13/19 24 09/14/2023 CBC WITH DIFFE RENTI AL/PL ATELE T RDW 12.9 % 11.6-1 5.4 Not Available [facility] ([facility]) [address] [place], [address], 09/14/2023 06:21:35 09/13/19 24 09/14/2023 CBC WITH DIFFE RENTI AL/PL ATELE T platelets 196 x10e3 /uL 150-45 0 Not Available [facility] ([facility]) [address] [place], [address], 09/14/2023 06:21:35 09/13/19 24 09/14/2023 CBC WITH DIFFE RENTI AL/PL ATELE T neutrophils 65 % not estab. Not Available [facility] ([facility]) [address] [place], [address], 09/14/2023 06:21:35 09/13/19 24 09/14/2023 CBC WITH DIFFE RENTI AL/PL ATELE T lymphs 22 % not estab. Not Available [facility] ([facility]) [address] [place], [address], 09/14/2023 06:21:35 09/13/19 24 09/14/2023 CBC WITH DIFFE RENTI AL/PL ATELE T monocytes 10 % not estab. Not Available [facility] ([facility]) [address], [place], [address], 09/14/2023 06:21:35 09/13/19 24 09/14/2023 CBC WITH DIFFE RENTI AL/PL ATELE T eos 3 % not estab. Not Available [facility] ([facility]) [address], [place], [address], 09/14/2023 06:21:35 09/13/19 24 09/14/2023 CBC WITH DIFFE RENTI AL/PL ATELE T basos 0 % not estab. Not Available [facility] ([facility]) [address], [place], [address], 09/14/2023 06:21:35 09/13/19 24 09/14/2023 CBC WITH DIFFE RENTI AL/PL ATELE T immature cells ACTIVITIES OFFICER Not Available [facility] ([facility]) [address] [place], [address], 09/14/2023 06:21:35 09/13/19 24 09/14/2023 CBC WITH DIFFE RENTI AL/PL ATELE T neutrophils (absolute) 4.6 x10e3 /uL 1.4-7. 0 Not Available [facility] ([facility]) [address] [place], [address], 09/14/2023 06:21:35 09/13/19 24 09/14/2023 CBC WITH DIFFE RENTI AL/PL ATELE T lymphs (absolute) 1.5 x10e3 /uL 0.7-3. 1 Not Available [facility] ([facility]) [address] [place], [address], 09/14/2023 06:21:35 09/13/19 24 09/14/2023 CBC WITH DIFFE RENTI AL/PL ATELE T monocytes(ab solute) 0.7 x10e3 /uL 0.1-0. 9 Not Available [facility] ([facility]) [address], [place], [address], 09/14/2023 06:21:35 09/13/19 24 09/14/2023 CBC WITH DIFFE RENTI AL/PL ATELE T eos (absolute) 0.2 x10e3 /uL 0.0-0. 4 Not Available [facility] ([facility]) [address], [place], [address], 09/14/2023 06:21:35 09/13/19 24 09/14/2023 CBC WITH DIFFE RENTI AL/PL ATELE T baso (absolute) 0.0 x10e3 /uL 0.0-0. 2 Not Available [facility] ([facility]) [address], [place], [address], 09/14/2023 06:21:35 09/13/19 24 09/14/2023 CBC WITH DIFFE RENTI AL/PL ATELE T immature granulocytes 0 % not estab. Not Available [facility] ([facility]) [address], [place], [address], 09/14/2023 06:21:35 09/13/19 24 09/14/2023 CBC WITH DIFFE RENTI AL/PL ATELE T immature grans (abs) 0.0 x10e3 /uL 0.0-0. 1 Not Available [facility] ([facility]) [address], [place], [address], 09/14/2023 06:21:35 09/13/19 24 09/14/2023 CBC WITH DIFFE RENTI AL/PL ATELE T NRBC ACTIVITIES OFFICER Not Available [facility] ([facility]) [address], [place], [address], 09/14/2023 06:21:35 09/13/19 24 09/14/2023 CBC WITH DIFFE RENTI AL/PL ATELE T hematology comments: ACTIVITIES OFFICER Not Available [facility] ([facility]) [address] [place], [address], 09/14/2023 06:21:35 09/13/19 24 09/14/2023 COMP. METAB OLIC PANEL (14) glucose 184 mg/dL 70-99 above high normal Not Available [facility] ([facility]) [address] [place], [address], 09/14/2023 06:21:36 09/13/19 24 09/14/2023 COMP. METAB OLIC PANEL (14) BUN 20 mg/dL 8-27 Not Available [facility] ([facility]) [address] [place], [address], 09/14/2023 06:21:36 09/13/19 24 09/14/2023 COMP. METAB OLIC PANEL (14) creatinine 1.06 mg/dL 0.76-1 .27 Not Available [facility] ([facility]) [address] [place], [address], 09/14/2023 06:21:36 09/13/19 24 09/14/2023 COMP. METAB OLIC PANEL (14) eGFR 79 mL/mi n/1.7 3 >59 Not Available [facility] ([facility]) [address] [place], [address], 09/14/2023 06:21:36 09/13/19 24 09/14/2023 COMP. METAB OLIC PANEL (14) BUN/creatini ne ratio 19 10-24 Not Available [facility] ([facility]) [address] [place], [address], 09/14/2023 06:21:36 09/13/19 24 09/14/2023 COMP. METAB OLIC PANEL (14) sodium 137 mmol/ L 134-14 4 Not Available [facility] ([facility]) [address] [place], [address], 09/14/2023 06:21:36 09/13/19 24 09/14/2023 COMP. METAB OLIC PANEL (14) potassium 4.4 mmol/ L 3.5-5. 2 Not Available [facility] ([facility]) [address] [place], [address], 09/14/2023 06:21:36 09/13/19 24 09/14/2023 COMP. METAB OLIC PANEL (14) chloride 103 mmol/ L 96-106 Not Available [facility] ([facility]) [address] [place], [address], 09/14/2023 06:21:36 09/13/19 24 09/14/2023 COMP. METAB OLIC PANEL (14) carbon dioxide, total 20 mmol/ L 20-29 Not Available [facility] ([facility]) [address], [place], [address], 09/14/2023 06:21:36 09/13/19 24 09/14/2023 COMP. METAB OLIC PANEL (14) calcium 9.3 mg/dL 8.6-10 .2 Not Available [facility] ([facility]) [address] [place], [address], 09/14/2023 06:21:36 09/13/19 24 09/14/2023 COMP. METAB OLIC PANEL (14) protein, total 7.2 g/dL 6.0-8. 5 Not Available [facility] ([facility]) [address] [place], [address], 09/14/2023 06:21:36 09/13/19 24 09/14/2023 COMP. METAB OLIC PANEL (14) albumin 4.2 g/dL 3.9-4. 9 Not Available [facility] ([facility]) [address] [place], [address], 09/14/2023 06:21:36 09/13/19 24 09/14/2023 COMP. METAB OLIC PANEL (14) globulin, total 3.0 g/dL 1.5-4. 5 Not Available [facility] ([facility]) [address] [place], [address], 09/14/2023 06:21:36 09/13/19 24 09/14/2023 COMP. METAB OLIC PANEL (14) bilirubin, total 1.4 mg/dL 0.0-1. 2 above high normal Not Available [facility] ([facility]) [address] [place], [address], 09/14/2023 06:21:36 09/13/19 24 09/14/2023 COMP. METAB OLIC PANEL (14) alkaline phosphatase 116 IU/L 44-121 Not Available [facility] ([facility]) [address] [place], [address], 09/14/2023 06:21:36 09/13/19 24 09/14/2023 COMP. METAB OLIC PANEL (14) AST (SGOT) 18 IU/L 0-40 Not Available [facility] ([facility]) [address] [place], [address], 09/14/2023 06:21:36 09/13/19 24 09/14/2023 COMP. METAB OLIC PANEL (14) ALT (SGPT) 19 IU/L 0-44 Not Available [facility] ([facility]) [address] [place], [address], 09/14/2023 06:21:36 09/13/19 24 09/14/2023 LIPID PANEL cholesterol, total 112 mg/dL 100-19 9 Not Available [facility] ([facility]) [address] [place], [address], 09/14/2023 06:21:37 09/13/19 24 09/14/2023 LIPID PANEL triglyceride s 238 mg/dL 0-149 above high normal Not Available [facility] ([facility]) [address] [place], [address], 09/14/2023 06:21:37 09/13/19 24 09/14/2023 LIPID PANEL HDL cholesterol 31 mg/dL >39 below low normal Not Available [facility] ([facility]) [address] [place], [address], 09/14/2023 06:21:37 09/13/19 24 09/14/2023 LIPID PANEL VLDL cholesterol marianne 38 mg/dL 5-40 Not Available [facility] ([facility]) [address] [place], [address], 09/14/2023 06:21:37 09/13/19 24 09/14/2023 LIPID PANEL LDL chol calc ([facility]) 43 mg/dL 0-99 Not Available [facility] ([facility]) [address] [place], [address], 09/14/2023 06:21:37 09/13/19 24 09/14/2023 LIPID PANEL LDL calc comment: ACTIVITIES OFFICER Not Available [facility] ([facility]) [address] [place], [address], 09/14/2023 06:21:37 09/13/19 24 09/14/2023 VITAM IN B12 AND FOLAT E vitamin B12 462 pg/mL 232-12 45 Not Available [facility] ([facility]) [address] [place], [address], 09/14/2023 06:21:38 09/13/19 24 09/14/2023 VITAM IN B12 AND FOLAT E folate (folic acid), serum 10.8 NG/mL >3.0 A serum folat e boyd ntrat ion of less than 3.1 ng/mL is consi dered to repre sent clini marianne defic iency . Not Available [facility] ([facility]) [address] [place], [address], 09/14/2023 06:21:38 09/13/19 24 09/14/2023 HEMOG LOBIN A1C hemoglobin A1C 8.2 % 4.8-5. 6 above high normal Predi abete s: 5.7 - 6.4 Diabe anna: >6.4 Glyce joshua contr ol for adult s with diabe anna: <7.0 Not Available [facility] ([facility]) [address] [place], [address], 09/14/2023 06:21:39 02/07/20 24 02/08/2024 COMP. METAB OLIC PANEL (14) glucose 186 mg/dL 70-99 above high normal Not Available [facility] ([facility]) [address] [place], [address], 02/08/2024 09:15:07 02/07/20 24 02/08/2024 COMP. METAB OLIC PANEL (14) BUN 21 mg/dL 8-27 normal Not Available [facility] ([facility]) [address] [place], [address], 02/08/2024 09:15:07 02/07/20 24 02/08/2024 COMP. METAB OLIC PANEL (14) creatinine 1.17 mg/dL 0.76-1 .27 normal Not Available [facility] ([facility]) [address] [place], [address], 02/08/2024 09:15:07 02/07/20 24 02/08/2024 COMP. METAB OLIC PANEL (14) eGFR 70 mL/mi n/1.7 3 >59 normal Not Available [facility] ([facility]) [address] [place], [address], 02/08/2024 09:15:07 02/07/20 24 02/08/2024 COMP. METAB OLIC PANEL (14) BUN/creatini ne ratio 18 10-24 normal Not Available [facility] ([facility]) [address] [place], [address], 02/08/2024 09:15:07 02/07/20 24 02/08/2024 COMP. METAB OLIC PANEL (14) sodium 140 mmol/ L 134-14 4 normal Not Available [facility] ([facility]) [address] [place], [address], 02/08/2024 09:15:07 02/07/20 24 02/08/2024 COMP. METAB OLIC PANEL (14) potassium 4.0 mmol/ L 3.5-5. 2 normal Not Available [facility] ([facility]) [address] [place], [address], 02/08/2024 09:15:07 02/07/20 24 02/08/2024 COMP. METAB OLIC PANEL (14) chloride 100 mmol/ L 96-106 normal Not Available [facility] ([facility]) [address] [place], [address], 02/08/2024 09:15:07 02/07/20 24 02/08/2024 COMP. METAB OLIC PANEL (14) carbon dioxide, total 24 mmol/ L 20-29 normal Not Available [facility] ([facility]) [address] [place], [address], 02/08/2024 09:15:07 02/07/20 24 02/08/2024 COMP. METAB OLIC PANEL (14) calcium 9.9 mg/dL 8.6-10 .2 normal Not Available [facility] ([facility]) [address] [place], [address], 02/08/2024 09:15:07 02/07/20 24 02/08/2024 COMP. METAB OLIC PANEL (14) protein, total 7.4 g/dL 6.0-8. 5 normal Not Available [facility] ([facility]) [address] [place], [address], 02/08/2024 09:15:07 02/07/20 24 02/08/2024 COMP. METAB OLIC PANEL (14) albumin 4.3 g/dL 3.9-4. 9 normal Not Available [facility] ([facility]) [address] [place], [address], 02/08/2024 09:15:07 02/07/20 24 02/08/2024 COMP. METAB OLIC PANEL (14) globulin, total 3.1 g/dL 1.5-4. 5 Not Available [facility] ([facility]) [address], [address], 02/08/2024 09:15:07 02/07/20 24 02/08/2024 COMP. METAB OLIC PANEL (14) bilirubin, total 1.2 mg/dL 0.0-1. 2 normal Not Available [facility] ([facility]) [address] [place], [address], 02/08/2024 09:15:07 02/07/20 24 02/08/2024 COMP. METAB OLIC PANEL (14) alkaline phosphatase 133 IU/L 44-121 above high normal Not Available [facility] ([facility]) [address] [place], [address], 02/08/2024 09:15:07 02/07/20 24 02/08/2024 COMP. METAB OLIC PANEL (14) AST (SGOT) 26 IU/L 0-40 normal Not Available [facility] ([facility]) [address] [place], [address], 02/08/2024 09:15:07 02/07/20 24 02/08/2024 COMP. METAB OLIC PANEL (14) ALT (SGPT) 33 IU/L 0-44 normal Not Available [facility] ([facility]) [address] [place], [address], 02/08/2024 09:15:07 02/07/20 24 02/08/2024 ALBUM IN/CR EATIN INE RATIO ,URIN E creatinine, urine 72.6 mg/dL not estab. normal Not Available [facility] ([facility]) [address] [place], [address], 02/08/2024 09:15:08 02/07/20 24 02/08/2024 ALBUM IN/CR EATIN INE RATIO ,URIN E albumin, urine <3.0 ug/mL not estab. Not Available [facility] ([facility]) [address] [place], [address], 02/08/2024 09:15:08 02/07/20 24 02/08/2024 ALBUM IN/CR EATIN INE RATIO ,URIN E alb/creat ratio <4 mg/g_ creat 0-29 Rupali l: 0 - 29 Moder ately incre ased: 30 - 300 Sever nicho incre ased: >300 Not Available [facility] ([facility]) [address], [place], [address], 02/08/2024 09:15:08 02/07/20 24 02/08/2024 HEMOG LOBIN A1C hemoglobin A1C 8.2 % 4.8-5. 6 above high normal Predi abete s: 5.7 - 6.4 Diabe anna: >6.4 Glyce joshua contr ol for adult s with diabe anna: <7.0 Not Available [facility] ([facility]) [address], [place], [address], 02/08/2024 09:15:08 05/10/19 25 05/11/2024 COMP. METAB OLIC PANEL (14) glucose 243 mg/dL 70-99 above high normal Not Available [facility] ([facility]) [address] [place], [address], 05/11/2024 08:22:13 05/10/19 25 05/11/2024 COMP. METAB OLIC PANEL (14) BUN 18 mg/dL 8-27 normal Not Available [facility] ([facility]) [address] [place], [address], 05/11/2024 08:22:13 05/10/19 25 05/11/2024 COMP. METAB OLIC PANEL (14) creatinine 1.11 mg/dL 0.76-1 .27 normal Not Available [facility] ([facility]) [address] [place], [address], 05/11/2024 08:22:13 05/10/19 25 05/11/2024 COMP. METAB OLIC PANEL (14) eGFR 75 mL/mi n/1.7 3 >59 normal Not Available [facility] ([facility]) [address] [place], [address], 05/11/2024 08:22:13 05/10/19 25 05/11/2024 COMP. METAB OLIC PANEL (14) BUN/creatini ne ratio 16 10-24 normal Not Available [facility] ([facility]) [address] [place], [address], 05/11/2024 08:22:13 05/10/19 25 05/11/2024 COMP. METAB OLIC PANEL (14) sodium 140 mmol/ L 134-14 4 normal Not Available [facility] ([facility]) [address] [place], [address], 05/11/2024 08:22:13 05/10/19 25 05/11/2024 COMP. METAB OLIC PANEL (14) potassium 4.2 mmol/ L 3.5-5. 2 normal Not Available [facility] ([facility]) [address] [place], [address], 05/11/2024 08:22:13 05/10/19 25 05/11/2024 COMP. METAB OLIC PANEL (14) chloride 102 mmol/ L 96-106 normal Not Available [facility] ([facility]) [address] [place], [address], 05/11/2024 08:22:13 05/10/19 25 05/11/2024 COMP. METAB OLIC PANEL (14) carbon dioxide, total 24 mmol/ L 20-29 normal Not Available [facility] ([facility]) [address], [address], 05/11/2024 08:22:13 05/10/19 25 05/11/2024 COMP. METAB OLIC PANEL (14) calcium 9.2 mg/dL 8.6-10 .2 normal Not Available [facility] ([facility]) [address], [address], 05/11/2024 08:22:13 05/10/19 25 05/11/2024 COMP. METAB OLIC PANEL (14) protein, total 7.2 g/dL 6.0-8. 5 normal Not Available [facility] ([facility]) [address] [place], [address], 05/11/2024 08:22:13 05/10/19 25 05/11/2024 COMP. METAB OLIC PANEL (14) albumin 4.3 g/dL 3.9-4. 9 normal Not Available [facility] ([facility]) [address] [place], [address], 05/11/2024 08:22:13 05/10/19 25 05/11/2024 COMP. METAB OLIC PANEL (14) globulin, total 2.9 g/dL 1.5-4. 5 Not Available [facility] ([facility]) [address] [place], [address], 05/11/2024 08:22:13 05/10/19 25 05/11/2024 COMP. METAB OLIC PANEL (14) bilirubin, total 1.3 mg/dL 0.0-1. 2 above high normal Not Available [facility] ([facility]) [address] [place], [address], 05/11/2024 08:22:13 05/10/19 25 05/11/2024 COMP. METAB OLIC PANEL (14) alkaline phosphatase 106 IU/L 44-121 normal Not Available [facility] ([facility]) [address], [place], [address], 05/11/2024 08:22:13 05/10/19 25 05/11/2024 COMP. METAB OLIC PANEL (14) AST (SGOT) 22 IU/L 0-40 normal Not Available [facility] ([facility]) [address] [place], [address], 05/11/2024 08:22:13 05/10/19 25 05/11/2024 COMP. METAB OLIC PANEL (14) ALT (SGPT) 31 IU/L 0-44 normal Not Available [facility] ([facility]) [address] [place], [address], 05/11/2024 08:22:13 05/10/19 25 05/11/2024 HEMOG LOBIN A1C hemoglobin A1C 7.6 % 4.8-5. 6 above high normal Predi abete s: 5.7 - 6.4 Diabe anna: >6.4 Glyce joshua contr ol for adult s with diabe anna: <7.0 Not Available [facility] ([facility]) [address] [place], [address], 05/11/2024 08:22:14 05/10/19 25 05/11/2024 PROST ATE-S PECIF IC AG prostate specific Ag 0.2 NG/mL 0.0-4. 0 normal Angeli ECLIA metho dolog y. Accor ding to the [employer]i can [employer] i[employer] n, Serum PSA shoul d decre ase and remai n at undet ectab le level s after radic al prost atect aracely. The AUA defin es bioch emica l recur rence as an initi al PSA value 0.2 ng/mL or great er follo wed by a subse quent confi rmato ry PSA value 0.2 ng/mL or great er. Value s obtai oh with diffe rent assay metho ds or kits canno t be used inter [facility] . Resul ts canno t be inter prete d as absol jason evide nce of the prese nce or absen ce of [facility] se. Not Available [facility] ([facility]) [address] [place], [address], 05/11/2024 08:22:15 08/25/19 25 08/25/2024 COMP. METAB OLIC PANEL (14) glucose 232 mg/dL 70-99 above high normal Not Available [facility] ([facility]) [address] [place], [address], 08/26/2024 04:09:41 08/25/19 25 08/25/2024 COMP. METAB OLIC PANEL (14) BUN 20 mg/dL 8-27 normal Not Available [facility] ([facility]) [address] [place], [address], 08/26/2024 04:09:41 08/25/19 25 08/25/2024 COMP. METAB OLIC PANEL (14) creatinine 1.08 mg/dL 0.76-1 .27 normal Not Available [facility] ([facility]) [address] [place], [address], 08/26/2024 04:09:41 08/25/19 25 08/25/2024 COMP. METAB OLIC PANEL (14) eGFR 77 mL/mi n/1.7 3 >59 normal Not Available [facility] ([facility]) [address] [place], [address], 08/26/2024 04:09:41 08/25/19 25 08/25/2024 COMP. METAB OLIC PANEL (14) BUN/creatini ne ratio 19 10-24 normal Not Available [facility] ([facility]) [address] [place], [address], 08/26/2024 04:09:41 08/25/19 25 08/25/2024 COMP. METAB OLIC PANEL (14) sodium 139 mmol/ L 134-14 4 normal Not Available [facility] ([facility]) [address] [place], [address], 08/26/2024 04:09:41 08/25/19 25 08/25/2024 COMP. METAB OLIC PANEL (14) potassium 3.7 mmol/ L 3.5-5. 2 normal Not Available [facility] ([facility]) [address] [place], [address], 08/26/2024 04:09:41 08/25/19 25 08/25/2024 COMP. METAB OLIC PANEL (14) chloride 102 mmol/ L 96-106 normal Not Available [facility] ([facility]) [address] [place], [address], 08/26/2024 04:09:41 08/25/19 25 08/25/2024 COMP. METAB OLIC PANEL (14) carbon dioxide, total 20 mmol/ L 20-29 normal Not Available [facility] ([facility]) [address] [place], [address], 08/26/2024 04:09:41 08/25/19 25 08/25/2024 COMP. METAB OLIC PANEL (14) calcium 9.3 mg/dL 8.6-10 .2 normal Not Available [facility] ([facility]) [address] [place], [address], 08/26/2024 04:09:41 08/25/19 25 08/25/2024 COMP. METAB OLIC PANEL (14) protein, total 7.5 g/dL 6.0-8. 5 normal Not Available [facility] ([facility]) [address] [place], [address], 08/26/2024 04:09:41 06/05/20 25 08/25/2024 COMP. METAB OLIC PANEL (14) albumin 4.4 g/dL 3.9-4. 9 normal Not Available [facility] ([facility]) [address] [place], [address], 08/26/2024 04:09:41 08/25/19 25 08/25/2024 COMP. METAB OLIC PANEL (14) globulin, total 3.1 g/dL 1.5-4. 5 Not Available [facility] ([facility]) [address] [place], [address], 08/26/2024 04:09:41 08/25/19 25 08/25/2024 COMP. METAB OLIC PANEL (14) bilirubin, total 1.2 mg/dL 0.0-1. 2 normal Not Available [facility] ([facility]) [address] [place], [address], 08/26/2024 04:09:41 08/25/19 25 08/25/2024 COMP. METAB OLIC PANEL (14) alkaline phosphatase 117 IU/L 44-121 normal Not Available [facility] ([facility]) [address] [place], [address], 08/26/2024 04:09:41 08/25/19 25 08/25/2024 COMP. METAB OLIC PANEL (14) AST (SGOT) 22 IU/L 0-40 normal Not Available [facility] ([facility]) [address] [place], [address], 08/26/2024 04:09:41 08/25/19 25 08/25/2024 COMP. METAB OLIC PANEL (14) ALT (SGPT) 24 IU/L 0-44 normal Not Available [facility] ([facility]) [address] [place], [address], 08/26/2024 04:09:41 06/05/08/24/2024 HbA1c (hemo globi n A1c), blood HbA1C 7.5 % Not Available [facility] [address], [place], [address], 08/24/2024 15:55:55 06/15/19 24 02/02/2023 CT, abdom en + pelvi s, w/wo contr ast No observ ation record ed. BARCODE Not Available 2023 08:37:40 08/11/19 24 08/11/2023 CT, abdom en, w/wo contr ast [facility] Name: ADALID JACOBS [facility]: Truesd ell (Allis on)APR N,[place] [address] : 1960 Age: 62 Sex: M Acct: [id number] Loc: G.CT PHONE #: Exam Date: 2023 Status : REG CLI FAX #: [phone] Rad# [id number] Unit# [id number] Admit Date: 2023 EXAMS: CPT CODE: [id number] CT ABDOME N W/[place] [address] CLINIC AL INFORM ATION: Follow -up indete rminat e left renal lesion COMPAR KATELYN: 2022, 2022, and 014 TECHNI QUE: Multis lice axial precon trast, arteri al phase, nephro gram phase and delaye d enhanc ed phase imagin g was perfor med throug h the kidney s. 2-D recons tructi ons were perfor med in the arthur l plane. Automa tiffany exposu re contro l was employ ed for dose reduct ion. FINDIN GS: Cholec ystect aracely. Liver, spleen , pancre as, and the adrena l glands have a normal appear ance. Small hiatal hernia . Stomac h otherw ise unrema rkable . Visual ized bowel unrema rkable . There are multip le nonobs tructi ng stones in the bilate ral kidney s as before withou t obstru ctive uropat hy. There are rosio us subcen timete r and suprac entime ter cysts on the bilate ral kidney s as before . In partic ular, there is a stable 2.3 x 1.9 x 1.7 cm exophy tic circum scribe d nodula r opacit y anteri or aspect of the upper pole left kidney with somewh at hetero geneou s precon trast densit y measur ements rangin g from 15-22 HU . Again, there is equivo marianne enhanc ement up to 32 HU . IMPRES KYLEIGH: 1. Stable indete rminat e 2.3 cm cortic al lesion anteri or aspect upper pole left kidney with equivo marianne enhanc ement. *Recom mend MRI examin ation with and withou t gadoli nium for furthe r charac teriza tion. 2. Bilate ral nonobs tructi ng nephro lithia sis and benign cortic al cysts as before . Commun icatio n: Per this writte [...] the Fleisc hner [employer]et y criter ia. PAGE 1 Signed Report (LEORA NUED) [facility] Name: ADLAID JACOBS [facility] [employer] Phys: Truesd ell (Allis on)APR [place] [address] : 1960 Age: 62 Sex: M Acct: [id number] Loc: Madelyn.CT PHONE #: [phone] Exam Date: 2023 Status : REG CLI FAX #: [phone] Rad# [id number] Unit# [id number] Admit Date: 2023 EXAMS: CPT CODE: [id number] CT ABDOME N W/WO CONTRA ST [address] This report is genera tiffany using voice recogn ition comput er softwa re. Inadve rtent errors may have occurr ed while dictat ing report . Common sense approa ch is apprec iated and do not hesita te to call for ligia scotttio n when necess akin. y. Electr onical ly Signed by Joleen Howard on 2023 at 1151 Report ed and signed by: LADI Howard M.D. CC: Geo Hansonsd ell (Allis on)JUN N; Miguel pruitt ACTIVITIES OFFICER Dictat ed Date/T marly: 2023 (1151) Techno logist : KIRK ESTEBAN Transc ribed Date/T marly: 2023 (1151) Transc riptio nist: DR.HAR RODRIGUEZ Electr onic Signat ure Date/T marly: 2023 (1151) Printe d Date/T marly: 2023 (1155) BATCH NO: N/A PAGE 2 Signed Report CC'ed Logic: Orderi ng Provid er: ALLISO N GEO Attend ing Provid er: ALLISO N GEO Referr ing Provid er: ALLISO N GEO Consul ting Provid er: KELESY Rainey [email or web address] [place], [address], 08/12/2023 16:42:27 08/31/19 24 08/31/2023 - MRI abdom en w/wo contr ast [facility] Name: ADALID JACOBS [facility] [employer] Phys: Truesd ell (Allis on)JUN N, [place] [address] : 1960 Age: 63 Sex: M Acct: [id number] Loc: G.MRI PHONE #: Exam Date: 2023 Status : REG CLI FAX #: [phone] Rad# [id number] Unit# [id number] Admit Date: 2023 EXAMS: CPT CODE: [id number] MRI ABDOME N W/[place] [address] CLINIC AL INFORM ATION: Follow -up indete rminat e 2.1 cm cortic al lesion anteri thom upper pole left kidney COMPAR KATELYN: Renal CT 024 as well as older CT studie s of the abdome n TECHNI QUE: Multie cho multip lanar unenha nced imagin g of the abdome n/kidn eys was perfor med before and after gadoli nium enhanc ement includ ing multip hase axial postga dolini um imagin g. FINDIN GS: There are rosio us simple cysts scatte red on the bilate ral kidney s. There is a 2.1 cm exophy tic lesion anteri or aspect upper pole left kidney which exhibi ts no visibl e enhanc ement or other suspic ious featur e. Bilate ral nonobs tructi ng nephro lithia sis. Remain ing study of the abdome n is unrema rkable . IMPRES KYLEIGH: 1. 2.1 cm exophy tic lesion anteri or aspect upper pole left kidney appear s to reflec t a comple x/prot einace ous cyst. Recomm end follow -up MRI examin ation in one year to ensure stabil ity. This report is genera tiffany using voice recogn ition comput er softwa re. Inadve rtent errors may have occurr ed while dictat ing report . Common sense approa ch is apprec iated and do not hesita te to call for ligia howard when necess akin. Electr onical ly Signed by Joleen Howard on 2023 at 1016 Report ed and signed by: LADI Howard M.D. PAGE 1 Signed Report (LEORA NUED) [facility] Name: ADALID JACO[facility] [employer] Phys: Truesd ell (Allis on)APR N,[place] [address] : 1960 Age: 63 Sex: M Acct: [id number] Loc: G.MRI PHONE #: Exam Date: 2023 Status : REG CLI FAX #: Rad# [id number] Unit# [id number] Admit Date: 2023 EXAMS: CPT CODE: [id number] MRI ABDOME N W/WO CONTRA ST [address] CC: Geo Joseph ell (Allis on)APR N; Miguel pruitt ACTIVITIES OFFICER Dictat ed Date/T marly: 2023 (1016) Techno logist : AYUSH POWELLVIS RT(R)( M)(CT) (MR) Transc ribed Date/T marly: 2023 (1016) Transc riptio nist: DR.HAR JENNIFER Scott onic Signat ure Date/T marly: 2023 (1016) Printe d Date/T marly: 2023 (1019) BATCH NO: N/A PAGE 2 Signed Report CC'ed Logic: Orderi ng Provid er: SAYDA GUARDADO Attend ing Provid er: ALLISO Andra GUARDADO Referr ing Provid er: KELSEY Rainey Consul ting Provid er: KELSEY Rainey [address] , [place], [address], 09/01/2023 16:25:06 10/01/19 24 10/01/2023 (OLEG) ankle brach ial index * No observ ation record ed. [address] (Central Scheduling) [address] [facility] , [place], [address], 10/04/2023 16:08:49 12/23/19 24 12/23/2023 CT, angio gram, chest , w/ contr ast No observ ation record ed. [facility] [address], [place], [address], 12/24/2023 08:41:05 12/23/19 24 12/23/2023 elect rocar diogr am No observ ation record ed. [facility] [address], [place], [address], 12/24/2023 08:37:58 Result Notes Documentation Provider Name and Address Organization Details Recorded Time Ct, Abdomen, W/wo Contrast : [facility] Ce Name: ADALID JACOBS [employer] Phys: Geo Connell APRN ([place]ison) [place] [address] : 1960 Age: 62 Sex: M Acct: [id number] Loc: G.CT PHONE #: Exam Date: 08/11/2023 Status: REG CLI FAX #: Rad# [id number] Unit# [id number] Admit Date: 08/11/2023 EXAMS: CPT CODE: [id number] CT ABDOMEN W/WO CONTRAST 37639 CLINICAL INFORMATION: Follow-up indeterminate left renal lesion COMPARISON: 02/02/2023, 01/01/2023, and 08/11/2013 TECHNIQUE: Multislice axial precontrast, arterial phase, nephrogram phase and delayed enhanced phase imaging was performed through the kidneys. 2-D reconstructions were performed in the coronal plane. Automated exposure control was employed for dose reduction. FINDINGS: Cholecystectomy. Liver, spleen, pancreas, and the adrenal glands have a normal appearance. Small hiatal hernia. Stomach otherwise unremarkable. Visualized bowel unremarkable. There are multiple nonobstructing stones in the bilateral kidneys as before without obstructive uropathy. There are numerous subcentimeter and supracentimeter cysts on the bilateral kidneys as before. In particular, there is a stable 2.3 x 1.9 x 1.7 cm exophytic circumscribed nodular opacity anterior aspect of the upper pole left kidney with somewhat heterogeneous precontrast density measurements ranging from 15-22 HU . Again, there is equivocal enhancement up to 32 HU . IMPRESSION: 1. Stable indeterminate 2.3 cm cortical lesion anterior aspect upper pole left kidney with equivocal enhancement. *Recommend MRI examination with and without gadolinium for further characterization. 2. Bilateral nonobstructing nephrolithiasis and benign cortical cysts as before. Communication: Per this written report. NOTE: Any [...] be based on the Fleischner Society criteria. PAGE 1 Signed Report (CONTINUED) [facility] Ce Name: ADALID JACOBS [employer] Phys: Becki [place]QUED[place] ([place] [address] : 1960 Age: 62 Sex: M Acct: [id number] Loc: G.CT PHONE #: Exam Date: 08/11/2023 Status: REG CLI FAX #: Rad# [id number] Unit# [id number] Admit Date: 08/11/2023 EXAMS: CPT CODE: [id number] CT ABDOMEN W/WO CONTRAST 77977 This report is generated using voice recognition computer software. Inadvertent errors may have occurred while dictating report. Common sense approach is appreciated and do not hesitate to call for clarification when necessary. y. at 1151 Reported and signed by: DAREN GLEZ M.D. CC: Geo Connell APRN (Allison); Aman Allison ACTIVITIES OFFICER Dictated Date/Time: 08/11/2023 (1151) Technologist: KIRK ESTEBAN Transcribed Date/Time: 08/11/2023 (1151) Shrimp Peeler: Electronic Signature Date/Time: 08/11/2023 (1151) Printed Date/Time: 08/11/2023 (1155) BATCH NO: N/A PAGE 2 Signed Report CC'ed Logic: Ordering Provider: IRINA GUARDADO Attending Provider: IRINA GUARDADO Referring Provider: IRINA GUARDADO Consulting Provider: ARTI Mooney - [facility] 08/12/2023 16:42:27 Problems Name Problem SNOMED Code Status Onset Date Resolution Date Notes Provider Name and Address Organization Details Recorded Time Gouty arthropathy 617503127 Active 2016 Aman Allison APRN [address], [place], [address], [place] - [facility] 7 15:32:25 Type 2 diabetes mellitus 83133695 Active 2017 Leticia mark, ARTI - [facility] 8 08:37:57 History of myocardial infarction 245253264 Active 2017 Charmaine Mckenna null, ARTI - [facility] 8 09:38:11 Hypercholester olemia 96769959 Active 2018 Leticia mark, [place] - [facility] 9 09:09:39 Metabolic dysfunction-as sociated steatohepatiti s 032559040 Active 2019 Aman Allison, ETHANOL OPERATIONS MANAGER [address], [place], [address], [place] - [facility] 0 16:36:02 Essential hypertension 92365697 Active 2019 Aman Cainstephany, ETHANOL OPERATIONS MANAGER [address], [place], [address], [place] - [facility] 0 10:13:48 Kidney stone 72367714 Active 2020 Aman Allison, ETHANOL OPERATIONS MANAGER [address], [place], [address], [place] - [facility] 1 11:07:36 Gout 68362196 Active 2020 Aman Allison, ETHANOL OPERATIONS MANAGER [address], [place], [address], [place] - [facility] 1 11:07:39 Tension-type headache 105611867 Active 2020 Aman Allison, ETHANOL OPERATIONS MANAGER [address], [place], [address], [place] - [facility] 1 08:57:50 Problem Notes None recorded. Procedures Surgical History Date Name Laterality Status Provider Name and Address Organization Details Recorded Time 04/22/19 21 Systolic B/P less than 130 mm Hg completed Leticia Forrest [place] - [facility] 04/22/2020 10:52:58 04/22/19 21 Diastolic B/P 80-89 mm Hg completed Leticia Forrest [place] - [facility] 04/22/2020 10:53:01 04/22/19 21 cataract surgery [facility] [place] [facility] 08/28/2022 10:44:40 10/27/19 20 Diastolic B/P greater than or equal to 90 mm Hg [facility] 10/27/2019 10:06:34 10/27/19 20 Systolic B/P 130-139 mm Hg completed [facility] 10/27/2019 10:06:26 10/27/19 20 Medication Reconcilliation completed [facility] 10/26/2019 14:53:48 05/23/19 20 Systolic B/P less than 130 mm Hg completed [facility] 05/23/2019 16:01:31 05/23/19 20 Diastolic B/P less than 80 mm Hg completed [facility] 05/23/2019 16:01:32 04/07/19 20 Systolic B/P less than 130 mm Hg completed [facility] 04/07/2019 11:30:06 04/07/19 20 Diastolic B/P less than 80 mm Hg completed [facility] 04/07/2019 11:30:07 04/05/19 20 Systolic B/P less than 130 mm Hg completed [facility] 04/05/2019 10:54:10 04/05/19 20 Diastolic B/P 80-89 mm Hg completed [facility] 04/05/2019 10:54:12 03/28/19 20 laparoscopic total fundoplication using abdominal approach completed [facility] 04/05/2019 10:48:27 12/27/19 19 Systolic B/P less than 130 mm Hg completed [facility] 12/26/2018 14:41:06 12/27/19 19 Diastolic B/P less than 80 mm Hg completed [facility] 12/26/2018 14:41:09 11/23/19 19 Systolic B/P less than 130 mm Hg completed [facility] 11/22/2018 10:16:48 11/23/19 19 Diastolic B/P 80-89 mm Hg completed [facility] 11/22/2018 10:16:50 11/16/19 19 Advance Care Planning completed [facility] 11/15/2018 08:32:59 11/16/19 19 Diastolic B/P 80-89 mm Hg completed [facility] 11/15/2018 08:41:27 11/16/19 19 Systolic B/P 130-139 mm Hg completed [facility] 11/15/2018 08:41:24 11/16/19 19 Functional Status Assessed completed [facility] 11/15/2018 08:32:59 04/12/19 19 Systolic B/P less than 130 mm Hg completed [facility] 04/12/2018 10:27:34 04/12/19 19 Diastolic B/P 80-89 mm Hg completed [facility] 04/12/2018 10:27:44 08/28/19 18 Cardiac Cath completed Charmaine Clarisa [facility] 12/31/2017 09:38:33 08/03/19 18 Advance Care Planning completed Jess Vickers RN [address], [address], [facility] 08/02/2017 08:41:17 03/22/19 08 Cholecystectomy, laparoscopic completed Aman Allison APRN [address], [address], [facility] 06/02/2016 12:51:58 cardiac catheterization completed [facility] 08/12/2020 13:46:40 Imaging Results None recorded. Procedure Notes None recorded. Medical Equipment None Reported. Allergies Allergen ID Allergen Name Allergen Category Reaction Reaction Severity Criticality Documentation Date Start Date Code Code System Note Provider Name and Address Organization Details Recorded Time 42476 Product containin g penicilli n (product) medicatio n hives Not available Not available 12/27/20152008 69721 8001 SNOMED React ion: hives ; Not [...] Status: Recorded on: 07/16/19 16 4:46PM;U ser: chandan loza;Printe d: 07/16/19 16 Not Available Not Available Not Available amoxicill in 500 mg capsule take 1 capsule (500 mg) by oral route every 8 hours for 10 days 07/27 completed amoxicil ledy 500 mg oral capsule; Recorded Status: Recorded on: 12/30/19 12 9:34AM;D iscontin ued Status: Disconti nued on: 07/28/19 13 11:03AM; User: chandan Curtisi on: 01/09/20 12;Print ed: 12/30/19 12 Not [...] Disconti nued on: 07/09/19 16 9:41AM;U ser: chandan mcdonaldPrinte d: 07/09/19 16 Not Available Not Available [...] zole 40 mg oral tablet,d elayed release (DR/EC); Recorded Status: Recorded on: 10/28/19 14 8:58AM;D iscontin ued Status: Disconti nued on: 07/16/19 16 4:46PM;U ser: hamptona Not Available Not Available Not Available erythromy afshan 5 mg/gram (0.5 %) eye ointment APPLY A THIN LAYER TWICE A DAY 1/4 INCH STRIP 3 DAYS BEFORE BUT NOT DAY OF SURGERY 11/18 /2024 completed Not Available Not Available Not Available [...] e Kenisha Pen Needle 32 gauge x DIRECTED . active Not Available Not Available No t Available Edarbi 80 mg tablet take 1 tablet (80 mg) by oral route once daily for 30 days 07/26 completed Edarbi 80 mg oral tablet;P rescribe Status: Prescrib ed on: 07/28/19 13 12:00AM; Disconti nued Status: Disconti nued on: 07/27/19 14 4:38PM;U ser: [email or web address] b;Est. Completi on: 01/24/20 13;Indic ation: Hyperten kyleigh - (4019 );Phar macyVeri fied: 07/28/19 13 11:55AM Not Available Not [...] daily Not Available Not Available Not Available Daphne BrownoStar U-300 Insulin 300 unit/mL (1.5 mL) subcutane [...] mass index (BMI) Body weight Body temperature Provider Name and Address Organization Details Last Updated DateTime 05/10/2024 179.07 cm 29.8 kg/m2 51579.99 g 98.6 [degF] Jack Gold [place] - [facility] 05/10/2024 11:18:24 Date Recorded Body height Body mass index (BMI) Body weight Body temperature Heart rate Oxygen saturation Oxygen saturation in Arterial blood by Pulse oximetry Respiratory rate Systolic And Diastolic Provider Name and Address Organization Details Last Updated DateTime 4 179.07 cm 30.3 kg/m2 06038.7 7 g 98 [degF] 70 /min 97 % 97 % 19 /min 122/74 mm[Hg] Jack Gold [place] - [facility] 4 08:04:22 Date Recorded Body height Body mass index (BMI) Body weight Body temperature Heart rate Oxygen saturation Oxygen saturation in Arterial blood by Pulse oximetry Respiratory rate Systolic And Diastolic Provider Name and Address Organization Details Last Updated DateTime 5 179.07 cm 29.4 kg/m2 65304.2 1 g 98 [degF] 78 /min 97 % 97 % 19 /min 122/68 mm[Hg] Jack Gold [place] - [facility] 5 15:29:27 Date Recorded Body height Body mass index (BMI) Body weight Heart rate Body temperature Oxygen saturation Oxygen saturation in Arterial blood by Pulse oximetry Respiratory rate Systolic And Diastolic Provider Name and Address Organization Details Last Updated DateTime 4 179.07 cm 30.4 kg/m2 90485.4 1 g 76 /min 98 [degF] 97 % 97 % 18 /min 124/86 mm[Hg] Miroslava Sanam [place] - [facility] 4 08:08:41 Date Recorded Body height Body mass index (BMI) Body weight Body temperature Heart rate Oxygen saturation Oxygen saturation in Arterial blood by Pulse oximetry Respiratory rate Systolic And Diastolic Provider Name and Address Organization Details Last Updated DateTime 4 179.07 cm 29.6 kg/m2 33442.8 1 g 98 [degF] 70 /min 97 % 97 % 19 /min 118/72 mm[Hg] Jack Gold [place] - [facility] 4 15:44:18 Social History Question Answer Notes LastModified by Organizat ion Details LastModified Time Tobacco Smoking Status Never Smoker Leticia mark [place] - [facility] 05/19/2017 08:52:46 Able To Swim? Yes [email or web address] Information not available 05/19/2017 Do You Have An Advance Directive? No Information n ot available 05/19/2017 Do You Wear A Helmet When Biking? No [email or web address] Information not available 05/19/2017 Are You Blind Or Do You Have Difficulty Seeing? No Information n ot available 05/19/2017 What Is Your Level Of Caffeine Consumption? Occasional [email or web address] Information not available 05/19/2017 How Much Tobacco Do You Chew? None [email or web address] Information not available 05/19/2017 In The 14 Days Before Symptom Onset, Have You Had Close Contact With A Laboratory-confirm ed COVID-19 While That Case Was Ill? No [email or web address] Information n ot available 05/14/2021 In The 14 Days Before Symptom Onset, Have You Had Close Contact With A Person Who Is Under Investigation For COVID-19 While That Person Was Ill? No [email or web address] Information not available 05/14/2021 Have You Been To An Area Known To Be High Risk For COVID-19? No [email or web address] Information not available 05/14/2021 Are You Deaf Or Do You Have Serious Difficulty Hearing? No [email or web address] Information not available 05/19/2017 What Type Of Diet Are You Following? CARDIAC Information n ot available 05/14/2021 Which Illicit Or Recreational Drugs Have You Used? Denies [email or web address] Information not available 05/19/2017 Have You Processed Blood Or Body Fluids From An Ebola Virus Disease Patient Without Appropriate PPE? No [email or web address] Information not available 05/14/2021 Do You Reside In Or Have You Traveled To An Area Where Ebola Virus Transmission Is Active? No [email or web address] Information not available 05/14/2021 Swimming/diving Yes [email or web address] Informati on not available 05/19/2017 Have There Been Any Changes To Your Family Or Social Situation? No [email or web address] Information no t available 05/14/2021 Hard Of Hearing Or Deaf In One Or Both Ears? No [email or web address] Information not available 05/19/2017 Have You Recently Or Are You Planning To Travel To An Area With Zika Virus? No [email or web address] Information not available 05/14/2021 Legally Blind In One Or Both Eyes? No [email or web address] Information no t available 05/19/2017 Live Alone Or With Others? With Others [email or web address] Information not available 05/19/2017 What Was The Date Of Your Most Recent Tobacco Screening? 09/13/2023 [email or web address] Information not available 09/13/2023 How Many Children Do You Have? 7 [email or web address] Information not available 05/19/2017 Do You Use Protection During Sex? Always Information not available 05/19/2017 What Is Your Relationship Status? [email or web address] Information not available 05/19/2017 Seat Belts Used Routinely Yes [email or web address] Information not available 05/19/2017 Are You Sexually Active? Yes [email or web address] Information not available 05/19/2017 Smoke Alarm In Home Yes [email or web address] Information not available 05/19/2017 Do You Have Smoke And Carbon Monoxide Detectors In Your Home? Yes Information not available 05/14/2021 Are You Passively Exposed To Smoke? Yes [email or web address] Information no t available 05/19/2017 How Much Tobacco Do You Smoke? No Information not available 05/19/2017 Do You Use Sunscreen Routinely? Yes [email or web address] Information not available 05/19/2017 Has Tobacco Cessation Counseling Been Provided? No [email or web address] Information not available 05/14/2021 How Many Years Have You Smoked Tobacco? 0 Information not available 05/19/2017 Do You Have Difficulty Walking Or Climbing Stairs? No [email or web address] Information not available 05/19/2017 Sex: Male Functional Status Question Answer Note LastModified by [facility] ion Details LastModified Time Do you or have you ever used any other forms of tobacco or nicotine? No Information not available 05/14/2021 What is your level of alcohol consumption? None [email or web address] Information not available 05/19/2017 Do you or have you ever used smokeless tobacco? Never used smokeless tobacco wnebfdu42 Information not available 11/15/2018 Are you currently employed? No [email or web address] Information not available 05/19/2017 Do you have transportation difficulties? No [email or web address] Information not available 05/14/2021 Are you able to walk? YESWOREST [email or web address] Information not available 05/19/2017 Do you have difficulty doing errands alone? No Information not available 05/19/2017 Are you able to care for yourself? Yes [email or web address] Information n ot available 05/19/2017 Do you have difficulty dressing or bathing? No iirwjyl06 Information not available 05/19/2017 Do you or have you ever used e-cigarettes or vape? Never used electronic cigarettes Information not available 11/15/2018 Mental Status Question Answer Note LastModified by Organizat ion Details LastModified Time Do you feel stressed (tense, restless, nervous, or anxious, or unable to sleep at night)? KD50357-5 [email or web address] Information not available 05/14/2021 Do you have difficulty concentrating, remembering or making decisions? No [email or web address] Information no t available 05/19/2017 Family History Relationship Description Onset Age of this Age Resolved Age Notes LastModified by Organization Details LastModified Time Father Essential hypertension [email or web address] Not available 09:01:18 Father Diabetes mellitus ayofcqv03 Not available 2017 09:01:45 Brother Essential hypertension [email or web address] Not available 09:01:18 Brother Diabetes mellitus [email or web address] Not available 2017 09:01:45 Mother Essential hypertension Not available 09:01:18 Mother Diabetes mellitus [email or web address] Not available 2017 09:01:45 Mother Malignant neoplasm of skin [email or web address] Not available 2017 09:02:05 Mother Chronic obstructive pulmonary disease [email or web address] Not available 2017 09:02:48 Sister Diabetes mellitus [email or web address] Not available 2017 09:01:45 Paternal Uncle Family history of malignant neoplasm [email or web address] Not available 2017 09:02:26 Medical History Condition Response Chicken Pox Y Immunizations Vaccine Type Date Status Note Provider Name and Address Organization Details Recorded Time Influenza, split virus, quadrivalent, preservative 018 cancelled patient objection Not Available [facility] 04/08/2019 03:54:57 pneumococcal polysaccharide PPV23 018 cancelled patient objection Not Available [facility] 04/08/2019 03:54:58 Tdap 018 completed Not Available [facility] 04/08/2019 03:54:56 pneumococcal polysaccharide PPV23 019 cancelled patient objection Not Available [facility] 04/08/2019 03:55:47 Past Encounters Encounter ID Performer Location Encounter Start Date Encounter Closed Date Diagnosis/Indication Diagnosis SNOMED-CT Code Diagnosis ICD10 Code Diagnosis Note [id number] PANDA Reeves [place] [address] [facility] [place] [address] 03/27/2016 14:59:24 03/27/2016 15:46:35 Gouty arthropathy 658106264 M10.09 Diabetes mellitus 147044 09 E11.9 Cyst of nasal sinus 8522 5000 J34.1 [id number] Aman Allison [employer]PERATIONS MANAGER [place] [address] [facility] [place] [address] 06/02/2016 11:51:28 06/02/2016 13:33:17 Stool color abnormal 326176646 R19.5 Liver enzy mes level above reference range 471854295 R74.8 Abdominal pain 69941915 R10.9 [id number] Aman Allison APRN [place] [address] [facility] [facility] [place] [address] 06/22/2016 13:19:27 06/22/2016 16:31:40 Diabetes mellitus 63411173 E11.9 Essential hypertension 94803950 I10 Liver enzy mes level above reference range 760499876 R74.8 Adult heal th examination 641336050 Z00.00 [id number] Aman Allison APRN [place] [address] [facility] [place] [address] 11/10/2016 13:13:04 11/10/2016 14:58:02 Essential hypertension 31487328 I10 Diabetes mellitus 290386 09 E11.9 Gout 76332912 M10.9 [id number] Aman Allison APRN [place] [address] [facility] [place] [address] 05/19/2017 08:35:39 05/19/2017 09:59:28 Chronic back pain 917320882 G89.29 Diabetes mellitus 780627 09 E11.9 Vaccine de clined by patient 4329386872 02 Z28.21 Body mass index 30+ - obesity 389541060 Z68.39 Z68.31 Dysuria 05615592 R30.0 Administra tion of diphtheria, pertussis, and tetanus vaccine 241059498 Z23 [id number] Aman Allison APRN [place] [address] [place] [address] 08/02/2017 08:39:06 08/02/2017 10:17:34 Adult health examination 089767140 Z00.00 Depression screening 171 204576 Z13.89 Examinatio n of blood pressure 452336126 Z01.30 Diet education 32987056 Z71.3 Counseling 533575502 Z71 .82 Exercise counseling . Patient encouraged to exercise 30 minutes 5 days a week. Diabetes mellitus 975119 09 E11.9 Dysuria 45384864 R30.0 Atypical chest pain 1025 98602 R07.89 [id number] Aman Allison APRN [place] [address] [place] [address] 11/01/2017 15:31:53 11/01/2017 16:20:18 Essential hypertension 64861222 I10 Gastro-eso phageal reflux disease with esophagitis 112020111 K21.0 [id number] Aman Allison APRN [place] [address] [place] [address] 12/03/2017 08:14:25 12/03/2017 09:38:58 Uncontrolled type 2 diabetes mellitus 263388296 E11.65 Body mass index 30+ - obesity 470410636 Z68.32 [id number] Aman Allison APRN [place] [address] [place] [address] 12/31/2017 09:21:03 12/31/2017 10:09:14 Type 2 diabetes mellitus 91527707 E11.65 Pain of le ft shoulder joint 1053973723 8645307 M25.512 Muscle spa sm of cervical muscle of neck 9038283698 04 M62.838 Chronic ob structive pulmonary disease 65450189 J44.9 [id number] Aman Allison APRN [place] [address] [place] [address] 03/28/2018 12:20:34 03/28/2018 13:34:54 Disorder of rotator cuff 649062450 M75.82 Tendonitis of left rotator cuff per Dr Arroyo, [facility]opedic [facility] Headache 27741832 R51 Muscle spa sm of cervical muscle of neck 2489694438 04 M62.838 Type 2 any betes mellitus 36546726 E11.65 [id number] PANDA [place] [address] [facility] [place] [address] 04/12/2018 10:05:28 04/12/2018 11:05:53 Type 2 diabetes mellitus 74108262 E11.65 [id number] PANDA [place] [address] [facility] [place] [address] 06/22/2018 13:23:18 06/22/2018 14:14:01 Body mass index 30+ - obesity 054912209 Z68.31 Gastroesop hageal reflux disease without esophagitis 558242704 K21.9 Type 2 any betes mellitus 15566448 E11.65 [id number] PANDA [place] [address] [facility] [place] [address] 11/15/2018 08:28:29 11/15/2018 09:17:10 Adult health examination 086495563 Z00.00 Depression screening 171 517394 Z13.89 Examinatio n of blood pressure 150280553 Z01.30 Diet education 76624220 Z71.3 Counseling 958908270 Z71 .82 Exercise counseling . Patient encouraged to exercise 30 minutes 5 days a week. At [facility] ed risk for falls 101003687 Z91.81 STEADI FAST screening score of __0___. Advance care planning 71 7597075 Z71.89 Finding of body mass index 897768285 E66.9 Gastroesop hageal reflux disease without esophagitis 004119767 K21.9 Type 2 any betes mellitus 01686539 E11.65 Pneumococc al vaccination declined 453562864 Z28.21 Body mass index 30+ - obesity 249517295 Z68.31 Hypercholesterolemia 136 12767 E78.00 [id number] PANDA [place] [address] DIANEDenia [facility] [place] [address] 11/22/2018 10:03:52 11/22/2018 10:36:22 Type 2 diabetes mellitus 69936474 E11.65 Kidney stone 69688167 N2 0.0 [id number] PANDA [place] [address] [place] [address] 12/26/2018 14:21:30 12/26/2018 15:24:38 Kidney stone 53882421 N20.0 [id number] PANDA [place] [address] [place] [address] 04/05/2019 10:30:28 04/05/2019 11:13:20 Postoperative care 105608239 Z48.89 Serum crea tinine above reference range 215332835 R79.89 [id number] PANDA [place] [address] [place] [address] 04/07/2019 11:16:19 04/07/2019 11:41:54 Liver enzymes level above reference range 974982323 R74.8 Metabolic dysfunction-associate d steatohepatitis 011128911 K75.81 [id number] PANDA [place] [address] [place] [address] 05/23/2019 15:49:49 05/23/2019 16:30:46 Acute sinusitis 04567274 J01.90 Migraine 17825631 G43.90 9 [id number] PANDA [place] [address] [address] 10/27/2019 09:46:49 10/27/2019 10:51:55 Type 2 diabetes mellitus 08801995 E11.65 Essential hypertension 73279219 I10 [id number] PANDA [place] [address] [place] [address] 04/22/2020 10:34:53 04/22/2020 11:11:09 Type 2 diabetes mellitus 01801495 E11.65 Essential hypertension 43139489 I10 Renewal of prescription 950801043 Z76.0 Gastroesop hageal reflux disease without esophagitis 684930781 K21.9 Kidney stone 83305679 N2 0.0 Gout 30476050 M10.9 Tension-type headache 39 6101559 G44.329 [id number] PANDA [place] [address] Pérez DOWLINGSeleneDenia [facility] [place] [address] 08/12/2020 13:26:50 08/12/2020 14:16:49 Type 2 diabetes mellitus 21289904 E11.65 Tension-type headache 39 3498546 G44.089 [id number] PANDA [place] [address] Pérez [place] [address] 04/08/2021 10:42:46 04/08/2021 11:31:20 Viral screening 161139730 Z11.59 [id number] PANDA [place] [address] P[address] HARRISONVLADIMIRDenia [facility] [place] [address] 05/14/2021 09:16:30 05/14/2021 10:09:14 Tension-type headache 794784428 G44.209 Left upper quadrant pain 777252680 R10.12 Essential hypertension 58471844 I10 Type 2 any betes mellitus 51190373 E11.65 Altered daniel wel function 17801330 R19.4 [id number] PANDA [place] [address] [place] [address] 10/28/2021 08:59:18 10/28/2021 10:07:06 Type 2 diabetes mellitus 62752890 E11.65 Mass of axilla 530763433 R22.2 [id number] PANDA [place] [address] [place] [address] 12/10/2021 15:14:24 12/10/2021 16:25:59 Kidney stone 03806046 N20.0 [id number] PANDA [place] [address] [facility] [place] [address] 05/29/2022 11:17:54 05/29/2022 11:56:41 Body mass index 30+ - obesity 776929054 Z68.30 Obesity 733626983 E66.9 Type 2 any betes mellitus 80059688 E11.65 Pain in left foot 518477 8404 33196 M79.672 along the 5th toe dorsally 6531818 PANDA [place] [address] [facility] [facility] [place] [address] 08/28/2022 10:37:42 08/28/2022 11:09:59 Type 2 diabetes mellitus 56179984 E11.65 chronic improving Renewal of prescription 561545311 Z76.0 History of gout 20033538 4 Z87.39 having mild flare in right knee, has been out of med 6658577 PANDA [place] [address] [address] 10/14/2022 10:14:09 10/14/2022 11:04:25 Muscle spasm of cervical muscle of neck 1914660941 04 M62.108 [id number] PANDA [place] [address] [facility]ene[facility]ia [facility] [place] [address] 12/10/2022 15:51:25 12/10/2022 16:50:11 Type 2 diabetes mellitus 18776949 E11.65 chronic improving Allergic conjunctivitis 201872380 H10.13 Blurring o f visual image 057902783 H53.8 Headache 87695697 R51.9 [id number] PANDA [place] [address] [facility] [facility] [place] [address] 03/11/2023 12:19:00 03/11/2023 13:35:26 Type 2 diabetes mellitus 23029684 E11.65 chronic improving Pain in left foot 327767 0340 81116 M79.672 along the 5th toe dorsally [place] - lesion 326059540 L84 5th toe, left foot 1816938 PANDA [place] [address] [facility] [place] [address] 06/14/2023 07:51:33 06/14/2023 08:37:29 Type 2 diabetes mellitus 98196864 E11.65 chronic Body mass index 30+ - obesity 604810199 Z68.30 Obesity 357572176 E66.9 Gastroesop hageal reflux disease without esophagitis 540287731 K21.9 chronic Uncontroll ed type 2 diabetes mellitus 776426520 E11.65 Patient wi dical record not available 694082864 Z76.89 Allergic rhinitis 202232 04 J30.9 Renal mass 039900114 N28 .89 2.2 cm hyper dense lesion of left upper pole, r/o RCC see report from December 2022 [id number] PANDA [place] [address] [address] [facility] [facility] [place] [address] 09/13/2023 07:54:18 09/13/2023 08:33:43 Type 2 diabetes mellitus 34706386 E11.65 chronic Long-term drug therapy 768096711 Z79.899 Pain in le ft lower limb 537192938 M79.605 pain for years Renewal of prescription 884272238 Z76.0 Gastroesop hageal reflux disease without esophagitis 924163519 K21.9 chronic Intermitte nt claudication 65543984 I73.9 [id number] PANDA [place] [address] [address] [facility] [facility] [place] [address] 02/07/2024 15:39:03 02/07/2024 16:09:26 Type 2 diabetes mellitus 39255143 E11.65 chronic Coronary arteriosclerosis 58957107 I25.10 chronic Renewal of prescription 744178205 Z76.0 Essential hypertension 53034588 I10 chronic Gastroesop hageal reflux disease without esophagitis 422881461 K21.9 chronic Dry eyes 292508018 H04.1 23 chronic [id number] PANDA [place] [address] [address] [facility] [facility] [place] [address] 05/10/2024 11:02:25 05/10/2024 11:45:19 Type 2 diabetes mellitus 88297483 E11.65 chronic Screening for malignant neoplasm of prostate 424473599 Z12.5 Dry eyes 411211996 H04.1 23 chronic Hyperglyce ramez due to type 2 diabetes mellitus 6862741074 92900 E11.65 chronic Hyperlipidemia 55155665 E78.5 chronic Renewal of prescription 458775038 Z76.0 Essential hypertension 64837153 I10 chronic Gastroesop hageal reflux disease without esophagitis 449225319 K21.9 chronic Obstructiv e sleep apnea syndrome 58129819 G47.33 compliant with CPAP, feels more rested [id number] [facility] [address] [place] [address] 08/24/2024 15:16:13 08/24/2024 16:04:19 Type 2 diabetes mellitus 21449210 E11.65 chronic Overweight 951939088 E66 .3 Overweight in adulthood with body mass index of 25 or more but less than 30 241924663 Z68.29 Renal mass 820434524 N28 .89 2.2 cm hyper dense lesion of left upper pole, complex cyst, needs fu in year for stability Health Concerns Section Related Observation LastModified by Organization Detai ls LastModified Time None Recorded Concern Status LastModified by Organization Details LastModified Time None Recorded Advance Directives Directive N: Payers Insurance Date Sequence Insurance Name Policy Number Policy Lin Covered Member ID Lin Member ID Guarantor Name 01/07/2024 2 [place] Adalid L Jacobs [id number] Adalid L Jacobs 08/22/2024 NGS NATIONAL - MEDICARE [facility] (MEDICARE) Adalid L Jacobs [id number] Adalid L Jacobs 01/07/2024 2 [place] FFS/TRADITI ONAL Adalid L Jacobs [id number] Adalid L Jacobs 01/07/2024 2 [place]/TRADITI [place] Adalid L Jacobs [id number] Adalid L Jacobs 10/06/2024 2 [place]/TRADITI [place]NAL Adalid L Jacobs [id number] Adalid L Jacobs 10/06/2024 1 [employer] (MEDICARE REPLACEMENT /ADVANTAGE - HMO) Adalid L Jacobs [id number] Adalid L Jacobs 01/07/2024 2 [place] [id number] Adalid L Jacobs [id number] Adalid L Jacobs 01/07/2024 2 MEDICAID-[facility] HEALTH CHOICES - FFS/TRADITI ONAL Adalid L Jacobs [id number] Adalid L Jacobs Notes Date Note Type Note Provider Name and Address Organization Details Recorded Time 06/14/2023 text/html Diabetes F/UReported bypatient.Review finger sticks:fastin; post dinner: 250+; Checks twice daily Labs:last A1C result: 9.7 Context:not missing doses of medications; no side effects from medications;home blood sugar range high Reports history of renal mass needs fu ct scan Geo Connell APRN [address], [place], [address], [place] - [facility] 06/14/2023 09:43:46 09/13/2023 text/html Diabetes F/UReported bypatient.Review finger sticks:fastin; post dinner: 206+; Checks twice daily Labs:last A1C result: 9.2 Context:not missing doses of medications; no side effects from medications;home blood sugar range high Associated Symptoms:no weight gain; no weight loss; no dizziness; no confusion; no calluses on feet;headaches;incr eased thirst;numbness of feetNotes:left lower leg pain with swelling and purple discoloration Geo Connell APRN [address], [place], [address], [place] - [facility] 09/13/2023 08:36:29 02/07/2024 text/html Diabetes F/UReported bypatient.Review finger sticks:Checks twice daily 140-176 Labs:last A1C result: 8.2 Context:not missing doses of medications; no side effects from medications;home blood sugar range high Geo Connell APRN [address], [place], [address], [place] - [facility] 02/07/2024 16:17:32 05/10/2024 text/html Diabetes F/UReported bypatient.Review finger sticks:Checks every now and then 200-250 Labs:last A1C result: 8.2 Context:not missing doses of medications; no side effects from medications;home blood sugar range high Geo Connell APRN [address], [place], [address], [facility] - [facility] 05/10/2024 13:09:52 08/24/2024 text/html Diabetes F/UReported bypatient.Review finger sticks:Doesn't check often Labs:last A1C result: 7.6 Context:not missing doses of medications; no side effects from medications;home blood sugar range highNotes:Needs yearly followup and renal lesion for 2.1 cm complex cyst Geo Connell APRN [address], [place], [address], [facility] - [facility] 08/24/2024 16:54:55
--- OUTSIDE RECORDS SUMMARY | 2024-10-09 18:59 | XMS_ITS | Encounter Summary ---
Author Organization [employer] ([place], [place], [place], [place]) Address [address] [place] [address] Care Team Providers Care Volunteer Services Manager Name Role Phone Unavailable Primary Care Provider Unavailabl e Encounter Details Date Type Department Care Team (Late st Contact Info) Description 01/20/2019 Transcribed Document [facility] Radiology [address] [place] [address] Provider, James Pelaez MD Social History Tobacco Use Types Packs/Day Years Used Date Smoking Tobacco: Never Assessed Sex and Gender Information Value Date Recorded Sex Assigned at Not on file Legal Sex Male 1:31 PM CDT Gender Identity Not on file Sexual Orientation Not on file documented as of this encounter Miscellaneous Notes * Cerner Conversion Note - [facility] Latanya Merlos MD - 01/20/2019 6:18 PM EDT DATE OF PROCEDURE: 01/20/2019 SURGEON: Aman Kerr MD PREOPERATIVE DIAGNOSES: Bilateral kidney stones and right ureteropelvic junction stone. POSTOPERATIVE DIAGNOSES: Bilateral kidney stones and right ureteropelvic junction stone. PROCEDURE: Bilateral extracorporeal shock wave lithotripsy, cystoscopy with right stone manipulation and right stent placement. POOL FINISHER: Kenny Cristina M.D., resident. ANESTHESIA: General. COMPLICATIONS: None. CONDITION: Stable. INDICATIONS: This is a 58-year-old white male with recent right renal colic. CT scan showed a 9 mm right UPJ stone with bilateral non-obstructing renal stones. The largest on the right side was 16 mm and largest on the left was 12 mm. He presents for urologic management today. DESCRIPTION OF THE OPERATION: Patient was taken to the operating room after informed consent was obtained. He was placed on the operating room table in the supine position and general anesthesia administered. Preoperative antibiotics and sequential compression devices placed. He was then placed into the dorsal lithotomy position and prepped and draped in the standard surgical fashion. A 21-Iraqi cystoscope was passed into the urethra and into the bladder without difficulty. The bladder was examined in a systematic fashion and there was no evidence of mucosal abnormalities. Ureteral orifices were in their normal anatomic position. An open-ended ureteral catheter passed into the right ureteral orifice and up to the level of the right UPJ stone. The stone was manipulated easily back into the renal pelvis. A guidewire was then passed through the ureteral catheter and the ureteral catheter removed. A 6 x 26 Iraqi stent then passed over the guidewire and the guidewire removed and a good curl was noted proximally and distally. A string was left on for later removal. The patient was then placed into the supine position and the stone that was manipulated from the UPJ to the renal pelvis was treated first with 600 shock waves with good fragmentation. We then treated the large 16 mm right upper pole stone with remainder of the shock waves, which was 1800. There appeared to be very good fragmentation of that stone as well. We then moved the patient to focus F2 onto the 12 mm left renal stone and 2400 shock waves delivered to that with a maximum KV of 24. There appeared to be good fragmentation of this stone as well. Patient tolerated the procedure well with no complications. He was discharged home with routine instructions. We will see him back in a couple of weeks with a KUB. /[id number] MD DIANE Wilcox/TESS / DIANE / INO /[id number] Electronically signed by James Reynoso Conversion Wood Drilling Machine Operator Cerner at 08/12/2022 5:24 PM CDT documented in this encounter Plan of Treatment Not on file documented as of this encounter Visit Diagnoses Not on filedocumented in this encounter
--- OUTSIDE RECORDS SUMMARY | 2024-10-09 18:59 | XMS_ITS | Encounter Summary ---
Author Organization [employer] ([place], [place], [place], [place]) Address [address] [place] [address] Care Team Providers Care Hose Mender Name Role Phone Unavailable Primary Care Provider Unavailabl e Encounter Details Date Type Department Care Team (Late st Contact Info) Description 03/30/2019 Transcribed Document [facility] [address] [place] [address] Provider nathen Pelaez MD Social History Tobacco Use Types Packs/Day Years Used Date Smoking Tobacco: Never Assessed Sex and Gender Information Value Date Recorded Sex Assigned at Not on file Legal Sex Male 1:31 PM CDT Gender Identity Not on file Sexual Orientation Not on file documented as of this encounter Miscellaneous Notes * Cerner Conversion Note - [facility] Latanya ProviderMD - 03/30/2019 3:14 PM EST Stroke/Warfarin Instructions Entered On: 03/30/2019 14:14 EST Performed On: 03/30/2019 14:14 EST by EMMA CHERY RN Stroke/Warfarin Instructions Stroke/TIA Discharge Ins : N/A Warfarin Discharge Ins : N/A EMMA CHERY RN - 03/30/2019 14:14 EST documented in this encounter Plan of Treatment Not on file documented as of this encounter Visit Diagnoses Not on filedocumented in this encounter
--- OUTSIDE RECORDS SUMMARY | 2024-10-09 18:59 | XMS_ITS | Encounter Summary ---
Author Organization [employer] ([place], [place], [place], [place]) Address [address] [place] [address] Care Team Providers Care Correspondence Section Supervisor Name Role Phone Unavailable Primary Care Provider Unavailabl e Encounter Details Date Type Department Care Team (Late st Contact Info) Description 01/20/2019 Transcribed Document [facility] Radiology 1 [place] [address] Provider, James Pelaez MD Social History Tobacco Use Types Packs/Day Years Used Date Smoking Tobacco: Never Assessed Sex and Gender Information Value Date Recorded Sex Assigned at Not on file Legal Sex Male 1:31 PM CDT Gender Identity Not on file Sexual Orientation Not on file documented as of this encounter Miscellaneous Notes * Cerner Conversion Note - [facility] Latanya Merlos MD - 01/20/2019 2:53 PM EDT PAT Adult Entered On: 01/20/2019 13:58 EDT Performed On: 01/20/2019 13:53 EDT by INGA CAIN RN Pain Assessment Pain Assessment : Initial assessment Pain Scale Used : 0-10 Scale Location : Flank, right Onset : Chronic INGA CAIN RN - 01/20/2019 13:53 EDT Height and Weight, Clinical Dosing Height Source : Measured Height Entry Format : [place] Height, Feet : 5 ft(Converted to: 152 cm, 60 Inch) Height, Inches : 9 Inch(Converted to: 0 ft 9 Inch, 22.86 cm) Clinical Height : 175.26 cm Weight Source : Standing scale Weight Entry Format : [place] Clinical Dosing Weight : 99.27 kg Weight, Pounds : 218.4 lb Body Surface Area (BSA) : 2.15 m2 Body Mass Index : 32.3 kg/m2 (HI) [place] Body Weight : 70 kg INGA CAIN RN - 01/20/2019 13:53 EDT Health Histories Smoking Status : Never (less than 100 in lifetime; none in last 30 days) Smokeless Tobacco Status : Never INGA CAIN RN - 01/20/2019 13:53 EDT Social History (As Of: 01/20/2019 13:58:56 EDT) Tobacco: Never (less than 100 in lifetime) Smoking Status. Never Smokeless Tobacco Status. (Last Updated: 01/20/2019 13:53:11 EDT by INGA CAIN RN) Alcohol: Alcohol Use History No. Use in Last 12 Months: No. (Last Updated: 01/20/2019 13:53:26 EDT by INGA CAIN RN) Substance Abuse: Drug Use Hx: No. Use in Last 12 Months: No. (Last Updated: 01/20/2019 13:53:33 EDT by INGA CAIN RN) Infectious Disease History Infectious Disease History : Chicken pox/Shingles, Influenza, Measles, Mumps Fever/Chills Last 48 Hours : No Travel To Regions with Travel Advisories : No Travel Outside [place].S. Within Last 30 Days : No Contact With Traveler to Advisory Region : No Tuberculosis Symptoms : None INGA CAIN RN - 01/20/2019 13:53 EDT Anesthesia/Transfusion History Family History of Anesthesia Reaction : No prior transfusion(s) Blood Transfusion Acceptable to Patient : Yes Transfusion History : Prior anesthesia without reaction Family History of Anesthesia Reaction : None INGA CAIN RN - 01/20/2019 13:53 EDT Functional Assessment Functional ADL Evaluation Index EBN Bathing : Independent (2) Dressing : Independent (2) Toileting : Independent (2) Transferring Bed or Chair : Independent (2) Continence : Independent (2) Feeding : Independent (2) INGA CAIN RN - 01/20/2019 13:53 EDT ADL Index Score : 12 INGA CAIN RN - 01/20/2019 13:53 EDT Advance Directive Patient has Advance Directive *Q : No, patient refuses Advance Directive information INGA CAIN RN - 01/20/2019 13:53 EDT Psychosocial History Do You Have a History of the Following? : Patient denies history Currently in Unsafe Situation : No Tried to Harm Yourself in the Past? : No Thoughts of Harming/Killing Yourself : No INGA CAIN RN - 01/20/2019 13:53 EDT General Info Arrived From : Home Mode of Arrival on Unit : Stretcher Patient Arrival Date/Time : 01/20/2019 13:31 EDT Legal Guardian : Sibling Want Family/Rep/Phys Notified of Admit : No Emergency Contact #1 : [email or web address] Emergency Contact #1 Emergency Contact #1 Relationship : brother Emergency Contact #2 : . Emergency Contact #2 Phone Number : . Emergency Contact #2 Relationship : . Primary Language : Malay Communication Barrier : None INGA CAIN RN - 01/20/2019 13:53 EDT Scott Scale Scott Sensory Perception : No impairment Scott Moisture : Rarely moist Scott Activity : Walks occasionally Scott Mobility : No limitation Scott Nutrition : Adequate Scott Friction and Shear : No apparent problem Scott Score : 21 INGA CAIN RN - 01/20/2019 13:53 EDT Sleep Apnea Risk Assmt BiPAP/CPAP Ordered for Home Use : Yes Hx of Obstructive Sleep Apnea Diagnosis : Yes BiPAP/CPAP Used at Home : No Reason BiPAP/CPAP Not Used at Home : is supposed to but not always used Age over 50 Years Old : Yes Gender Male : Yes INGA CAIN RN - 01/20/2019 13:53 EDT Pain Scale Intensity : 6 INGA CAIN RN - 01/20/2019 13:53 EDT Image 4 - Images currently included in the form version of this document have not been included in the text rendition version of the form. documented in this encounter Plan of Treatment Not on file documented as of this encounter Visit Diagnoses Not on filedocumented in this encounter
--- OUTSIDE RECORDS SUMMARY | 2024-10-09 18:59 | XMS_ITS | Encounter Summary ---
Author Organization [employer] ([place], [place], [place], [place]) Address [address] [place] [address] Care Team Providers Care Meatman Name Role Phone Unavailable Primary Care Provider Unavailabl e Encounter Details Date Type Department Care Team (Late st Contact Info) Description 03/27/2019 Transcribed Document [facility] Radiology 1 [place] [address] Provider, James Pelaez MD Social [...] - [facility] Latanya ProviderMD - 03/27/2019 12:13 PM EST PAT Adult Entered On: 03/27/2019 11:13 EST Performed On: 03/27/2019 11:13 EST by Monserrat Bowles RN Vital Measurements Temperature Source : Temporal artery scanning Temperature, Fahrenheit : 98.3 Deg F Clinical Temperature, C : 36.8 Deg C Pulse Method : Pulse Oximetry Peripheral Pulse Rate : 88 bpm Respiratory Rate : 18 Breaths/Min Blood Pressure Location : Arm, right upper Blood Pressure Source : Non-Invasive BP Device Blood Pressure Position : Sitting Systolic Blood Pressure : 128 mmHg Diastolic Blood Pressure : 77 mmHg Oxygen Saturation : 98 % Oxygen Therapy Mode : Room air Monserrat Bowles RN - 03/27/2019 11:30 EST Pain Assessment Pain Assessment : Initial assessment Pain Scale Goal : 5 Monserrat Bowles RN - 03/27/2019 11:15 EST Height and Weight, Clinical Dosing Height Source : Measured Height Entry Format : [place] Height, Feet : 0 ft(Converted to: 0 cm, 0 Inch) Height, Inches : 69 Inch(Converted to: 5 ft 9 Inch, 175.26 cm) Clinical Height : 175.26 cm Weight Source : Standing scale Weight Entry Format : [place] Clinical Dosing Weight : 100.55 kg Weight, Pounds : 221.2 lb Body Surface Area (BSA) : 2.16 m2 Body Mass Index : 32.7 kg/m2 (HI) [place] Body Weight : 70 kg Monserrat Bowles RN - 03/27/2019 11:13 EST Health Histories Smoking Status : Never (less than 100 in lifetime; none in last 30 days) Smokeless Tobacco Status : Never Implant/Device Type, Field Sales Associate and Model : right ankle hardware, heart stents Monserrat Bowles RN - 03/27/2019 11:15 EST Social History (As Of: 03/27/2019 11:20:22 EST) Tobacco: Never (less than 100 in lifetime) Smoking Status. Never Smokeless Tobacco Status. (Last Updated: 01/20/2019 13:53:11 EDT by INGA CAIN RN) Never (less than 100 in lifetime) Smoking Status. Never Smokeless Tobacco Status. (Last Updated: 03/27/2019 11:16:16 EST by Monserrat Bowles RN) Alcohol: Alcohol Use History No. Use in Last 12 Months: No. (Last Updated: 01/20/2019 13:53:26 EDT by INGA CAIN RN) Alcohol Use History No. (Last Updated: 03/27/2019 11:16:20 EST by Monserrat Bowles RN) Substance Abuse: Drug Use Hx: No. Use in Last 12 Months: No. (Last Updated: 01/20/2019 13:53:33 EDT by INGA CAIN RN) Drug Use Hx: No. Use in Last 12 Months: No. (Last Updated: 03/27/2019 11:16:24 EST by Monserrat Bowles RN) Infectious Disease History Infectious Disease History : Chicken pox/Shingles, Influenza, Measles, Mumps Travel To Regions with Travel Advisories : No Travel Outside [place].S. Within Last 30 Days : No Contact With Traveler to Advisory Region : No Tuberculosis Symptoms : None Monserrat Bowles RN - 03/27/2019 11:15 EST Anesthesia/Transfusion History Family History of Anesthesia Reaction : No prior transfusion(s) Blood Transfusion Acceptable to Patient : Yes Transfusion History : Prior anesthesia without reaction Family History of Anesthesia Reaction : None Monserrat Bowles RN - 03/27/2019 11:15 EST Advance Directive Patient has Advance Directive *Q : No, patient refuses Advance Directive information Monserrat Bowles RN - 03/27/2019 11:15 EST Spiritual/Cultural Needs Any Spiritual/Cultural Needs or Requests : No Monserrat Bowles RN - 03/27/2019 11:15 EST [place] Suicide Severity Rating Scale (C-SSRS) CSSRS Past Month Wish to be : No CSSRS Past Month Suicidal Thoughts : No CSSRS Lifetime Suicide Behavior : No Suicide Severity Rating Score : 0 Suicide Severity Rating : No Additional Care Required at this time Monserrat Bowles RN - 03/27/2019 11:15 EST Psychosocial History Do You Have a History of the Following? : Patient denies history Currently in Unsafe Situation : No Monserrat Bowles RN - 03/27/2019 11:15 EST Teaching/Learning Assessment Barriers To Learning : None evident Individuals Taught : Patient Readiness to Learn : Cooperative Baseline Knowledge of Topic : Good Readiness to Learn : Printed materials Monserrat Bowles RN - 03/27/2019 11:15 EST Education Topics, Periop Preadmission Perioperative Education Grid Arrival Time/Place : Verbalizes understanding IV's : Verbalizes understanding NPO Status/Directions : Verbalizes understanding Preprocedure Preparations : Verbalizes understanding Preprocedure Tests/Labs : Verbalizes understanding Take/Hold Medications Pre-Procedure : Verbalizes understanding Monserrat Bowles RN - 03/27/2019 11:15 EST General Info Preferred Name : Gino Arrived From : Home Support Person/Pt Rep Name : Erma Jacobs [phone] Want Family/Rep/Phys Notified of Admit : No Emergency Contact #1 : Erma Jaocbs Emergency Contact #1 Emergency Contact #1 Relationship : Emergency Contact #2 : Ryan Reynaldo Emergency Contact #2 Emergency Contact #2 Relationship : brother Information Obtained From : Patient Primary Language : [place] Communication Barrier : None Monserrat Bowles RN - 03/27/2019 11:15 EST Scott Scale Scott Sensory Perception : No impairment Scott Moisture : Rarely moist Scott Activity : Walks frequently Scott Mobility : No limitation Scott Nutrition : Excellent Scott Friction and Shear : No apparent problem Scott Score : 23 Monserrat Bowles RN - 03/27/2019 11:15 EST Sleep Apnea Risk Assmt BiPAP/CPAP Ordered for Home Use : No Hx of Obstructive Sleep Apnea Diagnosis : Yes Age over 50 Years Old : Yes Gender Male : Yes Monserrat Bowles RN - 03/27/2019 11:15 EST Electronically signed by [facility] Conversion Lineman Apprentice Cerner at 08/12/2022 11:48 AM CDT documented in this encounter Plan of Treatment Not on file documented as of this encounter Visit Diagnoses Not on filedocumented in this encounter
--- OUTSIDE RECORDS SUMMARY | 2024-10-09 19:00 | XMS_ITS | Encounter Summary ---
Author Organization [employer] ([place], [place], [place], [place]) Address [address] [place] [address] Care Team Providers Care Drag Out Man Name Role Phone Unavailable Primary Care Provider Unavailabl e Encounter Details Date Type Department Care Team (Late st Contact Info) Description 03/28/2019 Transcribed Document [facility] Radiology 1 [place] [address] Provider, James Pelaez MD Social History Tobacco Use Types Packs/Day Years Used Date Smoking Tobacco: Never Assessed Sex and Gender Information Value Date Recorded Sex Assigned at Not on file Legal Sex Male 1:31 PM CDT Gender Identity Not on file Sexual Orientation Not on file documented as of this encounter Miscellaneous Notes * Cerner Conversion Note - [facility] Latanya ProviderMD - 03/28/2019 7:48 AM EST Admission History, Adult Entered On: 03/28/2019 17:22 EST Performed On: 03/28/2019 6:48 EST by Jackie Ingram RN Advance Directive Patient has Advance Directive *Q : No, patient refuses Advance Directive information Jackie Ingram RN - 03/28/2019 17:21 EST Anesthesia/Transfusion History Family History of Anesthesia Reaction : No prior transfusion(s) Blood Transfusion Acceptable to Patient : Yes Transfusion History : Prior anesthesia without reaction Family History of Anesthesia Reaction : None Jackie Ingram RN - 03/28/2019 17:21 EST Functional Assessment Living Situation : Home Patient Lives With : Spouse MOISE Hx Falls Immediate/Within 3 Months : No Current Home Treatments : None Jackie Ingram RN - 03/28/2019 17:21 EST General Info Preferred Name : Gino Arrived From : Home Support Person/Pt Rep Name : Erma Reynaldo [phone] Want Family/Rep/Phys Notified of Admit : No Emergency Contact #1 : Erma Jacobs Emergency Contact #1 Emergency Contact #1 Relationship : Emergency Contact #2 : Ryan Jacobs Emergency Contact #2 Emergency Contact #2 Relationship : brother Information Obtained From : Patient Primary Language : Portuguese Communication Barrier : None Jackie Ingram RN - 03/28/2019 17:21 EST Fall Risk Scales ABCs Fall Injury Risk Identification : Surgery ABC Fall Injury Risk : Moderate to high injury risk MOISE Hx Falls Immediate/Within 3 Months : No Moise Secondary Diagnosis : Yes MOISE Use of Ambulatory Aid : Bed rest/Nurse assist MOISE IV Therapy or IV Access : Yes Moise Gait/Transferring : Weak Moise Mental Status : Oriented to own ability Moise Fall Risk Score : 45 MOISE Fall Scale Risk Level : 25-45 Medium Risk [place] Fall Interventions : Adequate lighting, Assistive devices within reach, Bed in low position, Call device within reach, Hourly comfort/safety rounds, Non-slip footwear, Personal items within reach, Reinforced to call for assistance before getting out of bed, Room free of clutter/spills, Upper side-rails up, Wheels locked, Wires/Cords secured Barriers to Learning : None evident Jackie Ingram RN - 03/28/2019 17:21 EST Health Histories Smoking Status : Never (less than 100 in lifetime; none in last 30 days) Smokeless Tobacco Status : Never Implant/Device Type, Financial Internship and Model : right ankle hardware, heart stents Jackie Ingram RN - 03/28/2019 17:21 EST Social History (As Of: 03/28/2019 17:22:27 EST) Tobacco: Never (less than 100 in [...] 03/27/2019 11:16:24 EST by Monserrat Bowles RN) Height and Weight, Clinical Dosing Height Source : Measured Height Entry Format : [place] Height, Feet : 0 ft(Converted to: 0 cm, 0 Inch) Height, Inches : 69 Inch(Converted to: 5 ft 9 Inch, 175.26 cm) Clinical Height : 175.26 cm Weight Source : Standing scale Weight Entry Format : [place] Clinical Dosing Weight : 100.55 kg Weight, Pounds : 221.2 lb Body Surface Area (BSA) : 2.16 m2 Body Mass Index : 32.7 kg/m2 (HI) [place] Body Weight : 70 kg Jackie Ingram RN - 03/28/2019 17:21 EST Infectious Disease History Infectious Disease History : Chicken pox/Shingles, Influenza, Measles, Mumps Fever/Chills Last 48 Hours : No Travel To Regions with Travel Advisories : No Travel Outside [place].S[place] Within Last 30 Days : No Contact With Traveler to Advisory Region : No Tuberculosis Symptoms : None Jackie Ingram RN - 03/28/2019 17:21 EST Influenza Vaccine Asmt, Adult Previous Vaccines from Immunization Schedule : No qualifying data available. Influenza Immunization, Current Season : No Inactivated Flu Vaccine Contraindications : No contraindications to inactivated influenza vaccine Transplant Workup/Recent Transplant : No Order for Influenza Vaccine : Declined Vaccination Jackie Ingram RN - 03/28/2019 17:21 EST Pneumococcal Vaccine Previous Vaccines from Immunization Schedule : No qualifying data available. Pneumonia Immunization Received : No Pneumococcal Risk Assessment < Age 65 : None Jackie Ingram RN - 03/28/2019 17:21 EST Nutrition History Eating Poorly Due to Decreased Appetite : No Unplanned Weight Loss in Past 3-6 Months : No Malnutrition Screening Tool Total(mal) : 0 Malnutrition Screening Tool Risk Level : Patient not at risk Jackie Ingram RN - 03/28/2019 17:21 EST [place] Suicide Severity Rating Scale (C-SSRS) CSSRS Past Month Wish to be : No CSSRS Past Month Suicidal Thoughts : No CSSRS Lifetime Suicide Behavior : No Suicide Severity Rating Score : 0 Suicide Severity Rating : No Additional Care Required at this time Jackie Ingram RN - 03/28/2019 17:21 EST Psychosocial History Do You Have a History of the Following? : Patient denies history Currently in Unsafe Situation : No Jackie Ingram RN - 03/28/2019 17:21 EST Sleep Apnea Risk Assmt BiPAP/CPAP Ordered for Home Use : No Hx of Obstructive Sleep Apnea Diagnosis : Yes Age over 50 Years Old : Yes Gender Male : Yes Jackie Ingram RN - 03/28/2019 17:21 EST Valuables and Belongings Valuables and Belongings : No personal items Jackie Ingram RN - 03/28/2019 17:21 EST documented in this encounter Plan of Treatment Not on file documented as of this encounter Visit Diagnoses Not on filedocumented in this encounter
--- OUTSIDE RECORDS SUMMARY | 2024-10-09 19:00 | XMS_ITS | Encounter Summary ---
Author Organization [employer] ([place], [place], [place], [place]) Address [address] [place] [address] Care Team Providers Care Sports Media Name Role Phone Unavailable Primary Care Provider Unavailabl e Encounter Details Date Type Department Care Team (Late st Contact Info) Description 03/30/2019 Transcribed Document [facility] Radiology 1 [place] [address] Provider, James Pelaez MD Social History Tobacco Use Types Packs/Day Years Used Date Smoking Tobacco: Never Assessed Sex and Gender Information Value Date Recorded Sex Assigned at Not on file Legal Sex Male 1:31 PM CDT Gender Identity Not on file Sexual Orientation Not on file documented as of this encounter Miscellaneous Notes * Cerner Conversion Note - [facility] Latanya ProviderMD - 03/30/2019 10:15 AM EST Spiritual Care Short Form Entered On: 03/30/2019 15:57 EST Performed On: 03/30/2019 9:15 EST by AMANDA ASHRAF General Information, Spiritual Care Intervention/Comment/Summary Points : Visit completed by Spiritual Acid Tank Cleaner Addison Edwards; Pt was kind; Wanted to talk; Strong family/lorna; Wanted prayer for his health; [facility] [place] [facility]; Great visit AMANDA ASHRAF - 03/30/2019 15:57 EST documented in this encounter Plan of Treatment Not on file documented as of this encounter Visit Diagnoses Not on filedocumented in this encounter
--- OUTSIDE RECORDS SUMMARY | 2024-10-09 19:00 | XMS_ITS | Clinical Summary ---
Author Organization [employer] ([place], [place], [place], [place]) Address [address] [place] [address] Care Team Providers Care Photo Technician Name Role Phone Unavailable Primary Care [...]
--- OUTSIDE RECORDS SUMMARY | 2024-10-09 19:00 | XMS_ITS | Encounter Summary ---
Author Organization [employer] [facility] ([place], [place], [place], [place]) Address [address] [place] [address] Care Team Providers Care Pouncer Machine Name Role Phone Unavailable Primary Care Provider Unavailabl e Encounter Details Date Type Department Care Team (Late st Contact Info) Description 03/28/2019 Transcribed Document [facility] Radiology 1 [place] [address] Provider, nathen Pelaez MD Social History Tobacco Use Types Packs/Day Years Used Date Smoking Tobacco: Never Assessed Sex and Gender Information Value Date Recorded Sex Assigned at Not on file Legal Sex Male 1:31 PM CDT Gender Identity Not on file Sexual Orientation Not on file documented as of this encounter Miscellaneous Notes * Cerner Conversion Note - [facility] Latanya ProviderMD - 03/28/2019 11:15 AM EST [facility] Main OR Preop Summary Primary Physician: SHYAM PADILLA MD-SUR Finalized Date/Time: 03/28/19 12:36:52 Pt. Name: ROBERTO ROMEO D.O.B./Sex: 1960 Male Med Rec #: [id number] Physician: SHYAM PADILLA MD-SUR Financial #: [id number] Pt. Type: O Room/Bed: Admit/Disch: 03/28/19 06:48:00 - Institution: [facility] PreOp Case Times Entry 1 In Preop 03/28/19 07:18:00 Ready for Holding n/a Room Patient Ready for 03/28/19 08:34:00 Surgery Patient Out of Preop 03/28/19 09:39:00 Patient Out of n/a Holding Room Last Modified By: DORI WINCHESTER, ANTONIA 03/28/19 12:36:51 [facility] PreOp Case Times Audit 03/28/19 12:36:51 Centrifugal Wax Molder: [id number] Modifier: [email or web address] <+> 1 Patient Out of Preop 03/28/19 08:34:46 Centrifugal Wax Molder: [id number] Modifier: [id number] <+> 1 Patient Ready for Surgery Finalized By: DORI WINCHESTER RN Document Signatures Signed By: DORI WINCHESTER RN 03/28/19 12:36 Electronically signed by [place] [facility] Conversion Manager Terminal Cerner at 08/12/2022 11:48 AM CDT documented in this encounter Plan of Treatment Not on file documented as of this encounter Visit Diagnoses Not on filedocumented in this encounter
--- OUTSIDE RECORDS SUMMARY | 2024-10-09 19:00 | XMS_ITS | Encounter Summary ---
Author Organization [employer] ([place], [place], [place], [place]) Address [address] [place] [address] Care Team Providers Care Yard Coordinator Name Role Phone Unavailable Primary Care Provider Unavailabl e Encounter Details Date Type Department Care Team (Late st Contact Info) Description 03/28/2019 Transcribed Document [facility] Radiology 1 [place] [address] ProviderJames MD Social History Tobacco Use Types Packs/Day Years Used Date Smoking Tobacco: Never Assessed Sex and Gender Information Value Date Recorded Sex Assigned at Not on file Legal Sex Male 1:31 PM CDT Gender Identity Not on file Sexual Orientation Not on file documented as of this encounter Miscellaneous Notes * Cerner Conversion Note - [facility] Latanya ProviderMD - 03/28/2019 1:29 PM EST Pain Assessment Entered On: 03/29/2019 13:02 EST Performed On: 03/29/2019 7:08 EST by EMMA CHERY RN Intervention Information: morphine Performed by Kassandra Quesada RN on 03/29/2019 06:38:00 EST morphine,3mg IV Push,Left Hand,Pain (Severe 7-10) Pain Assessment Pain Assessment : Follow-up assessment Pain Scale Goal : 4 Onset : Acute Pain Radiation : No Pain Improved by Intervention : Yes EMMA CHERY RN - 03/29/2019 13:02 EST documented in this encounter Plan of Treatment Not on file documented as of this encounter Visit Diagnoses Not on filedocumented in this encounter
--- OUTSIDE RECORDS SUMMARY | 2024-10-09 19:00 | XMS_ITS | Encounter Summary ---
Author Organization [employer] [facility] ([place], [place], [place], [place]) Address [address] [place] [address] Care Team Providers Care Bleach Liquor Maker Name Role Phone Unavailable Primary Care Provider Unavailabl e Encounter Details Date Type Department Care Team (Late st Contact Info) Description 03/28/2019 Transcribed Document [facility] Radiology 1 [place] [address] Provider, James Pelaez MD Social [...] [facility] Latanya ProviderMD - 03/28/2019 11:15 AM EST [facility] Main OR PACU Summary Primary Physician: SHYAM PADILLA MD-SUR Finalized Date/Time: 03/28/19 18:06:28 Pt. Name: ROBERTO ROMEO/Sex: 1960 Male Med Rec #: [id number] Physician: SHYAM PADILLA MD-SUR Financial #: [id number] Pt. Type: O Room/Bed: [facility]/1 Admit/Disch: 03/28/19 06:48:00 - Institution: [facility] Main OR PACU I Case Times Entry 1 In PACU I 03/28/19 12:46:00 Ready for PACU 03/28/19 15:30:00 Discharge Discharge from PACU 03/28/19 16:20:00 I Last Modified By: HAMIDA PALMER RN 03/28/19 18:06:13 [facility] Main OR PACU Acuity Entry 1 Start Time 03/28/19 15:30:00 Stop Time 03/28/19 16:20:00 Acuity Level [facility] PACU Acuity I Last Modified By: HAMIDA PALMER RN 03/28/19 18:06:25 Finalized By: HAMIDA PALMER RN Document Signatures Signed By: HAMIDA PALMER RN 03/28/19 18:06 Electronically signed by [place] [facility] Conversion Welfare Service Aide Cerner at 08/12/2022 11:48 AM CDT documented in this encounter Plan of Treatment Not on file documented as of this encounter Visit Diagnoses Not on filedocumented in this encounter
--- NOTE | 2024-10-09 19:04 | [facility].EDGENADL ---
Discharge Plan Disposition Patient Disposition: Home, Self-Care Prescriptions Prescriptions: No Action hydrocodone-acetaminophen 7.5-325 mg tablet 1 tab PO TID PRN (Reason: pain) ibuprofen 800 mg tablet 800 mg PO TID PRN (Reason: pain) omeprazole 40 mg capsule,delayed release(DR/EC) 40 mg PO BID Patient Comments: TAKE (1) CAPSULE BY MOUTH TWICE DAILY. insulin glargine [Basaglar KwikPen U-100 Insulin] 100 unit/mL (3 mL) insulin pen 50 unit SQ DAILY fluticasone propionate 50 mcg/actuation spray,suspension 50 mcg intranasal NEEDED PRN (Reason: allergies) Patient Comments: USE 1 SPRAY IN EACH NOSTRIL ONCE DAILY metformin 500 mg tablet extended release 24 hr 500 mg PO DAILY Patient Comments: TAKE 1 TABLET DAILY WITH MEALS febuxostat 80 mg tablet 80 mg PO DAILY Patient Comments: TAKE 1 TABLET BY MOUTH ONCE A DAY. Ozempic 1 mg/dose (4 mg/3 mL) pen injector See Rx Instructions .ROUTE .COMPLEX Patient Comments: INJECT 1 MG UNDER SKIN ONCE WEEKLY Rx Instructions: per MD order atorvastatin 40 mg tablet See Rx Instructions .ROUTE .COMPLEX Qty: 30 11RF Dose Instruction: TAKE 1 TABLET BY MOUTH ONCE A DAY. Rx Instructions: TAKE 1 TABLET BY MOUTH ONCE A DAY. carvedilol 25 mg tablet 50 mg PO BID Qty: 120 5RF dapagliflozin propanediol [Farxiga] 10 mg tablet 10 mg PO QAM Qty: 30 5RF hydrochlorothiazide 25 mg tablet 25 mg PO DAILY Qty: 30 5RF losartan 100 mg tablet 100 mg PO DAILY Qty: 30 5RF isosorbide mononitrate 60 mg tablet extended release 24 hr 60 mg PO DAILY Qty: 30 5RF ranolazine 1,000 mg tablet extended release 12 hr 1,000 mg PO BID Qty: 60 5RF Brilinta 60 mg tablet See Rx Instructions .ROUTE .COMPLEX Qty: 180 3RF Dose Instruction: TAKE (1) TABLET BY MOUTH TWICE A DAY. Rx Instructions: TAKE (1) TABLET BY MOUTH TWICE A DAY. multivitamin [Daily Multi-Vitamin] Tablet 1 tab PO DAILY nitroglycerin [Nitrostat] 0.4 mg tablet, sublingual 0.4 mg sublingual Q5M PRN (Reason: chest pain) Qty: 30 3RF Rx Instructions: do not exceed 3 doses per episode famotidine 20 mg tablet See Rx Instructions .ROUTE .COMPLEX Qty: 90 3RF Dose Instruction: TAKE 1 TABLET BY MOUTH ONCE A DAY. Rx Instructions: TAKE 1 TABLET BY MOUTH ONCE A DAY. aspirin 81 mg Tablet 81 mg PO DAILY Referrals Follow up/Referrals: Provider,Referral, [Primary Care Provider, Medical] - See instructions Activity Restrictions/Add. Instructions Additional Instructions/Restrictions: At this time it was felt you are safe to be discharged home. If new or worsening symptoms please do not hesitate to return the emergency department. Please follow-up with your family doctor in 10 days to get your sutures removed. If signs of infection such as leaking pus or spreading redness please come back to the ER to see me. It is okay to shower, do not submerge your head in water until your wounds are healed. Take it easy for the next few days as you certainly probably have a concussion and should ease back into things. Clinical Impressions Clinical Impression: Forehead laceration, Concussion Print Language Print Language: Syrian Discharge ED Provider: Juan Quinn General Adult HPI General Chief complaint: Head Injury Stated complaint: AO 10/09/24 1600 Laceration above left eye Time Seen by Provider: 10/09/24 18:12 Mode of Arrival: Ambulatory Source of Information: Patient Description of Symptoms (Recalled from ER Triage Doc. by RN): pt was working on a shed in the back yard and 2x4 fell hit him in face/head area, knocked him out, has a laceration above left eyebrow and is on blood thinners History of Present Illness HPI narrative: Patient is 64-year-old male with past medical history of coronary artery disease hypertension hyperlipidemia diabetes, on dual antiplatelet therapy who presents emergency department for evaluation of blunt trauma. Patient was working on a shed in the backyard when a 2 x 4 fell and struck him in the left forehead and superior orbit. Positive loss of consciousness. He had significant bleeding from a cut over his eyebrow that caused him become concerned and presented for continued valuation. No vision changes. Tdap up-to-date. He has bilateral neck pain but no midline neck pain. No other acute complaints at this time Please note that above description of symptoms, in this electronic medical record under categorization of recalled from ER triage doctor by RN are reflective of an initial nursing assessment, however, is not reflective of my full history and physical exam that was personally taken and clarified. Consequentially, this preceding description of symptoms, which may include the patient's categorized chief complaint in the EMR, do not reflect my personal clinical impression, and the ultimate description of history of present illness and patient stated complaints should be deferred to this section of the note. Unless stated otherwise or congruent with this section of the note, additional signs, symptoms, or incongruence should be interpreted as inaccurate with my clinical impression. Related Data Home Medications ?Medication ?Instructions ?Recorded ?Confirmed hydrocodone 7.5 mg-acetaminophen 1 tab PO TID PRN pain 08/02/17 08/28/24 325 mg tablet ibuprofen 800 mg tablet 800 mg PO TID PRN pain 08/02/17 08/28/24 insulin glargine 100 unit/mL (3 50 unit SQ DAILY 09/10/22 08/28/24 mL) subcutaneous pen (Basaglar KwikPen U-100 Insulin) omeprazole 40 mg capsule,delayed 40 mg PO BID 09/10/22 08/28/24 release febuxostat 80 mg tablet 80 mg PO DAILY 10/28/23 08/28/24 fluticasone propionate 50 50 mcg intranasal NEEDED PRN 10/28/23 08/28/24 mcg/actuation nasal allergies spray,suspension metformin 500 mg tablet,extended 500 mg PO DAILY 10/28/23 08/28/24 release 24 hr semaglutide 1 mg/dose (4 mg/3 mL) See Rx Instructions .Route .COMPLEX 10/28/23 08/28/24 subcutaneous pen injector (Ozempic) aspirin 81 mg tablet 81 mg PO DAILY 11/30/23 08/28/24 multivitamin (Daily Multi-Vitamin 1 tab PO DAILY 01/12/24 08/28/24 tablet) Previous Rx's ?Medication ?Instructions ?Recorded nitroglycerin 0.4 mg sublingual 0.4 mg sublingual Q5M PRN chest 07/20/22 tablet (Nitrostat) pain #30 tabs famotidine 20 mg tablet See Rx Instructions .Route 03/11/23 .COMPLEX #90 tabs atorvastatin 40 mg tablet See Rx Instructions .Route 12/14/23 .COMPLEX #30 tabs carvedilol 25 mg tablet 50 mg (2 x 25 mg) PO BID #120 tabs 12/14/23 dapagliflozin propanediol 10 mg 10 mg PO QAM Diabetes #30 tabs 12/14/23 tablet (Farxiga) hydrochlorothiazide 25 mg tablet 25 mg PO DAILY #30 tabs 12/14/23 isosorbide mononitrate 60 mg 60 mg PO DAILY #30 tabs 12/14/23 tablet,extended release 24 hr losartan 100 mg tablet 100 mg PO DAILY #30 tabs 12/14/23 ranolazine 1,000 mg 1,000 mg PO BID #60 tabs 12/14/23 tablet,extended release,12 hr ticagrelor 60 mg tablet (Brilinta) See Rx Instructions .Route 12/14/23 .COMPLEX #180 tabs Allergies Allergy/AdvReac Type Severity Reaction Status Date / Time Penicillins Allergy Unknown Verified 08/28/24 13:29 allergy reaction [facility] Disclaimer: The information contained in this section may have been updated after the patient was seen, as this information can be updated by other users. Medical History (Updated 10/09/24 @ 19:56 by Juan Quinn MD) Pre-op exam Gout CAD (coronary artery disease) HTN (hypertension) HLD (hyperlipidemia) DM (diabetes mellitus) Endothelial dysfunction of coronary artery Acute cystitis with hematuria Bilateral nephrolithiasis Renal insufficiency Renal colic on right side Kidney stones Encounter for pre-operative cardiovascular clearance Chest pain Abnormal stress test Angina, class III Surgical History S/P cardiac cath Social History Smoking Status: Never smoker second hand exposure: No alcohol intake: never substance use type: denies use current occupational status: disabled Travel in the last 8 weeks?: None household members: spouse and children housing: other current occupational exposures/hazards: No caffeine: No Have you lived/traveled outside [place] in past 30 days?: No Contact w/someone who lives/traveled outside [place] past 30 days?: No Exposure to someone with infectious disease in past 14 days?: No Do you have a fever (greater than 100.4 F or 38 C)?: No Have you tested positive for COVID-19?: No Exposed to someone with COVID-19 in past 14 days?: No Do you have a sore throat?: No Do you have a cough?: No Do you have any weakness?: No Do you have any diarrhea?: No Are you experiencing any unusual bleeding?: No Do you have any muscle aches/pain?: No Do you have any abdominal pain?: No Are you experiencing loss of taste or smell?: No Other Medical History Have you received the Flu Vaccine for this season: No Have you received the Pneumonia Vaccine: No ROS Obtained: Yes Systems reviewed as appropriate & no additional complaints except as documented Physical Exam General General appearance: alert and in no apparent distress Head Head exam: normocephalic and other (5 cm curvilinear laceration over the superior orbit, no lid involvement.) Eye Eye exam: Present PERRL and EOMI ENT ENT exam: Present mucous membranes moist Neck Neck exam: Present normal inspection Chest Chest inspection: Present normal inspection and symmetric chest wall rise Respiratory Respiratory exam: Present normal lung sounds bilaterally; Absent respiratory distress Cardiovascular Cardiovascular exam: Present regular rate and normal rhythm Extremities Exam Extremities exam: Present normal inspection Neurological Exam Neurological exam: Present alert and CN II-XII intact; Absent motor sensory deficit Psychiatric Psychiatric exam: Present normal affect Skin Skin exam: Present warm and dry Medical Decision Making Medical Records Screening: Per USPSTF and CDC recommendations, given the prevalence of disease in our region, it is our hospital?s policy to screen for HIV and viral Hepatitis for all patients aged 18 and over and those with ongoing risk factors. Herman Inquiry Pt receiving controlled substance: No Vital Signs: 10/09/24 18:22 Temperature 97.8 F Temperature Source Oral Pulse Rate [Left Radial] 82 Respiratory Rate 20 Blood Pressure [Right Arm] 202/115 H Blood Pressure Mean [Right Arm] 144 02 Sat by Pulse Oximetry 98 Oxygen Delivery Method Room Air Orders (Tests/Meds): ED MEDICATIONS Generic Name Dose Route Start Last Admin Trade Name Freq PRN Reason Stop Dose Admin Acetaminophen 1,000 mg 10/09/24 19:48 Acetaminophen 500mg Tab PO 10/09/24 19:49 ONCE ONE Ibuprofen 800 mg 10/09/24 19:48 Ibuprofen 400 Mg Tablet PO 10/09/24 19:49 ONCE ONE Discontinued Medications Generic Name Dose Route Start Last Admin Trade Name Freq PRN Reason Stop Dose Admin Lidocaine/Epinephrine 20 ml 10/09/24 19:10 10/09/24 19:11 Lidocaine 1% W/Epi 1:100,000 20ml Vial SQ 10/09/24 19:11 20 ml ONCE ONE Administration ORDERS Category Date Time Status CT cervical spine wo con Stat Cat Scan 10/09/24 18:[address] facial bones wo con Stat Cat Scan 10/09/24 18:[address] head/brain wo con Stat Cat Scan 10/09/24 18:21 Completed Medical Decision Narrative: In summary patient is a 64-year-old male past medical history of scrota above presents emerged part for evaluation of traumatic injury sustained struck in the face with a piece of wood. Patient is hemodynamically stable nontoxic-appearing but normal, afebrile. Patient will undergo emergent CT imaging of the head and neck, there is a 5 cm wound that does not have any arterial hemorrhage at this time pressure will be placed on it prior to obtaining CT imaging. Tdap is up-to-date. Noncontrasted CT scan informally visualized by me no acute large intracranial hemorrhage. Formal read shows no acute intracranial pathology. CT imaging shows mild irregularity of the nasal bone otherwise no acute facial findings. Patient does not have any point tenderness over his nasal bone so I doubt fracture. No nasal septal hematoma on exam either. CT cervical spine no acute fracture or malalignment. Wound underwent primary repair with success and patient is appropriate for discharge at this time. Patient has a headache rightfully so given the degree of trauma he likely has a concussion as well. Ibuprofen and Tylenol administered prior to discharge. Upon clean the laceration I found a subsequent laceration over his superior forehead 1 cm linear oozing blood. This was cleaned with Hibiclens and glued with success. Patient tolerated the procedure well there are no immediate complications he is appropriate for outpatient management at this time. Procedure: Procedure performed was laceration repair. Site was left superior orbit. 5 cm curvilinear laceration was irrigated with sterile water after being numbed with 1% lidocaine with epinephrine approximately 7 cc. Anesthesia achieved. Wound underwent repair with 4-0 nylon sutures in supine erupted fashion number placed was 8. Patient tolerated procedure well there were no immediate complications. Procedure: Procedure form was laceration repair. Procedure site was superior left forehead. 1 cm laceration tension was removed with opposing pressure. Wound was hemostatic and cleaned. Glued with Dermabond with success. Critical Care Critical Care Time Critical Care Time: No
[2024-10-09] MEDS: LIDOCAINE 1% W/EPI 1:100,000 20ML VIAL 20 ML SQ (19:11)
[2024-10-09] MEDS: ACETAMINOPHEN 500MG TAB 1000 MG PO (19:57)
[2024-10-09] MEDS: IBUPROFEN 400 MG TABLET 800 MG PO (19:57)
[2024-10-09 19:59] VITALS: BP 173/88; PULSE 77; RESP 16; TEMP 36.6; O2SAT 97
== END 2024-10-09 20:05 | disposition home or self-care (01) ==
PROVIDERS: Emergency Provider Emergency Medicine
DX: S01.81XA Laceration without foreign body of other part of head, initial encounter (principal); S06.0XAA Concussion with loss of consciousness status unknown, initial encounter; I25.10 Atherosclerotic heart disease of native coronary artery without angina pectoris; E11.9 Type 2 diabetes mellitus without complications
CPT/HCPCS: 70450; 70486; 72125; 99285; J2004

== ENCOUNTER 2025-02-22 14:06 | Outpatient (CLI) | payer MEDICARE, MEDICAID, SELFPAY ==
[2025-02-22 14:28] LABS: Hematocrit 44.8 % (42.0-52.0); Hemoglobin 15.3 g/dL (14.1-18.0); Immature Granulocytes % 0.2 %; Mean Corpuscular HGB Conc 34.2 g/dL (31.8-35.4); Mean Corpuscular Hemoglobin 29.5 pg (27.0-31.2); Mean Corpuscular Volume 86.5 fl (80-94); Nucleated Red Blood Cells % 0 %; Platelet Count 222 K/mm3 (142-424); Red Blood Count 5.18 M/mm3 (4.60-6.20); Red Cell Distribution Width-SD 40.0 fL; White Blood Count 5.8 K/mm3 (4.8-10.8)
[2025-02-22 16:10] LABS: Alanine Aminotransferase 30 U/L (12-78); Albumin Level 4.7 g/dl (3.5-5.0); Alkaline Phosphatase 94 U/L (38-126); Anion Gap 10.8 mEq/L (5-15); Aspartate Amino Transferase 29 U/L (17-59); Bilirubin,Direct 0.1 mg/dl (0.0-0.4); Bilirubin,Indirect 1.8 mg/dL (0.0-0.9); Bilirubin,Total 1.9 mg/dl (0.2-1.3); Bilirubin,Unconjugated 1.8 mg/dL (0.0-1.1); Blood Urea Nitrogen 18 mg/dl (9-20); Calcium 9.4 mg/dl (8.4-10.2); Carbon Dioxide 24 mmol/L (22.0-30.0); Chloride 103 mmol/L (98-107); Cholesterol 133 mg/dl (140-200); Creatinine,Serum 0.80 mg/dl (0.66-1.25); Estimated Glomerular Filt Rate 97 ml/min (>60); GFR (African American) 118 ML/MIN (>60); Glucose 150 mg/dl (74-100); HDL Cholesterol 44 mg/dl (40-60); Magnesium 2.0 mg/dl (1.6-2.3); Potassium 3.8 mmoL/L (3.5-5.1); Sodium 134 mmol/L (136-145); Total Protein,Serum 7.9 g/dl (6.3-8.2); Triglycerides 161 mg/dl (30-150)
[2025-02-22 16:28] LABS: Free T4 (Free Thyroxine) 1.00 ng/dl (0.78-2.19)
[2025-02-22 16:42] LABS: Thyroid Stimulating Hormone 1.52 uIU/mL (0.465-4.68)
== END 2025-02-22 23:59 | disposition home or self-care (01) ==
LOC: LAB 14:07
PROVIDERS: Visit Provider Nurse Practitioner Family
DX: I25.10 Atherosclerotic heart disease of native coronary artery without angina pectoris (principal); I10 Essential (primary) hypertension; E78.2 Mixed hyperlipidemia; E11.69 Type 2 diabetes mellitus with other specified complication; Z79.4 Long term (current) use of insulin
CPT/HCPCS: 36415; 80048; 80061; 80076; 83735; 84439; 84443; 85025